=== PATIENT | male | born 1970 | race Caucasian/White ===

== ENCOUNTER 2021-01-28 23:57 | Emergency (ER) | payer MEDICAID, SELFPAY ==
[2021-01-28 23:58] VITALS: BP 145/109; PULSE 58; PULSE 66; RESP 18; RESP 24; TEMP 36.4; O2SAT 100; BMI 33.1
--- NOTE | 2021-01-29 00:13 | EDS_ITS ---
HPI History of Present Illness Chief Complaint: ETOH Intox Informant: patient Narrative Narrative: Brought in by EMS from home stating called EMS due to sudden dyspnea 1 hour prior to arrival. 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 Denies recent cough. States on the way home he got nauseated. Currently not nauseated. States due to his dyspnea called EMS. Remote tobacco quitting 3 years ago. History of anxiety on medications along with GERD. He states at age 35 was told he had a stress-induced heart attack however it was not documented. Denies chest pains. Denies fever. No other complaints. PFSH PFSH Home Medications alprazolam 0.25 mg PO BID 01/29/21 [History Last Taken Unknown] escitalopram oxalate [Lexapro] 10 mg PO DAILY 01/29/21 [History Last Taken Unknown] omeprazole 20 mg PO BID 01/29/21 [History Last Taken Unknown] Allergy/AdvReac Type Severity Reaction Status Date / Time Penicillins [PCN] Allergy Unknown Verified 07/28/15 14:05 Social History Smoking Status: Former smoker ROS ROS ED Constitutional Constitutional ED: Denies chills, fever(s) or sweats Eyes Eyes: Denies change in vision ENT ENT ED: Denies dysphagia or sore throat Cardiovascular Cardiovascular: Denies chest pain, leg edema, palpitations or racing heartbeat Respiratory/Chest Respiratory/Chest: Reports dyspnea; Denies cough or dyspnea on exertion Gastrointestinal Gastrointestinal: Denies abdominal pain, diarrhea, nausea or vomiting Genitourinary Genitourinary ED: Denies dysuria, hematuria or urinary frequency Musculoskeletal Musculoskeletal: Denies back pain, extremity pain or neck pain Integumentary Denies rash or wounds Neurologic Neurologic: Denies headache(s), paresthesias or weakness EXAM Physical Exam Const Vital Signs: 01/28/21 23:58 01/29/21 02:24 01/29/21 03:05 Temperature 97.5 F L Temperature Source Temporal Pulse Rate 58 L 61 61 Respiratory Rate 18 14 14 Blood Pressure 145/109 H 92/58 L 92/58 L Blood Pressure Mean 121 69 Pulse Ox 100 95 95 Oxygen Delivery Method Room Air Room Air Positive well nourished and well developed Constitutional Narrative: Initially somnolent from alcohol however would awaken and answer questions appropriately. When sleeping there was no distress, awakening states he felt short of breath grabbing at the left side of his chest. General Appearance ED: well developed and NAD HEENT Reports moist mucous membranes normocephalic and atraumatic Eyes PERRL, EOMs intact bilaterally and conjunctivae normal General Eye ED: Yes normal appearance of both eyes Neck no lymphadenopathy and supple General: Negative for tenderness Chest Wall Chest: Negative for tenderness Resp normal respiratory effort and normal air movement Resp Narrative: Symmetric breath sounds. Effort and Inspection: symmetric chest movement; Negative for respiratory distress Cardio regular rate, regular rhythm and no murmurs Peripheral Pulses: pulses 2+ throughout GI normal to inspection, nondistended, normoactive bowel sounds and non-tender Palpation: Negative for guarding or rebound tenderness present Back/Spine no CVA tenderness and no thoracic nor lumbar tenderness Extremity normal to inspection General Extremety ED: Negative for edema or tenderness General Extremity: Negative for edema Neuro oriented x3 and no sensory deficits noted Sensorium / Orientation: awake and alert Skin no rashes or lesions noted and no wounds MDM MDM MDM Narrative Medical decision making narrative: Patient vitals are stable, alcohol intoxication, however answering questions. Denies chest pains. Pulse ox 100% with his dyspnea complaints. EKG normal. Labs cardiac work-up negative. With exception of creatinine 1.46 with no old for comparison. Chest x-ray negative. Reevaluation at 0130: Patient's clinical symptoms improved. His spouse is present. Reports no history of CKD. He will be given a liter of fluids. With his reported stress induced heart attack at the age of 35 will obtain a delta troponin before being discharged. 0300: Delta troponin returned negative. Patient remained symptom-free. Was discharged with his spouse. Return precautions discussed. All questions were answered. Lab Data Attestation: I reviewed the patient's lab results. Labs: Laboratory Results - last 24 hr 01/29/21 01/29/21 01/29/21 00:20 00:20 02:21 WBC 5.7 RBC 4.58 L Hgb 14.4 Hct 40.6 MCV 88.6 MCH 31.4 MCHC 35.5 RDW Std Deviation 39.7 RDW Coeff of Lillie 12.3 Plt Count 153 MPV 10.7 Immature Gran % (Auto) 0.400 Neut % (Auto) 69.6 Lymph % (Auto) 22.5 [place] % (Auto) 5.3 Eos % (Auto) 1.8 Baso % (Auto) 0.4 Absolute Neuts (auto) 4.0 Absolute Lymphs (auto) 1.28 Nucleated RBC % 0 Sodium 142 Potassium 3.7 Chloride 107 Carbon Dioxide 25.0 Anion Gap 10 BUN 14 Creatinine 1.46 H Estim Creat Clear Calc 61.11 Est GFR (MDRD) Af Amer 65 Est GFR (MDRD) Non-Af 54 L BUN/Creatinine Ratio 9.6 L Glucose 115 H Calcium 9.2 Troponin I High Sens 9 8 Radiography Chest X-Ray - ED: 1 View, Read by ED Physician and Read by Radiologist Diagnostic Testing: Clinical Impression(s) from Imaging Studies Chest X-Ray 01/29/21 00:44 IMPRESSION: No acute abnormal cardiopulmonary finding. Electronically Signed: Ricardo Little MD at 1:18 EDT Tel , Service support , EKG Initial EKG: Attestation: I personally reviewed and interpreted this EKG as follows: Comments: Sinus rate of 56, no ST or T wave changes. Discharge Plan Triage Chief Complaint: ETOH Intox ED Provider: Bonifacio Pearson Dx/Rx/DC Orders Clinical Impression: Alcohol intoxication, Acute dyspnea, Acute renal insufficiency Instructions: ED Dyspnea, ED Alcohol Intoxication, ED Renal Insufficiency Prescriptions: No Action alprazolam 0.25 mg Tablet 0.25 mg PO BID RF: 0 omeprazole 20 mg Capsule,Delayed Release(Dr/Ec) 20 mg PO BID RF: 0 escitalopram oxalate [Lexapro] 10 mg Tablet 10 mg PO DAILY RF: 0 Primary Care Provider: Kalie Silva Referrals: Kalie Silva MD [Primary Care Provider] - 3-5 Days Activity Restrictions/Additional Instructions: Creatinine 1.46 today continue oral fluids. Recheck by your PCP as an outpatient. Cardiac work-up negative for your shortness of breath symptoms. Disposition Disposition: Home, Self Care Discharge Date/Time: 01/29/21 03:32
[2021-01-29 00:27] LABS: Absolute Lymphocyte Count 1.28 X10^3/uL (0.83-4.51); Basophil# 0.02 X10^3/uL; Basophil% 0.4 % (0-1); Eosinophils% 1.8 % (0-5); Hematocrit 40.6 % (40-54); Hemoglobin 14.4 g/dL (13.0-16.5); Lymphocyte # 1.28 X10^3/ul (0.83-4.51); Lymphocyte % 22.5 % (19-41); Mean Corp Hgb Conc 35.5 g/dL (32-36); Mean Corpuscular Hgb 31.4 pg (27.0-32.0); Mean Corpuscular Volume 88.6 fL (80-94); Mean Platelet Vol. 10.7 fl (6.2-12.0); Monocyte% 5.3 % (0-10); NRBC Flagged by Analyzer 0 % (0-5); Neutrophil # 3.96 X10^3/uL (2.7-7.7); Neutrophil % 69.6 % (47-70); Platelet Count 153 K/mm3 (150-450); RBC Distribution Width CV 12.3 % (11.6-14.6); RBC Distribution Width SD 39.7 fl (35.1-43.9); Red Blood Count 4.58 M/mm3 (4.6-6.2); White Blood Count 5.7 K/mm3 (4.4-11.0)
--- NOTE | 2021-01-29 00:44 | RAD_ITS ---
STUDY: X-RAY CHEST REASON FOR EXAM: Male, 50 years old. SOB TECHNIQUE: Portable, upright, AP chest radiograph COMPARISON: None. FINDINGS: The lungs are clear and expanded. There is no demonstrated pleural abnormality. Normal size heart. Normal mediastinum and dominga. Normal visualized pulmonary arteries. Normal visualized aortic arch and descending thoracic aorta. There is no demonstrated abnormality of the visualized soft tissue structures of the upper abdomen. RAD/Chest 1 View (Portable) IMPRESSION: No acute abnormal cardiopulmonary finding. Electronically Signed: Ricardo Little MD at 1:18 EDT Tel , Service support ,
[2021-01-29 00:45] LABS: Anion Gap 10 (5-15); BUN 14 mg/dL (7-18); BUN/Creat Ratio 9.6 RATIO (10-20); Calcium,Total 9.2 mg/dL (8.5-10.1); Chloride 107 mmol/L (98-107); Creatinine, Serum 1.46 mg/dL (0.70-1.30); EST Glomerular Filtration Rate 54 mL/min (>60); Est Glom Filt Rate - Afr Amer 65 mL/min (>60); Estimated Creatinine Clearance 61.11 ml/min; Glucose 115 mg/dL (74-106); Potassium 3.7 mmol/L (3.5-5.1); Sodium Level 142 mmol/L (136-145); Troponin-I HS 9 pg/mL (3.0-78.0)
[2021-01-29] MEDS: 0.9% Normal Saline 1,000 ML 999 ML IV (01:51)
[2021-01-29 02:24] VITALS: BP 92/58; PULSE 61; RESP 14; O2SAT 95
[2021-01-29 02:53] LABS: Troponin-I HS 8 pg/mL (3.0-78.0)
[2021-01-29 03:05] VITALS: BP 92/58; PULSE 61; RESP 14; O2SAT 95
== END 2021-01-29 03:32 | disposition home or self-care (01) ==
PROVIDERS: Emergency Provider Emergency Medicine; PCP Internal Medicine
DX: F10.129 Alcohol abuse with intoxication, unspecified (principal); N28.9 Disorder of kidney and ureter, unspecified; R06.02 Shortness of breath; F41.9 Anxiety disorder, unspecified; K21.9 Gastro-esophageal reflux disease without esophagitis; Z79.899 Other long term (current) drug therapy; Z87.891 Personal history of nicotine dependence
CPT/HCPCS: 36415; 71045; 80048; 84484; 85025; 93005; 96360; 99285; A4216

== ENCOUNTER → 2023-11-15 | Outpatient (CLI) | payer MEDICAID, SELFPAY ==
--- NOTE | 2023-11-15 07:01 | ECHOCS_ITS ---
Reason For Study: DYSPNEA Procedure This was a 2D Doppler, Color Flow transthoracic echocardiogram. The study was technically difficult. Contrast injection was performed. Exam performed in department. Left Ventricle Normal LV size. Moderate concentric left ventricular hypertrophy. Left ventricular systolic function is normal. The left ventricular ejection fraction is 55 %. Stage 1 diastolic dysfunction. No regional wall motion abnormalities noted. Right Ventricle Normal RV size. Normal systolic function. Mitral Valve Normal mitral valve. Tricuspid Valve Normal tricuspid valve. Aortic Valve Trisinus/trileaflet aortic valve. Pulmonic Valve The pulmonic valve is not well visualized. Great Vessels Normal aortic root. The pulmonary artery is normal size. Inferior vena cava collapse with respiration. Pericardium/Pleural No pericardial effusion. Medication Diluted definity 1ml given slow IV push to enhance endocardial definition. MMode/2D Measurements & Calculations LVIDd: 4.0 cm IVSd: 1.5 cm LVOT diam: 1.9 cm LVIDs: 3.2 cm LVPWd: 1.9 cm LVOT area: 2.7 cm2 RVDd: 2.6 cm FS: 20.0 % Ao root diam: 3.2 cm LAV(MOD-bp): 52.6 ml LVAd ap4: 29.8 cm2 LAV(MOD-bp) Indexed: 24.6 ml/m2 LVLd ap4: 7.8 cm LAV(MOD-sp2): 47.9 ml EDV(MOD-sp4): 91.0 ml LAV(MOD-sp4): 47.5 ml EDV(sp4-el): 96.0 ml LVAs ap4: 12.7 cm2 LVLs ap4: 5.7 cm ESV(MOD-sp4): 24.4 ml ESV(sp4-el): 24.2 ml EF(MOD-sp4): 73.3 % EF(sp4-el): 74.8 % SV(MOD-sp4): 66.7 ml SV(sp4-el): 71.7 ml LA A4 area: 18.8 cm2 LA dimension(2D): 3.9 cm RA A4 area: 17.1 cm2 Time Measurements MV dec time: 0.22 sec Doppler Measurements & Calculations MV E max ector: 48.4 cm/sec Lat Peak E' Ector: 7.0 cm/sec Med Peak E' Ector: 5.2 cm/sec MV A max ector: 66.1 cm/sec E/E' lat: 6.9 E/E' med: 9.3 MV E/A: 0.73 MV V2 max: 65.3 cm/sec Ao V2 max: 111.6 cm/sec MV max P.7 mmHg MV dec slope: 221.7 cm/sec2 Ao max P.0 mmHg MV V2 mean: 36.8 cm/sec Ao V2 mean: 74.7 cm/sec MV mean P.65 mmHg Ao mean P.6 mmHg MV V2 VTI: 18.5 cm Ao V2 VTI: 21.7 cm AV (velocity ratio): 1.1 MVA(VTI): 3.4 cm2 STAR(I,D): 2.9 cm2 STAR(V,D): 2.5 cm2 LV V1 max: 102.7 cm/sec SV(LVOT): 63.5 ml PA V2 max: 96.8 cm/sec LV V1 max P.2 mmHg PA V2 mean: 66.4 cm/sec LV V1 mean P.3 mmHg LV V1 mean: 70.5 cm/sec LV V1 VTI: 23.4 cm ECHO/Echo Complete W/ Contrast Interpretation Summary Normal LV size. Left ventricular systolic function is normal. The left ventricular ejection fraction is 55 %. Moderate concentric left ventricular hypertrophy. Stage 1 diastolic dysfunction. Structurally normal valves. Contrast injection was performed. Ordering Physician: Jim Cronin Referring Physician: Jim Cronin Performed By: Elvia Hoff RCS
--- NOTE | 2023-11-15 10:56 | STRESSREP ---
Stress Test Report Exercise myocardial perfusion stress test. 53-year-old male with a history of shortness of breath Stress protocol: Resting EKG demonstrates sinus rhythm with a rate of 59 bpm resting blood pressure is 118/82 mmHg. The patient exercised according to the regular Aristides protocol for a total duration of 10 minutes attaining a maximum heart rate of 151 bpm which was 91% of maximum predicted heart rate; the maximum workload was 13.4 metabolic equivalents. At rest there were no ST or T wave changes noted to suggest ischemia and at peak exercise upsloping ST changes only were noted which did not meet the criteria for ischemia. No clinical angina was noted the test was terminated due to the target heart rate being achieved/fatigue. The peak blood pressure was 164/70 mmHg. Rate-pressure product was 22,400. Myocardial perfusion protocol. 14 point mCi of technetium 99m sestamibi was injected at rest. The patient exercised according to regular Aristides protocol for total duration of 10 minutes and at peak exercise 45 mCi of technetium 99m sestamibi was injected stress images were obtained stress and rest images were reconstructed in comparing the short axis vertical long and horizontal long axis. Gated images were also obtained. Perfusion SPECT analysis: Review of the stress images demonstrate normal uptake of tracer noted in all areas of the myocardium. The resting images similarly demonstrate normal uptake of tracer noted in all areas of the myocardium. No areas of reversibility are noted to suggest ischemia no previous infarct was noted. Gated SPECT analysis: The gated ejection fraction is 73%. Conclusion: Normal exercise myocardial perfusion stress test at a high workload Preserved ejection fraction.
== END | disposition home or self-care (01) ==
LOC: CVS 07:00
PROVIDERS: PCP Internal Medicine; Referring Provider Internal Medicine Cardiovascular Disease; Visit Provider Internal Medicine Cardiovascular Disease
DX: R06.02 Shortness of breath (principal)
CPT/HCPCS: 93306; 78452; 93017; A9500; Q9957; A4216; C8929

== ENCOUNTER 2024-06-06 19:37 | Observation (INO) | payer OTHER, SELFPAY ==
[2024-06-06] VITALS (7 sets, daily range): BP systolic 154–181; BP diastolic 97–115; PULSE 67–92; RESP 16–27; TEMP 36.3–36.8; O2SAT 97–99; BMI 32.7; BMI 32.8; BMI 32.1
--- NOTE | 2024-06-06 20:09 | CT_ITS ---
PROCEDURE: BRAIN/HEAD WITHOUT CONTRAST REASON FOR EXAM: Weakness, headache TECHNIQUE: Head CT without intravenous contrast. COMPARISON: None. FINDINGS: There is no acute intracranial hemorrhage, mass effect, or evidence of large acute infarct. Brain: Normal CSF Spaces: Normal Sinuses/Mastoids: Mild ethmoid and bilateral maxillary sinus mucosal thickening. Bones: Unremarkable CT/Brain/Head without Contrast IMPRESSION: No acute intracranial abnormality identified. Mild paranasal sinus mucosal thi ckening One or more dose reduction techniques were used (e.g., Automated exposure contr ol, adjustment of the mA and/or kV according to patient size, use of iterative reconstruction technique). Reading Location: [id number]
--- NOTE | 2024-06-06 20:22 | ED.VIS.STROK ---
HPI History of Present Illness Chief Complaint: Neuro S/Sx Informant: patient and family Narrative Narrative: Patient is a 54-year-old male with history of anxiety, depression and hyperlipidemia presenting from home for intermittent episodes of right-sided arm pain as well as right hand weakness and right leg weakness. Patient states about a month ago he had an episode of not feeling well, vertigo and vomiting. He did not think too much of it but then 2 days ago when they were going to play at [facility] for his daughter that he could get out of the car. States he was not feeling good, his right arm was hurting and his right leg felt heavy. He had a coughing fit and had a hot flash. He states he eventually felt better and went to the auditorium where the plate was. Throughout the play he stated his right arm was hurting and he felt he could squeeze with his right hand. His right leg was dragging behind him. This episode lasted a few hours when he woke up the next morning it had resolved. Yesterday he notes his leg was better and as the day went on his right arm felt better. 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 Today he felt okay however this morning his arm started feel sore again. He has had many episodes of his right leg feeling weak. On his way here he had 3 episodes of vomiting. He notes he has been having headaches. States he does get some vision changes. They looked at the symptoms online were worried that there could be stroke and came in for further evaluation. Patient denies any trauma or head injury. Denies any fevers. Denies any chest pain or difficulty breathing. Is [id number]. No other complaints or concerns reported at this time. [facility] Medical History SOB (shortness of breath) Testicular hypofunction Mixed hyperlipidemia Depression Anxiety H/O esophageal reflux Nonspecific chest pain History of broken nose Home Medications ?Medication ?Instructions ?Recorded ?Last Taken ?Type escitalopram oxalate 10 mg tablet 10 mg PO DAILY 01/29/21 Unknown History (Lexapro) alprazolam 0.25 mg tablet 0.25 mg PO DAILY anxiety 10/07/23 Unknown History aspirin 81 mg tablet,delayed 81 mg PO DAILY 10/07/23 Unknown History release (Adult Low Dose Aspirin) albuterol sulfate 90 mcg/actuation 2 puff inhalation Q4H PRN 10/30/23 Unknown History aerosol inhaler shortness of breath or wheezing omeprazole 20 mg capsule,delayed 20 mg PO DAILY 10/30/23 Unknown History release Allergy/AdvReac Type Severity Reaction Status Date / Time Penicillins (PCN) Allergy Unknown Verified 06/06/24 19:37 Family History Father Myocardial infarction at 56 years old Mother Dementia Surgical History No history of previous surgery Social History household members: spouse and children number of children: 2 Smoking Status: Former smoker Smokeless tobacco user: chewing tobacco alcohol intake: current details: 2 drinks per week substance use type: does not use what type of physical activity do you participate in: walking, running and weight training do you feel safe at home: Yes ROS ROS ED Constitutional Constitutional ED: Reports sweats; Denies chills or fever(s) Eyes Eyes: Reports blurry vision ENT ENT ED: Denies rhinorrhea or sore throat Cardiovascular Cardiovascular: Denies chest pain Respiratory/Chest Respiratory/Chest: Denies cough or dyspnea Gastrointestinal Gastrointestinal: Reports nausea and vomiting; Denies abdominal pain Musculoskeletal Musculoskeletal: Reports other Details: right forearm pain ; Denies arthralgias or myalgias Integumentary Denies rash Neurologic Neurologic: Reports headache(s) and weakness; Denies paresthesias Psychiatric Psychiatric: Reports anxiety; Denies depression Hematologic/Lymphatic Hematologic/Lymphatic: Denies easy bleeding or easy bruising EXAM Physical Exam Const Vital Signs: 06/06/24 19:37 06/06/24 20:37 06/06/24 21:00 Temperature 98.2 F Temperature Source Oral Pulse Rate 92 74 74 Respiratory Rate 16 27 H 16 Blood Pressure 181/115 H 154/108 H 155/99 H Blood Pressure Mean 137 123 117 Pulse Ox 98 97 99 Oxygen Delivery Method Room Air Room Air 06/06/24 22:00 06/06/24 22:15 Temperature 98 F Temperature Source Pulse Rate 72 72 Respiratory Rate 18 18 Blood Pressure 159/101 H 159/101 H Blood Pressure Mean 120 120 Pulse Ox 97 97 Oxygen Delivery Method Room Air Positive well nourished and well developed General Appearance ED: well developed and NAD HEENT Reports TM's clear and moist mucous membranes Tympanic Membrane ED: Yes TM's clear Eyes PERRL and EOMs intact bilaterally Eyes Narrative: Very mild nystagmus bilaterally with gaze in all directions Neck supple Chest Wall inspection of chest normal and palpation of chest normal Resp normal respiratory effort and clear to auscultation bilaterally Cardio no murmurs Rate: regular rate Rhythm: regular rhythm GI normal to inspection, nondistended, normoactive bowel sounds and soft to palpation Extremity normal to inspection Extremity Narrative: 2+ radial and DP pulses present General Extremety ED: Negative for deformity, edema or tenderness General Extremity: Negative for deformity or edema Neuro oriented x3, CN's II-XII intact bilaterally and no sensory deficits noted Neuro Narrative: Normal [id number]. No truncal ataxia appreciated. Sensorium / Orientation: alert Speech: speech normal Sensory Exam: sensory level loss detected Motor Exam: Negative for general weakness Psych mental status grossly normal Skin no wounds Lesions: no lesions NIHSS NIHSS Initial: 1a Level of Consciousness: 0 1b LOC Questions (Score 2 if aphasic/stupor): 0 1c LOC Commands (Only score 1st attempt): 0 2 Best Gaze (If aphasic, use reflexive mvmts.): 0 3 Visual: 0 4 Facial Palsy: 0 5 Motor Arm Right (UN = amputation/fusion): 0 5 Motor Arm Left: 0 6 Motor Leg Right: 0 6 Motor Leg Left: 0 7 Limb ataxia (Only + if out of proportion): 0 8 Sensory (Aphasia/stupor=0 or 1, coma=2): 0 9 Best Language: 0 10 Dysarthria (mute, coma=2, intubated=UN): 0 11 Extinction and Inattention (only scored if +): 0 Total Score: 0 MDM MDM MDM Narrative Medical decision making narrative: Patient is evaluated for intermittent episodes of right-sided weakness. He is also had some associated right forearm pain as well as slight episodes of vomiting. He is right-hand dominant. In the ER he is hypertensive. Differential includes stroke, space-occupying lesion, intracranial hemorrhage, TIA, ACS, hypertensive emergency, psychosomatic disorder, [place] abnormalities, LUIS MANUEL. Workup including CBC, CMP, high sensitive troponin, urinalysis and CT of the brain as well as chest x-ray do not show any acute process. CTA is added on. Given the waxing and waning neurologic symptoms will admit patient for further TIA workup. Case discussed with hospitalist, Dr. Escobedo. Patient is agreeable with this. CTA does show some stenosis but no critical stenosis. No other acute process noted. Lab Data Attestation: I reviewed the patient's lab results. Labs: Laboratory Results - last 24 hr 06/06/24 06/06/24 19:45 21:09 WBC 5.4 RBC 4.96 Hgb 15.6 Hct 44.5 MCV 89.7 MCH 31.5 MCHC 35.1 RDW Std Deviation 41.3 RDW Coeff of Lillie 12.8 Plt Count 202 MPV 11.0 Immature Gran % (Auto) 0.200 Neut % (Auto) 51.6 Lymph % (Auto) 30.9 [place] % (Auto) 11.3 H Eos % (Auto) 5.4 H Baso % (Auto) 0.6 Absolute Neuts (auto) 2.8 Absolute Lymphs (auto) 1.66 Nucleated RBC % 0 PT 12.9 INR 1.0 APTT 25.5 Sodium 142 Potassium 4.1 Chloride Direct 105 Carbon Dioxide 22.8 Anion Gap 15 BUN 20 H Creatinine 1.42 H Estim Creat Clear Calc 70.16 Est GFR (MDRD) Non-Af 58 L BUN/Creatinine Ratio 13.9 Glucose 95 Calcium 9.6 Total Bilirubin 0.67 AST 28 ALT 36 Alkaline Phosphatase 99 Troponin T High Sens 10 Total Protein 7.5 Albumin 4.5 Globulin 3.0 Albumin/Globulin Ratio 1.5 Lipase 32 Urine Color Yellow Urine Clarity Sl. Cloudy Urine pH 6.0 Ur Specific [place] 1.020 Urine Protein 15 H Urine Glucose (UA) Normal Urine Ketones Negative Urine Occult Blood Negative Urine Nitrite Negative Urine Bilirubin Negative Urine Urobilinogen Normal Ur Leukocyte Esterase Negative Urine RBC 0 SEEN Urine WBC 0 SEEN Ur Squamous Epith Cells 0-5 SEEN Amorphous Sediment 1+ URATE Urine Bacteria 0 SEEN Urine Mucus 0 SEEN Radiography Diagnostic Testing: Clinical Impression(s) from Imaging Studies Brain CT 06/06/24 20:09 IMPRESSION: No acute intracranial abnormality identified. Mild paranasal sinus mucosal thickening One or more dose reduction techniques were used (e.g., Automated exposure control, adjustment of the mA and/or kV according to patient size, use of iterative reconstruction technique). Reading Location: [facility] Chest X-Ray 06/06/24 20:32 IMPRESSION: No focal infiltrate. Reading Location: [facility] Head/Neck CTA 06/06/24 21:11 IMPRESSION: Approximate 50% stenosis seen of the left carotid bulb. Less than 50% seen on the right. No high-grade stenosis detected. No evidence of large vessel occlusion. One or more dose reduction techniques were used (e.g., Automated exposure control, adjustment of the mA and/or kV according to patient size, use of iterative reconstruction technique). Reading Location: [facility] Management Discussion w/another healthcare provider: Hospitalist Discharge Plan Dx/Rx/DC Orders Clinical Impression: Right-sided muscle weakness, Vomiting Disposition Disposition: Acute Care [facility]
--- NOTE | 2024-06-06 20:32 | RAD_ITS ---
PROCEDURE: CHEST PA AND LATERAL REASON FOR EXAM: Vomiting TECHNIQUE: Frontal and lateral views of the chest. COMPARISON: 29 January 2021 FINDINGS: Stable examination. No evidence of infiltrate, effusion or pneumothorax. Bronchial thickening. RAD/Chest PA and Lateral IMPRESSION: No focal infiltrate. Reading Location: [id number]
[2024-06-06 20:39] LABS: Troponin T High Sensitivity 10 ng/L (<=22)
[2024-06-06 20:58] LABS: Absolute Lymphocyte Count 1.66 X10^3/uL (0.83-4.51); Absolute Neutrophil Count 2.8 X10^3/uL (2.0-7.7); Basophil# 0.03 X10^3/uL; Basophil% 0.6 % (0-1); Eosinophil# 0.29 X10^3/uL; Eosinophils% 5.4 % (0-5); Hematocrit 44.5 % (40-54); Hemoglobin 15.6 g/dL (13.0-16.5); Lymphocyte # 1.66 X10^3/ul (0.83-4.51); Lymphocyte % 30.9 % (19-41); Mean Corp Hgb Conc 35.1 g/dL (32-36); Mean Corpuscular Hgb 31.5 pg (27.0-32.0); Mean Corpuscular Volume 89.7 fL (80-94); Monocyte# 0.61 X10^3/uL; Monocyte% 11.3 % (0-10); NRBC Flagged by Analyzer 0 % (0-5); Neutrophil # 2.78 X10^3/uL (2.7-7.7); Neutrophil % 51.6 % (47-70); Platelet Count 202 K/mm3 (150-450); RBC Distribution Width CV 12.8 % (11.6-14.6); RBC Distribution Width SD 41.3 fl (35.1-43.9); Red Blood Count 4.96 M/mm3 (4.6-6.2); White Blood Count 5.4 K/mm3 (4.4-11.0)
[2024-06-06 21:03] LABS: Partial Thromboplast Time 25.5 Seconds (24.1-36.2); Prothrombin Time (Protime)PT. 12.9 SECONDS (11.7-14.9)
[2024-06-06 21:07] LABS: ALB/GLOB Ratio 1.5 RATIO (0.9-2.4); AST(SGOT) 28 U/L (<=37); Alanine Aminotransfer ALT/SGPT 36 U/L (<=46); Albumin, Serum 4.5 g/dL (3.5-5.0); Alkaline Phosphatase 99 U/L (40-129); Anion Gap 15 (5-15); BUN 20 mg/dL (4-19); BUN/Creat Ratio 13.9 RATIO (10-20); Calcium 9.6 mg/dL (7.6-11.0); Carbon Dioxide 22.8 mmol/L (22.0-29.0); Chloride 105 mmol/L (96-108); Creatinine, Serum 1.42 mg/dL (0.70-1.20); EST Glomerular Filtration Rate 58 (>60); Estimated Creatinine Clearance 70.16 ml/min (50-250); Glucose 95 mg/dL (70-99); Lipase 32 U/L (13-75); Potassium 4.1 mmol/L (3.3-5.1); Protein, Total 7.5 g/dL (5.9-8.4); Sodium Level 142 mmol/L (133-145); Total Bilirubin 0.67 mg/dL (0.00-1.30)
--- NOTE | 2024-06-06 21:11 | CT_ITS ---
PROCEDURE: CTA HEAD AND NECK W/ CONTRAST TECHNIQUE: CTA imaging of the head and neck from the aortic arch to the skull vertex with intravenous contrast. 3D reconstructions. Intravenous contrast administration using standard CT COMPARISON: None. # of known CTs in the past 12 months: 0 # of known Cardiac Nuclear Medicine Studies in the past 12 months: 0 FINDINGS: Slightly prominent hilar and mediastinal lymph nodes detected presumably reactive. Aortic Arch: Normal size and branching pattern. No significant atherosclerotic plaque. Brachiocephalic and Subclavians: Unremarkable RIGHT Carotid: Right CCA: Unremarkable. Right ICA: Unremarkable. Maximum stenosis (NASCET): <50 % Right ECA: Unremarkable. LEFT Carotid: Left CCA: Unremarkable. Left ICA: Unremarkable. Maximum stenosis (NASCET): Approximately 50% % Left ECA: Unremarkable. Vertebrals: Codominant. Arise from the subclavians. Both vertebrals form the basilar. RIGHT Vertebral: Unremarkable. LEFT Vertebral: Unremarkable. No intracranial aneurysms or large vascular malformations are identified. Anterior cerebral arteries: Unremarkable. Middle cerebral arteries: Unremarkable. Basilar artery: Unremarkable. Posterior cerebral arteries: Unremarkable. Other major branches of the posterior circulation: Unremarkable. Major venous structures: Unremarkable. There does appear tortuous vascularity suggesting systemic hypertension Heterogeneous thyroid gland. Query chronic thyroid disease. CT/CTA Head AND Neck W/ Contrast IMPRESSION: Approximate 50% stenosis seen of the left carotid bulb. Less than 50% seen on the right. No high-grade stenosis detected. No evidence of large vessel occlusion. One or more dose reduction techniques were used (e.g., Automated exposure contr ol, adjustment of the mA and/or kV according to patient size, use of iterative reconstruction technique). Reading Location: [id number]
[2024-06-06 21:15] LABS: Bacteria 0 SEEN /hpf (None Seen); Mucous, Urine 0 SEEN /hpf (<or=2+); White Blood Cells 0 SEEN /hpf (0-5)
[2024-06-06 21:25] LABS: Color, Urine Yellow (Yellow); Glucose, Dipstick Normal (Normal); Ketone-Dipstick Negative (Negative); Leukocyte Esterase-Dipstick Negative /ul (Negative); Nitrite-Dipstick Negative (Negative); Occult Blood-Urine Negative /ul (Negative); Protein-Dipstick 15 mg/dl (Negative); Urine Bilirubin Dipstick Negative (Negative); Urine Clarity Sl. Cloudy (Clear); Urine Urobilinogen Normal (Normal)
[2024-06-06 21:33] LABS: Amorphous Sediment 1+ URATE; Red Blood Cells-Urine 0 SEEN /hpf (0-5); Squamous Epithelial Cells - UA 0-5 SEEN /hpf (0-5)
--- NOTE | 2024-06-06 22:03 | PCM.HP.STD ---
[facility] - General General Date of Admission: 06/06/24 Date of Service: 06/06/24 Chief Complaint: Intermittent Right-sided Weakness. HPI Narrative SEDRICK DAUGHERTY, is a Right handed 54 M with a past medical history of hyperlipidemia; not on treatment, obesity; with BMI of 32.9 this admission, former tobacco abuse, history of testicular hypofunction, history of nonspecific chest pain; on baby aspirin daily, history of chronic vertigo; with recent escalating pattern of severity, depression with anxiety; with escitalopram and alprazolam, listed allergy to PCN (?), history of nasal fracture, GERD; on omeprazole plus multiple as needed OTC medications and OA who presents to [facility] ER complaining of intermittent Right-sided weakness. Mr. Daugherty reports his symptoms began approximately one month ago with an episode of vertigo followed by nausea and vomiting with bilious emesis. Since his symptoms resolved spontaneously he did not seek medical attention at that time. Then 2 days ago he attended a play at [facility] [employer] for his daughter when he noted that he could not get out of the car. He states he was overall not feeling well and he had an aching sensation in his Right arm and his Right leg felt heavy with a subsequent coughing fit and hot flash - but he was able to recompose himself and started to feel better and eventually went to the play. When he did finally get out of the car he noted his Right leg was dragging behind him with this weakness persisting for approximately 6 hours before spontaneously resolving when he woke up the next morning. 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 On the way to the hospital he had severe nausea with 3 episodes of bilious emesis complicated by intermittent headaches and visual changes with his family worried that he may be having a stroke. He denies recent head trauma, recent injury, alcohol abuse, illicit substance abuse, fever, chills, abdominal pain, chest pain or SOB. In the ER he was noted to have uncontrolled hypertension of 181/115 mmHg present on admission complicated by clinical evidence of TIA versus CVA; with intermittent Right-sided weakness with Vertigo causing Nausea and Vomiting with bilious emesis with CTA of the head and neck revealing ~50% stenosis seen of the left carotid bulb with less than 50% seen on the right and no high-grade stenosis detected along with no evidence of large vessel occlusion along with a CXR that revealed bronchial thickening but no evidence of acute infiltrate effusion or pneumothorax. He was then admitted to the PCU under observation status for ongoing care for a stay that is expected to be less than 2 midnights. [facility] Medical History (Updated 06/07/24 @ 01:[address] Otis Schilling DO) Chronic pain SOB (shortness of breath) Testicular hypofunction Mixed hyperlipidemia Depression Anxiety H/O esophageal reflux Nonspecific chest pain History of broken nose Home Medications ?Medication ?Instructions ?Recorded ?Last Taken ?Type escitalopram oxalate 10 mg tablet 10 mg PO DAILY 01/29/21 Unknown History (Lexapro) alprazolam 0.25 mg tablet 0.25 mg PO DAILY anxiety 10/07/23 Unknown History aspirin 81 mg tablet,delayed 81 mg PO DAILY 10/07/23 Unknown History release (Adult Low Dose Aspirin) albuterol sulfate 90 mcg/actuation 2 puff inhalation Q4H PRN 10/30/23 Unknown History aerosol inhaler shortness of breath or wheezing omeprazole 20 mg capsule,delayed 20 mg PO DAILY 10/30/23 Unknown History release Allergy/AdvReac Type Severity Reaction Status Date / Time Penicillins (PCN) Allergy Unknown Verified 06/06/24 19:37 Family History Father Myocardial infarction at 56 years old Mother Dementia Surgical History No history of previous surgery Social History household members: spouse and children number of children: 2 Smoking Status: Former smoker Smokeless tobacco user: chewing tobacco alcohol intake: current details: 2 drinks per week substance use type: does not use what type of physical activity do you participate in: walking, running and weight training do you feel safe at home: Yes ROS ROS Narrative Review of Systems: Constitutional: Patient admits to sweats and malaise but he denies fever or chills. Eyes: Patient admits to intermittent blurring of vision but he denies discharge from eyes. ENT: Patient denies runny nose, sore throat or ear pain. Resp: Patient denies shortness of breath or cough. CV: Patient denies chest pain, palpitations, heart racing or lower extremity edema. GI: Patient admits to nausea and vomiting with bilious emesis as noted in HPI. He denies abdominal pain. MSK: Patient admits to painful Right forearm but he denies arthralgias. Skin: Patient denies rash, abscess, wounds or jaundice. Psych: Patient admits to heightened anxiety but he denies SI or HI. Neuro: Patient admits to intermittent headaches with blurriness of vision and vertigo complicated by intermittent Right-sided weakness as per HPI. He denies paresthesias. Allergy: Patient denies lip swelling, tongue swelling or urticaria. Hematology: Patient denies easy bleeding or easy bruisability. Endocrinology: Patient denies polyuria, polydipsia or polyphagia. 14 point ROS was negative except for positives noted above in HPI. Vital Signs Vital Signs Vital Signs: 06/06/24 19:37 06/06/24 20:37 06/06/24 21:00 Temperature 98.2 F Temperature Source Oral Pulse Rate 92 74 74 Respiratory Rate 16 27 H 16 Blood Pressure 181/115 H 154/108 H 155/99 H Blood Pressure Mean 137 123 117 Pulse Ox 98 97 99 Oxygen Delivery Method Room Air Room Air Weight Weight: 229 lb 4.492 oz Body Mass Index (BMI) 32.8 Physical Exam Const alert, oriented x3 and no apparent distress General Appearance: cooperative HEENT normocephalic, head/scalp atraumatic, hearing grossly normal bilaterally and moist oral mucous membranes Eyes PERRL, EOMs intact bilaterally and conjunctivae normal Eyes Narrative: Patient has very mild nystagmus bilaterally with gaze in all directions. Neck no lymphadenopathy, supple and no JVD Resp normal respiratory effort, no retractions, no use of accessory muscles and clear to auscultation bilaterally Cardio regular rate and regular rhythm GI normal to inspection, nondistended, normoactive bowel sounds, soft to palpation, non-tender and non-distended Extremity normal to inspection, full ROM and no clubbing, cyanosis or edema Skin Skin Narrative: Patient has no evidence of rash, abscess, wounds or jaundice. Neuro oriented x3, CN's II-XII intact bilaterally, moves all extremities and no focal motor deficits Sensorium / Orientation: awake, alert, oriented to person, oriented to place and oriented to time Speech: speech normal Psych Mood & Affect: anxious Results Medical Records Data Attestation: I reviewed the patient's medical records Lab / Micro Data Attestation: I reviewed the patient's lab results. 06/06/24 19:45 06/06/24 19:45 Labs: Laboratory Results - last 24 hr 06/06/24 19:45: WBC 5.4, RBC 4.96, Hgb 15.6, Hct 44.5, MCV 89.7, MCH 31.5, MCHC 35.1, RDW Std Deviation 41.3, RDW Coeff of Lillie 12.8, Plt Count 202, MPV 11.0, Immature Gran % (Auto) 0.200, Neut % (Auto) 51.6, Lymph % (Auto) 30.9, Mckinley % (Auto) 11.3 H, Eos % (Auto) 5.4 H, Baso % (Auto) 0.6, Absolute Neuts (auto) 2.8, Absolute Lymphs (auto) 1.66, Nucleated RBC % 0, PT 12.9, INR 1.0, APTT 25.5, Sodium 142, Potassium 4.1, Chloride Direct 105, Carbon Dioxide 22.8, Anion Gap 15, BUN 20 H, Creatinine 1.42 H, Estim Creat Clear Calc 70.16, Est GFR (MDRD) Non-Af 58 L, BUN/Creatinine Ratio 13.9, Glucose 95, Calcium 9.6, Total Bilirubin 0.67, AST 28, ALT 36, Alkaline Phosphatase 99, Troponin T High Sens 10, Total Protein 7.5, Albumin 4.5, Globulin 3.0, Albumin/Globulin Ratio 1.5, Lipase 32 06/06/24 21:09: Urine Color Yellow, Urine Clarity Sl. Cloudy, Urine pH 6.0, Ur Specific [place] 1.020, Urine Protein 15 H, Urine Glucose (UA) Normal, Urine Ketones Negative, Urine Occult Blood Negative, Urine Nitrite Negative, Urine Bilirubin Negative, Urine Urobilinogen Normal, Ur Leukocyte Esterase Negative, Urine RBC 0 SEEN, Urine WBC 0 SEEN, Ur Squamous Epith Cells 0-5 SEEN, Amorphous Sediment 1+ URATE, Urine Bacteria 0 SEEN, Urine Mucus 0 SEEN Micro: Microbiology 06/06/24 20:14 Mucosa - Nose SARS-CoV-2, Influenza & RSV (PCR) - Final Imaging Radiology Impression Brain CT 06/06/24 20:09 IMPRESSION: No acute intracranial abnormality identified. Mild paranasal sinus mucosal thickening One or more dose reduction techniques were used (e.g., Automated exposure control, adjustment of the mA and/or kV according to patient size, use of iterative reconstruction technique). Reading Location: [id number] Chest X-Ray 06/06/24 20:32 IMPRESSION: No focal infiltrate. Reading Location: [id number] [facility] Imaging Services [address] [place] [id number] CTA Head AND Neck W/ Contrast MR#: [id number] Acct: [id number] Name: SEDRICK DAUGHERTY Rep #: [id number] : 1970 M 54 From: Biju Tapia MD PCP: Dr. Kalie Silva MD Status: [facility] Study: CTA Head AND Neck W/ Contrast Date of Exam: 06/06/24 Exam# [id number] Ordering Dr: Yokasta Marti DO PROCEDURE: CTA HEAD AND NECK W/ CONTRAST TECHNIQUE: CTA imaging of the head and neck from the aortic arch to the skull vertex with intravenous contrast. 3D reconstructions. Intravenous contrast administration using standard CT COMPARISON: None. # of known CTs in the past 12 months: 0 # of known Cardiac Nuclear Medicine Studies in the past 12 months: 0 FINDINGS: Slightly prominent hilar and mediastinal lymph nodes detected presumably reactive. Aortic Arch: Normal size and branching pattern. No significant atherosclerotic plaque. Brachiocephalic and Subclavians: Unremarkable RIGHT Carotid: Right CCA: Unremarkable. Right ICA: Unremarkable. Maximum stenosis (NASCET): <50 % Right ECA: Unremarkable. LEFT Carotid: Left CCA: Unremarkable. Left ICA: Unremarkable. Maximum stenosis (NASCET): Approximately 50% % Left ECA: Unremarkable. Vertebrals: Codominant. Arise from the subclavians. Both vertebrals form the basilar. RIGHT Vertebral: Unremarkable. LEFT Vertebral: Unremarkable. No intracranial aneurysms or large vascular malformations are identified. Anterior cerebral arteries: Unremarkable. Middle cerebral arteries: Unremarkable. Basilar artery: Unremarkable. Posterior cerebral arteries: Unremarkable. Other major branches of the posterior circulation: Unremarkable. Major venous structures: Unremarkable. There does appear tortuous vascularity suggesting systemic hypertension Heterogeneous thyroid gland. Query chronic thyroid disease. CT/CTA Head AND Neck W/ Contrast IMPRESSION: Approximate 50% stenosis seen of the left carotid bulb. Less than 50% seen on the right. No high-grade stenosis detected. No evidence of large vessel occlusion. One or more dose reduction techniques were used (e.g., Automated exposure control, adjustment of the mA and/or kV according to patient size, use of iterative reconstruction technique). Reading Location: [id number] CC: Dr. Yokasta Marti DO; Dr. 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 TIA versus CVA; with intermittent Right-sided weakness with Vertigo causing Nausea and Vomiting with bilious emesis with CTA of the head and neck revealing ~50% stenosis seen of the left carotid bulb with less than 50% seen on the right and no high-grade stenosis detected along with no evidence of large vessel occlusion along with clinical evidence of Nystagmus in both eyes with gaze in all directions - Admit to PCU under observation status. Increase aspirin to 162 mg daily plus start high-dose atorvastatin. Give meclizine as needed for vertigo for suspected underlying BPPV. Give ondansetron IV as needed for nausea and vomiting. Complete stroke workup with MRI of brain without contrast and check echocardiogram to evaluate LVEF. Check TSH, HgbA1c, UDS, TRACY and B12 level to evaluate for potentially reversible causes of confusion. Finally, we will consult [facility] tel[facility] to see this patient for further recommendations with help appreciated in advance. 2. Uncontrolled Hypertension of 181/115 mmHg present on admission complicating #1 - Allow for 'permissive hypertension' until CVA definitively ruled out on MRI. 3. Severe GERD; on omeprazole 20 mg daily with suspected silent aspiration causing worsening cough; with Post-Tussive Emesis and suspected gastritis compounding #1 & #2 - Increase PPI with Protonix 40 mg p.o. twice daily plus sucralfate 1 g p.o. AC. Patient should be considered for outpatient EGD with chronic uncontrolled GERD. 4. Depression with anxiety; with diagnoses listed from #1 - #3 causing acutely heightened anxiety - Maintain home regimen and treat as noted. Otherwise, we will continue supportive care as outlined above monitor for improvement. 5. Obesity; with BMI of 32.9 this admission adding to the burden of disease outlined from #1 - #4 - Weight loss will be recommended. This complicates his case and may hamper recovery. 6. Hyperlipidemia; not on treatment - Patient started on statin for #1 with Lipid Profile pending in AM. 7. Former tobacco abuse - Noted. 8. History of testicular hypofunction - Noted. 9. History of nonspecific chest pain; on baby aspirin daily - Maintain aspirin at 162 mg daily for #1. 10. Listed allergy to PCN (?) - We will avoid this class of agents. 11. History of nasal fracture - Noted for the sake of completeness. 12. Resume PPI. 13. OA - Give acetaminophen prn pain or fever. 14. DVT prophylaxis - Lovenox 40 mg sq daily plus SCD's. Total time: Approximately (but not less than) 70 minutes. Charges/Coding Visit Charges OBSV E&M: 03089 Observ/hosp same date L2
--- NOTE | 2024-06-06 22:09 | EKG12_ITS ---
Test Reason : NEURO Blood Pressure : */* mmHG Vent. Rate : 66 BPM Atrial Rate : 66 BPM P-R Int : 144 ms QRS Dur : 90 ms QT Int : 398 ms P-R-T Axes : 38 69 26 degrees QTcB Int : 417 ms Normal sinus rhythm Normal ECG Confirmed by Navjot Yeager ([id number]), supervising editor news reel KALPANA QUIROGA ([id number]) on 06/08/2024 6:51:55 AM Referred By: Confirmed By: Navjot Yeager
[2024-06-06 23:06] LABS: Alcohol, Blood (Medical)-Serum < 10.1 mg/dL (<=10.0); TROPONIN VARIANCE 2 HR 0; Troponin T High Sens 2 HR 10 ng/L (<=22)
[2024-06-06 23:09] LABS: Amphetamine Urine NEGATIVE (<1000 ng/mL); Barbiturate Urine NEGATIVE (< 200 ng/mL); Benzodiazepine Urine NEGATIVE (< 200 ng/mL); Buprenorphine Urine NEGATIVE (< 200 ng/mL); Cocaine Urine NEGATIVE (< 300 ng/mL); Fentanyl, Urine NEGATIVE; Methadone Urine NEGATIVE (< 300 ng/mL); Opiates Urine NEGATIVE (< 300 ng/mL); Oxycodone, Urine NEGATIVE (< 100 ng/mL); PCP Urine NEGATIVE (< 25 ng/mL); THC Urine NEGATIVE (< 50 ng/mL)
[2024-06-06] MEDS: Atorvastatin Calcium 80 MG Tablet PO (23:37)
[2024-06-06] MEDS: Aspirin E.C. 81 MG Tablet 162 MG PO (23:49)
[2024-06-07] VITALS (7 sets, daily range): BP systolic 115–166; BP diastolic 72–108; PULSE 72–93; RESP 14–20; TEMP 36.6–37.5; O2SAT 95–98; BMI 32.1
[2024-06-07 01:33] LABS: Vitamin B12 314 pg/mL (180-914)
[2024-06-07 01:53] LABS: Hemoglobin A1c 5.2 % (<=5.6)
[2024-06-07] MEDS: Acetaminophen 325 MG Tablet 650 MG PO ×2 (03:28→15:25)
[2024-06-07] MEDS: Sucralfate 1 GM Tablet PO ×4 (06:37→20:17)
[2024-06-07] MEDS: Enoxaparin 40 MG/0.4 ML Syringe SC (06:37)
[2024-06-07 07:13] LABS: Cholesterol 191 mg/dL (<=200); High Density Lipoprotein 41 mg/dL; Low Density Lipoprotein Calc. 121 mg/dL; Triglycerides 144 mg/dL; Very Low Density Lipoprotein 29 mg/dL (5-40); cholesterol:hdl ratio screen 4.62
--- NOTE | 2024-06-07 09:00 | MRI_ITS ---
EXAM: BRAIN WITHOUT CONTRAST CLINICAL HISTORY: Please evaluate for CVA COMPARISON: None. TECHNIQUE: PROCEDURE: Multiplanar sequences of the brain were obtained on a 1.5 Karolina MRI system, including T1, T2, FLAIR, DWI, and ADC. No intravenous contrast was administered. FINDINGS: MRI BRAIN: No intraparenchymal hemorrhage is evident. No focus of restricted diffusion is identified to suggest acute or early subacute ischemia. There is no extra-axial fluid collection, mass effect, or shift of midline structures. The basal cisterns are visualized. The ventricles and cortical sulci are in proportion and consistent with the patient's age. There is no signal abnormality in the brunson or white matter. The midline structures demonstrate normal contours. The craniocervical junction is unremarkable. The flow voids of the large intracranial vessels are normal. The calvarium is unremarkable. The paranasal sinuses and mastoid air cells are clear. MRI/Brain without Contrast IMPRESSION: No MR evidence of acute ischemia. Reading Location: [facility]
--- NOTE | 2024-06-07 09:27 | PCM.PN.HOSP ---
Subjective Subjective Doing well, no issues overnight. Deficits are completely resolved NIH of 0 but Objective Data Objective Data Vital Signs: Vital Signs Temp Pulse Resp BP Pulse Ox O2 Del Method 98.6 F 75 18 115/84 H 97 Room Air 06/07/24 06:55 06/07/24 06:55 06/07/24 06:55 06/07/24 06:55 06/07/24 07:28 06/07/24 08:37 Oxygen Delivery Method Room Air Weight: 223 lb 12.307 oz Body Mass Index (BMI) 32.1 Intake & Output: Intake and Output for Last 24 Hours 06/06/24 06/07/24 06/08/24 03:59 03:59 03:59 Intake Total 240 / 240 Balance 240 / 240 Lab / Micro Data 06/06/24 19:45 06/06/24 19:45 Labs: Laboratory Results - last 24 hr 06/06/24 19:45: WBC 5.4, RBC 4.96, Hgb 15.6, Hct 44.5, MCV 89.7, MCH 31.5, MCHC 35.1, RDW Std Deviation 41.3, RDW Coeff of Lillie 12.8, Plt Count 202, MPV 11.0, Immature Gran % (Auto) 0.200, Neut % (Auto) 51.6, Lymph % (Auto) 30.9, Powell % (Auto) 11.3 H, Eos % (Auto) 5.4 H, Baso % (Auto) 0.6, Absolute Neuts (auto) 2.8, Absolute Lymphs (auto) 1.66, Nucleated RBC % 0, PT 12.9, INR 1.0, APTT 25.5, Sodium 142, Potassium 4.1, Chloride Direct 105, Carbon Dioxide 22.8, Anion Gap 15, BUN 20 H, Creatinine 1.42 H, Estim Creat Clear Calc 70.16, Est GFR (MDRD) Non-Af 58 L, BUN/Creatinine Ratio 13.9, Glucose 95, Hemoglobin A1c 5.2 L, Calcium 9.6, Total Bilirubin 0.67, AST 28, ALT 36, Alkaline Phosphatase 99, Troponin T High Sens 10, Total Protein 7.5, Albumin 4.5, Globulin 3.0, Albumin/Globulin Ratio 1.5, Lipase 32 06/06/24 21:09: Urine Color Yellow, Urine Clarity Sl. Cloudy, Urine pH 6.0, Ur Specific [place] 1.020, Urine Protein 15 H, Urine Glucose (UA) Normal, Urine Ketones Negative, Urine Occult Blood Negative, Urine Nitrite Negative, Urine Bilirubin Negative, Urine Urobilinogen Normal, Ur Leukocyte Esterase Negative, Urine RBC 0 SEEN, Urine WBC 0 SEEN, Ur Squamous Epith Cells 0-5 SEEN, Amorphous Sediment 1+ URATE, Urine Bacteria 0 SEEN, Urine Mucus 0 SEEN, Urine Opiates Screen NEGATIVE, U Buprenorphine Qual NEGATIVE, Ur Oxycodone Screen NEGATIVE, Urine Methadone Screen NEGATIVE, Urine Fentanyl Screen NEGATIVE, Ur Barbiturates Screen NEGATIVE, Ur Phencyclidine Scrn NEGATIVE, Ur Amphetamines Screen NEGATIVE, U Benzodiazepines Scrn NEGATIVE, Urine Cocaine Screen NEGATIVE, U Cannabinoids Screen NEGATIVE 06/06/24 22:20: Troponin T Hi Sens 2 Hr 10, Troponin T Hi Sens 2Hr Delta 0, Vitamin B12 314, TSH 3.640, Ethyl Alcohol < 10.1 06/07/24 05:48: Triglycerides 144, Cholesterol 191, VLDL Cholesterol 29, HDL Cholesterol 41, Cholesterol/HDL Ratio 4.62 Micro: Microbiology 06/06/24 20:14 Mucosa - Nose SARS-CoV-2, Influenza & RSV (PCR) - Final Radiography Diagnostic Testing: Radiology Impression Brain CT 06/06/24 20:09 IMPRESSION: No acute intracranial abnormality identified. Mild paranasal sinus mucosal thickening One or more dose reduction techniques were used (e.g., Automated exposure control, adjustment of the mA and/or kV according to patient size, use of iterative reconstruction technique). Reading Location: [facility] Chest X-Ray 06/06/24 20:32 IMPRESSION: No focal infiltrate. Reading Location: [facility] Head/Neck CTA 06/06/24 21:11 IMPRESSION: Approximate 50% stenosis seen of the left carotid bulb. Less than 50% seen on the right. No high-grade stenosis detected. No evidence of large vessel occlusion. One or more dose reduction techniques were used (e.g., Automated exposure control, adjustment of the mA and/or kV according to patient size, use of iterative reconstruction technique). Reading Location: [facility] Physical Exam Narrative General: Alert, Oriented x3, Cooperative, No apparent distress HEENT: Atraumatic, PERRLA, EOMI, Normocephalic Oral: Moist Mucosa Neck: Supple, No JVD Lungs: Clear to auscultation, Normal air movement, No rhonchi, No wheeze, No rales Cardiovascular: Regular rate, Regular Rhythm, Normal S1, Normal S2, No murmurs Abdomen: Soft, Non Tender, Non-Distended, No Hepato-splenomegaly Extremities: No edema, Capillary Refill Less than 3 Seconds Skin: No rashes, No breakdown Musculoskeletal: No Tenderness to Palpation of Joints or Extremities Neurological: No focal neurological deficits, Motor Exam 5/5 strength throughout, Sensory exam intact to light touch and pain Psych/Mental Status: Normal Affect, Appropriate Assessment & Plan Assessment/Plan (1) TIA (transient ischemic attack): (2) Right-sided muscle weakness: PLAN: Plan 1. TIA ? MRI is pending ? CT of the head and neck is essentially unremarkable though there is a left-sided about 50% stenosis of his carotid artery, can have duplex as an outpatient if necessary ? Continue with aspirin and Lipitor ? No A-fib on the monitor ? Continue with permissive hypertension 2. GERD ? Stable ? Continue with his home medications 3. Anxiety/depression ? Stable ? Continue with his home medications DVT: Lovenox Charges/Coding Visit Charges Inpatient E&M: 56349 Subs Hosp L2
[2024-06-07] MEDS: Escitalopram Oxalate 10 MG Tablet PO (09:48)
[2024-06-07] MEDS: Pantoprazole Sodium 40 MG Tablet PO ×2 (09:48→20:17)
[2024-06-07] MEDS: Aspirin E.C. 81 MG Tablet 162 MG PO (09:49)
[2024-06-07] MEDS: ALPRAZolam 0.25 MG Tablet PO (12:00)
[2024-06-07] MEDS: Atorvastatin Calcium 80 MG Tablet PO (20:17)
[2024-06-08 05:40] VITALS: BP 136/74; PULSE 62; RESP 18; TEMP 36.5; O2SAT 98
[2024-06-08] MEDS: Enoxaparin 40 MG/0.4 ML Syringe SC (05:42)
[2024-06-08] MEDS: Sucralfate 1 GM Tablet PO ×2 (05:42→10:45)
[2024-06-08 09:51] VITALS: BP 156/100; PULSE 73; RESP 18; TEMP 36.6; O2SAT 100
[2024-06-08] MEDS: Aspirin E.C. 81 MG Tablet 162 MG PO (10:05)
[2024-06-08] MEDS: Escitalopram Oxalate 10 MG Tablet PO (10:05)
[2024-06-08] MEDS: Pantoprazole Sodium 40 MG Tablet PO (10:05)
[2024-06-08] MEDS: ALPRAZolam 0.25 MG Tablet PO (10:05)
[2024-06-08 10:20] VITALS: O2SAT 96
--- NOTE | 2024-06-08 10:29 | PCM.DC ---
Discharge Instructions Diet Discharge Diet: Low fat / Low cholesterol DC O2, CPAP, BIPAP needs Home O2 Discharge instructions: No Dressing / Incision Discharge Activity: Return to Normal Activity Dressing / Incision Call your doctor if you observe: Fever of 101 or Higher, Shortness of breath, Dizziness, Fainting spells, Swelling in the ankles, Chest pain and Increased palpitations (irregular heartbeat) Follow Up Care Test Results: Test results from this visit will be discussed in further detail at your follow-up appointment, if applicable. Discharge Plan Admission Admit Date/Time: 06/06/24 22:35 Attending Provider: Grant Botello Primary Care Provider: Kalie Silva Consulting Providers: Ace Cortes; Caroline Johnson; Angelica Weston; Peggy Terry; Haylee Chapa; Barron Raines; Venus Leon; Te Talley; Samuel Cannon; Kye Storey; Tiffany Eisenberg; Palmer Faustin; Lakesha Clancy; Henrry Bailey; Andree Weeks; Odin Dodd; Joanne Pillai; Emanuel Vincent; Katie Edmond; Ngoc Olivas; Otis Schilling Discharge Orders/Prescriptions Prescriptions: New amlodipine [Norvasc] 10 mg tablet 10 mg PO DAILY Qty: 30 0RF Continued aspirin [Adult Low Dose Aspirin] 81 mg tablet,delayed release (DR/EC) 81 mg PO DAILY albuterol sulfate 90 mcg/actuation HFA aerosol inhaler 2 puff inhalation Q4H PRN (Reason: shortness of breath or wheezing) escitalopram oxalate [Lexapro] 10 mg Tablet 10 mg PO DAILY alprazolam 0.25 mg tablet 0.25 mg PO DAILY Changed omeprazole 20 mg capsule,delayed release(DR/EC) 40 mg PO DAILY 30 Days Qty: 0 0RF Referrals / Follow Up: Kalie Silva MD [Primary Care Provider] - Within 1 Week Disposition Disposition (needs filled in before D/C Order can be placed): Home, Self Care
[2024-06-08 10:50] VITALS: BMI 32.1
[2024-06-08] MEDS: amLODIPine 10 MG Tablet PO (11:40)
--- NOTE | 2024-06-08 12:38 | CASEMGMT ---
SW did not complete a PHQ9 as per physician patient did not have a Stroke or TIA. Alvina BALTAZAR
--- NOTE | 2024-06-08 14:11 | CASEMGMT ---
Patient has order for discharge. RN CM in to discuss needs at discharge. Patient denies needs or help at discharge. Patient had no further questions or concerns.
[2024-06-08 15:34] VITALS: BP 140/91; PULSE 83; RESP 18; TEMP 36.6; O2SAT 98
--- NOTE | 2024-06-08 15:40 | PCM.DC.SUM ---
Providers Date of Admission: 06/06/24 Primary Care Physician: Dr. Kalie Silva MD Consultations 06/06/24 23:01 Consult: Tele-Neurology Routine Consulting Provider: [facility] Reason for Consult: Acute Ischemic Stroke/TIA EMERGENT Consult: No MD Notified: Yes Date Notified: 06/07/24 Time Notified: 01:45 Method of Notification: Answering Service Method of Consult:: Telemedicine Nursing Unit Staff Notify [facility] of Tele-Neurology Consult: Yes Reason For Visit: TIA VS CVA; WITH INTERMITTEN RIGHT SIDED WEAKNESS Diagnosis Discharge Diagnosis (1) TIA (transient ischemic attack): Status: Acute Code(s): G45.9 - Transient cerebral ischemic attack, unspecified (2) Right-sided muscle weakness: Status: Acute Code(s): M62.81 - Muscle weakness (generalized) Medications at Discharge Home Medications escitalopram oxalate 10 mg tablet (Lexapro) 10 mg PO DAILY mood 01/29/21 alprazolam 0.25 mg tablet 0.25 mg PO DAILY anxiety 10/07/23 aspirin 81 mg tablet,delayed release (Adult Low Dose Aspirin) 81 mg PO DAILY heart health 10/07/23 albuterol sulfate 90 mcg/actuation aerosol inhaler 2 puff inhalation Q4H PRN shortness of breath or wheezing 10/30/23 amlodipine 10 mg tablet (Norvasc) 10 mg PO DAILY #30 tabs 06/08/24 clopidogrel 75 mg tablet (Plavix) 75 mg PO DAILY #14 tabs 06/08/24 omeprazole 20 mg capsule,delayed release 40 mg (2 x 20 mg) PO DAILY 30 days #0 caps 06/08/24 Hospital Course Operations None Procedures 2-D Echocardiogram Summary of Care Provided Minutes Spent on Discharge: 36 Hospital Course: Per HPI: SEDRICK CHOUDHARY, is a Right handed 54 M with a past medical history of hyperlipidemia; not on treatment, obesity; with BMI of 32.9 this admission, former tobacco abuse, history of testicular hypofunction, history of nonspecific chest pain; on baby aspirin daily, history of chronic vertigo; with recent escalating pattern of severity, depression with anxiety; with escitalopram and alprazolam, listed allergy to PCN (?), history of nasal fracture, GERD; on omeprazole plus multiple as needed OTC medications and OA who presents to [facility] ER complaining of intermittent Right-sided weakness. Mr. Choudhary reports his symptoms began approximately one month ago with an episode of vertigo followed by nausea and vomiting with bilious emesis. Since his symptoms resolved spontaneously he did not seek medical attention at that time. Then 2 days ago he attended a play at [facility] for his daughter when he noted that he could not get out of the car. He states he was overall not feeling well and he had an aching sensation in his Right arm and his Right leg felt heavy with a subsequent coughing fit and hot flash - but he was able to recompose himself and started to feel better and eventually went to the play. When he did finally get out of the car he noted his Right leg was dragging behind him with this weakness persisting for approximately 6 hours before spontaneously resolving when he woke up the next morning. 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 On the way to the hospital he had severe nausea with 3 episodes of bilious emesis complicated by intermittent headaches and visual changes with his family worried that he may be having a stroke. He denies recent head trauma, recent injury, alcohol abuse, illicit substance abuse, fever, chills, abdominal pain, chest pain or SOB. In the ER he was noted to have uncontrolled hypertension of 181/115 mmHg present on admission complicated by clinical evidence of TIA versus CVA; with intermittent Right-sided weakness with Vertigo causing Nausea and Vomiting with bilious emesis with CTA of the head and neck revealing ~50% stenosis seen of the left carotid bulb with less than 50% seen on the right and no high-grade stenosis detected along with no evidence of large vessel occlusion along with a CXR that revealed bronchial thickening but no evidence of acute infiltrate effusion or pneumothorax. He was then admitted to the PCU under observation status for ongoing care for a stay that is expected to be less than 2 midnights. Hospital Course: 1. TIA essential HTN?54-year-old male presented to the hospital signs and symptoms consistent with TIA. He did have transient neurological symptoms are completely resolved. MRI was negative for lesion, echo is pending though he does not want to stay for the results. Neurology evaluated him and requested Plavix daily for 2 weeks with neurology follow-up as an outpatient. He also had a CT of the neck that showed a left internal carotid artery stenosis of 50% to the also request an outpatient vascular surgery evaluation. He also needs a sleep apnea evaluation and a sleep study ordered by his PCP. I do recommend he follow-up with his PCP in 3 to 5 days. I discussed with him the plan for discharge today he expressed understanding of the risks and benefits of going home and he would like to go today. Of note his blood pressures were on the high side during this admission so he was started on Norvasc 10 mg p.o. daily with first dose to be given here in the hospital. I do recommend outpatient follow-up once again for evaluation and medication adjustment. 2. GERD, anxiety, depression all chronic medical conditions which complicate his care. His home medications were continued where appropriate Physical Exam Narrative General: Alert, Oriented x3, Cooperative, No apparent distress HEENT: Atraumatic, PERRLA, EOMI, Normocephalic Oral: Moist Mucosa Neck: Supple, No JVD Lungs: Clear to auscultation, Normal air movement, No rhonchi, No wheeze, No rales Cardiovascular: Regular rate, Regular Rhythm, Normal S1, Normal S2, No murmurs Abdomen: Soft, Non Tender, Non-Distended, No Hepato-splenomegaly Extremities: No edema, Capillary Refill Less than 3 Seconds Skin: No rashes, No breakdown Musculoskeletal: No Tenderness to Palpation of Joints or Extremities Neurological: No focal neurological deficits, Motor Exam 5/5 strength throughout, Sensory exam intact to light touch and pain Psych/Mental Status: Normal Affect, Appropriate Weight / BMI Weight Weight: 223 lb 12.307 oz Body Mass Index (BMI) 32.1 ABG / Lab / Microbiology Data 06/06/24 19:45 06/06/24 19:45 Microbiology: Microbiology 06/06/24 20:14 Mucosa - Nose SARS-CoV-2, Influenza & RSV (PCR) - Final D/C Instructions Discharge Diet: Low fat / Low cholesterol Call your doctor if you observe: Fever of 101 or Higher, Shortness of breath, Dizziness, Fainting spells, Swelling in the ankles, Chest pain and Increased palpitations (irregular heartbeat) DC O2, CPAP, BIPAP Needs Home O2 Discharge instructions: No Meaningful Use Info Meaningful Use Meaningful Use Diagnoses (Choose all that apply): None applicable Ischemic Stroke Statin Dosing Therapy Reference: STATIN DOSE THERAPY REFERENCE: * Patients > 75 years receive moderate or high dose statin therapy. * Patients 75 years or YOUNGER should receive HIGH intensity statin dose unless contraindicated. You will be required to document reason for non-treatment if statin daily dose does not meet guidelines. HIGH DOSE STATIN THERAPY DAILY Atorvastatin > than or = to 40 mg Rosuvastatin > than or = to 20 mg Amlodipine + Atorvastatin > than or = to 2.5/40 mg Ezetimibe + Simvastatin 10/80 mg Simvastatin 80mg Discharge Plan Admission Admit Date/Time: 06/06/24 22:35 Attending Provider: Grant Botello Primary Care Provider: Kalie Silva Consulting Providers: Ace Cortes; Caroline Johnson; Angelica Weston; Peggy Terry; Haylee Chapa; Barron Raines; Venus Leon; Te Talley; Sedrick Cannon; Kye Storey; Tiffany Eisenberg; Palmer Faustin; Lakesha Clancy; Henrry Bailey; Andree Weeks Stewart; Odin Dodd; Joanne Pillai; Emanuel Vincent; Katie Edmond; Ngoc Olivas; Otis Schilling Discharge Orders/Prescriptions Prescriptions: New amlodipine [Norvasc] 10 mg tablet 10 mg PO DAILY Qty: 30 0RF clopidogrel [Plavix] 75 mg tablet 75 mg PO DAILY Qty: 14 0RF Continued aspirin [Adult Low Dose Aspirin] 81 mg tablet,delayed release (DR/EC) 81 mg PO DAILY albuterol sulfate 90 mcg/actuation HFA aerosol inhaler 2 puff inhalation Q4H PRN (Reason: shortness of breath or wheezing) escitalopram oxalate [Lexapro] 10 mg Tablet 10 mg PO DAILY alprazolam 0.25 mg tablet 0.25 mg PO DAILY Changed omeprazole 20 mg capsule,delayed release(DR/EC) 40 mg PO DAILY 30 Days Qty: 0 0RF Referrals / Follow Up: Jaswinder Beckett MD [Med Staff - Active Staff] - Within 1 Month (50% L ICA stenosis on CTA) [place]amp[place],Kalie D, MD [Primary Care Provider] - Within 1 Week Ihsan Addison MD [Non-Staff -Ordering Privileges] - Within 1 Month Disposition Disposition (needs filled in before D/C Order can be placed): Home, Self Care Charges/Coding Visit Charges Inpatient E&M: 48617 Disch Hosp >30min
--- NOTE | 2024-06-09 00:36 | CON.PCM.NE_ITS ---
Assessment and Plan: Stroke Assessment/Plan SEDRICK DAUGHERTY is a 54 M with a history of tobacco use, SOB, depression with anxiety who presents for evaluation of Right heaviness vertigo and weakness. Weakness is now resolved. Vertigo has been intermittent for about a month. Neurological examination shows NIH 0. Neuroimaging shows MRI with no acute infarct. Dx TIA/HTN - Anti-platelet medication: Aspirin 81 mg and Plavix 75mg for 21 days. Then ASA only after that. - Occupational/ Physical therapy consults - NPO until swallow evaluation. IVF until able to take po - DVT prophylaxis with SCDs and heparin SQ - Vascular risk factor modification. The following are the recommended guidelines: LDL Goal < 70 Smoking Cessation Diabetes Management continuous churn buttermaker blood pressure control should achieve <130/80 mmHg. BP management should aim to achieve computer terminal operator contorl in a reasonable amount of time, taking into consideration the individual patient's requirements and characteristics. Weight Management: Goal for BMI is 18.5 -24.9 kg/m2 Alcohol: No more than 2 drinks/day for men or 1 drink/day for non- women - Promote lifestyle modification: weight control, physical activity, moderation of alcohol intake, moderate sodium intake. - Follow up with vascular surgery for carotid stenosis, - Recommend sleep referral for FAREED Followup with PCP in 1-2 weeks, and in Neurology clinic in 6-12 weeks HPI Consult Data Date of Consult: 06/09/24 HPI Narrative HPI Narrative: SEDRICK DAUGHERTY, is a 54 M who presents [facility] Medical History (Updated 06/07/24 @ 01:[address] Otis Schilling, DO) Chronic pain SOB (shortness of breath) Testicular hypofunction Mixed hyperlipidemia Depression Anxiety H/O esophageal reflux Nonspecific chest pain History of broken nose Home Medications ?Medication ?Instructions ?Recorded ?Last Taken ?Type escitalopram oxalate 10 mg tablet 10 mg PO DAILY mood 01/29/21 Unknown History (Lexapro) alprazolam 0.25 mg tablet 0.25 mg PO DAILY anxiety 05/01 Unknown History aspirin 81 mg tablet,delayed 81 mg PO DAILY heart heal th 10/07/23 Unknown History release (Adult Low Dose Aspirin) albuterol sulfate 90 mcg/actuation 2 puff inhalation Q 4H PRN 10/30/23 Unknown History aerosol inhaler shortness of breath or wheez ing amlodipine 10 mg tablet (Norvasc) 10 mg PO DAILY #30 t abs 06/08/24 Unknown Rx clopidogrel 75 mg tablet (Plavix) 75 mg PO DAILY #14 t abs 06/08/24 Unknown Rx omeprazole 20 mg capsule,delayed 40 mg (2 x 20 mg) PO DAILY 30 days 06/08/24 Unknown Rx release #0 caps Allergy/AdvReac Type Severity Reaction Status Date / Time Penicillins (PCN) Allergy Unknown Verified 06/06/24 19:37 Family History Father Myocardial infarction at 56 years old Mother Dementia Surgical History No history of previous surgery Social History household members: spouse and children number of children: 2 Smoking Status: Former smoker Smokeless tobacco user: chewing tobacco alcohol intake: current details: 2 drinks per week substance use type: does not use what type of physical activity do you participate in: walking, running and weight training do you feel safe at home: Yes Vital Signs Vital Signs Vital Signs: 06/08/24 05:40 06/08/24 09:51 06/08/24 10:20 Temperature 97.7 F L 97.8 F Temperature Source Temporal Oral Pulse Rate 62 73 Respiratory Rate 18 18 Blood Pressure 136/74 H 156/100 H Blood Pressure Mean 94 118 Blood Pressure Source Monitor Monitor Blood Pressure Position Semi-Fowlers Semi-Fowlers Blood Pressure Location Left Forearm Left Arm Pulse Ox 98 100 96 Oxygen Delivery Method Room Air Room Air Room Air 06/08/24 15:34 Temperature 97.8 F Temperature Source Oral Pulse Rate 83 Respiratory Rate 18 Blood Pressure 140/91 H Blood Pressure Mean 107 Blood Pressure Source Monitor Blood Pressure Position Semi-Fowlers Blood Pressure Location Left Arm Pulse Ox 98 Oxygen Delivery Method Room Air Weight Weight: 101.5 kg Body Mass Index (BMI) 32.1 EEG Results Procedure Details EEG Procedure Details: SEDRICK DAUGHERTY is a 54 year old M with a past medical history of , who presents for evaluation of Electroencephalogram on DATE at TIME NIHSS NIHSS Nursing Documentation NIHSS Nursing Documentation: NIH Stroke Scale Start: 06/06/24 19:48 Freq: Status: Discharge Protocol: Activity Type Activity Date Activity User E-sign Co-sign Detail Recorded Client Recorded Date Recorded By Document 06/06/24 19:48 0 06/06/24 19:49 06/06/24 19:48 NIH Stroke Scale [NIHSS] A score of 0 is normal or asymptomatic . Total possible score is 42. Inpatient: RN or Physician to activate a stroke alert for onset of new stroke symptoms or with NIHSS increase >/= 3 points. Following change in neurological status, NIHSS will be performed per physician order or more frequently PRN. -1a. Level of Consciousness Alert; keenly responsive -1b. LOC Questions Answers BOTH questions correctly. -1c. LOC Commands Performs both tasks correctly . -2. Best Gaze Normal -3. Visual No visual loss -4. Facial Palsy Normal symmetrical movements -5a. Left Arm No drift; arm holds 90 (or 45 ) degrees for full 10 seconds -5b. Right Arm No drift; arm holds 90 (or 45 ) degrees for full 10 seconds -6a. Left Leg No drift; leg holds 30-degree position for full 5 seconds -6b. Right Leg No drift; leg holds 30-degree position for full 5 seconds -7. Limb Ataxia Absent -8. Sensory Normal; no sensory loss -9. Best Language No aphasia; normal -10. Dysarthria Normal -11. Extinction and Inattention No abnormality -Total 0 Query Text:A score of 0 is normal or asymptomatic. Total possible score is 42 . ED: Notify Physician for NIHSS increase by > / = 3 points. Inpatient: RN or Physician to activate a stroke alert for NIHSS increase of > / = 3 points. NIHSS: Ischemic Stroke/TIA Start: 06/06/24 23:01 Text: For PCU Patients: NIH and Neuro Check every 4 Status: Complete hours, PRN and with change in RN caregiver. Freq: [id number] Protocol: Activity Type Activity Date Activity User E-sign Co-sign Detail Recorded Client Recorded Date Recorded By Document 06/07/24 11:15 DS [id number] 06/07/24 13:15 DS 06/07/24 11:15 -1a. Level of Consciousness Alert; keenly responsive -1b. LOC Questions Answers BOTH questions correctly. -1c. LOC Commands Performs both tasks correctly . -2. Best Gaze Normal -3. Visual No visual loss -4. Facial Palsy Normal symmetrical movements -5a. Left Arm No drift; arm holds 90 (or 45 ) degrees for full 10 seconds -5b. Right Arm No drift; arm holds 90 (or 45 ) degrees for full 10 seconds -6a. Left Leg No drift; leg holds 30-degree position for full 5 seconds -6b. Right Leg No drift; leg holds 30-degree position for full 5 seconds -7. Limb Ataxia Absent -8. Sensory Normal; no sensory loss -9. Best Language No aphasia; normal -10. Dysarthria Normal -11. Extinction and Inattention No abnormality -Total 0 Query Text:A score of 0 is normal or asymptomatic. Total possible score is 42 . ED: Notify Physician for NIHSS increase by > / = 3 points. Inpatient: RN or Physician to activate a stroke alert for NIHSS increase of > / = 3 points. Coma Scale [Assess] -Eye Opening Spontaneous -Motor Obeys Commands -Verbal Oriented [Total] -Coma Scale Total 15 Lab / Micro Data 06/06/24 19:45 06/06/24 19:45 Labs: Laboratory Results - last 24 hr 06/07/24 05:48: Triglycerides 144, Cholesterol 191, LDL Cholesterol, Calc 121, VLDL Cholesterol 29, HDL Cholesterol 41, Cholesterol/HDL Ratio 4.62
== END 2024-06-08 10:35 | disposition home or self-care (01) ==
LOC: ED 22:09 → PCU 22:45
PROVIDERS: Admitting Provider Internal Medicine; Emergency Provider Emergency Medicine; PCP Internal Medicine; Visit Provider Family Medicine
DX: G45.9 Transient cerebral ischemic attack, unspecified (principal); R06.02 Shortness of breath; E66.9 Obesity, unspecified; Z79.02 Long term (current) use of antithrombotics/antiplatelets; M79.631 Pain in right forearm; K21.9 Gastro-esophageal reflux disease without esophagitis; F41.8 Other specified anxiety disorders; Z68.32 Body mass index [BMI] 32.0-32.9, adult; R42 Dizziness and giddiness; E78.5 Hyperlipidemia, unspecified; M62.81 Muscle weakness (generalized); F17.220 Nicotine dependence, chewing tobacco, uncomplicated; I10 Essential (primary) hypertension; Z79.899 Other long term (current) drug therapy; Z79.82 Long term (current) use of aspirin; Z82.49 Family history of ischemic heart disease and other diseases of the circulatory system
CPT/HCPCS: 36415; 70450; 70496; 70498; 70551; 71046; 80053; 80061; 80307; 81001; 82077; 82607; 83036; 83690; 84443; 84484; 85025; 85610; 85730; 87631; 92523; 92610; 93005; 96372; 97161; 97165; 97802; 99221; 99285; Q9957; Q9967; A4216; G0378

== ENCOUNTER → 2024-08-13 | Outpatient (CLI) | payer OTHER, SELFPAY ==
--- NOTE | 2024-08-13 08:53 | CDU_ITS ---
Reason For Study Reason For Study: Left ICA stenosis Rt. Velocities/BP Lt. Velocities/BP Prox CCA 64.5/16.3 cm/sec. Prox CCA 71.1/20.1 cm/sec. Mid CCA 74/22 cm/sec. Mid CCA 79.6/25.8 cm/sec. Dist CCA 67.4/27.7 cm/sec. Dist CCA 62.6/22 cm/sec. Prox ICA 59.8/24.8 cm/sec. Prox ICA 73/30.5 cm/sec. Mid ICA 64.5/27.7 cm/sec. Mid ICA 50.4/16.3 cm/sec. Dist ICA 63.6/25.8 cm/sec. Dist ICA 61.7/26.7 cm/sec. Rt. ICA/CCA = 0.87. Lt. ICA/CCA = 0.92. Prox ECA 91.9/15.4 cm/sec. Prox ECA 74.9/14.5 cm/sec. Rt. Vert. 41.9/12.6 cm/sec. Lt. Vert. 61.7/16.3 cm/sec. Right Extracranial There is homogeneous, smooth atherosclerotic plaque noted in the right common carotid artery. There is homogeneous, smooth atherosclerotic plaque noted in the right internal carotid artery. There is intimal thickening but no significant atherosclerotic plaque noted in the right external carotid artery. Antegrade flow is noted in the right vertebral artery. Left Extracranial There is homogeneous, smooth atherosclerotic plaque noted in the left common carotid artery. There is homogeneous, smooth atherosclerotic plaque noted in the left internal carotid artery. There is intimal thickening but no significant atherosclerotic plaque noted in the left external carotid artery. Antegrade flow is noted in the left vertebral artery. Procedure Carotid Duplex [id number]. This is a Carotid Duplex examination using B-mode, color flow and specral Doppler. Exam performed in department. VL/Carotid Duplex Ultrasound Interpretation Summary Mild (<50%) stenosis right extracranial internal carotid. Mild (<50%) stenosis left extracranial internal carotid. Patent and antegrade vertebrals bilaterally. Ordering Physician: Peggy Randall Referring Physician: Kalie Silva M.D. Performed By: Nathaly Giles RVT
--- NOTE | 2024-08-13 08:53 | RAD_ITS ---
PROCEDURE: CERV SPINE 2 OR 3 VIEWS 08/13/2024 REASON FOR EXAM: RUE PAIN, WEAKNESS;RLE WEAKNESS, CHRONIC NECK PAIN TECHNIQUE: 3 views of the cervical spine. FINDINGS: The cervical spine is visualized on the lateral view from the skull base to the top of T1. No fracture or malalignment. No prevertebral soft tissue swelling. C5-6 uncovertebral hypertrophic change and anterior corner osteophyte formation without disc space narrowing C6-7 moderate disc space narrowing with uncovertebral hypertrophic change C7-T1 severe disc space narrowing and degenerative endplate changes with uncovertebral hypertrophic change Small visualized apices appear clear. RAD/Cerv Spine 2 or 3 Views IMPRESSION: Multilevel spondylosis/discogenic change as above. Reading Location: [id number]
== END | disposition home or self-care (01) ==
PROVIDERS: PCP Internal Medicine; Referring Provider Physician Assistant; Visit Provider Physician Assistant
DX: M62.81 Muscle weakness (generalized) (principal); M54.2 Cervicalgia; M79.601 Pain in right arm; R29.898 Other symptoms and signs involving the musculoskeletal system; I65.22 Occlusion and stenosis of left carotid artery
CPT/HCPCS: 72040; 93880

== ENCOUNTER → 2024-10-27 | Outpatient (CLI) | payer OTHER, SELFPAY ==
[2024-10-27 10:17] LABS: Hematocrit 40.6 % (40-54); Hemoglobin 14.4 g/dL (13.0-16.5); Immature Granulocytes Count 0.010 X10^3/uL (0.0-0.0); Mean Corp Hgb Conc 35.5 g/dL (32-36); Mean Corpuscular Volume 90.6 fL (80-94); Mean Platelet Vol. 10.5 fl (6.2-12.0); NRBC Flagged by Analyzer 0.5 % (0-5); Platelet Count 150 K/mm3 (150-450); RBC Distribution Width CV 12.8 % (11.6-14.6); RBC Distribution Width SD 41.8 fl (35.1-43.9); Red Blood Count 4.48 M/mm3 (4.6-6.2); White Blood Count 4.1 K/mm3 (4.4-11.0)
[2024-10-27 11:23] LABS: Anion Gap 11 (5-15); BUN 19 mg/dL (4-19); BUN/Creat Ratio 15.9 RATIO (10-20); Calcium,Total 9.2 mg/dL (7.6-11.0); Carbon Dioxide 24.7 mmol/L (21.0-32.0); Chloride 105 mmol/L (98-108); Glucose 111 mg/dL (70-99); Potassium 4.4 mmol/L (3.3-5.1); Pro- Brain NATRIURETIC PEPTIDE 92 pg/mL (<=900)
== END | disposition home or self-care (01) ==
PROVIDERS: PCP Internal Medicine; Referring Provider Nurse Practitioner Gerontology; Visit Provider Nurse Practitioner Gerontology
DX: R06.02 Shortness of breath (principal); R53.83 Other fatigue
CPT/HCPCS: 36415; 80048; 83880; 84443; 85025

== ENCOUNTER → 2024-12-22 | Outpatient (CLI) | payer OTHER, SELFPAY ==
--- NOTE | 2024-12-22 13:29 | CT_ITS ---
PROCEDURE: LIMITED CHEST CT CARDIAC ONLY 12/22/2024 REASON FOR EXAM: SHORTNESS OF BREATH TECHNIQUE: Procedure Code: [id number] Modality: CT Procedure: LIMITED CHEST CT CARDIAC ONLY CONTRAST: None One or more dose reduction techniques were used (e.g., Automated exposure control, adjustment of the mA and/or kV according to patient size, use of iterative reconstruction technique). RADIATION DOSE SUMMARY: CTDlvol: 12.19 mGy DLP: 219.42 mGycm COMPARISON: None FINDINGS: Coronary artery calcification. Minimal anterior pericardial thickening. The heart is nonenlarged. Calcified right hilar lymph nodes. Scattered calcified granulomas. CT/Limited Chest CT Cardiac Only IMPRESSION: Coronary artery calcification. Reading Location: [place] [id number]
--- NOTE | 2024-12-23 18:26 | CA.SCORE ---
Calcium Scoring Date of Study:: 12/22/24 Indications Indications: Family history Coronary Calcium Scoring: High-resolution Computed Tomographic imaging of the chest was performed on [12/22/2024], with particular attention paid to the coronary arteries. Images from the examination were analyzed for the presence and extent of coronary artery calcification , using coronary calcium quantification software. The patient tolerated the procedure well and there were no complications. The results of the coronary calcification analysis are provided below. Findings Coronary Artery Left Main (LM): 0 Left Anterior Descending (LAD): 119 Left Circumflex (LCX): 0 Right Coronary Artery (RCA): 0 Total Agatston Score: 119 Percentile Rankin-75 percentile Calcium Scoring Interpretation: Different methods to categorize the overall amount of coronary plaque. Overall amount CAC SIS Visual of coronary plaque P1 Mild -100 <2 1-2 vessels with mild amount of plaque P2 Moderate 101-300 3-4 1-2 vessels with moderate amount, 3 vessels with mild amount of plaque P3 Severe 301-999 5-7 3 vessels with moderate amount, 1 vessel with severe amount of plaque P4 Extensive >1000 >8 2-3 vessels with severe amount of plaque Conclusion: Mild single-vessel plaque disease present.
== END | disposition home or self-care (01) ==
LOC: CT 13:10
PROVIDERS: PCP Internal Medicine; Referring Provider Nurse Practitioner Gerontology; Visit Provider Nurse Practitioner Gerontology
DX: R06.09 Other forms of dyspnea (principal); R53.83 Other fatigue
CPT/HCPCS: 75571; 76380

== ENCOUNTER → 2025-03-02 | Outpatient (CLI) | payer OTHER, SELFPAY ==
--- OUTSIDE RECORDS SUMMARY | 2025-03-02 07:10 | XMS RPT_ITS | CCD ---
Author Organization [facility] CliniSy[facility]v Care Team Providers Care Medical Claims Manager Name Role Phone Sheila Mobley MD Primary Care Provider Sheila Mobley MD Primary Care Provider [place] MICRO PHOTOGRAPHER.EGG BUYER, Poppy Unavailable Edson MICRO PHOTOGRAPHER.FRAME STRIPPER, Alice Unavailable Edson MICRO PHOTOGRAPHER.FRAME STRIPPER, Alice Unavailable Dr. Sheila Mobley MD Primary Care Provider Dr. Yokasta Marti DO Emergency Provider Schilling DO, Dr. Berg Admit Provider Unavail able Dr. Otis Schilling DO Other Provider Unavail able Ace Cortes MD Other Provider Unavailable Dr. Caroline Johnson MD Other Provider Angelica Weston MD Other Provider Unavailable Dr. Peggy Terry DO Other Provider [phone] Dr. Haylee Chapa MD Other Provider Dr. Barron Raines MD Other Provider Dr. Venus Leon MD Other Provider Dr. Te Talley MD Other Provider Dr. Sedrick Cannon MD Other Provider Raleigh FRANCO, Dr. Fishman Other Provider Tiffany Eisenberg MD Other Provider Roxie FRANCO, Dr. Chakraborty Other Provider Aston FRANCO, Dr. Crowder Other Provider Lynn FRANCO, Dr. Sales Other Provider Dr. Andree Weeks MD Other Provider Yousif FRANCO, Dr. Newby Other Provider Rosas FRANCO, Dr. Rubio Other Provider Carlton FRANCO, Dr. Castellanos Other Provider Mayito FRANCO, Dr. Wilson Other Provider Unavailable Brendon FRANCO, Ngoc Other Provider Unavailable Rosmery FRANCO, Dr. Grant Christianson Attending Provider Rosmery FRANCO, Dr. Grant Christianson Other Provider Ricardo FRANCO, Dr. Sheila Vasquez Referring Provider Peggy Elizabeth Attending Provider Prakash VIDAL, Peggy Referring Provider Sujit FRANCO, Dr. San Attending Provider Jose SERRANO-Sweta Bledsoe Attending Provider Dr. Jim Cronin MD Attending Provider Edson MICRO PHOTOGRAPHER.FRAME STRIPPER, Alice Unavailable Felix MICRO PHOTOGRAPHER.EGG BUYER, Poppy Unavailable Dr. Sheila Mobley MD Primary Care Provider Zachery SERRANO-Isatu Bledsoe Attending Provider Zachery SERRANO-Isatu Bledsoe Referring Provider Dr. Sheila Mobley MD Primary Care Physician Dr. Sheila Mobley MD Referring Provider Zachery DOCK HAND-Isatu Bledsoe Attending Physician Isatu Gauthier Nurse Practitioner Mehrdad FRANCO, Dr. Fernandez Attending Physician Sheila Mobley Primary Care Unavailable Isatu Bingham Attending Unavailable Isatu Bingham Referring Unavailable Isatu Bingham Referring Unavailable Sheila Mobley Primary Care Unavailable Isatu Bingham Attending Unavailable Otis Schilling Admitting Unavailable Grant Botello Attending Unavailable Talampas, Sheila D Primary Care Unavailable Ace Cortes Consulting Unavailable Adeli, Amir Consulting Unavailable Hinduja, Angelica Consulting Unavailable Harrison, Peggy Consulting Unavailable Zha, Haylee Consulting Unavailable Yanna, Barron Consulting Unavailable Carolyn, Venus Consulting Unavailable Bittar, Te Consulting Unavailable Davis, Sedrick Consulting Unavailable Raleigh, Kye Consulting Unavailable BeTiffany gonzalez Consulting Unavailable Scott Faustin Consulting Unavailable Aston, Lakesha Consulting Unavailable Ridha, Mohamed Consulting Unavailable Andree Weeks Consulting UnavailOdin Gusman Consulting Unavailable Joanne Pillai Consulting Unavailable Emanuel Vincent Consulting Unavailable Katie Edmond Consulting Unavailable Ngoc Olivas Consulting Unavailable Otis Schilling Consulting Unavailable Jim Cronin Attending Unavailable Talampas, Sheila D Primary Care Unavailable Talampas, Sheila D Referring Unavailable Talampas, Sheila D Primary Care Unavailable Isatu Bingham Attending Unavailable Talampas, Sheila D Referring Unavailable Talampas, Sheila D Primary Care Unavailable Isatu Bingham Attending Unavailable Peggy Randall Attending Unavailable Talampas, Sheila D Primary Care Unavailable Talampas, Sheila D Referring Unavailable Sweta Garcia Attending Unavailable Talampas, Sheila D Referring Unavailable Talampas, Sheila D Primary Care Unavailable Talampas, Sheila D Primary Care Unavailable Isatu Bingham Attending Unavailable Peggy Randall Referring Unavailable Talampas, Sheila D Primary Care Unavailable Jaswinder Beckett Attending Unavailable Talampas, Sheila D Primary Care Unavailable Isatu Bingham Consulting Unavailable Isatu Bingham Referring Unavailable Jim Cronin Attending Unavailable Ace Cortes Consulting Unavailable Otis Schilling Admitting Unavailable Otis Schilling Attending Unavailable Talampas, Sheila D Primary Care Unavailable Adeli, Amir Consulting Unavailable Hinduja, Angelica Consulting Unavailable Harrison, Peggy Consulting Unavailable Zha, Haylee Consulting Unavailable Yanna, Barron Consulting Unavailable Carolyn, Venus Consulting Unavailable Bittar, Te Consulting Unavailable Davis, Sedrick Consulting Unavailable Raleigh, Kye Consulting Unavailable Andra Eisenbergt Consulting Unavailable Roxie, Scott Consulting Unavailable Aston, Lakesha Consulting Unavailable Ridha, Mohamed Consulting Unavailable Andree Weeks Consulting UnavailOdin Gusman Consulting Unavailable Joanne Pillai Consulting Unavailable Emanuel Vincent Consulting Unavailable Katie Edmond Consulting Unavailable Ngoc Olivas Consulting Unavailable Otis Schilling Consulting Unavailable Grant Botello Consulting Unavailable Grant Botello Attending Unavailable Talampas, Sheila D Primary Care Unavailable Isatu Bingham Referring Unavailable Isatu Bingham Attending Unavailable Peggy Randall Referring Unavailable Talampas, Sheila D Primary Care Unavailable RandallPeggy berrios Attending Unavailable TALAMPAS, SHEILA Primary Care Unavailable TALAMPAS, SHEILA Referring Unavailable TALAMPAS, SHEILA Primary Care Unavailable TALAMPAS, SHEILA Attending Unavailable TALAMPAS, SHEILA Primary Care Unavailable KARISSA JIANG Attending Unavailable TALAMPAS, SHEILA Referring Unavailable TALAMPAS, SHEILA Attending Unavailable TALAMPAS, SHEILA Primary Care Unavailable Allergies Allergy Classification Reported Allergen(s) Allergy Type Date of Onset Reaction(s) Facility Penicillins (antibiotic) (1 source) Penicillins Drug Allergy 4 Unknown [facility] Work Phone: (13 sources) penecillin [Other] Propensity to adverse reactions 5 [facility] Work Phone: (6 sources) Penicillins; Translations: [PENICILLINS] Propensity to adverse reactions to drug 4 Unknown [facility] (10 sources) Penicillins Propensity to adverse reactions to drug 4 Unknown [facility] Work Phone: (6 sources) Penicillins Allergy to substance 5 Unknown [facility] (1 source) Penicillins Drug allergy (disorder) 5 [facility] Repository Medications Current Medications Medication Drug Class(es) Dates Sig (Normalized) Sig (Original) [id number] 200 actuat albuterol 0.09 mg/actuat metered dose inhaler (20 sources) beta2-Adrenergic Agonist Start: 10-30-2023 Start: 10-07-2023 End: 10-30-2023 Albuterol Sulfate 90 mcg/act uation HFA aerosol inhaler Discontinued INHALATION October 07, 2023 12:00am October 30, 2023 10:27am Start: 07-15-2020 End: 02-20-2022 take 2 puff(s) by inhalation every four hours as needed for wheezing albuterol HFA (VENTOLIN HFA) 90 mcg/actuation inhaler Indications: Mild intermittent asthma without complication (HCC) Inhale 2 Puffs as instructed every 4 hours as needed for wheezing/shortness of breath. 18 g 1 02/20/2022 Active Comment on above: Inhale 2 Puffs as in structed every 4 hours as needed for Wheezing/Shortness of Breath. ALPRAZolam 0.25 mg oral tablet (20 sources) Benzodiazepine Start: 11-17-19 End: 01-16-20 take 1 tablet by mouth twice daily as needed for anxiety ALPRAZolam (XANAX) 0.25 mg tablet Indications: Anxiety and depression Take 1 tablet by mouth two times a day as needed for anxiety for up to 60 days. 60 tablet 1 11/16/2024 01/15/2025 Active Start: 03-11-2024 End: 11-13-2024 take 1 tablet by mouth twice daily as needed for anxiety ALPRAZolam (XANAX) 0.25 mg tablet Indications: Anxiety and depression Take 1 tablet by mouth two times a day as needed for anxiety for up to 60 days. 60 tablet 1 09/14/2024 11/13/2024 Discontinued Start: 10-07-2023 take 1 tablet by adrian th once daily Start: 01-29-2021 End: 01-23-2024 take 1 tablet by mouth twice daily Alprazolam 0.25 mg Tablet Discontinued 0.25 mg PO TWICE A DAY January 29, 2021 12:00am October 07, 2023 1:28pm Start: 10-11-2020 End: 12-09-2020 take 1 tablet by mouth twice daily as needed ALPRAZolam (XANAX) 0.25 mg tablet Indications: Anxiety and depression , Anxiety state Take 1 tablet by mouth twice daily as needed for up to 30 days. 60 tablet 10/11/2020 12/09/2020 Discontinued Start: 12-09-2019 End: 02-09-2020 take 1 tablet by mouth twice daily as needed ALPRAZolam (XANAX) 0.25 mg tablet Indications: Anxiety and depression Take 1 tablet by mouth twice daily as needed for up to 30 days. 60 tablet 12/09/2019 02/09/2020 Discontinued Comment on above: Take 1 tablet by adrian twice daily as needed for up to 60 days. Take 1 tablet by adrian th twice daily as needed for up to 30 days. Take 1 tablet by adrian th twice daily as needed for up to 60 days. Do not start before May 14, 2022. Take 1 tablet by adrian twice daily as needed for up to 60 days. Do not start before March 15, 2022. Take 1 tablet by adrian th twice daily as needed for anxiety for up to 60 days. Take 1 tablet by adrian th two times a day as needed for anxiety for up to 60 days. amLODIPine 10 mg oral tablet (20 sources) Dihydropyridine Calcium Channel Samreen Start: 06-08-2024 take 1 tablet by mouth once daily Start: 08-16-2023 End: 12-24-2023 take 1 tablet by mouth once daily Amlodipine 2.5 mg tablet Discontinued 2.5 mg PO DAILY October 07, 2023 12:00am October 30, 2023 10:26am aspirin 81 mg delayed release oral tablet (20 sources) Platelet Aggregation Inhibitor, Nonsteroidal Anti-inflammatory Drug Start: 10-07-2023 Start: 06-28-2010 take 1 tablet by adrian once daily Aspirin 81 mg ORAL Tab Take 1 tablet by mouth once daily. 30 tablet 11 06/28/2010 Active Comment on above: Take 1 tablet by adrian once daily. clopidogrel 75 mg oral tablet (20 sources) P2Y12 Platelet Inhibitor Start: 06-08-2024 End: 10-06-2024 take 1 tablet by mouth once daily diclofenac sodium 0.01 mg/mg topical gel (20 sources) Nonsteroidal Anti-inflammatory Drug Start: 09-01-2024 Start: 01-23-2021 apply 4 g topically four times daily diclofenac (VOLTAREN ARTHRITIS PAIN) 1 % topical gel Apply 4 g to affected area four times daily. 50 g 2 01/23/2021 Active Start: 06-01-2020 End: 01-23-2021 take 1 tablet by mouth twice daily for pain diclofenac, EC, (VOLTAREN) 75 mg EC tablet Take 1 tablet by mouth twice daily. For pain/inflammation. Take with food. 30 tablet 06/01/2020 01/23/2021 Discontinued Comment on above: Apply 4 g to affecte d area four times daily. escitalopram 20 mg oral tablet (20 sources) Serotonin Reuptake Inhibitor Start: 06-24-2024 take 1 tablet by mouth once daily Start: 01-08-2020 End: 08-06-2024 take 1 tablet by mouth once daily Escitalopram Oxalate (Lexapro) 10 mg Tablet Discontinued 10 mg PO DAILY January 29, 2021 12:00am August 06, 2024 7:28am mood Comment on above: Take 1 tablet by adrian th once daily. iv contrast (will be provided with radiology test) (6 sources) Start: 5 End: inject 1 dose intravenously once iv contrast (will be provided with radiology test) MRI Brain Inject, intravenously, once for 1 dose.No IV access, insert saline lock prior to beginning of sedation, infusion, injection of imaging exam.Discontinue saline lock post exam. If Pt. has a central line or IVAD, may access for administration according to line specific nursing protocol.Once exam is complete flush line and de-access according to line specific nursing protocol in the MR contrast administration guidelines link 1 each 10/12/2024 10/13/2024 Active Start: 10-12-2024 End: 10-13-2024 iv contrast (will be provide d with radiology test) MRI CSP Inject, intravenously, once for 1 dose. No IV access, insert saline lock prior to the beginning of sedation, infusion, injection of imaging exam. Discontinue saline lock post exam. If Pt. has a central line or IVAD, may access for administration according to line specific nursing protocol. Once exam is complete flush line and de-access according to line specific nursing protocol in the MR contrast administration guidelines link. 1 each 10/12/2024 10/13/2024 Active Start: 10-12-2024 End: 10-13-2024 inject 1 dose intravenously once iv contrast (will be provided with radiology test) MRI TSP Inject, intravenously, once for 1 dose. No IV access, insert saline lock prior to the beginning of sedation, infusion, injection of imaging exam. Discontinue saline lock post exam. If Pt. has a central line or IVAD, may access for administration according to line specific nursing protocol. Once exam is complete flush line and de-access according to line specific nursing protocol in the MR contrast administration guidelines link. 1 each 10/12/2024 10/13/2024 Active metoprolol tartrate 25 mg oral tablet (3 sources) beta-Adrenergic Samreen Start: 10-27-2024 take 1 tablet by mouth every hour omeprazole 20 mg delayed release oral capsule (20 sources) Proton Pump Inhibitor Start: 06-08-2024 take 2 capsules by mouth once daily Start: 10-30-2023 End: 06-08-2024 take 1 capsule by mouth once daily Omeprazole 20 mg capsule,delayed release(DR/EC) Discontinued 20 mg PO DAILY October 30, 2023 10:27am June 08, 2024 11:32am Start: 01-08-2020 End: 12-24-2023 take 1 capsule by mouth twice daily Omeprazole 20 mg Capsule,Delayed Release(Dr/Ec) Discontinued 20 mg PO TWICE A DAY January 29, 2021 12:00am October 30, 2023 10:27am Comment on above: Take 1 capsule by mo [facility] twice daily. rosuvastatin calcium 5 mg oral tablet (20 sources) HMG-CoA Reductase Inhibitor Start: take 1 tablet by mouth once daily at bedtime rosuvastatin (CRESTOR) 5 mg tablet Take 1 tablet by mouth daily at bedtime. 90 tablet 1 11/16/2024 Active Start: 08-07-2024 [facility] Start: 06-24-2024 End: 11-13-2024 take 1 tablet by mouth once daily at bedtime rosuvastatin (CRESTOR) 5 mg tablet Take 1 tablet by mouth daily at bedtime. 90 tablet 1 06/24/2024 11/13/2024 Discontinued Completed/Discontinued Medications Medication Drug Class(es) Dates Sig (Normalized) Sig (Original) cyclobenzaprine hydrochloride 10 mg oral tablet (1 source) Muscle Relaxant Start: 06-01-2020 End: 01-23-2021 take 1 tablet by mouth every eight hours as needed cyclobenzaprine (FLEXERIL) 10 mg tablet Take 1 tablet by mouth three times daily as needed for Muscle Spasm. 15 tablet 06/01/2020 01/23/2021 Discontinued perflutren lipid microspheres 1.3 mL in NaCl (PF) 0.9% 10 mL injection (DEFINITY) (3 sources) Start: 07-22-2020 End: 10-21-2021 perflutren lipid microspheres 1.3 mL in NaCl (PF) 0.9% 10 mL injection (DEFINITY) 72 hr scopolamine 0.0139 mg/hr transdermal system (1 source) Anticholinergic Start: 10-01-2022 End: 10-19-2022 scopolamine (TRANSDERM-SCOP) patch 1.5 mg/72 hr (delivers 1 mg over 3 days) Apply 1 Patch as directed every 72 hours. Apply patch to skin behind ear 4hrs prior to travel. 4 Patch 0 10/01/2022 10/19/2022 Discontinued Comment on above: Apply 1 Patch as dir ected every 72 hours. Apply patch to skin behind ear 4hrs prior to travel. 125 ml sodium chloride 9 mg/ml prefilled syringe (3 sources) Start: 07-22-2020 End: 10-21-2021 sodium chloride 0.9 % (flush) 10 mL (BD POSIFLUSH) Problems Active Problems Problem Classification Problem Date Documented Da te Episodic/Chronic Acute cerebrovascular disease (3 sources) Cerebral infarction; Translations: [Cerebral infarction, unspecified] Onset: 5 10-13-2024 Chronic Alcohol-related disorders (6 sources) Alcohol intoxication; Translations: [Alcohol use, unspecified with intoxication, unspecified] 02-06-2021 Episodic Anxiety disorders (20 sources) Mixed anxiety and depressive disorder; Translations: [Anxiety disorder, unspecified] Onset: 6 Chronic Blindness and vision defects (1 source) Visual disturbance; Translations: [Unspecified visual disturbance] 07-10-2024 Episodic Coma; stupor; and brain damage (1 source) Daytime somnolence; Translations: [Somnolence] 06-24-2024 Episodic Deficiency and other anemia (1 source) Anemia, unspecified; Translations: [Anemia, unspecified type] Onset: 5 Episodic Disorders of lipid metabolism (20 sources) Raised low density lipoprotein cholesterol; Translations: [Pure hypercholesterolemia, unspecified] Onset: 7 Resolved: 7 Chronic Esophageal disorders (20 sources) Gastroesophageal reflux disease without esophagitis; Translations: [Gastro-esophageal reflux disease without esophagitis] Onset: 6 Chronic Essential hypertension (16 sources) Essential hypertension; Translations: [Essential (primary) hypertension] Onset: 5 07-10-2024 Chronic Headache; including migraine (11 sources) Headache; Translations: [Headache] 08-04-2024 Episodic Mood disorders (6 sources) Depressive disorder; Translations: [Depression] 10-07-2023 Chronic Mood disorders (1 source) Mood disorders; Translations: [Anxiety and depression] Onset: Nonspecific chest pain (11 sources) Chest pain; Translations: [Chest pain, unspecified] Onset: 5 08-16-2023 Episodic Occlusion or stenosis of precerebral arteries (11 sources) Carotid artery stenosis; Translations: [Occlusion and stenosis of unspecified carotid artery] 08-04-2024 Chronic Other aftercare (4 sources) Patient encounter status; Translations: [Other termite technician (current) drug therapy] Episodic Other aftercare (1 source) Long-term current use of drug therapy; Translations: [Other jail (current) drug therapy] 12-24-2023 Episodic Other aftercare (1 source) Other termite technician (current) drug therapy; Translations: [Encounter for long-term current use of medication] Onset: Episodic Other connective tissue disease (1 source) Pain in left foot; Translations: [Pain in left foot] 12-24-2023 Episodic Other connective tissue disease (1 source) Pain in finger of right hand; Translations: [Pain in right finger(s)] 11-07-2020 Episodic Other connective tissue disease (10 sources) Muscle weakness; Translations: [Muscle weakness (generalized)] 07-10-2024 Episodic Other connective tissue disease (11 sources) Pain in right arm; Translations: [Pain in right arm] 08-04-2024 Episodic Other connective tissue disease (18 sources) Muscle weakness of upper limb; Translations: [Other symptoms and signs involving the musculoskeletal system] 08-14-2024 Episodic Other connective tissue disease (5 sources) Bicipital tendinitis, right shoulder; Translations: [Biceps tendinitis of right upper extremity] 09-01-2024 Episodic Other connective tissue disease (1 source) Other symptoms and signs involving the musculoskeletal system; Translations: [Weakness of right upper extremity] 08-04-2024 Episodic Other diseases of kidney and ureters (6 sources) Acute renal insufficiency; Translations: [Disorder of kidney and ureter, unspecified] 02-06-2021 Episodic Other endocrine disorders (20 sources) Testicular hypofunction; Translations: [Testicular hypofunction] Onset: 7 Resolved: 2 06-20-2015 Chronic Other eye disorders (9 sources) Nystagmus present; Translations: [Unspecified nystagmus] 06-06-2024 Chronic Other eye disorders (1 source) Unspecified nystagmus; Translations: [Unspecified nystagmus] Onset: 5 Chronic Other gastrointestinal disorders (6 sources) History of gastroesophageal reflux disease; Translations: [Personal history of other diseases of the digestive system] 10-07-2023 Episodic Other lower respiratory disease (1 source) Dyspnea on exertion; Translations: [Shortness of breath] 01-09-2020 Episodic Other lower respiratory disease (1 source) Apnea; Translations: [Apnea, not elsewhere classified] 06-24-2024 Episodic Other lower respiratory disease (1 source) Snoring; Translations: [Snoring] 06-24-2024 Episodic Other lower respiratory disease (15 sources) Dyspnea; Translations: [Shortness of breath] 10-30-2023 Episodic Other lower respiratory disease (2 sources) Shortness of breath; Translations: [Shortness of breath] Onset: 5 Episodic Other lower respiratory disease (1 source) Other forms of dyspnea; Translations: [Other forms of dyspnea] Onset: 5 Episodic Other male genital disorders (20 sources) Secondary erectile dysfunction; Translations: [Male erectile dysfunction, unspecified] Onset: 1 07-06-2010 Chronic Other non-traumatic joint disorders (5 sources) Disorder of shoulder; Translations: [Other specified joint disorders, right shoulder] 09-01-2024 Episodic Other nutritional; endocrine; and metabolic disorders (20 sources) Obese class I; Translations: [Obesity, unspecified] Onset: 3 10-19-2022 Chronic Other screening for suspected conditions (not mental disorders or infectious disease) (1 source) Other specified abnormal findings of blood chemistry; Translations: [Elevated TSH] Onset: 5 Episodic Paralysis (2 sources) Right hemiparesis 10-13-2024 Chronic Spondylosis; intervertebral disc disorders; other back problems (8 sources) Degeneration of cervical intervertebral disc; Translations: [Other cervical disc degeneration, unspecified cervical region] 08-14-2024 Chronic Substance-related disorders (10 sources) Tobacco dependence in remission; Translations: [Nicotine dependence, unspecified, in remission] Onset: 5 06-06-2024 Chronic Transient cerebral ischemia (14 sources) Transient cerebral ischemia; Translations: [Transient cerebral ischemic attack, unspecified] Onset: 5 07-10-2024 Chronic Unclassified (3 sources) 50% L ICA stenosis on CTA Unclassified (1 source) Obesity, class 1; Translations: [Obesity, class 1] Onset: Past or Other Problems Problem Classification Problem Date Documented Da te Episodic/Chronic Aortic; peripheral; and visceral artery aneurysms (20 sources) Ruptured abdominal aortic aneurysm; Translations: [Abdominal aneurysm, ruptured] Onset: 08-29-2009 Resolved: 01-15-2016 01-15-2016 Chronic Conditions associated with dizziness or vertigo (17 sources) Benign paroxysmal positional vertigo; Translations: [Benign paroxysmal vertigo, unspecified ear] Onset: 06-08-2024 Episodic Malaise and fatigue (12 sources) Fatigue; Translations: [Other fatigue] Onset: 06-19-2024 12-24-2023 Episodic Nausea and vomiting (20 sources) Nausea and vomiting; Translations: [Nausea with vomiting, unspecified] Onset: 06-08-2024 06-06-2024 Episodic Other connective tissue disease (2 sources) Muscle weakness (generalized); Translations: [Muscle weakness (generalized)] Onset: 06-08-2024 Episodic Other fractures (20 sources) Closed fracture of cervical spine; Translations: [Fracture of neck, unspecified, initial encounter] Onset: 12-26-2005 Resolved: 08-10-2017 08-10-2017 Episodic Screening and history of mental health and substance abuse codes (20 sources) Ex-smoker; Translations: [Personal history of nicotine dependence] Onset: 06-20-2015 04-03-2018 Episodic Spondylosis; intervertebral disc disorders; other back problems (18 sources) Nerve root disorder; Translations: [Radiculopathy, site unspecified] Onset: 09-01-2024 08-14-2024 Episodic Results Test Name Value Interpretation Reference Range Facility CBC panel Auto (Bld)on 01-28 Erythrocyte distribution width (RBC) [Ratio] 12.5 % Normal 11.5-15.0 [facility] Comment on above: Order Comment: Speci men Type: BLOOD SPECIMEN Ordering Facility: [facility] Address: [address] [place] [address] Performed By: #### [id number] 8410-2 #### [facility] CLIA [id number] [address] [place] [address] [place] Hematocrit (Bld) [Volume fraction] 44.3 % Normal 39.0-51.0 [facility] Comment on above: Order Comment: Speci men Type: BLOOD SPECIMEN Ordering Facility: [facility] Address: [address] [place] [address] Performed By: #### 5 [id number] #### [facility] CLIA [id number] [address] [place] [address] [place] Hemoglobin (Bld) [Mass/Vol] 15.1 g/dL Normal 13.0-17.0 [facility] Comment on above: Order Comment: Speci men Type: BLOOD SPECIMEN Ordering Facility: [facility] Address: [address] [place] [address] Performed By: #### 5 8410-2 #### [facility] CLIA [id number] [address] [place] [address] [place] MCH (RBC) [Entitic mass] 31.4 pg Normal 26.0-34.0 [facility] Comment on above: Order Comment: Speci men Type: BLOOD SPECIMEN Ordering Facility: [facility] Address: [address] [place] [address] Performed By: #### 5 8410-2 #### [facility] CLIA [id number] [address] [place] [address] [place] MCHC (RBC) [Mass/Vol] 34.1 g/dL Normal 30.5-36.0 [facility] Comment on above: Order Comment: Speci men Type: BLOOD SPECIMEN Ordering Facility: [facility] Address: [address] [place] [address] Performed By: #### 5 8410-2 #### [facility] CLIA [id number] [address] [place] [address] [place] MCV (RBC) [Entitic vol] 92.1 fL Normal 80.0-100.0 [facility] Comment on above: Order Comment: Speci men Type: BLOOD SPECIMEN Ordering Facility: [facility] Address: [address] [place] [address] Performed By: #### 5 8410-2 #### [facility] CLIA [id number] [address] [place] [address] [place] Nucleated RBC (Bld) [#/Vol] 10*3/uL Normal <0.01 [facility] Comment on above: Order Comment: Speci men Type: BLOOD SPECIMEN Ordering Facility: [facility] Address: [address] [place] [address] Performed By: #### 5 8410-2 #### [facility] CLIA [id number] [address] [place] [address] [place] Platelet mean volume (Bld) [Entitic vol] 11.1 fL Normal 9.0-12.7 [facility] Comment on above: Order Comment: Speci men Type: BLOOD SPECIMEN Ordering Facility: [facility] Address: [address] [place] [address] Performed By: #### 5 8410-2 #### [facility] CLIA [id number] [address] [place] [address] [place] Platelets (Bld) [#/Vol] 175 10*3/uL Normal 150-400 [facility] Comment on above: Order Comment: Speci men Type: BLOOD SPECIMEN Ordering Facility: [facility] Address: [address] [place] [address] Performed By: #### 5 8410-2 #### [facility] CLIA [id number] [address] [place] [address] [place] RBC (Bld) [#/Vol] 4.81 10*6/uL Normal 4.20-6.00 [facility] Comment on above: Order Comment: Speci men Type: BLOOD SPECIMEN Ordering Facility: [facility] Address: [address] [place] [address] Performed By: #### 5 8410-2 #### [facility] CLIA [id number] [address] [place] [address] [place] WBC (Bld) [#/Vol] 4.85 10*3/uL Normal 3.70-11.00 [facility] Comment on above: Order Comment: Speci men Type: BLOOD SPECIMEN Ordering Facility: [facility] Address: [address] [place] [address] Performed By: #### 5 8410-2 #### [facility] CLIA [id number] [address] [place] [address] [place] CK SerPl-cCncon 01-28-2025 CK [Catalytic activity/Vol] 163 U/L Normal 51-298 [facility] Comment on above: Order Comment: Speci men Type: BLOOD SPECIMEN Ordering Facility: [facility] Address: [address] [place] [address] Performed By: #### 5 8410-2 #### [facility] CLIA [id number] [address] [place] [address] [place] Cardiology Visit Reporton Cardiology Visit Report [facility] [address] [place], [place] [address] OFFICE VISIT Date of Service: 01/28/25 MR#: [id number] Acct: [id number] Name: SEDRICK CHOUDHARY Rep #: [id number] : 1970 Provider: JASPAL gant Age/Sex: 54/M Location: [facility] [place], [place] Status: Signed HPI HPI History of Present Illness Details: This is a 54-year-old man who presents to the office today for a cardiovascular follow-up visit. He has no previous cardiac history but mild hyperlipidemia who has been complaining of shortness of breath with exercise as well as some chest discomfort with exercise. He describes this as a heaviness across his chest. He denies any dizziness or diaphoresis no near syncope or syncope. He has been on very little medications but has been fairly compliant with his health issues. His most recent lipid profile had demonstrated total cholesterol of 217 HDL of 38 LDL 139 and triglycerides of 202. He had previously been scheduled for stress echo but it does not appear that he underwent this test. His physical exam is unremarkable his electrocardiogram demonstrates sinus rhythm with a rate of 64 bpm. I have seen his blood pressures at home and they have been in the normotensive range. He states he had a TIA 8 months ago. He states that he has had follow-ups with [facility] neurology. From a cardiac standpoint, the patient is doing well. He does acknowledge occasional chest pain-left chest. He describes this as a stabbing pain at rest. He denies any palpitations, pressure or heaviness. He does acknowledge SOB recently with shoveling a hole in the ground, and climbing stairs, lifting a tire to put on a truck. He states this is all newer for him. He denies Orthopnea, and PND. He does not have bleeding issues; no blood in urine, stool, or nosebleeds. He does acknowledge fatigue. He denies any myalgias, or claudication. He does not have edema, or sudden weight gain. He does acknowledge occasional lightheadedness. He denies dizziness, syncopal or near syncopal episodes, and headaches. He states he just had lab work done prior to his office visit today for his PCP at [facility]. 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 Is patient in pain?: No Allergies Penicillins (PCN) Allergy (Verified 01/28/25 11:18) Unknown Medications ???Medication ???Instructions ???Recorded ???Confirmed ???Type alprazolam 0.25 mg tablet 0.25 mg PO DAILY anxiety 10/07/23 01/28/25 History aspirin 81 mg tablet,delayed 81 mg PO DAILY heart health 01/28/25 History release (Adult Low Dose Aspirin) albuterol sulfate 90 mcg/actuation 2 puff inhalation Q4H PRN 01/28/25 History aerosol inhaler shortness of breath or wheezing amlodipine 10 mg tablet (Norvasc) 10 mg PO DAILY #30 tabs 06/08/24 01/28/25 Rx omeprazole 20 mg capsule,delayed 40 mg (2 x 20 mg) PO DAILY 30 days 06/08/24 01/28/25 Rx release #0 caps escitalopram oxalate 20 mg tablet 20 mg PO QDAY 08/06/24 01/28/25 H istory rosuvastatin 20 mg tablet 20 mg PO QDAY #30 tabs 08/07/24 Rx clopidogrel 75 mg tablet 75 mg PO QDAY 09/01/24 01/28/25 Hi story diclofenac sodium 1 % topical gel 2 g topical ONCE 09/01/24 5 History (Arthritis Pain (diclofenac)) metoprolol tartrate 25 mg tablet 25 mg PO QDAY #1 TAB 10/27/2401/07 Rx Ejection fraction %: 55 Have you fallen in the past year?: Yes PFSH Medical History History of transient ischemic attack (TIA) Chronic pain SOB (shortness of breath) Testicular hypofunction Mixed hyperlipidemia Depression Anxiety H/O esophageal reflux Nonspecific chest pain History of broken nose Surgical History No history of previous surgery Family History Father Myocardial infarction at 56 years old Mother Dementia Social History household members: spouse and children number of children: 2 Smoking Status: Former smoker Smokeless tobacco user: chewing tobacco alcohol intake: current details: 2 drinks per week substance use type: does not use what type of physical activity do you participate in: walking, running and weight training do you feel safe at home: Yes ROS Const Const: Positive for fatigue; Negative for weakness, headache(s) or frequent falls Eyes Eyes: Negative for blurry vision ENT ENT (more content not included)... Normal [facility] Comprehensive metabolic 2000 panelon 01-28-2025 Albumin [Mass/Vol] 4.6 g/dL Normal 3.9-4.9 [facility] Comment on above: Order Comment: Speci men Type: BLOOD SPECIMEN Ordering Facility: [facility] Address: [address] [place] [address] Performed By: #### 2 4323-8, 3051-0, 26688-6, 39582-1 #### [facility] CLIA [id number] [address] [place] [address] [place] ALP [Catalytic activity/Vol] 74 U/L Normal 38-113 [facility] Comment on above: Order Comment: Speci men Type: BLOOD SPECIMEN Ordering Facility: [facility] Address: [address] [place] [address] Performed By: #### 2 4323-8, 3051-0, 37390-7, 34451-0 #### [facility] CLIA [id number] [address] [place] [address] [place] ALT [Catalytic activity/Vol] 44 U/L Normal 10-54 [facility] Comment on above: Order Comment: Speci men Type: BLOOD SPECIMEN Ordering Facility: [facility] Address: [address] [place] [address] Performed By: #### 2 4323-8, 3051-0, 07393-8, 00955-8 #### [facility] CLIA [id number] [address] [place] [address] [place] Anion gap [Moles/Vol] 13 mmol/L Normal 8-15 [facility] Comment on above: Order Comment: Speci men Type: BLOOD SPECIMEN Ordering Facility: [facility] Address: [address] [place] [address] Performed By: #### 2 4323-8, 3051-0, 85499-7, 63968-2 #### [facility] CLIA [id number] [address] [place] [address] [place] AST [Catalytic activity/Vol] 30 U/L Normal 14-40 [facility] Comment on above: Order Comment: Speci men Type: BLOOD SPECIMEN Ordering Facility: [facility] Address: [address] [place] [address] Performed By: #### 2 4323-8, 3051-0, 88700-8, 83592-4 #### [facility] CLIA [id number] [address] [place] [address] [place] Bilirubin [Mass/Vol] 1.1 mg/dL Normal 0.2-1.3 [facility] Comment on above: Order Comment: Speci men Type: BLOOD SPECIMEN Ordering Facility: [facility] Address: [address] [place] [address] Performed By: #### 2 4323-8, 3051-0, 90743-9, 98599-2 #### [facility] CLIA [id number] [address] [place] [address] [place] Calcium [Mass/Vol] 9.6 mg/dL Normal 8.5-10.2 [facility] Comment on above: Order Comment: Speci men Type: BLOOD SPECIMEN Ordering Facility: [facility] Address: [address] [place] [address] Performed By: #### 2 4323-8, 3051-0, 56503-9, 04561-9 #### [facility] CLIA [id number] [address] [place] [address] [place] Chloride [Moles/Vol] 104 mmol/L Normal 98-107 [facility] Comment on above: Order Comment: Speci men Type: BLOOD SPECIMEN Ordering Facility: [facility] Address: [address] [place] [address] Performed By: #### 2 4323-8, 3051-0, 91847-1, 59425-7 #### [facility] CLIA [id number] [address] [place] [address] [place] CO2 [Moles/Vol] 24 mmol/L Normal 22-30 [facility] Comment on above: Order Comment: Marely haney Type: BLOOD SPECIMEN Ordering Facility: [facility] Address: [address] [place] [address] Performed By: #### 2 4323-8, 3051-0, 29308-5, 03542-3 #### [facility] CLIA [id number] [address] [place] [address] [place] Creatinine [Mass/Vol] 1.14 mg/dL Normal 0.73-1.22 [facility] Comment on above: Order Comment: Marely haney Type: BLOOD SPECIMEN Ordering Facility: [facility] Address: [address] [place] [address] Performed By: #### 2 4323-8, 3051-0, 16379-4, 08043-6 #### [facility] CLIA [id number] [address] [place] [address] [place] eGFRcr SerPlBld CKD-EPI 2020 75 mL/min/1.73m??? Normal >=60 [facility] Comment on above: Order Comment: Marely haney Type: BLOOD SPECIMEN Ordering Facility: [facility] Address: [address] [place] [address] Result Comment: Geraldine mated Glomerular Filtration Rate (eGFR) is calculated using the 2020 CKD-EPI creatinine equation. This equation utilizes serum creatinine, sex, and age as parameters. The creatinine assay has traceable calibration to isotope dilution-mass spectrometry. Refer to KDIGO guidelines for clinical interpretation. In patients with unstable renal function, e.g. those with acute kidney injury, the eGFR may not accurately reflect actual GFR. Performed By: #### 2 4323-8, 3051-0, 29868-1, 31120-4 #### [facility] CLIA [id number] [address] [place] [address] [place] Glucose [Mass/Vol] 104 mg/dL High 74-99 [facility] Comment on above: Order Comment: Marely haney Type: BLOOD SPECIMEN Ordering Facility: [facility] Address: [address] [place] [address] Result Comment: The [place] Diabetes Association (ADA) provides guidance for cutoff values for fasting glucose and random glucose. The ADA defines fasting as no caloric intake for at least 8 hours. Fasting plasma glucose results between 100 to 125 mg/dL indicate increased risk for diabetes (prediabetes). Fasting plasma glucose results greater than or equal to 126 mg/dL meet the criteria for diagnosis of diabetes. In the absence of unequivocal hyperglycemia, results should be confirmed by repeat testing. In a patient with classic symptoms of hyperglycemia or hyperglycemic crisis, random plasma glucose results greater than or equal to 200 mg/dL meet the criteria for diagnosis of diabetes. Reference: Standards of Medical Care in Diabetes 2016, [place] Diabetes Association. Diabetes Care. 2016.39(Suppl 1). Performed By: #### 2 4323-8, 3051-0, 52138-8, 84039-5 #### [facility] CLIA [id number] [address] [place] [address] [place] Potassium [Moles/Vol] 4.8 mmol/L Normal 3.7-5.1 [facility] Comment on above: Order Comment: Speci men Type: BLOOD SPECIMEN Ordering Facility: [facility] Address: [address] [place] [address] Performed By: #### 2 4323-8, 3051-0, 68410-7, 53036-2 #### [facility] CLIA [id number] [address] [place] [address] [place] Protein [Mass/Vol] 7.3 g/dL Normal 6.3-8.0 [facility] Comment on above: Order Comment: Speci men Type: BLOOD SPECIMEN Ordering Facility: [facility] Address: [address] [place] [address] Performed By: #### 2 4323-8, 3051-0, 59977-5, 07653-5 #### [facility] CLIA [id number] [address] [place] [address] [place] Sodium [Moles/Vol] 141 mmol/L Normal 136-144 [facility] Comment on above: Order Comment: Speci men Type: BLOOD SPECIMEN Ordering Facility: [facility] Address: [address] [place] [address] Performed By: #### 2 4323-8, 3051-0, 23882-5, 37271-1 #### [facility] CLIA [id number] [address] [place] [address] [place] Urea nitrogen [Mass/Vol] 23 mg/dL Normal 9-24 [facility] Comment on above: Order Comment: Speci men Type: BLOOD SPECIMEN Ordering Facility: [facility] Address: [address] [place] [address] Performed By: #### 2 4323-8, 3051-0, 92598-6, 93771-4 #### [facility] CLIA [id number] [address] [place] [address] [place] Ferritin SerPl-mCncon 2024 Ferritin [Mass/Vol] 291.0 ng/mL Normal 30.3-565.7 [facility] Comment on above: Order Comment: Speci men Type: BLOOD SPECIMEN Ordering Facility: [facility] Address: [address] [place] [address] Performed By: #### 5 8410-2 #### [facility] CLIA [id number] [address] [place] [address] [place] Folate SerPl-mCncon 01-29-20 25 Folate [Mass/Vol] 7.4 ng/mL Normal >4.7 [facility] Comment on above: Order Comment: Speci men Type: BLOOD SPECIMEN Ordering Facility: [facility] Address: [address] [place] [address] Performed By: #### 2 4323-8, 3051-0, 54029-1, 99706-6 #### [facility] CLIA [id number] [address] [place] [address] [place] Iron and Iron binding capaci ty panelon 01-28-2025 Iron [Mass/Vol] 108 ug/dL Normal 41-186 [facility] Comment on above: Order Comment: Speci men Type: BLOOD SPECIMEN Ordering Facility: [facility] Address: [address] [place] [address] Performed By: #### 2 4323-8, 3051-0, 02230-3, 37980-0 #### [facility] CLIA [id number] [address] [place] [address] [place] Iron binding capacity [Mass/Vol] 328 ug/dL Normal 232-386 [facility] Comment on above: Order Comment: Speci men Type: BLOOD SPECIMEN Ordering Facility: [facility] Address: [address] [place] [address] Performed By: #### 2 4323-8, 305-0, 21338-7, 62063-0 #### [facility] CLIA [id number] [address] [place] [address] [place] Iron/TIBC [Molar ratio] 32.9 % Normal 15.0-57.0 [facility] Comment on above: Order Comment: Speci men Type: BLOOD SPECIMEN Ordering Facility: [facility] Address: [address] [place] [address] Performed By: #### 2 4323-8, 305-0, 63718-6, 95750-8 #### [facility] CLIA [id number] [address] [place] [address] [place] Lipid 1996 panelon 01-28-202 5 Cholesterol [Mass/Vol] 134 mg/dL Normal <200 [facility] Comment on above: Order Comment: Speci men Type: BLOOD SPECIMEN Ordering Facility: [facility] Address: [address] [place] [address] Result Comment: <200 mg/dL, Desirable 200-239 mg/dL, Borderline high >239 mg/dL, High Performed By: #### 2 4323-8, 3051-0, 40722-3, 68571-7 #### [facility] CLIA [id number] [address] [place] [address] [place] Cholesterol in HDL [Mass/Vol] 37 mg/dL Low >39 [facility] Comment on above: Order Comment: Marely medina Type: BLOOD SPECIMEN Ordering Facility: [facility] Address: [address] [place] [address] Result Comment: 40-5 9 mg/dL, Acceptable >59 mg/dL, High: Negative risk factor for coronary heart disease <40 mg/dL, Low: Positive risk factor for coronary heart disease Performed By: #### 2 4323-8, 3051-0, 29341-9, 20466-6 #### [facility] CLIA [id number] [address] [place] [address] Cholesterol in LDL [Mass/Vol] 78 mg/dL Normal <100 [facility] Comment on above: Order Comment: Marely haney Type: BLOOD SPECIMEN Ordering Facility: [facility] Address: [address] [place] [address] Result Comment: <100 mg/dL, Optimal 100-129 mg/dL, Near optimal/above optimal 130-159 mg/dL, Borderline high 160-189 mg/dL, High >189 mg/dL, Very high Secondary prevention optimal LDL Cholesterol levels are recommended to be <70 mg/dL LDL cholesterol is calculated using the Nuñez-NIH equation. Performed By: #### 2 4323-8, 305-0, 19688-8, 05892-0 #### [facility] CLIA [id number] [address] [place] [address] [place] Cholesterol in LDL/Cholesterol in HDL [Mass ratio] 2.11 {ratio} Normal <2.54 [facility] Comment on above: Order Comment: Velasquezjohn haney Type: BLOOD SPECIMEN Ordering Facility: [facility] Address: [address] [place] [address] Result Comment: Refaryan woodsonce: 1. National Cholesterol Education Program ATP III Guideline At-A-Glance Quick Desk Reference: National Heart, Lung, and Blood Chalmers. National Institutes of Health. 2001: NIH Publication No. 01-3305. 2. An International Atherosclerosis Society position paper: global recommendations for the management of dyslipidemia: executive summary, Atherosclerosis. 2014: 232(2):410-413. Performed By: #### 2 4323-8, 3051-0, 28322-0, 75947-1 #### [facility] CLIA [id number] [address] [place] [address] [place] Cholesterol in VLDL [Mass/Vol] 15 mg/dL Normal <30 [facility] Comment on above: Order Comment: Speci men Type: BLOOD SPECIMEN Ordering Facility: [facility] Address: [address] [place] [address] Performed By: #### 2 4323-8, 3051-0, 83659-6, 12346-0 #### [facility] CLIA [id number] [address] [place] [address] [place] Cholesterol non HDL [Mass/Vol] 97 mg/dL Normal <130 [facility] Comment on above: Order Comment: Speci men Type: BLOOD SPECIMEN Ordering Facility: [facility] Address: [address] [place] [address] Result Comment: <130 mg/dL, Optimal 130-159 mg/dL, Near optimal/above optimal 160-189 mg/dL, Borderline high 190-219 mg/dL, High >219 mg/dL, Very high Secondary prevention optimal non HDL Cholesterol levels are recommended to be <100 mg/dL Performed By: #### 2 4323-8, 305-0, 51606-2, 67044-2 #### [facility] CLIA [id number] [address] [place] [address] [place] Cholesterol.total/Choles terol in HDL [Mass ratio] 3.62 {ratio} Normal <5.10 [facility] Comment on above: Order Comment: Speci men Type: BLOOD SPECIMEN Ordering Facility: [facility] Address: [address] [place] [address] Performed By: #### 2 4323-8, 305-0, 89608-0, 05605-7 #### [facility] CLIA [id number] [address] [place] [address] [place] FASTING TIME 12 hrs Normal [facility] Comment on above: Order Comment: Speci men Type: BLOOD SPECIMEN Ordering Facility: [facility] Address: [address] [place] [address] Performed By: #### 2 4323-8, 3051-0, 93913-5, 54954-2 #### [facility] CLIA [id number] [address] [place] [address] [place] Triglyceride [Mass/Vol] 101 mg/dL Normal <150 [facility] Comment on above: Order Comment: Speci men Type: BLOOD SPECIMEN Ordering Facility: [facility] Address: [address] [place] [address] Result Comment: <150 mg/dL, Normal 150-199 mg/dL, Borderline high 200-499 mg/dL, High >499 mg/dL, Very high Performed By: #### 2 4323-8, 3051-0, 93146-2, 01477-2 #### [facility] CLIA [id number] [address] [place] [address] [place] T3Free SerPl-mCncon 01-29-20 25 Free T3 [Mass/Vol] 3.2 pg/mL Normal 2.3-4.1 [facility] Comment on above: Order Comment: Speci men Type: BLOOD SPECIMEN Ordering Facility: [facility] Address: [address] [place] [address] Performed By: #### 2 4323-8, 305-0, 39215-2, 08431-3 #### [facility] CLIA [id number] [address] [place] [address] [place] T4 Free SerPl-mCncon 025 Free T4 [Mass/Vol] 1.0 ng/dL Normal 0.9-1.7 [facility] Comment on above: Order Comment: Speci men Type: BLOOD SPECIMEN Ordering Facility: [facility] Address: [address] [place] [address] Performed By: #### 5 8410-2 #### [facility] CLIA [id number] [address] [place] [address] [place] THYROID PEROXIDASE ANTIBODYo n 01-28-2025 TPO Ab Qn [IU]/mL Normal <5.6 [facility] Comment on above: Order Comment: Marely haney Type: BLOOD SPECIMEN Ordering Facility: [facility] Address: [address] [place] [address] Result Comment: Thyr oid Peroxidase Antibody test is used as an aid in diagnosis of autoimmune thyroid disease. Clinical correlation is required. Performed By: #### M ICRO #### [facility] CLIA [id number] [address] [place] [address] [place] TSH SerPl-aCncon 01-28-2025 TSH Qn 4.100 m[IU]/L Normal 0.270-4.200 [facility] Comment on above: Order Comment: Marely haney Type: BLOOD SPECIMEN Ordering Facility: [facility] Address: [address] [place] [address] Performed By: #### 5 8410-2 #### [facility] CLIA [id number] [address] [place] [address] [place] Vit B12 SerPl-mCncon 025 Cobalamin (Vitamin B12) [Mass/Vol] 380 pg/mL Normal 232-1245 [facility] Comment on above: Order Comment: Marely haney Type: BLOOD SPECIMEN Ordering Facility: [facility] Address: [address] [place] [address] Performed By: #### 5 8410-2 #### [facility] CLIA [id number] [address] [place] [address] [place] CNOVon 01-07-2025 CNOV Office Visit (INTMWS ) SEDRICK CHOUDHARY ([id number]) 1970 M Date Time Provider Department 01/07/25 11:40 AM SHEILA MOBLEY INTMWS During your visit today, we recorded the following information about you: Pulse Respiration Blood pressure Weight 80/minute 16/minute 120/78 103.7 kg Sheila Mobley MD 02/12/2025 1:12 AM Signed Subjective Sedrick Choudhary is a 54 year old male. HPI Sedrick Choudhary is a 54-year-old male with a history of TIA and hypercholesterolemia, presenting for a 6-month checkup. Sedrick reports persistent fatigue, dyspnea, and right-sided weakness since experiencing a TIA. He notes a significant decrease in his physical capabilities, stating he can no longer lift heavy objects or perform tasks at work as he used to. He also reports pain radiating from his right arm to his shoulder, which he describes as feeling like a muscle tear. This pain has limited his ability to use his right arm effectively, particularly when using tools at work. He also experiences intermittent numbness and tingling in his arms and hands, which he attributes to his sleeping position. Sedrick is currently taking rosuvastatin for hypercholesterolemia, but reports confusion about the dosage. 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 Due to a prescription error, he has been taking 10 mg daily by splitting the 5 mg tablets. He denies any muscle aches related to the medication. Recent lab results from October show a TSH level of 4.910, with normal kidney function and electrolytes. Cholesterol levels from June include an LDL of 121 mg/dL, HDL of 41 mg/dL, and total cholesterol of 191 mg/dL. Sedrick also mentions a recent CT calcium score test, with plans for a repeat test and potential heart catheterization if the score does not improve. Family history is significant for dementia in his mother, who is currently in a long-term. He also has a history of a brother who at 19 years old due to anemia. 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 escitalopram oxalate (LEXAPRO) 20 mg tablet Take 1 tablet by mouth once daily. amLODIPine (NORVASC) 10 mg tablet Take 1 tablet by mouth once daily. omeprazole (PRILOSEC) 20 mg capsule Take 1 capsule by mouth two times a day. As directed albuterol HFA (VENTOLIN HFA) 90 mcg/actuation inhaler Inhale 2 Puffs as instructed every 4 hours as needed for wheezing/shortness of breath. diclofenac (VOLTAREN ARTHRITIS PAIN) 1 % topical gel Apply 4 g to affected area four times daily. Aspirin 81 mg ORAL Tab Take 1 tablet by mouth once daily. ALPRAZolam (XANAX) 0.25 mg tablet Take 1 tablet by mouth two times a day as needed for anxiety for up to 60 days. rosuvastatin (CRESTOR) 20 mg tablet Take 1 tablet by mouth daily at bedtime. No current facility-administered medications for this visit. ALLERGIES Allergen Reactions Penicillins Unknown FAMILY HISTORY Problem Relation Age of Onset Dementia Mother Heart Father of m.i No Known Problems Sister No Known Problems Sister other (anemia [Other]) Brother SOCIAL HISTORY[1] Review of Systems Objective BP 120/78 Pulse 80 Resp 16 Wt 103.7 kg (228 lb 9.9 oz) SpO2 97% BMI 34.49 kg/m? Last 5 Encounter Wt Readings: Date: Wt: 01/07/2025 103.7 kg (228 lb 9.9 oz) 10/12/2024 104.3 kg (230 lb) 06/24/2024 100.6 kg (221 lb 11.1 oz) 12/24/2023 98.8 kg (217 lb 13 oz) 08/16/2023 100.7 kg (222 lb) No waist measurement recorded Estimated body mass index is 34.49 kg/m? as calculated from the following: Height as of 10/12/24: 173.4 cm (5' 8.27"). Weight as of this encounter: 103.7 kg (228 lb 9.9 oz). Last 5 Encounter BP Readings: Date: BP: 01/07/2025 146/88 10/12/2024 125/71 06/24/2024 123/76 12/24/2023 112/82 08/16/2023 115/75 Physical Exam Vitals reviewed. Constitutional: Appearance: Normal appearance. He is obese. HENT: Head: Normocephalic. Right Ear: Tympanic membrane, ear canal and external ear normal. Left Ear: Tympanic membrane, ear canal and external ear normal. Mouth/Throat: Mouth: Mucous membranes are moist. Pharynx: Oropharynx is clear. Eyes: Extraocular Movements: Extraocular movements intact. Conjunctiva/sclera: Conjunctivae normal. Pupils: Pupils are equal, round, and reactive to light. Neck: Vascular: No carotid bruit. Cardiovascular: (more content not included)... Normal [facility] Coronary Angiography CTon Coronary Angiography CT [facility] Imaging Services [address] [place] [address] 12/23/24 1826 MR#: [id number] Acct: [id number] Name: SEDRICK CHOUDHARY Rep #: [id number] : 1970 54 From: Jim Cronin MD PCP: Dr. Sheila Mobley MD Status:REG CLI Y Location: CT Calcium Scoring Date of Study:: 12/22/24 Indications Indications: Family history Coronary Calcium Scoring: High-resolution Computed Tomographic imaging of the chest was performed on [12/22/2024], with particular attention paid to the coronary arteries. Images from the examination were analyzed for the presence and extent of coronary artery calcification , using coronary calcium quantification software. The patient tolerated the procedure well and there were no complications. The results of the coronary calcification analysis are provided below. Findings Coronary Artery Left Main (LM): 0 Left Anterior Descending (LAD): 119 Left Circumflex (LCX): 0 Right Coronary Artery (RCA): 0 Total Agatston Score: 119 Percentile Rankin-75 percentile Calcium Scoring Interpretation: Different methods to categorize the overall amount of coronary plaque. Overall amount CAC SIS Visual of coronary plaque P1 Mild -100 <2 1-2 vessels with mild amount of plaque P2 Moderate 101-300 3-4 1-2 vessels with moderate amount, 3 vessels with mild amount of plaque P3 Severe 301-999 5-7 3 vessels with moderate amount, 1 vessel with severe amount of plaque P4 Extensive >1000 >8 2-3 vessels with severe amount of plaque Conclusion: Mild single-vessel plaque disease present. 12/23/24 1827 Date Jim Cronin MD Cosigner Signature (if applicable): Date CC: JASPAL Bingham; Dr. Jim Cronin MD; Dr. Sheila Mobley MD Signed Normal [facility] Limited Chest CT Cardiac Onl yon 12-22-[address] Cardiac Only [facility] Imaging Services [address] [place] [address] Cardiac Only MR#: [id number] Acct: [id number] Name: SEDRICK CHOUDHARY Rep #: [id number] : 1970 M 54 From: Adama lcakey MD PCP: Dr. Sheila Mobley MD Status: REG CL Study: Limited Chest CT Cardiac Only Date of Exam: Exam# [id number] Ordering Dr: Isatu Bingham NP, NP- Rakan PROCEDURE: LIMITED CHEST CT CARDIAC ONLY 12/22/2024 REASON FOR EXAM: SHORTNESS OF BREATH TECHNIQUE: Procedure Code: CTCCTACHLIM Modality: CT Procedure: LIMITED CHEST CT CARDIAC ONLY CONTRAST: None One or more dose reduction techniques were used (e.g., Automated exposure control, adjustment of the mA and/or kV according to patient size, use of iterative reconstruction technique). RADIATION DOSE SUMMARY: CTDlvol: 12.19 mGy DLP: 219.42 mGycm COMPARISON: None FINDINGS: Coronary artery calcification. Minimal anterior pericardial thickening. The heart is nonenlarged. Calcified right hilar lymph nodes. Scattered calcified granulomas. CT/Limited Chest CT Cardiac Only IMPRESSION: Coronary artery calcification. Reading Location: [facility] CC: JASPAL Bingham; Dr. Sheila Mobley MD Autocad Draftsman: Signed Normal [facility] Absolute lymphocyte countOrd ered By: Isatu Bingham on 10-27-2024 Lymphocytes Auto (Unsp spec) [#/Vol] 0.77 10*3/uL Low 0.83-4.51 [facility] Absolute neutrophil countOrd ered By: Isatu Bingham on 10-27-2024 Neutrophils (Bld) [#/Vol] 2.6 10*3/uL 2.0-7.7 [facility] Anion gap in Serum or Plasma Ordered By: Isatu Bingham on 10-27-2024 Anion gap [Moles/Vol] 11 mmol/L 5-15 [facility] Automated lymphocyte count a s percentage of total leukocytesOrdered By: Isatu Bingham on 10-27-2024 Lymphocytes/100 WBC Auto (Unsp spec) 18.6 % Low 19-41 [facility] BUN/creatinine ratioOrdered By: Isatu Bingham on 10-27-2024 Urea nitrogen/Creatinine [Mass ratio] 15.9 mg/mg - [facility] Basic Metabolic Profile (BMP )on 10-27-2024 BUN/CRE 15.9 RATIO Normal - [facility] Comment on above: Performed By: #### L 500.2500, L100.0100, L503.7505, L501.9520 #### [facility] [address] [place], [address] Calcium [Mass/Vol] 9.2 mg/dL Normal 7.6-11.0 [facility] Comment on above: Performed By: #### L 500.2500, L100.0100, L503.7505, L501.9520 #### [facility] [address] [place], [address] Chloride [Moles/Vol] 105 mmol/L Normal 98-108 [place] Comment on above: Performed By: #### L 500.2500, L100.0100, L503.7505, L501.9520 #### [facility] [address] [place], [address] CO2 [Moles/Vol] 24.7 mmol/L Normal 21.0-32.0 [facility] Comment on above: Performed By: #### L 500.2500, L100.0100, L503.7505, L501.9520 #### [facility] [address] [place], [address] Creatinine [Mass/Vol] 1.19 mg/dL Normal 0.70-1.20 [facility] Comment on above: Performed By: #### L 500.2500, L100.0100, L503.7505, L501.9520 #### [facility] [address] [place], [address] GAP 11 Normal 5-15 [facility] Comment on above: Performed By: #### L 500.2500, L100.0100, L503.7505, L501.9520 #### [facility] [address] [place], [address] GFR/1.73 sq M.predicted among non-blacks MDRD (S/P/Bld) [Vol rate/Area] 72 mL/min/{1.73_m2} Normal >60 [facility] Comment on above: Result Comment: mL/m in/1.73m2 CKD-EPI Creatinine Equation (2020) Performed By: #### L 500.2500, L100.0100, L503.7505, L501.9520 #### [facility] [address] [place], [address] Glucose [Mass/Vol] 111 mg/dL High 70-99 [facility] Comment on above: Performed By: #### L 500.2500, L100.0100, L503.7505, L501.9520 #### [facility] [address] [place], [address] Potassium [Moles/Vol] 4.4 mmol/L Normal 3.3-5.1 [facility] Comment on above: Performed By: #### L 500.2500, L100.0100, L503.7505, L501.9520 #### [facility] [address] [place], [address] Sodium [Moles/Vol] 141 mmol/L Normal 133-145 [facility] Comment on above: Performed By: #### L 500.2500, L100.0100, L503.7505, L501.9520 #### [facility] [address] [place], [address] Urea nitrogen [Mass/Vol] 19 mg/dL Normal 4-19 [facility] Comment on above: Performed By: #### L 500.2500, L100.0100, L503.7505, L501.9520 #### [facility] [address] [place], [address] Basophil percentageOrdered B y: Isatu Bnigham on 10-27-2024 Basophils/100 WBC (Bld) 0.5 % 0-1 [facility] CBC W/Diff, Automatedon 10-07 Absolute Lymph 0.77 X10 3/uL Low 0.83-4.51 [facility] Comment on above: Performed By: #### L 500.2500, L100.0100, L503.7505, L501.9520 #### [facility] [address] [place], [address] Absolute Neut 2.6 X10 3/uL Normal 2.0-7.7 [facility] Comment on above: Performed By: #### L 500.2500, L100.0100, L503.7505, L501.9520 #### [facility] [address] [place], [address] Basophils/100 WBC (Bld) 0.5 % Normal 0-1 [facility] Comment on above: Performed By: #### L 500.2500, L100.0100, L503.7505, L501.9520 #### [facility] [address] [place], [address] Eosinophils/100 WBC (Bld) 7.5 % High 0-5 [facility] Comment on above: Performed By: #### L 500.2500, L100.0100, L503.7505, L501.9520 #### [facility] [address] [place], [address] Erythrocyte distribution width (RBC) [Ratio] 12.8 % Normal 11.6-14.6 [facility] Comment on above: Performed By: #### L 500.2500, L100.0100, L503.7505, L501.9520 #### [facility] [address] [place], [address] Hematocrit (Bld) [Volume fraction] 40.6 % Normal 40-54 [facility] Comment on above: Performed By: #### L 500.2500, L100.0100, L503.7505, L501.9520 #### [facility] [address] [place], [address] Hemoglobin (Bld) [Mass/Vol] 14.4 g/dL Normal 13.0-16.5 [facility] Comment on above: Performed By: #### L 500.2500, L100.0100, L503.7505, L501.9520 #### [facility] [address] [place], [address] IG% 0.200 Normal 0.0-0.9 [facility] Comment on above: Result Comment: IG% - Immature Granulocytes (promyelocytes, myelocytes and metamyelocytes) > 1% indicates that a LEFT SHIFT is Present. Performed By: #### L 500.2500, L100.0100, L503.7505, L501.9520 #### [facility] [address] [place], [address] Lymphocytes/100 WBC (Bld) 18.6 % Low 19-41 [facility] Comment on above: Performed By: #### L 500.2500, L100.0100, L503.7505, L501.9520 #### [facility] [address] [place], [address] MCH (RBC) [Entitic mass] 32.1 pg High 27.0-32.0 [facility] Comment on above: Performed By: #### L 500.2500, L100.0100, L503.7505, L501.9520 #### [facility] [address] [place], [address] MCHC (RBC) [Mass/Vol] 35.5 g/dL Normal 32-36 [facility] Comment on above: Performed By: #### L 500.2500, L100.0100, L503.7505, L501.9520 #### [facility] [address] [place], [address] MCV (RBC) [Entitic vol] 90.6 fL Normal 80-94 [facility] Comment on above: Performed By: #### L 500.2500, L100.0100, L503.7505, L501.9520 #### [facility] [address] [place], [address] Monocytes/100 WBC (Bld) 10.9 % High 0-10 [facility] Comment on above: Performed By: #### L 500.2500, L100.0100, L503.7505, L501.9520 #### [facility] [address] [place], [address] Neutrophils/100 WBC (Bld) 62.3 % Normal 47-70 [facility] Comment on above: Performed By: #### L 500.2500, L100.0100, L503.7505, L501.9520 #### [facility] [address] [place], [address] Nucleated RBC (Bld) [#/Vol] 0.5 10*3/uL Normal 0-5 [facility] Comment on above: Performed By: #### L 500.2500, L100.0100, L503.7505, L501.9520 #### [facility] [address] [place], [address] Platelet mean volume (Bld) [Entitic vol] 10.5 fL Normal 6.2-12.0 [facility] Comment on above: Performed By: #### L 500.2500, L100.0100, L503.7505, L501.9520 #### [facility] [address] [place], [address] Platelets (Bld) [#/Vol] 150 10*3/uL Normal 150-450 [facility] Comment on above: Performed By: #### L 500.2500, L100.0100, L503.7505, L501.9520 #### [facility] [address] [place], [address] RBC (Bld) [#/Vol] 4.48 10*6/uL Low 4.6-6.2 [facility] Comment on above: Performed By: #### L 500.2500, L100.0100, L503.7505, L501.9520 #### [facility] [address] [place], [address] RDW SD 41.8 fl Normal 35.1-43.9 [facility] Comment on above: Performed By: #### L 500.2500, L100.0100, L503.7505, L501.9520 #### [facility] [address] [place], [address] WBC (Bld) [#/Vol] 4.1 10*3/uL Low 4.4-11.0 [facility] Comment on above: Performed By: #### L 500.2500, L100.0100, L503.7505, L501.9520 #### [facility] [address] [place], [address] Carbon dioxide, total [Moles /volume] in Central venous bloodOrdered By: Isatu Bingham on 10-27-2024 CO2 [Moles/Vol] 24.7 mmol/L 21.0-32.0 [facility] Cardiology Visit Reporton Cardiology Visit Report [facility] [address] [place] [address] OFFICE VISIT Date of Service: 10/27/24 MR#: [id number] Acct: [id number] Name: SEDRICK CHOUDHARY Rep #: [id number] : 1970 Provider: JASPAL gant Age/Sex: 54/M Location: [facility] [place] Status: Signed HPI HPI History of Present Illness Details: This is a 54-year-old man who presents to the office today for a cardiovascular follow-up visit. He has no previous cardiac history but mild hyperlipidemia who has been complaining of shortness of breath with exercise as well as some chest discomfort with exercise. He describes this as a heaviness across his chest. He denies any dizziness or diaphoresis no near syncope or syncope. He has been on very little medications but has been fairly compliant with his health issues. His most recent lipid profile had demonstrated total cholesterol of 217 HDL of 38 LDL 139 and triglycerides of 202. He had previously been scheduled for stress echo but it does not appear that he underwent this test. His physical exam is unremarkable his electrocardiogram demonstrates sinus rhythm with a rate of 64 bpm. I have seen his blood pressures at home and they have been in the normotensive range. He states he had a TIA 5 months ago. He states that he has had follow-ups with [facility] neurology. He is currently wearing an event monitor. He is scheduled for an MRA. From a cardiac standpoint, the patient is doing well. He denies any palpitations, chest pain, pressure or heaviness. He does acknowledge SOB with exertion. He states that he was playing volleyball for about 30 minutes and had to stop due to feeling winded, and nausea. He denies Orthopnea, and PND. He does not have bleeding issues; no blood in urine, stool, or nosebleeds. He does acknowledge fatigue. He denies myalgias, or claudication. He does not have edema, or sudden weight gain. He does acknowledge lightheadedness since his TIA. He states this has improved slightly. He denies dizziness, syncopal or near syncopal episodes, and headaches. 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 Is patient in pain?: No Allergies Penicillins (PCN) Allergy (Verified 10/27/24 09:15) Unknown Medications ???Medication ???Instructions ???Recorded ???Confirmed ???Type alprazolam 0.25 mg tablet 0.25 mg PO DAILY anxiety 10/07/23 10/27/24 History aspirin 81 mg tablet,delayed 81 mg PO DAILY heart health 10/27/24 History release (Adult Low Dose Aspirin) albuterol sulfate 90 mcg/actuation 2 puff inhalation Q4H PRN 10/27/24 History aerosol inhaler shortness of breath or wheezing amlodipine 10 mg tablet (Norvasc) 10 mg PO DAILY #30 tabs 06/08/24 10/27/24 Rx omeprazole 20 mg capsule,delayed 40 mg (2 x 20 mg) PO DAILY 30 days 06/08/24 10/27/24 Rx release #0 caps escitalopram oxalate 20 mg tablet 20 mg PO QDAY 08/06/24 10/27/24 H istory rosuvastatin 20 mg tablet 20 mg PO QDAY #30 tabs 08/07/24 Rx clopidogrel 75 mg tablet 75 mg PO QDAY 09/01/24 10/27/24 Hi story diclofenac sodium 1 % topical gel 2 g topical ONCE 09/01/24 5 History (Arthritis Pain (diclofenac)) metoprolol tartrate 25 mg tablet 25 mg PO QDAY #1 TAB 10/27/2410/07 Rx Ejection fraction %: 55 Have you fallen in the past year?: No PFSH Medical History History of transient ischemic attack (TIA) Chronic pain SOB (shortness of breath) Testicular hypofunction Mixed hyperlipidemia Depression Anxiety H/O esophageal reflux Nonspecific chest pain History of broken nose Surgical History No history of previous surgery Family History Father Myocardial infarction at 56 years old Mother Dementia Social History household members: spouse and children number of children: 2 Smoking Status: Former smoker Smokeless tobacco user: chewing tobacco alcohol intake: current details: 2 drinks per week substance use type: does not use what type of physical activity do you participate in: walking, running and weight training do you feel safe at home: Yes ROS Const Const: Positive for fatigue and headache(s); Negative for weakness or frequent falls Eyes Eyes: Negative for blurry vision ENT ENT: Positive for headache(s) and dizziness (tia 2024); Negative for Nosebleed/epi (more content not included)... Normal [facility] Chloride assayOrdered By: Dk Bingham on 10-27-2024 Chloride [Moles/Vol] 105 mmol/L 98-108 [place] Eosinophil percentageOrdered By: Isatu Bingham on 10-27-2024 Eosinophils/100 WBC (Bld) 7.5 % High 0-5 [facility] Erythrocyte distribution wid th ratioOrdered By: Isatu Bingham on 10-27-2024 Erythrocyte distribution width (RBC) [Ratio] 12.8 % 11.6-14.6 [facility] Erythrocyte distribution wid th standard deviationOrdered By: Isatu Bingham on 10-27-2024 Erythrocyte distribution width (RBC) [Ratio] 41.8 fl 35.1-43.9 [facility] Glomerular filtration rate ( GFR) estimation/1.73 sq m using serum, plasma, or whole bOrdered By: Isatu Bingham on 10-27-2024 GFR/1.73 sq M.predicted among non-blacks MDRD (S/P/Bld) [Vol rate/Area] 72 mL/min/{1.73_m2} >60 [facility] Comment on above: mL/min/1.73m2 CKD-EP I Creatinine Equation (2020) Hematocrit Auto (Bld) [Volum e fraction]Ordered By: Isatu Bingham on 10-27-2024 Hematocrit (Bld) [Volume fraction] 40.6 % 40-54 [facility] Hemoglobin measurementOrdere d By: Isatu Bingham on 10-27-2024 Hemoglobin (Bld) [Mass/Vol] 14.4 g/dL 13.0-16.5 [facility] Immature granulocytes/100 WB C Auto (Bld)Ordered By: Isatu Bingham on 10-27-2024 Immature granulocytes/100 WBC (Bld) 0.200 % 0.0-0.9 [facility] Comment on above: IG% - Immature Granu locytes (promyelocytes, myelocytes and metamyelocytes) > 1% indicates that a LEFT SHIFT is Present. L503.7505on 10-27-2024 Natriuretic peptide B (Bld) [Mass/Vol] 92 pg/mL Normal <=900 [facility] Comment on above: Result Comment: Hear t Failure Unlikely: < 300 pg/mL Heart Failure Likely < 50 Years: > 450 pg/mL 50-75 Years: > 900 pg/mL >75 Years: > 1800 pg/mL Performed By: #### L 501.2450, L100.0100, L300.4310, L500.4050, L300.3900 #### [facility] [address] [place], [place] [address], [place], [address] MCV (mean corpuscular volume ) determinationOrdered By: Isatu Bingham on 10-27-2024 MCV (RBC) [Entitic vol] 90.6 fL 80-94 [facility] Mean corpuscular hemoglobin (MCH) determinationOrdered By: Isatu Bingham on 10-27-2024 MCH (RBC) [Entitic mass] 32.1 pg High 27.0-32.0 [facility] Mean corpuscular hemoglobin concentration (MCHC) determinationOrdered By: Isatu Bingham on 10-27-2024 MCHC (RBC) [Mass/Vol] 35.5 g/dL 32-36 [facility] Mean platelet volume determi nationOrdered By: Isatu Bingham on 10-27-2024 Platelet mean volume (Bld) [Entitic vol] 10.5 fL 6.2-12.0 [facility] Monocyte percentageOrdered B y: Isatu Bingham on 10-27-2024 Monocytes/100 WBC (Bld) 10.9 % High 0-10 [facility] Natriuretic peptide.B prohor rm N-Terminal [Mass/volume] in Serum or PlasmaOrdered By: Isatu Bingham on 10-27-2024 Natriuretic peptide.B prohormone N-Terminal [Mass/Vol] 92 pg/mL <900 [facility] Comment on above: Heart Failure Unlike ly: < 300 pg/mLHeart Failure Likely< 50 Years: > 450 pg/mL50-75 Years: > 900 pg/mL>75 Years: > 1800 pg/mL Neutrophil percentageOrdered By: Isatu Bingham on 10-27-2024 Neutrophils/100 WBC (Bld) 62.3 % 47-70 [facility] Nucleated red blood cell per centageOrdered By: Isatu Bingham on 10-27-2024 Nucleated RBC/100 WBC (Bld) [Ratio] 0.5 % 0-5 [facility] Platelet countOrdered By: Dk Bingham on 10-27-2024 Platelets (Bld) [#/Vol] 150 10*3/uL 150-450 [facility] Potassium measurement (mass/ volume)Ordered By: Isatu Bingham on 10-27-2024 Potassium (Unsp spec) [Mass/Vol] 4.4 mmol/L 3.3-5.1 [facility] RBC Auto (Bld) [#/Vol]Ordere d By: Isatu Bingham on 10-27-2024 RBC (Bld) [#/Vol] 4.48 10*6/uL Low 4.6-6.2 [facility] Serum creatinine measurement (mass/volume)Ordered By: Isatu Bingham on 10-27-2024 Creatinine [Mass/Vol] 1.19 mg/dL 0.70-1.20 [facility] Serum glucose measurement (m ass/volume)Ordered By: Isatu Bingham on 10-27-2024 Glucose [Mass/Vol] 111 mg/dL High 70-99 [facility] Serum or plasma calcium man urement (mass/volume)Ordered By: Isatu Bingham on 10-27-2024 Calcium [Mass/Vol] 9.2 mg/dL 7.6-11.0 [facility] Serum or plasma urea nitroge n measurement (mass/volume)Ordered By: Isatu Bingham on 10-27-2024 Urea nitrogen [Mass/Vol] 19 mg/dL 4-19 [facility] Sodium levelOrdered By: Sandy Bingham on 10-27-2024 Sodium [Moles/Vol] 141 mmol/L 133-145 [facility] TSH DL <= 0.005 mIU/L QnOrde red By: Isatu Bingham on 10-27-2024 TSH Qn 4.910 uIU/mL High 0.300-4.200 [facility] Thyroid Stim Hormone (TSH)on 10-27-2024 TSH 4.910 uIU/mL High 0.300-4.200 [facility] Comment on above: Performed By: #### L 500.2500, L100.0100, L503.7505, L501.9520 #### [facility] [address] [place], [address] White blood cell (WBC) count Ordered By: Isatu Bingham on 10-27-2024 WBC (Bld) [#/Vol] 4.1 10*3/uL Low 4.4-11.0 [facility] CNPNon [facility]20[facility] SEDRICK CHOUDHARY ([id number]) 1970 M Date Time Provider Department 10/13/24 KARISSA JIANG NECVS8 During your visit today, we recorded the following information about you: Franco Pickering, RN 10/13/2024 1:[address] Jiang: For this patient, can I ask you to call [facility] and see if he's gotten any MRI spine, bloodwork of HbA1C, and if he's gotten an echocardiogram inpatient or outpatient? Our records are limited and the patient doesn't recall. Faxed request for above records to [facility]. ABBI Smyth Kedasia 10/14/2024 1:17 PM Signed Received records from [facility], scanned into patient's chart. Allergies As of Date: 10/13/2024 Noted Allergy Reaction PENICILLINS 08/16/2023 16 - Unknown Date Reviewed: 10/12/2024 Reviewed by: Mae Almonte MA - Fully Assessed Prescriptions as of 10/14/2024 - clopidogrel (PLAVIX) 75 mg tablet Take 1 tablet by mouth once daily. - ALPRAZolam (XANAX) 0.25 mg tablet Take 1 tablet by mouth two times a day as needed for anxiety for up to 60 days. - escitalopram oxalate (LEXAPRO) 20 mg tablet Take 1 tablet by mouth once daily. - rosuvastatin (CRESTOR) 5 mg tablet Take 1 tablet by mouth daily at bedtime. - amLODIPine (NORVASC) 10 mg tablet Take 1 tablet by mouth once daily. - omeprazole (PRILOSEC) 20 mg capsule Take 1 capsule by mouth two times a day. As directed - albuterol HFA (VENTOLIN HFA) 90 mcg/actuation inhaler Inhale 2 Puffs as instructed every 4 hours as needed for wheezing/shortness of breath. - diclofenac (VOLTAREN ARTHRITIS PAIN) 1 % topical gel Apply 4 g to affected area four times daily. - Aspirin 81 mg ORAL Tab Take 1 tablet by mouth once daily. Problem List As Of Date 10/13/2024 Noted Resolved ESOPHAGEAL REFLUX [K21.9] 08/03/2005 Anxiety state [F41.1] 08/03/2005 Closed fracture of cervical vertebra (HCC) [S12*12/26/2005 08/10/2017 Mixed hyperlipidemia [E78.2] 05/03/2006 06/08/2016 Testicular hypofunction [E29.1] 12/18/2006 02/20/2022 Abdominal aneurysm, ruptured (HCC) [I71.30] 08/29/2009 01/15/2016 Impotence of organic origin [N52.9] 07/06/2010 Anxiety and depression [F41.9, F32.A] 08/14/2010 Former smoker [Z87.891] 06/20/2015 Obesity, Class I, BMI 30-34.9 [E66.811] 10/19/2022 Encounter Status:Closed by FRANCO PICKERING on 10/13/24 Normal [facility] CNOVon 10-12-2024 CNOV Office Visit (NECVS8 ) SEDRICK CHOUDHARY ([id number]) 1970 M Date Time Provider Department 10/12/24 3:00 PM KARISSA JIANG NECVS8 During your visit today, we recorded the following information about you: Pulse Blood pressure Weight Height 74/minute 125/71 104.3 kg 1.734 m Karissa Jiang MD 10/13/2024 11:38 AM Signed [facility] Initial Visit Consultation is requested by: Sheila Mobley [address] [place] [id number] PCP: [facility] Mob[facility] [place] [phone] Consultation requested by Dr. Mobley for an opinion regarding right sided weakness. My final recommendations will be communicated back to the requesting physician by way of shared Medical record or letter to requesting physician via US mail. [facility] Reason for Visit: spells of neurologic dysfunction Date of Last Event: 06/06/2024 History of Event: 06/06 pt went to ED with right sided weakness, couldn't walk on right leg, states he was dragging it. Pt's right arm felt like he "tore every muscle in it" at the time. Right before, pt had an episode of hot flash and nausea. CT negative stroke. Was told he had a TIA. Pt states he's gaining strength back on the right side, still unable to lift as heavy as he did. has had headache, dizziness and nausea about 3-4 days a week. History taken by Franco Pickering RN Antiplatelets/Anticoa gulants: Aspirin Statins: Rosuvastatin Residual Deficits: - See above Current PT/OT/ST: None Current Living Situation: Home with spouse Current use of a mobility aid for walking/getting around: None Clinical history below gathered from patient and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 at home. He has a history of anxiety and depression and is currently taking Lexapro and Xanax. 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 His notes that he has become more irritable and "mad all the time," and she is concerned that his current medication regimen may not be adequately managing his symptoms. He uses exercise as a stress relief but has been unable to work out due to his arm pain. He denies any changes in libido. He reports symptoms of sleep apnea, including snoring, daytime sleepiness, and observed apneas. He has a disrupted sleep schedule due to his work and caring for his dog, and he reports feeling tired during the day. aryan Maya has not undergone a sleep study. He has a history of hypercholesterolemia, with a previous LDL of 139 and HDL of 38. He was started on a statin during his hospitalization but was not given a prescription upon discharge. He expresses concern about potential side effects of statins, particularly muscle weakness, and is hesitant to start the medication. He denies any current chest pain or dyspnea but reports occasional shortness of breath with exertion. He has not been monitoring his blood pressure at home. 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 omeprazole (PRILOSEC) 20 mg capsule Take 1 capsule by mouth two times a day. As directed escitalopram oxalate (LEXAPRO) 10 mg tablet Take 1 tablet by mouth once daily. albuterol HFA (VENTOLIN HFA) 90 mcg/actuation inhaler Inhale 2 (more content not included)... Normal [facility] MR/CON.PCM.NEon 06-09-2024 MR/CON.PCM.NE [facility] Medical Records Department [address] [place] [address] Consultation - Neurology 06/09/2435 MR#: [id number] Acct: [id number] Name: SEDRICK CHOUDHARY Rep #: [id number] : 1970 54 From: Emanuel Vincent MD PCP: Dr. Sheila Mobley MD Status:DIS SHWETA Location: [place] [id number] Assessment and Plan: Stroke Assessment/Plan SEDRICK CHOUDHARY is a 54 M with a history of tobacco use, SOB, depression with anxiety who presents for evaluation of Right heaviness vertigo and weakness. Weakness is now resolved. Vertigo has been intermittent for about a month. Neurological examination shows NIH 0. Neuroimaging shows MRI with no acute infarct. Dx TIA/HTN - Anti-platelet medication: Aspirin 81 mg and Plavix 75mg for 21 days. Then ASA only after that. - Occupational/ Physical therapy consults - NPO until swallow evaluation. IVF until able to take po - DVT prophylaxis with SCDs and heparin SQ - Vascular risk factor modification. The following are the recommended guidelines: LDL Goal < 70 Smoking Cessation Diabetes Management FCI blood pressure control should achieve <130/80 mmHg. 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 Weight Management: Goal for BMI is 18.5 -24.9 kg/m2 Alcohol: No more than 2 drinks/day for men or 1 drink/day for non- women - Promote lifestyle modification: weight control, physical activity, moderation of alcohol intake, moderate sodium intake. - Follow up with vascular surgery for carotid stenosis, - Recommend sleep referral for FAREED Followup with PCP in 1-2 weeks, and in Neurology clinic in 6-12 weeks HPI Consult Data Date of Consult: 06/09/24 HPI Narrative HPI Narrative: SEDRICK CHOUDHARY, is a 54 M who presents [facility] Medical History (Updated 06/07/24 @ 01:[address] Otis Schilling, DO) Chronic pain SOB (shortness of breath) Testicular hypofunction Mixed hyperlipidemia Depression Anxiety H/O esophageal reflux Nonspecific chest pain History of broken nose Home Medications ???Medication ???Instructions ???Recorded ???Last Taken ???Type escitalopram oxalate 10 mg tablet 10 mg PO DAILY mood 01/29/21 Unkn own History (Lexapro) alprazolam 0.25 mg tablet 0.25 mg PO DAILY anxiety 10/07/23 Unknown History aspirin 81 mg tablet,delayed 81 mg PO DAILY heart health Unknown History release (Adult Low Dose Aspirin) albuterol sulfate 90 mcg/actuation 2 puff inhalation Q4H PRN Unknown History aerosol inhaler shortness of breath or wheezing amlodipine 10 mg tablet (Norvasc) 10 mg PO DAILY #30 tabs 06/08/24 Unknown Rx clopidogrel 75 mg tablet (Plavix) 75 mg PO DAILY #14 tabs 06/08/24 Unknown Rx omeprazole 20 mg capsule,delayed 40 mg (2 x 20 mg) PO DAILY 30 days 06/08/24 Unknown Rx release #0 caps Allergy/AdvReac Type Severity Reaction Status Date / Time Penicillins (PCN) Allergy Unknown Verified 06/06/24 19:37 Family History Father Myocardial infarction at 56 years old Mother Dementia Surgical History No history of previous surgery Social History household members: spouse and children number of children: 2 Smoking Status: Former smoker Smokeless tobacco user: chewing tobacco alcohol intake: current details: 2 drinks per week substance use type: does not use what type of physical activity do you participate in: walking, running and weight training do you feel safe at home: Yes Vital Signs Vital Signs Vital Signs: 06/08/24 05:40 06/08/24 09:51 06/08/24 10:20 Temperature 97.7 F L 97.8 F Temperature Source Temporal Oral Pulse Rate 62 73 Respiratory Rate 18 18 Blood Pressure 136/74 H 156/100 H Blood Pressure Mean 94 118 Blood Pressure Source Monitor Monitor Blood Pressure Position Semi-Fowlers Semi-Fowlers Blood Pressure Location Left Forearm Left Arm Pulse Ox 98 100 96 Oxygen Delivery Method Room Air Room Air Room Air 06/08/24 15:34 Temperature 97.8 F Temperature Source Oral Pulse Rate 83 Respiratory Rate 18 Blood Pressure 140/91 H Blood Pressure Mean 107 Blood Pressure Source Monitor Blood Pressure Position Semi-Fowlers Blood Pressure Location Left Arm Pulse Ox 98 Oxygen Delivery Method Room Air Weight Weight: 101.5 kg Body Mass Index (BMI) 32.1 EEG Results Procedure Details EEG Procedure Details: SEDRICK CHOUDHARY is a 54 year old M with a past medical history of , who presents for evaluation of Electroencephalog (more content not included)... Normal [facility] Discharge Instructionon Discharge Instruction [facility] Medical Records Department [address] [place] [address] Instructions for Home/Discharge Instructions 06/08/24 1029 MR#: [id number] Acct: [id number] Name: SEDRICK CHOUDHARY Rep #: [id number] : 1970 54 From: Grant Botello MD PCP: Dr. Sheila Mobley MD Status:ADM SHWETA Discharge Instructions Diet Discharge Diet: Low fat / Low cholesterol DC O2, CPAP, BIPAP needs Home O2 Discharge instructions: No Dressing / Incision Discharge Activity: Return to Normal Activity Dressing / Incision Call your doctor if you observe: Fever of 101 or Higher, Shortness of breath, Dizziness, Fainting spells, Swelling in the ankles, Chest pain and Increased palpitations (irregular heartbeat) Follow Up Care Test Results: Test results from this visit will be discussed in further detail at your follow-up appointment, if applicable. Discharge Plan Admission Admit Date/Time: 06/06/24 22:35 Attending Provider: Grant Botello Primary Care Provider: Sheila Mobley Consulting Providers: Ace Cortes; Caroline Johnson; Angelica Weston; Peggy Terry; Haylee Chapa; Barron Raines; Venus Leon; Te Talley; Sedrick Cannon; Kye Storey; Tiffany Eisenberg; Scott Faustin; Lakesha Clancy; Henrry Bailey; Andree Weeks; Odin Dodd; Joanne Pillai; Emanuel Vincent; Katie Edmond; Ngoc Olivas; Otis Schilling Discharge Orders/Prescriptions Prescriptions: New amlodipine [Norvasc] 10 mg tablet 10 mg PO DAILY Qty: 30 0RF Continued aspirin [Adult Low Dose Aspirin] 81 mg tablet,delayed release (DR/EC) 81 mg PO DAILY albuterol sulfate 90 mcg/actuation HFA aerosol inhaler 2 puff inhalation Q4H PRN (Reason: shortness of breath or wheezing) escitalopram oxalate [Lexapro] 10 mg Tablet 10 mg PO DAILY alprazolam 0.25 mg tablet 0.25 mg PO DAILY Changed omeprazole 20 mg capsule,delayed release(DR/EC) 40 mg PO DAILY 30 Days Qty: 0 0RF Referrals / Follow Up: Sheila Mobley MD [Primary Care Provider] - Within 1 Week Disposition Disposition (needs filled in before D/C Order can be placed): Home, Self Care 06/08/24 1033 Grant Botello MD CC: Peggy Terry; Lakesha Clancy; Odin Dodd; Haylee Chapa MD; Angelica Weston MD; Ace Cortes MD; Dr. Caroline Johnson MD; Dr. Otis Schilling DO; Dr. Barron Raines MD; Dr. Venus Leon MD; Dr. Sedrick Cannon MD; Dr. Te Talley MD; Dr. Kye Storey MD; Dr. Sheila Mobley MD; Dr. Scott Faustin DO; Dr. Andree Weeks MD; Dr. Henrry Bailey MD; Dr. Joanne Pillai MD; Dr. Emanuel Vincent MD; Dr. Katie Edmond MD; Tiffany Eisenberg DO; Ngoc Olivas MD Signed Normal [facility] Brain without Contraston Brain without Contrast [facility] [address] [place] [id number] Brain without Contrast MR#: [id number] Acct: [id number] Name: SEDRICK CHOUDHARY Rep #: [id number] : 1970 M 54 From: Ricardo Jaramillo MD PCP: Dr. Sheila Mobley MD Status: ADM SHWETA Study: Brain without Contrast Date of Exam: 06/07/24 Exam# [id number] Ordering Dr: Otis Schilling DO EXAM: BRAIN WITHOUT CONTRAST CLINICAL HISTORY: Please evaluate for CVA COMPARISON: None. TECHNIQUE: PROCEDURE: Multiplanar sequences of the brain were obtained on a 1.5 Karolina MRI system, including T1, T2, FLAIR, DWI, and ADC. No intravenous contrast was administered. FINDINGS: MRI BRAIN: No intraparenchymal hemorrhage is evident. No focus of restricted diffusion is identified to suggest acute or early subacute ischemia. There is no extra-axial fluid collection, mass effect, or shift of midline structures. The basal cisterns are visualized. The ventricles and cortical sulci are in proportion and consistent with the patient's age. There is no signal abnormality in the brunson or white matter. The midline structures demonstrate normal contours. The craniocervical junction is unremarkable. The flow voids of the large intracranial vessels are normal. The calvarium is unremarkable. The paranasal sinuses and mastoid air cells are clear. MRI/Brain without Contrast IMPRESSION: No MR evidence of acute ischemia. Reading Location: [facility] CC: Dr. Otis Schilling DO; Dr. Sheila Mobley MD Autocad Draftsman: Signed Normal [facility] Calculated very low density lipoprotein (VLDL) cholesterol measurementOrdered By: Otis Wong on 06-07-2024 Calculated very low density lipoprotein (VLDL) cholesterol measurement 29 mg/dL 5-40 [facility] Hemoglobin A1con 06-07-2024 HbA1c (Bld) [Mass fraction] 5.2 % Low <=5.6 [facility] Comment on above: Performed By: #### L 501.2450, L100.0100, L300.4310, L500.4050, L300.3900 #### [facility] Laboratory [address] [place], [address] L503.0106on 06-07-2024 Cobalamin (Vitamin B12) [Mass/Vol] 314 pg/mL Normal 180-914 [facility] Comment on above: Performed By: #### L 501.2450, L100.0100, L300.4310, L500.4050, L300.3900 #### [facility] [address] [place], [address] LDL calc ser/plasOrdered By: Otis Wong on 06-07-2024 Cholesterol in LDL [Mass/Vol] 121 mg/dL [facility] Comment on above: Fbkiezooug=363-152 m g/dL & Higher Oldz=773 mg/dL or greater Lipid Profileon 06-07-2024 CHOL:HDL 4.62 Normal [facility] Comment on above: Order Comment: Comme nts: NPO at [place] prior to lipid panel Performed By: #### L 501.2450, L100.0100, L300.4310, L500.4050, L300.3900 #### [facility] [address] [place], [address] Cholesterol [Mass/Vol] 191 mg/dL Normal <=200 [facility] Comment on above: Order Comment: Comme nts: NPO at [place] prior to lipid panel Result Comment: Chol esterol level, Desirable <200 mg/dL Borderline high cholesterol 200-239 mg/dL High cholesterol >=240 mg/dL Recommendations of the NCEP Adult Treatment Panel for the following risk-cutoff thresholds for the [place] population. Performed By: #### L 501.2450, L100.0100, L300.4310, L500.4050, L300.3900 #### [facility] [address] [place], [address] Cholesterol in HDL [Mass/Vol] 41 mg/dL Normal [facility] Comment on above: Order Comment: Comme nts: NPO at [place] prior to lipid panel Result Comment: Atiya onal Cholesterol Education Program (NCEP) guidelines: <40 mg/dL: Low HDL-cholesterol (major risk factor for CHD) >= 60 mg/dL: High HDL-cholesterol (negative risk factor for CHD) HDL-cholesterol is affected by a number of factors, e.g. smoking, exercise, hormones, sex and age. Performed By: #### L 501.2450, L100.0100, L300.4310, L500.4050, L300.3900 #### [facility] [address] [place], [address] Cholesterol in LDL [Mass/Vol] 121 mg/dL Normal [facility] Comment on above: Order Comment: Comme nts: NPO at [place] prior to lipid panel Result Comment: Bord wpwvmw=767-227 mg/dL Higher Wunp=928 mg/dL or greater Performed By: #### L 501.2450, L100.0100, L300.4310, L500.4050, L300.3900 #### [facility] [address] [place], [address] Cholesterol in VLDL [Mass/Vol] 29 mg/dL Normal 5-40 [facility] Comment on above: Order Comment: Comme nts: NPO at [place] prior to lipid panel Performed By: #### L 501.2450, L100.0100, L300.4310, L500.4050, L300.3900 #### [facility] [address] [place], [address] Triglyceride [Mass/Vol] 144 mg/dL Normal [facility] Comment on above: Order Comment: Comme nts: NPO at [place] prior to lipid panel Result Comment: The drugs N-Acetylcysteine and Metamizole may falsely depress this assay. Normal range: <150 mg/dL Borderline High: 150-199 mg/dL High: 200-499 mg/dL Very High: >500 mg/dL Performed By: #### L 501.2450, L100.0100, L300.4310, L500.4050, L300.3900 #### [facility] [address] [place], [place], [id number] Screening total cholesterol/ high density lipoprotein (HDL) cholesterol ratioOrdered By: Otis Wong on 06-07-2024 Cholesterol.total/Choles terol in HDL [Mass ratio] 4.62 {ratio} [facility] Serum or plasma cholesterol in HDL measurement (mass/volume)Ordered By: Otis Wong on 06-07-2024 Cholesterol in HDL [Mass/Vol] 41 mg/dL >40 [facility] Comment on above: National Cholesterol Education Program (NCEP) guidelines:<40 mg/dL: Low HDL-cholesterol (major risk factor for CHD)>= 60 mg/dL: High HDL-cholesterol (negative risk factor for CHD)HDL-cholesterol is affected by a number of factors, e.g. smoking, exercise, hormones, sex and age. Serum or plasma cholesterol measurement (mass/volume)Ordered By: Otis Wong on 06-07-2024 Cholesterol [Mass/Vol] 191 mg/dL <201 [facility] Comment on above: Cholesterol level, D esirable <200 mg/dLBorderline high cholesterol 200-239 mg/dLHigh cholesterol >=240 mg/dLRecommendations of the NCEP Adult Treatment Panel for the following risk-cutoff thresholds for the [place] population. Thyroid Stim Hormone (TSH)on 06-07-2024 TSH 3.640 uIU/mL Normal 0.300-4.200 [facility] Comment on above: Performed By: #### L 501.2450, L100.0100, L300.4310, L500.4050, L300.3900 #### [facility] [address] [facility] [place], [address] Triglycerides measurementOrd ered By: Otis Wong on 06-07-2024 Triglyceride [Mass/Vol] 144 mg/dL <199 [facility] Comment on above: The drugs N-Acetylcy steine and Metamizole may falsely depress this assay. Normal range: <150 mg/dLBorderline High: 150-199 mg/dLHigh: 200-499 mg/dLVery High: >500 mg/dL 12 Lead EKGon 06-06-2024 12 Lead EKG [facility] [address] [place] [address] 12 Lead EKG 06/06/24 2230 MR#: [id number] Acct: [id number] Name: SEDRICK CHOUDHARY Rep #: [id number] : 1970 54 From: Navjot Yeager MD Attending Dr: Dr. Grant Botello MD Status : ADM SHWETA Ordering Dr: Yokasta Marti DO Date: 06/06/24 Location: [facility] Sex: M C Admitted: 06/06/24 Test Reason : NEURO Blood Pressure : */* mmHG Vent. Rate : 66 BPM Atrial Rate : 66 BPM P-R Int : 144 ms QRS Dur : 90 ms QT Int : 398 ms P-R-T Axes : 38 69 26 degrees QTcB Int : 417 ms Normal sinus rhythm Normal ECG Confirmed by Navjot Yeager ([id number]), editor & co founder KALPANA QUIROGA ([id number]) on 06/08/2024 6:51:55 AM Referred By: Confirmed By: Navjot Yeager 06/08/24 0652 Date Navjot Yeager MD CC: Dr. Yokasta Marti DO; Dr. Sheila Mobley MD; Dr. Grant Botello MD Signed Normal [facility] Absolute lymphocyte countOrd ered By: Yokasta Marti on 06-06-2024 Lymphocytes Auto (Unsp spec) [#/Vol] 1.66 10*3/uL 0.83-4.51 [facility] Absolute neutrophil countOrd ered By: Yokasta Marti on 06-06-2024 Neutrophils (Bld) [#/Vol] 2.8 10*3/uL 2.0-7.7 [facility] Activated partial thrombopla stin time (aPTT) in platelet poor plasma by coagulation aOrdered By: Yokasta Marti on 06-06-2024 aPTT Coag (PPP) [Time] 25.5 s 24.1-36.2 [facility] Alcohol, Blood (Medical)-Ser umon 06-06-2024 SERUM ETOH < 10.1 Normal <=10.0 [facility] Comment on above: Result Comment: This test is for medical purposes only. The legal definition of intoxication varies according to local law. Performed By: #### L 501.2450, L100.0100, L300.4310, L500.4050, L300.3900 #### [facility] [place], [address] Amorphous sediment detection in urine sediment by light microscopyOrdered By: Yokasta Marti on 06-06-2024 Amorphous sediment LM Ql (Urine sed) 1+ URATE [facility] Amphetamine detection with 1 000 ng/mL as cutoffOrdered By: Yokasta Marti on 06-06-2024 Amphetamines Screen method >1000 ng/mL Ql (U) Negative < 200 ng/mL [facility] Automated lymphocyte count a s percentage of total leukocytesOrdered By: Yokasta Marti on 06-06-2024 Lymphocytes/100 WBC Auto (Unsp spec) 30.9 % 19-41 [facility] BUN/creatinine ratioOrdered By: Yokasta Marti on 06-06-2024 Urea nitrogen/Creatinine [Mass ratio] 13.9 mg/mg 10-20 [facility] Basophil percentageOrdered B y: Yokasta Marti on 06-06-2024 Basophils/100 WBC (Bld) 0.6 % 0-1 [facility] Bilirubin Test strip Ql (U)O rdered By: Yokasta Marti on 06-06-2024 Bilirubin Ql (U) Negative Negative [facility] Bilirubin, totalOrdered By: Yokasta Marti on 06-06-2024 Bilirubin [Mass/Vol] 0.67 mg/dL 0.00-1.30 [place] Brain/Head without Contrasto n 06-06-2024 Brain/Head without Contrast [facility] [address] [place] [address] Brain/Head without Contrast MR#: [id number] Acct: [id number] Name: SEDRICK CHOUDHARY Rep #: [id number] : 1970 M 54 From: Biju Vasquez PCP: Dr. Sheila Mobley MD Status: REG ER Study: Brain/Head without Contrast Date of Exam: 05/02 Exam# [id number] Ordering Dr: Yokasta Marti DO PROCEDURE: BRAIN/HEAD WITHOUT CONTRAST REASON FOR EXAM: Weakness, headache TECHNIQUE: Head CT without intravenous contrast. COMPARISON: None. FINDINGS: There is no acute intracranial hemorrhage, mass effect, or evidence of large acute infarct. Brain: Normal CSF Spaces: Normal Sinuses/Mastoids: Mild ethmoid and bilateral maxillary sinus mucosal thickening. Bones: Unremarkable CT/Brain/Head without Contrast IMPRESSION: No acute intracranial abnormality identified. Mild paranasal sinus mucosal thickening One or more dose reduction techniques were used (e.g., Automated exposure control, adjustment of the mA and/or kV according to patient size, use of iterative reconstruction technique). Reading Location: [facility] CC: Dr. Yokasta Marti DO; Dr. Sheila Mobley MD [employer] Draftsman: Signed Normal [facility] CBC W/Diff, Automatedon 03-0 Absolute Lymph 1.66 X10 3/uL Normal 0.83-4.51 [facility] Comment on above: Performed By: #### L 501.2450, L100.0100, L300.4310, L500.4050, L300.3900 #### [facility] [address] [place], [address] Absolute Neut 2.8 X10 3/uL Normal 2.0-7.7 [facility] Comment on above: Performed By: #### L 501.2450, L100.0100, L300.4310, L500.4050, L300.3900 #### [facility] [address] [place], [address] Basophils/100 WBC (Bld) 0.6 % Normal 0-1 [facility] Comment on above: Performed By: #### L 501.2450, L100.0100, L300.4310, L500.4050, L300.3900 #### [facility] [address] [place], [address] Eosinophils/100 WBC (Bld) 5.4 % High 0-5 [facility] Comment on above: Performed By: #### L 501.2450, L100.0100, L300.4310, L500.4050, L300.3900 #### [facility] [address] [place], [address] Erythrocyte distribution width (RBC) [Ratio] 12.8 % Normal 11.6-14.6 [facility] Comment on above: Performed By: #### L 501.2450, L100.0100, L300.4310, L500.4050, L300.3900 #### [facility] [address] [place], [address] Hematocrit (Bld) [Volume fraction] 44.5 % Normal 40-54 [facility] Comment on above: Performed By: #### L 501.2450, L100.0100, L300.4310, L500.4050, L300.3900 #### [facility] [address] [place], [address] Hemoglobin (Bld) [Mass/Vol] 15.6 g/dL Normal 13.0-16.5 [facility] Comment on above: Performed By: #### L 501.2450, L100.0100, L300.4310, L500.4050, L300.3900 #### [facility] [address] [place], [address] IG% 0.200 Normal 0.0-0.9 [facility] Comment on above: Result Comment: IG% - Immature Granulocytes (promyelocytes, myelocytes and metamyelocytes) > 1% indicates that a LEFT SHIFT is Present. Performed By: #### L 501.2450, L100.0100, L300.4310, L500.4050, L300.3900 #### [facility] [address] [place], [address] Lymphocytes/100 WBC (Bld) 30.9 % Normal 19-41 [facility] Comment on above: Performed By: #### L 501.2450, L100.0100, L300.4310, L500.4050, L300.3900 #### [facility] [address] [place], [address] MCH (RBC) [Entitic mass] 31.5 pg Normal 27.0-32.0 [facility] Comment on above: Performed By: #### L 501.2450, L100.0100, L300.4310, L500.4050, L300.3900 #### [facility] [address] [place], [address] MCHC (RBC) [Mass/Vol] 35.1 g/dL Normal 32-36 [facility] Comment on above: Performed By: #### L 501.2450, L100.0100, L300.4310, L500.4050, L300.3900 #### [facility] [address] [place], [address] MCV (RBC) [Entitic vol] 89.7 fL Normal 80-94 [facility] Comment on above: Performed By: #### L 501.2450, L100.0100, L300.4310, L500.4050, L300.3900 #### [facility] [address] [place], [address] Monocytes/100 WBC (Bld) 11.3 % High 0-10 [facility] Comment on above: Performed By: #### L 501.2450, L100.0100, L300.4310, L500.4050, L300.3900 #### [facility] [address] [place], [address] Neutrophils/100 WBC (Bld) 51.6 % Normal 47-70 [facility] Comment on above: Performed By: #### L 501.2450, L100.0100, L300.4310, L500.4050, L300.3900 #### [facility] [address] [place], [address] Nucleated RBC (Bld) [#/Vol] 0 10*3/uL Normal 0-5 [facility] Comment on above: Performed By: #### L 501.2450, L100.0100, L300.4310, L500.4050, L300.3900 #### [facility] [address] [place], [address] Platelet mean volume (Bld) [Entitic vol] 11.0 fL Normal 6.2-12.0 [facility] Comment on above: Performed By: #### L 501.2450, L100.0100, L300.4310, L500.4050, L300.3900 #### [facility] [address] [place], [address] Platelets (Bld) [#/Vol] 202 10*3/uL Normal 150-450 [facility] Comment on above: Performed By: #### L 501.2450, L100.0100, L300.4310, L500.4050, L300.3900 #### [facility] [address] [place], [address] RBC (Bld) [#/Vol] 4.96 10*6/uL Normal 4.6-6.2 [facility] Comment on above: Performed By: #### L 501.2450, L100.0100, L300.4310, L500.4050, L300.3900 #### [facility] [address] [place], [address] RDW SD 41.3 fl Normal 35.1-43.9 [facility] Comment on above: Performed By: #### L 501.2450, L100.0100, L300.4310, L500.4050, L300.3900 #### [facility] [address] [place], [address] WBC (Bld) [#/Vol] 5.4 10*3/uL Normal 4.4-11.0 [facility] Comment on above: Performed By: #### L 501.2450, L100.0100, L300.4310, L500.4050, L300.3900 #### [facility] [address] [place], [address] CTA Head AND Neck W/ Contras ton 06-06-2024 CTA Head AND Neck W/ Contrast [facility] [address] [place], [place] [address] CTA Head AND Neck W/ Contrast MR#: [id number] Acct: [id number] Name: SEDRICK CHOUDHARY Rep #: [id number] : 1970 M 54 From: Biju Vasquez PCP: Dr. Sheila Mobley MD Status: REG ER Study: CTA Head AND Neck W/ Contrast Date of Exam: Exam# [id number] Ordering Dr: Yokasta Marti DO PROCEDURE: CTA HEAD AND NECK W/ CONTRAST TECHNIQUE: CTA imaging of the head and neck from the aortic arch to the skull vertex with intravenous contrast. 3D reconstructions. Intravenous contrast administration using standard CT COMPARISON: None. # of known CTs in the past 12 months: 0 # of known Cardiac Nuclear Medicine Studies in the past 12 months: 0 FINDINGS: Slightly prominent hilar and mediastinal lymph nodes detected presumably reactive. Aortic Arch: Normal size and branching pattern. No significant atherosclerotic plaque. Brachiocephalic and Subclavians: Unremarkable RIGHT Carotid: Right CCA: Unremarkable. Right ICA: Unremarkable. Maximum stenosis (NASCET): <50 % Right ECA: Unremarkable. LEFT Carotid: Left CCA: Unremarkable. Left ICA: Unremarkable. Maximum stenosis (NASCET): Approximately 50% % Left ECA: Unremarkable. Vertebrals: Codominant. Arise from the subclavians. Both vertebrals form the basilar. RIGHT Vertebral: Unremarkable. LEFT Vertebral: Unremarkable. No intracranial aneurysms or large vascular malformations are identified. Anterior cerebral arteries: Unremarkable. Middle cerebral arteries: Unremarkable. Basilar artery: Unremarkable. Posterior cerebral arteries: Unremarkable. Other major branches of the posterior circulation: Unremarkable. Major venous structures: Unremarkable. There does appear tortuous vascularity suggesting systemic hypertension Heterogeneous thyroid gland. Query chronic thyroid disease. CT/CTA Head AND Neck W/ Contrast IMPRESSION: Approximate 50% stenosis seen of the left carotid bulb. Less than 50% seen on the right. No high- grade stenosis detected. No evidence of large vessel occlusion. One or more dose reduction techniques were used (e.g., Automated exposure control, adjustment of the mA and/or kV according to patient size, use of iterative reconstruction technique). Reading Location: [id number] CC: Dr. Yokasta Marti DO; Dr. Sheila Mobley MD [employer] Draftsman: Signed Normal [facility] Carbon dioxide measurementOr dered By: Yokasta Marti on 06-06-2024 CO2 [Moles/Vol] 22.8 mmol/L 22.0-29.0 [facility] Chest PA and Lateralon 06-06 Chest PA and Lateral [facility] [address] [place], [place] [id number] Chest PA and Lateral MR#: [id number] Acct: [id number] Name: SEDRICK CHOUDHARY Rep #: [id number] : 1970 M 54 From: Biju Vasquez PCP: Dr. Sheila Mobley MD Status: REG ER Study: Chest PA and Lateral Date of Exam: 06/06/24 Exam# [id number] Ordering Dr: Yokasta Marti DO PROCEDURE: CHEST PA AND LATERAL REASON FOR EXAM: Vomiting TECHNIQUE: Frontal and lateral views of the chest. COMPARISON: 29 January 2021 FINDINGS: Stable examination. No evidence of infiltrate, effusion or pneumothorax. Bronchial thickening. RAD/Chest PA and Lateral IMPRESSION: No focal infiltrate. Reading Location: [id number] CC: Dr. Yokasta Marti DO; Dr. Sheila Mobley MD [employer] Draftsman: Signed Normal [facility] Chloride measurementOrdered By: Yokasta Marti on 06-06-2024 Chloride [Moles/Vol] 105 mmol/L 96-108 [place] Comprehensive Metabolic Prof ilon 06-06-2024 Albumin [Mass/Vol] 4.5 g/dL Normal 3.5-5.0 [facility] Comment on above: Performed By: #### L 501.2450, L100.0100, L300.4310, L500.4050, L300.3900 #### [facility] [address] [place], [address] Albumin/Globulin [Mass ratio] 1.5 {ratio} Normal 0.9-2.4 [facility] Comment on above: Performed By: #### L 501.2450, L100.0100, L300.4310, L500.4050, L300.3900 #### [facility] [address] [place], [address] ALK PHOS 99 U/L Normal 40-129 [facility] Comment on above: Performed By: #### L 501.2450, L100.0100, L300.4310, L500.4050, L300.3900 #### [facility] [address] [place], [address] ALT [Catalytic activity/Vol] 36 U/L Normal <=46 [facility] Comment on above: Performed By: #### L 501.2450, L100.0100, L300.4310, L500.4050, L300.3900 #### [facility] [address] [place], [address] Anion gap [Moles/Vol] 15 mmol/L Normal 5-15 [facility] Comment on above: Performed By: #### L 501.2450, L100.0100, L300.4310, L500.4050, L300.3900 #### [facility] [address] [place], [address] AST [Catalytic activity/Vol] 28 U/L Normal <=37 [facility] Comment on above: Performed By: #### L 501.2450, L100.0100, L300.4310, L500.4050, L300.3900 #### [facility] [address] [place], [address] Bilirubin [Mass/Vol] 0.67 mg/dL Normal 0.00-1.30 [place] Comment on above: Performed By: #### L 501.2450, L100.0100, L300.4310, L500.4050, L300.3900 #### [facility] [address], [address] BUN/CRE 13.9 RATIO Normal 10-20 [facility] Comment on above: Performed By: #### L 501.2450, L100.0100, L300.4310, L500.4050, L300.3900 #### [facility] [address] [place], [address] Calcium [Mass/Vol] 9.6 mg/dL Normal 7.6-11.0 [facility] Comment on above: Performed By: #### L 501.2450, L100.0100, L300.4310, L500.4050, L300.3900 #### [facility] [address] [place], [address] Chloride [Moles/Vol] 105 mmol/L Normal 96-108 [place] Comment on above: Performed By: #### L 501.2450, L100.0100, L300.4310, L500.4050, L300.3900 #### [facility] [address] [place], [address] CO2 [Moles/Vol] 22.8 mmol/L Normal 22.0-29.0 [facility] Comment on above: Performed By: #### L 501.2450, L100.0100, L300.4310, L500.4050, L300.3900 #### [facility] [address] [place], [address] Creatinine [Mass/Vol] 1.42 mg/dL High 0.70-1.20 [facility] Comment on above: Performed By: #### L 501.2450, L100.0100, L300.4310, L500.4050, L300.3900 #### [facility] [address] [place], [address] ECRCL 70.16 ml/min Normal 50-250 [facility] Comment on above: Performed By: #### L 501.2450, L100.0100, L300.4310, L500.4050, L300.3900 #### [facility] [address] [place], [address] GFR/1.73 sq M.predicted among non-blacks MDRD (S/P/Bld) [Vol rate/Area] 58 mL/min/{1.73_m2} Low >60 [facility] Comment on above: Result Comment: mL/m in/1.73m2 CKD-EPI Creatinine Equation (2020) Performed By: #### L 501.2450, L100.0100, L300.4310, L500.4050, L300.3900 #### [facility] [address] [place], [address] Globulin (S) [Mass/Vol] 3.0 g/dL Normal 2.2-4.2 [facility] Comment on above: Performed By: #### L 501.2450, L100.0100, L300.4310, L500.4050, L300.3900 #### [facility] [address] [place], [address] Glucose [Mass/Vol] 95 mg/dL Normal 70-99 [facility] Comment on above: Performed By: #### L 501.2450, L100.0100, L300.4310, L500.4050, L300.3900 #### [facility] [address] [place], [address] Potassium [Moles/Vol] 4.1 mmol/L Normal 3.3-5.1 [facility] Comment on above: Performed By: #### L 501.2450, L100.0100, L300.4310, L500.4050, L300.3900 #### [facility] [address] [place], [address] Sodium [Moles/Vol] 142 mmol/L Normal 133-145 [facility] Comment on above: Performed By: #### L 501.2450, L100.0100, L300.4310, L500.4050, L300.3900 #### [facility] [address] [place], [address] T PROT 7.5 g/dL Normal 5.9-8.4 [facility] Comment on above: Performed By: #### L 501.2450, L100.0100, L300.4310, L500.4050, L300.3900 #### [facility] [address] [place], [address] Urea nitrogen [Mass/Vol] 20 mg/dL High 4-19 [facility] Comment on above: Performed By: #### L 501.2450, L100.0100, L300.4310, L500.4050, L300.3900 #### [facility] [address] [place], [address] Emergency Department Summary on 06-06-2024 Emergency Department Summary [facility] Medical Records Department [address] [place] [address] Emergency Department Summary 06/06/24 MR#: [id number] Acct: [id number] Name: SEDRICK CHOUDHARY Rep #: [id number] : 1970 54 From: Yokasta Marti DO PCP: Dr. Sheila Mobley MD Status:REG ER Location: ED HPI History of Present Illness Chief Complaint: Neuro S/Sx Informant: patient and family Narrative Narrative: Patient is a 54-year-old male with history of anxiety, depression and hyperlipidemia presenting from home for intermittent episodes of right-sided arm pain as well as right hand weakness and right leg weakness. Patient states about a month ago he had an episode of not feeling well, vertigo and vomiting. He did not think too much of it but then 2 days ago when they were going to play at [facility] for his daughter that he could get out of the car. States he was not feeling good, his right arm was hurting and his right leg felt heavy. He had a coughing fit and had a hot flash. He states he eventually felt better and went to the auditorium where the plate was. Throughout the play he stated his right arm was hurting and he felt he could squeeze with his right hand. His right leg was dragging behind him. This episode lasted a few hours when he woke up the next morning it had resolved. Yesterday he notes his leg was better and as the day went on his right arm felt better. 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 Today he felt okay however this morning his arm started feel sore again. He has had many episodes of his right leg feeling weak. On his way here he had 3 episodes of vomiting. He notes he has been having headaches. States he does get some vision changes. They looked at the symptoms online were worried that there could be stroke and came in for further evaluation. Patient denies any trauma or head injury. Denies any fevers. Denies any chest pain or difficulty breathing. Is [id number]. No other complaints or concerns reported at this time. [facility] Medical History SOB (shortness of breath) Testicular hypofunction Mixed hyperlipidemia Depression Anxiety H/O esophageal reflux Nonspecific chest pain History of broken nose Home Medications ???Medication ???Instructions ???Recorded ???Last Taken ???Type escitalopram oxalate 10 mg tablet 10 mg PO DAILY 01/29/21 Unknown H istory (Lexapro) alprazolam 0.25 mg tablet 0.25 mg PO DAILY anxiety 10/07/23 Unknown History aspirin 81 mg tablet,delayed 81 mg PO DAILY 10/07/23 Unknown Hi story release (Adult Low Dose Aspirin) albuterol sulfate 90 mcg/actuation 2 puff inhalation Q4H PRN Unknown History aerosol inhaler shortness of breath or wheezing omeprazole 20 mg capsule,delayed 20 mg PO DAILY 10/30/23 Unknown Hi story release Allergy/AdvReac Type Severity Reaction Status Date / Time Penicillins (PCN) Allergy Unknown Verified 06/06/24 19:37 Family History Father Myocardial infarction at 56 years old Mother Dementia Surgical History No history of previous surgery Social History household members: spouse and children number of children: 2 Smoking Status: Former smoker Smokeless tobacco user: chewing tobacco alcohol intake: current details: 2 drinks per week substance use type: does not use what type of physical activity do you participate in: walking, running and weight training do you feel safe at home: Yes ROS ROS ED Constitutional Constitutional ED: Reports sweats; Denies chills or fever(s) Eyes Eyes: Reports blurry vision ENT ENT ED: Denies rhinorrhea or sore throat Cardiovascular Cardiovascular: Denies chest pain Respiratory/Chest Respiratory/Chest: Denies cough or dyspnea Gastrointestinal Gastrointestinal: Reports nausea and vomiting; Denies abdominal pain Musculoskeletal Musculoskeletal: Reports other Details: right forearm pain ; Denies arthralgias or myalgias Integumentary Denies rash Neurologic Neurologic: Reports headache(s) and weakness; Denies paresthesias Psychiatric Psychiatric: Reports anxiety; Denies depression Hematologic/Lymphatic Hematologic/Lymphatic : Denies easy bleeding or easy bruising EXAM Physical Exam Const Vital Signs: 06/06/24 19:37 06/06/24 20:37 06/06/24 21:00 Temperature 98.2 F Temperature Source Oral Pulse Rate 92 74 74 Respiratory Rate 16 27 H 16 Blood Pressure 181/115 H 154/108 H 155/99 H Blood Pressure Mean 137 123 117 Pulse Ox 98 97 99 Oxygen Delivery Method Room Air Room Air (more content not included)... Normal [facility] Eosinophil percentageOrdered By: Yokasta Marti on 06-06-2024 Eosinophils/100 WBC (Bld) 5.4 % High 0-5 [facility] Erythrocyte distribution wid th ratioOrdered By: Yokasta Marti on 06-06-2024 Erythrocyte distribution width (RBC) [Ratio] 12.8 % 11.6-14.6 [facility] Erythrocyte distribution wid th standard deviationOrdered By: Yokasta Marti on 06-06-2024 Erythrocyte distribution width (RBC) [Ratio] 41.3 fl 35.1-43.9 [facility] Glomerular filtration rate ( GFR) estimation/1.73 sq m using serum, plasma, or whole bOrdered By: Yokasta Marti on 06-06-2024 GFR/1.73 sq M.predicted among non-blacks MDRD (S/P/Bld) [Vol rate/Area] 58 mL/min/{1.73_m2} Low >60 [facility] Comment on above: mL/min/1.73m2 CKD-EP I Creatinine Equation (2020) H AND P Exam - [place] 06-06-2024 H&P Exam - Hospitalist [facility] Medical Records Department [address] [place] [address] H P Exam - Hospitalist 06/06/243 MR#: [id number] Acct: [id number] Name: SEDRICK CHOUDHARY Rep #: [id number] : 1970 54 From: Otis Schilling DO PCP: Dr. Sheila Mobley MD Status:ADM SHWETA Location: [place] [address] HPI - General General Date of Admission: 06/06/24 Date of Service: 06/06/24 Chief Complaint: Intermittent Right-sided Weakness. HPI Narrative SEDRICK CHOUDHARY, is a Right handed 54 M with a past medical history of hyperlipidemia; not on treatment, obesity; with BMI of 32.9 this admission, former tobacco abuse, history of testicular hypofunction, history of nonspecific chest pain; on baby aspirin daily, history of chronic vertigo; with recent escalating pattern of severity, depression with anxiety; with escitalopram and alprazolam, listed allergy to PCN (?), history of nasal fracture, GERD; on omeprazole plus multiple as needed OTC medications and OA who presents to [facility] ER complaining of intermittent Right-sided weakness. Mr. Choudhary reports his symptoms began approximately one month ago with an episode of vertigo followed by nausea and vomiting with bilious emesis. Since his symptoms resolved spontaneously he did not seek medical attention at that time. Then 2 days ago he attended a play at [facility] for his daughter when he noted that he could not get out of the car. He states he was overall not feeling well and he had an aching sensation in his Right arm and his Right leg felt heavy with a subsequent coughing fit and hot flash - but he was able to recompose himself and started to feel better and eventually went to the play. When he did finally get out of the car he noted his Right leg was dragging behind him with this weakness persisting for approximately 6 hours before spontaneously resolving when he woke up the next morning. 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 On the way to the hospital he had severe nausea with 3 episodes of bilious emesis complicated by intermittent headaches and visual changes with his family worried that he may be having a stroke. He denies recent head trauma, recent injury, alcohol abuse, illicit substance abuse, fever, chills, abdominal pain, chest pain or SOB. In the ER he was noted to have uncontrolled hypertension of 181/115 mmHg present on admission complicated by clinical evidence of TIA versus CVA; with intermittent Right-sided weakness with Vertigo causing Nausea and Vomiting with bilious emesis with CTA of the head and neck revealing 50% stenosis seen of the left carotid bulb with less than 50% seen on the right and no high-grade stenosis detected along with no evidence of large vessel occlusion along with a CXR that revealed bronchial thickening but no evidence of acute infiltrate effusion or pneumothorax. He was then admitted to the PCU under observation status for ongoing care for a stay that is expected to be less than 2 midnights. [facility] Medical History (Updated 06/07/24 @ 01:[address] Otis Schilling, DO) Chronic pain SOB (shortness of breath) Testicular hypofunction Mixed hyperlipidemia Depression Anxiety H/O esophageal reflux Nonspecific chest pain History of broken nose Home Medications ???Medication ???Instructions ???Recorded ???Last Taken ???Type escitalopram oxalate 10 mg tablet 10 mg PO DAILY 01/29/21 Unknown H istory (Lexapro) alprazolam 0.25 mg tablet 0.25 mg PO DAILY anxiety 07/01/24 Unknown History aspirin 81 mg tablet,delayed 81 mg PO DAILY 10/07/23 Unknown Hi story release (Adult Low Dose Aspirin) albuterol sulfate 90 mcg/actuation 2 puff inhalation Q4H PRN Unknown History aerosol inhaler shortness of breath or wheezing omeprazole 20 mg capsule,delayed 20 mg PO DAILY 10/30/23 Unknown Hi story release Allergy/AdvReac Type Severity Reaction Status Date / Time Penicillins (PCN) Allergy Unknown Verified 06/06/24 19:37 Family History Father Myocardial infarction at 56 years old Mother Dementia Surgical History No history of previous surgery Social History household members: spouse and children number of children: 2 Smoking Status: Former smoker Smokeless tobacco user: chewing tobacco alcohol intake: current details: 2 drinks per week substance use type: does not use what type of physical activity do you participate in: walking, running (more content not included)... Normal [facility] Hematocrit Auto (Bld) [Volum e fraction]Ordered By: Yokasta Marti on 06-06-2024 Hematocrit (Bld) [Volume fraction] 44.5 % 40-54 [facility] Hemoglobin A1c percentageOrd ered By: Otis Wong on 06-06-2024 HbA1c (Bld) [Mass fraction] 5.2 % Low >5.7 [facility] Hemoglobin measurementOrdere d By: Yokasta Marti on 06-06-2024 Hemoglobin (Bld) [Mass/Vol] 15.6 g/dL 13.0-16.5 [facility] Immature granulocytes/100 WB C Auto (Bld)Ordered By: Yokasta Marti on 06-06-2024 Immature granulocytes/100 WBC (Bld) 0.200 % 0.0-0.9 [facility] Comment on above: IG% - Immature Granu locytes (promyelocytes, myelocytes and metamyelocytes) > 1% indicates that a LEFT SHIFT is Present. Influenza virus A and B and SARS-CoV-2 (COVID-19) and Respiratory syncytial virus RNAOrdered By: Yokasta Marti on 06-06-2024 SARS-CoV-2 (COVID-19) RNA PERLITA+probe Ql (Unsp spec) [facility] International normalized rat io (INR) calculationOrdered By: Yokasta Marti on 06-06-2024 INR Coag (Bld) [Relative time] 1.0 {INR} [facility] Ketones Test strip Ql (U)Ord ered By: Yokasta Marti on 06-06-2024 Ketones Ql (U) Negative Negative [facility] L499.0042on 06-06-2024 Trop T Delta 0 Normal [facility] Comment on above: Result Comment: If c linical suspicion for ACS is high, suggest getting a third troponin. Otherwise, stress test or CTCA. Performed By: #### L 501.2450, L100.0100, L300.4310, L500.4050, L300.3900 #### [facility] [address] [place], [address] Trop T High Sen 10 ng/L Normal <=22 [facility] Comment on above: Performed By: #### L 501.2450, L100.0100, L300.4310, L500.4050, L300.3900 #### [facility] [address] [place], [address] L501.4021on 06-06-2024 Trop T High Sen 10 ng/L Normal <=22 [facility] Comment on above: Performed By: #### L 501.4021 #### [facility] [address] [place], [address] Laboratory - Chemistry and C hemistry - challengeOrdered By: Yokasta Marti on 06-06-2024 AST [Catalytic activity/Vol] 28 U/L <38 [facility] Lipaseon 06-06-2024 Lipase [Catalytic activity/Vol] 32 U/L Normal 13-75 [facility] Comment on above: Result Comment: Plepham hayes note: LIPASE revised reference range effective 22. New Lipase methodology. Expected to produce lower values than the previous assay method. NEW Reference Range: 13 - 75 U/L Performed By: #### L 501.2450, L100.0100, L300.4310, L500.4050, L300.3900 #### [facility] [address] [place], [address] Lipase measurementOrdered By : Yokasta Marti on 06-06-2024 Lipase [Catalytic activity/Vol] 32 U/L 13-75 [facility] Comment on above: Please note:LIPASE r evised reference range effective 22. New Lipase methodology. Expected to produce lower values than the previous assay method. NEW Reference Range: 13 - 75 U/L M100.678on 06-06-2024 M100.678 SARS-CoV-2 (COVID 19 ) Negative INFLUENZA A Negative INFLUENZA B Negative RSV PCR Negative Normal [facility] Comment on above: Performed By: #### L 501.2450, L100.0100, L300.4310, L500.4050, L300.3900 #### [facility] [address] [place], [address] MCV (mean corpuscular volume ) determinationOrdered By: Yokasta Marti on 06-06-2024 MCV (RBC) [Entitic vol] 89.7 fL 80-94 [facility] Mean corpuscular hemoglobin (MCH) determinationOrdered By: Yokasta Marti on 06-06-2024 MCH (RBC) [Entitic mass] 31.5 pg 27.0-32.0 [facility] Mean corpuscular hemoglobin concentration (MCHC) determinationOrdered By: Yokasta Marti on 06-06-2024 MCHC (RBC) [Mass/Vol] 35.1 g/dL 32-36 [facility] Mean platelet volume determi nationOrdered By: Yokasta Marti on 06-06-2024 Platelet mean volume (Bld) [Entitic vol] 11.0 fL 6.2-12.0 [facility] Microscopic analysis of urin e for red blood cells (RBC)Ordered By: Yokasta Marti on 06-06-2024 Microscopic analysis of urine for red blood cells (RBC) 0 SEEN /hpf 0-5 [facility] Monocyte percentageOrdered B y: Yokasta Marti on 06-06-2024 Monocytes/100 WBC (Bld) 11.3 % High 0-10 [facility] Mucus LM Ql (Urine sed)Order ed By: Yokasta Marti on 06-06-2024 Mucus Ql (Urine sed) 0 SEEN /hpf [facility] Neutrophil percentageOrdered By: Yokasta Marti on 06-06-2024 Neutrophils/100 WBC (Bld) 51.6 % 47-70 [facility] Nitrite Test strip Ql (U)Ord ered By: Yokasta Marti on 06-06-2024 Nitrite Ql (U) Negative Negative [facility] No Panel InformationOrdered By: Yokasta Marti on 06-06-2024 Troponin T Hi Sensitivity 2Hr Delta 0 [facility] Comment on above: If clinical suspicio n for ACS is high, suggest getting a third troponin. Otherwise, stress test or CTCA. Urine Buprenorphine Qualitative Negative < 200 ng/mL [facility] Urine Oxycodone Screen Negative < 100 ng/mL [facility] Troponin T High Sensitivity 10 ng/L <22 [facility] Nucleated red blood cell per centageOrdered By: Yokasta Marti on 06-06-2024 Nucleated RBC/100 WBC (Bld) [Ratio] 0 % 0-5 [facility] Partial Thromboplast Timeon 06-06-2024 aPTT Coag (Bld) [Time] 25.5 s Normal 24.1-36.2 [facility] Comment on above: Performed By: #### L 501.2450, L100.0100, L300.4310, L500.4050, L300.3900 #### [facility] [address] [place], [address] Platelet countOrdered By: Jabier Marti on 06-06-2024 Platelets (Bld) [#/Vol] 202 10*3/uL 150-450 [facility] Protein Test strip Ql (U)Ord ered By: Yokasta Marti on 06-06-2024 Protein Ql (U) 15 mg/dl High Negative [facility] Prothrombin Time w/INRon INR Coag (PPP) [Relative time] 1.0 {INR} Normal [facility] Comment on above: Performed By: #### L 501.2450, L100.0100, L300.4310, L500.4050, L300.3900 #### [facility] [address] [place], [place], [id number] PT Coag (PPP) [Time] 12.9 s Normal 11.7-14.9 [place] Comment on above: Performed By: #### L 501.2450, L100.0100, L300.4310, L500.4050, L300.3900 #### [facility] [address] [place], [place], [id number] Prothrombin timeOrdered By: Yokasta Marti on 06-06-2024 PT Coag (PPP) [Time] 12.9 s 11.7-14.9 [place] Quantitative urine opiates m easurementOrdered By: Yokasta Marti on 06-06-2024 Opiates Ql (U) Negative < 300 ng/mL [facility] RBC Auto (Bld) [#/Vol]Ordere d By: Yokasta Marti on 06-06-2024 RBC (Bld) [#/Vol] 4.96 10*6/uL 4.6-6.2 [facility] Screening urine fentanyl betito surementOrdered By: Yokasta Marti on 06-06-2024 fentaNYL Screen Ql (U) Negative [facility] Serum creatinine measurement (mass/volume)Ordered By: Yokasta Marti on 06-06-2024 Creatinine [Mass/Vol] 1.42 mg/dL High 0.70-1.20 [facility] Serum globulin measurementOr dered By: Yokasta Marti on 06-06-2024 Globulin (S) [Mass/Vol] 3.0 g/dL 2.2-4.2 [facility] Serum glucose measurement (m ass/volume)Ordered By: Yokasta Marti on 06-06-2024 Glucose [Mass/Vol] 95 mg/dL 70-99 [facility] Serum or plasma alanine alvarado otransferase (ALT) measurementOrdered By: Yokasta Marti on 06-06-2024 ALT [Catalytic activity/Vol] 36 U/L <47 [facility] Serum or plasma albumin man urement (mass/volume)Ordered By: Yokasta Marti on 06-06-2024 Albumin [Mass/Vol] 4.5 g/dL 3.5-5.0 [facility] Serum or plasma albumin/glob ulin mass ratioOrdered By: Yokasta Marti on 06-06-2024 Albumin/Globulin [Mass ratio] 1.5 {ratio} 0.9-2.4 [facility] Serum or plasma alkaline jewel sphatase measurementOrdered By: Yokasta Marti on 06-06-2024 ALP [Catalytic activity/Vol] 99 U/L 40-129 [facility] Serum or plasma anion gap de termination (moles/volume)Ordered By: Yokasta Marti on 06-06-2024 Anion gap [Moles/Vol] 15 mmol/L 5-15 [facility] Serum or plasma calcium man urement (mass/volume)Ordered By: Yokasta Marti on 06-06-2024 Calcium [Mass/Vol] 9.6 mg/dL 7.6-11.0 [facility] Serum or plasma ethanol man urement (mass/volume)Ordered By: Yokasta Marti on 06-06-2024 Ethanol [Mass/Vol] mg/dL <10.1 [facility] Comment on above: This test is for med ical purposes only. The legal definition of intoxication varies according to local law. Serum or plasma potassium me asurementOrdered By: Yokasta Marti on 06-06-2024 Potassium [Moles/Vol] 4.1 mmol/L 3.3-5.1 [facility] Serum or plasma sodium measu rement (moles/volume)Ordered By: Yokasta Marti on 06-06-2024 Sodium [Moles/Vol] 142 mmol/L 133-145 [facility] Serum or plasma urea nitroge n measurement (mass/volume)Ordered By: Yokasta Marti on 06-06-2024 Urea nitrogen [Mass/Vol] 20 mg/dL High 4-19 [facility] Squamous epithelial cells de tection in urine sediment by light microscopyOrdered By: Yokasta Marti on 06-06-2024 Epithelial cells.squamous LM Ql (Urine sed) 0-5 SEEN /hpf 0-5 [facility] TSH DL <= 0.005 mIU/L QnOrde red By: Otis Wong on 06-06-2024 TSH Qn 3.640 uIU/mL 0.300-4.200 [facility] Total proteinOrdered By: Elena Marti on 06-06-2024 Protein [Mass/Vol] 7.5 g/dL 5.9-8.4 [facility] Troponin T.cardiac [Mass/vol ume] in Serum or Plasma by High sensitivity methodOrdered By: Yokasta Marti on 06-06-2024 Troponin T.cardiac High sensitivity method [Mass/Vol] 10 ng/L <22 [facility] Urinalysis, Completeon 06-06 AMORPHOUS 1+ URATE Normal [facility] Comment on above: Order Comment: CLEAN CATCH Performed By: #### L 501.2450, L100.0100, L300.4310, L500.4050, L300.3900 #### [facility] [address] [place], [place], [id number] EPI,SQUAMOUS 0-5 SEEN Normal 0-5 [facility] Comment on above: Order Comment: CLEAN CATCH Performed By: #### L 501.2450, L100.0100, L300.4310, L500.4050, L300.3900 #### [facility] [address] [place], [address] RBC 0 SEEN Normal 0-5 [facility] Comment on above: Order Comment: CLEAN CATCH Performed By: #### L 501.2450, L100.0100, L300.4310, L500.4050, L300.3900 #### [facility] [address] [place], [address] BACTERIA 0 SEEN Normal None Seen [facility] Comment on above: Order Comment: CLEAN CATCH Performed By: #### L 501.2450, L100.0100, L300.4310, L500.4050, L300.3900 #### [facility] [address] [place], [address] Mucus Ql (Urine sed) 0 SEEN Normal [place] Comment on above: Order Comment: CLEAN CATCH Performed By: #### L 501.2450, L100.0100, L300.4310, L500.4050, L300.3900 #### [facility] [address] [place], [address] WBC 0 SEEN Normal 0-5 [facility] Comment on above: Order Comment: CLEAN CATCH Performed By: #### L 501.2450, L100.0100, L300.4310, L500.4050, L300.3900 #### [facility] [address] [place], [address] Urine Drug Screen (VISTA)on 06-06-2024 AMPHETAMINES Negative Normal <1000 ng/mL [facility] Comment on above: Performed By: #### L 501.2450, L100.0100, L300.4310, L500.4050, L300.3900 #### [facility] [address] [place], [address] BARBITIURATES Negative Normal < 200 ng/mL [facility] Comment on above: Performed By: #### L 501.2450, L100.0100, L300.4310, L500.4050, L300.3900 #### [facility] [address] [place], [address] BENZODIAZIPINE Negative Normal < 200 ng/mL [facility] Comment on above: Performed By: #### L 501.2450, L100.0100, L300.4310, L500.4050, L300.3900 #### [facility] [address] [place], [address] BUP Ur Drug Scr Negative Normal < 200 ng/mL [facility] Comment on above: Performed By: #### L 501.2450, L100.0100, L300.4310, L500.4050, L300.3900 #### [facility] [address] [place], [place], [facility] COCAINE Negative Normal < 300 ng/mL [facility] Comment on above: Performed By: #### L 501.2450, L100.0100, L300.4310, L500.4050, L300.3900 #### [facility] [address] [place], [place], [facility] Fentanyl Negative Normal [facility] Comment on above: Performed By: #### L 501.2450, L100.0100, L300.4310, L500.4050, L300.3900 #### [facility] [address] [place], [place], [facility] METHADONE Negative Normal < 300 ng/mL [facility] Comment on above: Performed By: #### L 501.2450, L100.0100, L300.4310, L500.4050, L300.3900 #### [facility] [address] [place], [place], [facility] OPIATES Negative Normal < 300 ng/mL [facility] Comment on above: Performed By: #### L 501.2450, L100.0100, L300.4310, L500.4050, L300.3900 #### [facility] [address] [place], [address] OXYCODONE Negative Normal < 100 ng/mL [facility] Comment on above: Performed By: #### L 501.2450, L100.0100, L300.4310, L500.4050, L300.3900 #### [facility] [address] [place], [address] PCP Negative Normal < 25 ng/mL [facility] Comment on above: Performed By: #### L 501.2450, L100.0100, L300.4310, L500.4050, L300.3900 #### [facility] [address] [place], [address] THC Negative Normal < 50 ng/mL [facility] Comment on above: Performed By: #### L 501.2450, L100.0100, L300.4310, L500.4050, L300.3900 #### [facility] [address] [place], [address] AMPHETAMINES Normal <1000 ng/mL [facility] Comment on above: Result Comment: DUPL ICATE Performed By: #### L 501.2450, L100.0100, L300.4310, L500.4050, L300.3900 #### [facility] [address] [place], [address] BARBITIURATES Normal < 200 ng/mL [facility] Comment on above: Result Comment: DUPL ICATE Performed By: #### L 501.2450, L100.0100, L300.4310, L500.4050, L300.3900 #### [facility] [address] [place], [address] BENZODIAZIPINE Normal < 200 ng/mL [facility] Comment on above: Result Comment: DUPL ICATE Performed By: #### L 501.2450, L100.0100, L300.4310, L500.4050, L300.3900 #### [facility] [address] [place], [address] BUP Ur Drug Scr Normal < 200 ng/mL [facility] Comment on above: Result Comment: DUPL ICATE Performed By: #### L 501.2450, L100.0100, L300.4310, L500.4050, L300.3900 #### [facility] [address] [place], [address] COCAINE Normal < 300 ng/mL [facility] Comment on above: Result Comment: DUPL ICATE Performed By: #### L 501.2450, L100.0100, L300.4310, L500.4050, L300.3900 #### [facility] [address] [place], [address] Fentanyl Normal [facility] Comment on above: Result Comment: DUPL ICATE Performed By: #### L 501.2450, L100.0100, L300.4310, L500.4050, L300.3900 #### [facility] [address] [place], [address] METHADONE Normal < 300 ng/mL [facility] Comment on above: Result Comment: DUPL ICATE Performed By: #### L 501.2450, L100.0100, L300.4310, L500.4050, L300.3900 #### [facility] [address] [place], [address] OPIATES Normal < 300 ng/mL [facility] Comment on above: Result Comment: DUPL ICATE Performed By: #### L 501.2450, L100.0100, L300.4310, L500.4050, L300.3900 #### [facility] [address] [place], [address] OXYCODONE Normal < 100 ng/mL [facility] Comment on above: Result Comment: DUPL ICATE Performed By: #### L 501.2450, L100.0100, L300.4310, L500.4050, L300.3900 #### [facility] [address] [place], [address] PCP Normal < 25 ng/mL [facility] Comment on above: Result Comment: DUPL ICATE Performed By: #### L 501.2450, L100.0100, L300.4310, L500.4050, L300.3900 #### [facility] [address] [place], [place], [id number] THC Normal < 50 ng/mL [facility] Comment on above: Result Comment: DUPL ICATE Performed By: #### L 501.2450, L100.0100, L300.4310, L500.4050, L300.3900 #### [facility] [address] [place], [address] Urine benzodiazepine levelOr dered By: Yokasta Marti on 06-06-2024 Benzodiazepines Ql (U) Negative < 200 ng/mL [facility] Urine clarityOrdered By: Elena Marti on 06-06-2024 Clarity (U) Sl. Cloudy Clear [facility] Urine cocaine levelOrdered B y: Yokasta Marti on 06-06-2024 Cocaine Ql (U) Negative < 300 ng/mL [facility] Urine color determinationOrd ered By: Yokasta Marti on 06-06-2024 Color (U) Yellow Yellow [facility] Urine laxfd-4-mcspxwijahymaj abinol (THC) measurementOrdered By: Yokasta Marti on 06-06-2024 Cannabinoids Screen Ql (U) Negative < 50 ng/mL [facility] Urine glucose detectionOrder ed By: Yokasta Marti on 06-06-2024 Glucose Ql (U) Normal mg/dl Normal [facility] Urine leukocyte esterase det ection by dipstickOrdered By: Yokasta Marti on 06-06-2024 Leukocyte esterase Test strip Ql (U) Negative Negative [facility] Urine pHOrdered By: Yokasta keller on 06-06-2024 pH (U) 6.0 [pH] 5.0 - 8.0 [facility] Urine phencyclidine (PCP) de tectionOrdered By: Yokasta Marti on 06-06-2024 Phencyclidine Ql (U) Negative < 25 ng/mL [place] Urine sediment bacteria coun t by microscopy (number/high power field)Ordered By: Yokasta Marti on 06-06-2024 Bacteria LM.HPF (Urine sed) [#/Area] 0 /[HPF] None Seen [facility] Urine specific gravity measu rementOrdered By: Yokasta Marti on 06-06-2024 Specific gravity (U) [Rel density] 1.020 1.002-1.030 [facility] Urine urobilinogen measureme ntOrdered By: Yokasta Marti on 06-06-2024 Urobilinogen Ql (U) Normal mg/dl Normal [facility] Vitamin B12 ser/plasOrdered By: Otis Wong on 06-06-2024 Cobalamin (Vitamin B12) [Mass/Vol] 314 pg/mL 180-914 [facility] White blood cell (WBC) count Ordered By: Yokasta Marti on 06-06-2024 WBC (Bld) [#/Vol] 5.4 10*3/uL 4.4-11.0 [facility] White blood cell countOrdere d By: Yokasta Marti on 06-06-2024 White blood cell count 0 SEEN /hpf 0-5 [facility] CBC W Auto Differential pane l (Bld)on 08-16-2023 Basophils (Bld) [#/Vol] [facility] Basophils/100 WBC (Bld) 0.4 % [facility] Differential cell count method Nom (Bld) Auto [facility] Eosinophils (Bld) [#/Vol] 0.18 10*3/uL [facility] Eosinophils/100 WBC (Bld) 3.9 % [facility] Erythrocyte distribution width (RBC) [Ratio] 13.2 % 11.5 - 15.0 % [facility] Hematocrit (Bld) [Volume fraction] 45.7 % 39.0 - 51.0 % [facility] Hemoglobin (Bld) [Mass/Vol] 15.3 g/dL 13.0 - 17.0 g/dL [facility] Immature granulocytes (Bld) [#/Vol] NINF [facility] Immature granulocytes/100 WBC (Bld) 0.2 % [facility] Lymphocytes (Bld) [#/Vol] 1.38 10*3/uL [facility] Lymphocytes/100 WBC (Bld) 29.9 % [facility] MCH (RBC) [Entitic mass] 31.1 pg 26. 0 - 34.0 pg [facility] MCHC (RBC) [Mass/Vol] 33.5 g/dL 30.5 - 36.0 g/dL [facility] MCV (RBC) [Entitic vol] 92.9 fL 80.0 - 100.0 fL [facility] Monocytes (Bld) [#/Vol] 0.50 10*3/uL [facility] Monocytes/100 WBC (Bld) 10.8 % [facility] Neutrophils (Bld) [#/Vol] 2.52 10*3/uL [facility] Neutrophils/100 WBC (Bld) 54.8 % [facility] Nucleated RBC (Bld) [#/Vol] [facility] Nucleated RBC/100 WBC (Bld) [Ratio] 0.0 % /100 WBC [facility] Platelet mean volume (Bld) [Entitic vol] 11.1 fL 9.0 - 12.7 fL [facility] Platelets (Bld) [#/Vol] 175 10*3/uL [facility] RBC (Bld) [#/Vol] 4.92 10*6/uL 4.20 - 6.0 0 m/uL [facility] WBC (Bld) [#/Vol] 4.61 10*3/uL [facility] metabolic 2000 panelon 08-16-2023 Albumin [Mass/Vol] 4.7 g/dL 3.9 - 4.9 g/dL [facility] ALP [Catalytic activity/Vol] 88 U/L 38 - 113 U/L [facility] ALT [Catalytic activity/Vol] 35 U/L 10 - 54 U/L [facility] Anion gap [Moles/Vol] 11 mmol/L 9 - 18 mmol/L [facility] AST [Catalytic activity/Vol] 33 U/L 14 - 40 U/L [facility] Bilirubin [Mass/Vol] 1.4 mg/dL High 0.2 - 1 .3 mg/dL [facility] Calcium [Mass/Vol] 9.5 mg/dL 8.5 - 10. 2 mg/dL [facility] Chloride [Moles/Vol] 103 mmol/L 97 - 10 5 mmol/L [facility] CO2 [Moles/Vol] 26 mmol/L 22 - 30 mmol/L [facility] Creatinine [Mass/Vol] 1.21 mg/dL 0.73 - 1.22 mg/dL [facility] GFR/1.73 sq M.predicted among non-blacks MDRD (S/P/Bld) [Vol rate/Area] 71 mL/min/{1.73_m2} - PINF [facility] Comment on above: Estimated Glomerular Filtration Rate (eGFR) is calculated using the 2020 CKD-EPI creatinine equation. This equation utilizes serum creatinine, sex, and age as parameters. The creatinine assay has traceable calibration to isotope dilution-mass spectrometry. Refer to KDIGO guidelines for clinical interpretation. In patients with unstable renal function, e.g. those with acute kidney injury, the eGFR may not accurately reflect actual GFR. Glucose [Mass/Vol] 91 mg/dL 74 - 99 mg/dL [facility] Comment on above: The [place] Diab[employer] s Association (ADA) provides guidance for cutoff values for fasting glucose and random glucose. The ADA defines fasting as no caloric intake for at least 8 hours. Fasting plasma glucose results between 100 to 125 mg/dL indicate increased risk for diabetes (prediabetes). Fasting plasma glucose results greater than or equal to 126 mg/dL meet the criteria for diagnosis of diabetes. In the absence of unequivocal hyperglycemia, results should be confirmed by repeat testing. In a patient with classic symptoms of hyperglycemia or hyperglycemic crisis, random plasma glucose results greater than or equal to 200 mg/dL meet the criteria for diagnosis of diabetes. Reference: Standards of Medical Care in Diabetes 2016, [place] Diabetes Association. Diabetes Care. 2016.39(Suppl 1). Potassium [Moles/Vol] 4.7 mmol/L 3.7 - 5.1 mmol/L [facility] Protein [Mass/Vol] 7.2 g/dL 6.3 - 8.0 g/dL [facility] Sodium [Moles/Vol] 140 mmol/L 136 - 144 mmol/L [facility] Urea nitrogen [Mass/Vol] 22 mg/dL 9 - 24 mg/d L [facility] Lipid 1996 panelon 4 Cholesterol [Mass/Vol] 217 mg/dL High NINF - 200 mg/dL [facility] Comment on above: <200 mg/dL, Desirabl e 200-239 mg/dL, Borderline high >239 mg/dL, High Cholesterol in HDL [Mass/Vol] 38 mg/dL Low 39 - PINF mg/dL [facility] Comment on above: 40-59 mg/dL, Accepta ble >59 mg/dL, High: Negative risk factor for coronary heart disease <40 mg/dL, Low: Positive risk factor for coronary heart disease Cholesterol in LDL [Mass/Vol] 139 mg/dL High NINF - 100 mg/dL [facility] Comment on above: <100 mg/dL, Optimal 100-129 mg/dL, Near optimal/above optimal 130-159 mg/dL, Borderline high 160-189 mg/dL, High >189 mg/dL, Very high Secondary prevention optimal LDL Cholesterol levels are recommended to be < 70 mg/dL Cholesterol in LDL/Cholesterol in HDL [Mass ratio] 3.66 {ratio} High BANNERF - 2.54 [facility] Comment on above: Reference: 1. National Cholesterol Education Program ATP III Guideline At-A-Glance Quick Desk Reference: National Heart, Lung, and Blood [place]. National Institutes of Health. 2001: NIH Publication No. 01-3305. 2. An International Atherosclerosis Society position paper: global recommendations for the management of dyslipidemia: executive summary, Atherosclerosis. 2014: 232(2):410-413. Cholesterol in VLDL [Mass/Vol] 40 mg/dL High NINF - 30 mg/dL [facility] Cholesterol non HDL [Mass/Vol] 179 mg/dL High NINF - 130 mg/dL [facility] Comment on above: <130 mg/dL, Optimal 130-159 mg/dL, Near optimal/above optimal 160-189 mg/dL, Borderline high 190-219 mg/dL, High >219 mg/dL, Very high Secondary prevention optimal non HDL Cholesterol levels are recommended to be <100 mg/dL Cholesterol.total/Choles terol in HDL [Mass ratio] 5.71 {ratio} High NINF - 5.10 [facility] Fasting Time 12 hrs [facility] Triglyceride [Mass/Vol] 202 mg/dL High NINF - 150 mg/dL [facility] Comment on above: <150 mg/dL, Normal 150-199 mg/dL, Borderline high 200-499 mg/dL, High >499 mg/dL, Very high No Panel Informationon 08-15 Interpretation and review of laboratory results Abnormal [facility] XR Hand - right PA and Later al and Obliqueon 11-07-2020 IMPRESSION: Soft tissue swelling surrounding the fourth proximal interphalangeal joint with no radiographic evidence of acute osseous injury. [employer]ocad Draftsman[facility] Transcribe Date/Time: Nov 07 2020 5:42P Dictated by : CARLA BUNN MD This examination was interpreted and the report reviewed and electronically signed by: CARLA BUNN MD on Nov 07 2020 5:43PM EST DIVISION OF RADIOLOGY * * *Final Report* * * DATE OF EXAM: Nov 07 2020 5:41PM WOX [id number] - XR HAND 3V PA/LAT/OBL RT / PROCEDURE REASON: Finger pain, right * * * * Physician Interpretation * * * * CLINICAL INDICATION: Finger injury TECHNIQUE: 3 view radiographic study of the right hand COMPARISON: None FINDINGS: Soft tissue swelling surrounding the fourth proximal interphalangeal joints. No acute fracture or dislocation identified. DIVISION OF RADIOLOGY [facility] * * *Final Report* * * DATE OF EXAM: Nov 07 2020 5:41PM WOX [id number] - XR HAND 3V PA/LAT/OBL RT / PROCEDURE REASON: Finger pain, right * * * * Physician Interpretation * * * * CLINICAL INDICATION: Finger injury TECHNIQUE: 3 view radiographic study of the right hand COMPARISON: None FINDINGS: Soft tissue swelling surrounding the fourth proximal interphalangeal joints. No acute fracture or dislocation identified. IMPRESSION IMPRESSION: Soft tissue swelling surrounding the fourth proximal interphalangeal joint with no radiographic evidence of acute osseous injury. Autocad Draftsman: [facility] Transcribe Date/Time: Nov 07 2020 5:42P Dictated by : CARLA BUNN MD This examination was interpreted and the report reviewed and electronically signed by: CARLA BUNN MD on Nov 07 2020 5:43PM EST [facility] Radiology Study observation (narrative) [facility] XR Hand - right PA and Later al and ObliqueOrdered By: Ccf Provider on 11-07-2020 [facility] XR Chest PA and Lateralon IMPRESSION: No acute radiographic abnormality. [employer] Draftsman: [facility] Transcribe Date/Time: Jan 09 2020 3:51P Dictated by : GEM WELLER MD This examination was interpreted and the report reviewed and electronically signed by: GEM WELLER MD on Jan 09 2020 3:53PM [facility] DIVISION OF RADIOLOGY * * *Final Report* * * DATE OF EXAM: Jan 09 2020 10:30AM WOX [id number] - XR CHEST 2V FRONTAL/LAT / PROCEDURE REASON: multiple diagnoses * * * * Physician Interpretation * * * * EXAMINATION: CHEST RADIOGRAPH (2 VIEW FRONTAL & LATERAL) CLINICAL HISTORY: SOB (shortness of breath) on exertion. Intermittent chest pain MQ: XC2_6 EXAM DATE/TIME: 01/09/2020 10:30 AM COMPARISON: There are no prior chest radiographs for comparison. RESULT: Lines, tubes, and devices: None. Lungs and pleura: Mild chronic interstitial lung changes present with calcified residual of prior granulomatous infection. No consolidation. No lung mass. No pleural effusion. No pneumothorax. Cardiomediastinal silhouette: Normal cardiomediastinal silhouette. Bones and soft tissues: Unremarkable. DIVISION OF RADIOLOGY Provider, [facility] - 01/09/2020 * * *Final Report* * * DATE OF EXAM: Jan 09 2020 10:30AM WOX [id number] - XR CHEST 2V FRONTAL/LAT / PROCEDURE REASON: multiple diagnoses * * * * Physician Interpretation * * * * EXAMINATION: CHEST RADIOGRAPH (2 VIEW FRONTAL & LATERAL) CLINICAL HISTORY: SOB (shortness of breath) on exertion. Intermittent chest pain MQ: XC2_6 EXAM DATE/TIME: 01/09/2020 10:30 AM COMPARISON: There are no prior chest radiographs for comparison. RESULT: Lines, tubes, and devices: None. Lungs and pleura: Mild chronic interstitial lung changes present with calcified residual of prior granulomatous infection. No consolidation. No lung mass. No pleural effusion. No pneumothorax. Cardiomediastinal silhouette: Normal cardiomediastinal silhouette. Bones and soft tissues: Unremarkable. IMPRESSION IMPRESSION: No acute radiographic abnormality. [employer] Draftsman: [facility] Transcribe Date/Time: Jan 09 2020 3:51P Dictated by : GEM WELLER MD This examination was interpreted and the report reviewed and electronically signed by: GEM WELLER MD on Jan 09 2020 3:53PM [facility] Radiology Study observation (narrative) Gordy vasquez [facility] XR Chest PA and LateralOrder ed By: Ccf Provider on 01-09-2020 [facility] Vital Signs Date Time Vital Sign Value Performing Clinician Facility 10-27-2024 07:33-0400 Body mass index (BMI) [Ratio] 31.8 kg/m2 Dr. Sheila Mobley MD Work Phone: 6(724)630-685985 [place] [address] 10-27-2024 07:33-0400 Body weight 100.[address] Sheila Mobley MD Work Phone: 6(292)[phone] [place] [address] 10-27-2024 07:33-0400 Diastolic blood pressure 94 mm[Hg] Dr. Sheila Mobley MD Work Phone: 8(982)020-655123 [place] [address] 10-27-2024 07:33-0400 Heart rate 74 /min Dr. Sheila Mobley MD Work Phone: [facility] 10-27-2024 07:33-0400 Respiratory rate 18 /min Dr. Sheila Mobley MD Work Phone: 6(228)865-356723 [place] [address] 10-27-2024 07:33-0400 SaO2% (BldA) [Mass fraction] 95 % Dr. Sheila Mobley MD Work Phone: 7(899)103-894285 [place] [address] 10-27-2024 07:33-0400 Systolic blood pressure 124 mm[Hg] Dr. Sheila Mobley MD Work Phone: [facility] 10-12-2024 15:06-0400 Body height 173.4 cm Karissa Jiang MD Work Phone: [facility] 10-12-2024 15:06-0400 Body mass index (BMI) [Ratio] 34.7 kg/m2 Karissa Jiang MD Work Phone: [facility] 10-12-2024 15:06-0400 Body weight 104.33 kg Karissa Jiang MD Work Phone: [facility] 10-12-2024 15:06-0400 Diastolic blood pressure 71 mm[Hg] Karissa Jiang MD Work Phone: [facility] 10-12-2024 15:06-0400 Heart rate 74 /min Karissa Jiang MD Work Phone: [facility] 10-12-2024 15:06-0400 SaO2% (BldA) [Mass fraction] 98 % Karissa Jiang MD Work Phone: [facility] 10-12-2024 15:06-0400 Systolic blood pressure 125 mm[Hg] Karissa Jiang MD Work Phone: [facility] 09-01-2024 10:10-0400 Body height 177.[address] Sheila Mobley MD Work Phone: [facility] 09-01-2024 10:10-0400 Body mass index (BMI) [Ratio] 32 kg/m2 Dr. Sheila Mobley MD Work Phone: 7(272)008-870885 [place] [address] 09-01-2024 10:10-0400 Body weight 101.[address] Sheila Mobley MD Work Phone: 4(170)[phone] [place] [address] 08-04-2024 13:13-0400 Body temperature 98.2 [degF] Dr. Sheila Mobley MD Work Phone: 4(112)[phone] [place] [address] 08-04-2024 13:13-0400 Body weight 101.[address] Sheila Mobley MD Work Phone: [facility] 08-04-2024 13:13-0400 Diastolic blood pressure 80 mm[Hg] Dr. Sheila Mobley MD Work Phone: [facility] 08-04-2024 13:13-0400 Heart rate 75 /min Dr. Sheila Mobley MD Work Phone: [facility] 08-04-2024 13:13-0400 Respiratory rate 17 /min Dr. Sheila Mobley MD Work Phone: [facility] 08-04-2024 13:13-0400 SaO2% (BldA) [Mass fraction] 97 % Dr. Sheila Mobley MD Work Phone: [facility] 08-04-2024 13:13-0400 Systolic blood pressure 137 mm[Hg] Dr. Sheila Mobley MD Work Phone: [facility] 06-24-2024 12:54-0400 Body height 173.4 cm Sheila Mobley MD Work Phone: [facility] 06-24-2024 12:54-0400 Body mass index (BMI) [Ratio] 33.46 kg/m2 Sheila Mobley MD Work Phone: [facility] 06-24-2024 12:54-0400 Body weight 100.56 kg Sheila Mobley MD Work Phone: [facility] 06-24-2024 12:54-0400 Diastolic blood pressure 76 mm[Hg] Sheila Mobley MD Work Phone: [facility] 06-24-2024 12:54-0400 Heart rate 78 /min Sheila Mobley MD Work Phone: [facility] 06-24-2024 12:54-0400 Respiratory rate 16 /min Sheila Mobley MD Work Phone: [facility] 06-24-2024 12:54-0400 Systolic blood pressure 123 mm[Hg] Sheila Mobley MD Work Phone: [facility] 06-08-2024 15:34-0500 Body temperature 97.8 [degF] Dr. Sheila Mobley MD Work Phone: [facility] 06-08-2024 15:34-0500 Diastolic blood pressure 91 mm[Hg] Dr. Sheila Mobley MD Work Phone: [facility] 06-08-2024 15:34-0500 Heart rate 83 /min Dr. Sheila Mobley MD Work Phone: [facility] 06-08-2024 15:34-0500 Respiratory rate 18 /min Dr. Sheila Mobley MD Work Phone: [facility] 06-08-2024 15:34-0500 SaO2% (BldA) [Mass fraction] 98 % Dr. Sheila Mobley MD Work Phone: [facility] 06-08-2024 15:34-0500 Systolic blood pressure 140 mm[Hg] Dr. Sheila Mobley MD Work Phone: [facility] 06-08-2024 10:50-0500 Body mass index (BMI) [Ratio] 32.1 kg/m2 Dr. Sheila Mobley MD Work Phone: [facility] 06-07-2024 10:56-0500 Body height 177.[address] Sheila Mobley MD Work Phone: [facility] 06-07-2024 10:56-0500 Body weight 101.[address] Sheila Mobley MD Work Phone: [facility] 12-24-2023 16:31-0400 Body mass index (BMI) [Ratio] 31.25 kg/m2 Sheila Mobley MD Work Phone: [facility] 12-24-2023 16:31-0400 Body temperature 97.39 [degF] Sheila Mobley MD Work Phone: [facility] 12-24-2023 16:31-0400 Body weight 98.8 kg Sheila Mobley MD Work Phone: [facility] 12-24-2023 16:31-0400 Diastolic blood pressure 82 mm[Hg] Sheila Mobley MD Work Phone: [facility] 12-24-2023 16:31-0400 Heart rate 83 /min Sheila Mobley MD Work Phone: [facility] 12-24-2023 16:31-0400 Respiratory rate 16 /min Sheila Mobley MD Work Phone: [facility] 12-24-2023 16:31-0400 SaO2% (BldA) [Mass fraction] 97 % Sheila Mobley MD Work Phone: [facility] 12-24-2023 16:31-0400 Systolic blood pressure 112 mm[Hg] Sheila Mobley MD Work Phone: [facility] 08-16-2023 10:53-0400 Diastolic blood pressure 75 mm[Hg] Poppy Washington MICRO PHOTOGRAPHER.EGG BUYER Work Phone: [facility] 08-16-2023 10:53-0400 Heart rate 57 /min Poppy Washington MICRO PHOTOGRAPHER.EGG BUYER Work Phone: [facility] 08-16-2023 10:53-0400 SaO2% (BldA) [Mass fraction] 100 % Poppy Washington MICRO PHOTOGRAPHER.EGG BUYER Work Phone: [facility] 08-16-2023 10:53-0400 Systolic blood pressure 115 mm[Hg] Poppy Washington MICRO PHOTOGRAPHER.EGG BUYER Work Phone: [facility] 08-16-2023 10:52-0400 Body mass index (BMI) [Ratio] 31.85 kg/m2 Poppy Washington MICRO PHOTOGRAPHER.EGG BUYER Work Phone: [facility] 08-16-2023 10:52-0400 Body weight 100.7 kg Poppy Washington MICRO PHOTOGRAPHER.EGG BUYER Work Phone: [facility] 08-16-2023 10:52-0400 Respiratory rate 16 /min Poppy Washington MICRO PHOTOGRAPHER.EGG BUYER Work Phone: [facility] 10-19-2022 09:38-0400 Body weight 99.79 kg Alice Edson MICRO PHOTOGRAPHER.FRAME STRIPPER Work Phone: [facility] 10-19-2022 09:38-0400 Diastolic blood pressure 80 mm[Hg] Alice Edson MICRO PHOTOGRAPHER.FRAME STRIPPER Work Phone: [facility] 10-19-2022 09:38-0400 Heart rate 73 /min Alice Edson MICRO PHOTOGRAPHER.FRAME STRIPPER Work Phone: [facility] 07-14-2023 09:38-0400 SaO2% (BldA) [Mass fraction] 98 % Alice Sandhu MICRO PHOTOGRAPHER.FRAME STRIPPER Work Phone: [facility] 10-19-2022 09:38-0400 Systolic blood pressure 118 mm[Hg] Alice Sandhu MICRO PHOTOGRAPHER.FRAME STRIPPER Work Phone: [facility] 08-07-2021 16:32-0400 Body weight 98.43 kg Sheila Mobley MD Work Phone: [facility] 08-07-2021 16:32-0400 Diastolic blood pressure 80 mm[Hg] Sheila Mobley MD Work Phone: [facility] 08-07-2021 16:32-0400 Heart rate 76 /min Sheila Mobley MD Work Phone: [facility] 08-07-2021 16:32-0400 Respiratory rate 16 /min Sheila Mobley MD Work Phone: [facility] 08-07-2021 16:32-0400 Systolic blood pressure 128 mm[Hg] Sheila Mobley MD Work Phone: [facility] Encounters Encounter Date Encounter Type Care Provider Facility Start: 03-02-2025 ambulatory Sheila Pedro Saldanaampas Facilit y:[facility] Start: 01-28-2025 End: 01-28-2025 ambulatory Sheila D Talampas Facility:[facility] Start: 01-28-2025 End: 01-28-2025 ambulatory SHEILA AMYAS Facility:[facility] Start: 01-07-2025 End: 01-07-2025 ambulatory SHEILA TALAMPAS Facility:[facility] Start: 01-07-2025 Encounter for genera l adult medical examination without abnormal findings SHEILA MOBLEY [facility] Start: 12-24-2024 Non-patient / Non-visit Isatu SHAY -[facility] Work Phone: Start: 12-24-2024 ambulatory Sheila D Talampas Facilit y:[facility] Start: 12-23-2024 ambulatory Sheila D Talampas Facilit y:[facility] Start: 12-23-2024 Non-patient / Non-visit Dr. Citlali FRANCO -[facility] Start: 12-22-2024 End: 12-22-[address] Sheila Mobley MD Work Phone: -[facility] Start: 12-22-2024 End: 12-22-2024 Patient encounter procedure Isatu Zachery DOCK HAND-C -[facility] Work Phone: Start: 12-22-2024 End: 12-22-2024 ambulatory Isatu Bingham Facility:[facility] Start: 11-13-2024 End: 11-17-2024 Refill Sheila Mobley MD Work Phone: Internal Medicine [place] Comment on above: Refill Request Start: 10-27-2024 End: 10-27-2024 Patient encounter procedure Isatu Bingham DOCK HAND-C -[facility] Work Phone: Start: 10-27-2024 End: 10-27-[address] Sheila Mobley MD Work Phone: [facility] Start: 10-27-2024 End: 10-27-2024 ambulatory Sheila Mobley Facility:[facility] Start: 10-22-2024 End: 11-06-2024 E-mail encounter from caregiver Karissa Jiang MD Work Phone: [facility] Start: 10-22-2024 End: 11-06-2024 Follow-up encounter Karissa Jiang MD Work Phone: [facility] [place] Comment on above: Follow Up Start: 10-13-2024 End: 10-13-2024 Telephone encounter Karissa Jiang MD Work Phone: [facility] Start: 10-12-2024 End: 10-12-2024 Patient encounter procedure Karissa Jiang MD Work Phone: [facility] Comment on above: Cerebral infarction, unspecified mechanism (HCC) (Primary Dx); TIA (transient ischemic attack); Primary hypertension; Right sided weakness Start: 10-12-2024 End: 10-12-2024 ambulatory SHEILA MOBLEY Facility:[facility] Start: 10-06-2024 End: 10-06-2024 Refill Sheila Mobley MD Work Phone: [facility] [place] Comment on above: Refill Request Start: 09-30-2024 End: 10-20-2024 Telephone encounter Karissa Jiang MD Work Phone: Neurology Comment on above: Imaging/Records Start: 09-14-2024 End: 09-15-2024 Refill Sheila Mobley MD Work Phone: [facility] [place] Comment on above: Refill Request Start: 09-01-2024 End: 09-01-[address] Jim Cronin MD -[facility] Start: 09-01-2024 End: 09-01-[address] Sheila Mobley MD Work Phone: [facility] Work Phone: Comment on above: Refill Request Start: 08-13-2024 Non-patient / Non-visit Dr. Jaswinder wolf MD -[facility] Start: 08-13-2024 End: 08-13-[address] Sheila Mobley MD Work Phone: [facility] Work Phone: Start: 08-13-2024 End: 08-13-2024 Patient encounter procedure Peggy VIDAL -[facility] Work Phone: Start: 08-13-2024 End: 08-13-2024 ambulatory Peggy Randall Facility:[facility] Start: 08-04-2024 End: 08-04-2024 Patient encounter procedure Peggy VIDAL -[facility] Work Phone: Start: 08-04-2024 End: 08-04-2024 ambulatory Peggy Randall Facility:[facility] Start: 06-24-2024 End: 06-24-2024 ambulatory SHEILA MOBLEY Facility:[facility] Start: 06-24-2024 End: 06-24-2024 Office outpatient visit 40 minutes Sheila Mobley MD Work Phone: [facility] [place] Comment on above: Anxiety and depressi on (Primary Dx); TIA (transient ischemic attack); Witnessed episode of apnea; Primary hypertension; Daytime sleepiness; Snoring; Vertigo; Visual disturbances; Muscle weakness Start: 06-08-2024 Non-patient / Non-visit Dr. Elizabeth Botello MD -[facility] Work Phone: Start: 06-07-2024 Non-patient / Non-visit Dr. Elizabeth Botello MD -[facility] Work Phone: Start: 06-06-2024 End: 06-08-2024 ambulatory [facility] Facility:[facility] Start: 06-06-2024 End: 06-08-2024 Evaluation and management of inpatient Dr. Grant Botello MD -[facility] Work Phone: Start: 05-11-2024 End: 05-12-2024 Refill Sheila Mobley MD Work Phone: [facility] [place] Comment on above: Refill Request Start: 12-24-2023 End: 12-24-2023 Office outpatient visit 25 minutes Sheila Mobley MD Work Phone: [facility] [place] Comment on above: Left foot pain (Prim angel Dx); Other fatigue; Anxiety and depression; Chest pain, unspecified type; Gastroesophageal reflux disease without esophagitis; Encounter for long-term current use of medication Start: 11-11-2023 Refill Poppy Washington APRN.EGG BUYER Work Phone: [facility] [place] Comment on above: Refill Request Start: 10-01-2023 ambulatory Nurse Card Adm in [facility] Work Phone: Cardiology Comment on above: Stress Test Instruct ions for 10/07/23 Start: 10-01-2023 E-mail encounter fro m caregiver Nurse Card Admin [facility] Work Phone: Cardiology Start: 09-13-2023 Refill Poppy Washington MICRO PHOTOGRAPHER.EGG BUYER Work Phone: [facility] [place] Comment on above: Refill Request Start: 08-16-2023 End: 08-16-2023 Office outpatient visit 25 minutes Poppy Washington MICRO PHOTOGRAPHER.EGG BUYER Work Phone: [facility] [place] Comment on above: Chest pain, unspecif ied type (Primary Dx); Anxiety and depression Start: 08-15-2023 Telephone encounter Sheila minor MD Work Phone: [facility] [place] Comment on above: Future Appointment Start: 08-13-2023 Refill Sheila henson MD Work Phone: [facility] [place] Comment on above: Refill Request Start: 02-13-2023 Refill Alice Edson MICRO PHOTOGRAPHER.FRAME STRIPPER Work Phone: [facility] [place] Comment on above: Refill Request Start: 02-04-2023 Refill Poppy Washington MICRO PHOTOGRAPHER.EGG BUYER Work Phone: [facility] [place] Comment on above: Refill Request Start: 12-12-2022 ambulatory Alice Edson MICRO PHOTOGRAPHER.FRAME STRIPPER Work Phone: [facility] [place] Comment on above: Labs and rx Start: 10-19-2022 End: 10-19-2022 Patient encounter procedure Alice Edson MICRO PHOTOGRAPHER.FRAME STRIPPER Work Phone: [facility] [place] Comment on above: Gastroesophageal ref lux disease without esophagitis (Primary Dx); Anxiety and depression; Obesity, Class I, BMI 30-34.9; Elevated LDL cholesterol level; Impotence of organic origin; Encounter for therapeutic drug monitoring; Colon cancer screening Start: 08-20-2022 Refill Alice Edson MICRO PHOTOGRAPHER.FRAME STRIPPER Work Phone: [facility] [place] Comment on above: Refill Request Start: 07-06-2022 Refill Poppy Washington MICRO PHOTOGRAPHER.EGG BUYER Work Phone: [facility] [place] Comment on above: Refill Request Start: 06-19-2022 Refill Alice Edson MICRO PHOTOGRAPHER.FRAME STRIPPER Work Phone: [facility] [place] Comment on above: Refill Request Start: 04-21-2022 Refill Poppy Washington MICRO PHOTOGRAPHER.EGG BUYER Work Phone: [facility] [place] Comment on above: Refill Request Start: 01-30-2022 Refill Poppy Washington APRN.CNS Work Phone: [facility] [place] Comment on above: Refill Request Start: 09-05-2021 Telephone encounter Sheila minor MD Work Phone: [facility] [place] Comment on above: Patient Question Start: 08-07-2021 End: 08-07-2021 Office outpatient visit 25 minutes Sheila Mobley MD Work Phone: [facility] [place] Comment on above: Anxiety and depressi on (Primary Dx); Benign paroxysmal positional vertigo, unspecified laterality; Elevated LDL cholesterol level; Gastroesophageal reflux disease without esophagitis; Colon cancer screening; Encounter for long-term current use of medication Start: 11-07-2020 End: 11-07-2020 Subsequent hospital visit by physician Xr [facility] [place] Work Phone: Radiology Comment on above: Finger pain, right [ M79.644] Start: 01-09-2020 End: 01-09-2020 Subsequent hospital visit by physician Xr [facility] Work Phone: Radiology Comment on above: SOB (shortness of br eath) on exertion [R06.02] Procedures Date Procedure Procedure Detail Performing Clinician Start: 12-22-2024 CT angiography of co ronary arteries Dr. Sheila Mobley MD Work Phone: Start: 09-01-2024 X-ray of cervical spine Dr. Sheila Mobley MD Work Phone: Start: 08-13-2024 X-ray of cervical spine Dr. Sheila Mobley MD Work Phone: Start: 06-07-2024 MRI of brain without contrast Dr. Sheila Mobley MD Work Phone: Start: 06-06-2024 CT angiography of he ad and neck Dr. Sheila Mobley MD Work Phone: Start: 06-06-2024 Methadone measuremen t, urine Dr. Sheila Mobley MD Work Phone: Start: 06-06-2024 Urnls dip stick/tabl et reagent auto microscopy Dr. Sheila Mobley MD Work Phone: Start: 06-06-2024 X-ray of chest, PA a nd lateral views Dr. Sheila Mobley MD Work Phone: Start: 06-06-2024 CT of head without contrast Dr. Sheila Mobley MD Work Phone: Start: 06-06-[address] Sheila Mobley MD Work Phone: Start: 06-06-2024 SARS-CoV-2, Influenz a & RSV (PCR) Dr. Sheila Mobley MD Work Phone: Start: 08-16-2023 Ecg routine ecg w/le ast 12 lds i&r only [facility] Provider Start: 08-16-2023 Lipid 1996 panel - S addie or Plasma Poppy Felix MICRO PHOTOGRAPHER.EGG BUYER Work Phone: Start: 11-07-2020 Radex hand minimum 3 views Jaswinder Medrano MICRO PHOTOGRAPHER.FRAME STRIPPER Work Phone: Start: 07-15-2020 Lipid 1996 panel - S addie or Plasma Poppy Washington MICRO PHOTOGRAPHER.EGG BUYER Work Phone: Start: 01-09-2020 Radiologic exam ches t 2 views Joshua Baxter MICRO PHOTOGRAPHER.FRAME STRIPPER Work Phone: Plan of Treatment Date Care Activity Detail Author Start: 12-23-2028 Prostate specific antigen measurement Prostate Cancer Screening Discussion [facility] Start: 08-15-2028 Lipid panel Lipid Screening [facility] Start: 08-15-2026 Diabetes Screening Diabetes Screening [facility] Start: 12-13-2025 Cologuard (FIT-DNA) Cologuard (FIT-DNA) [facility] Start: 12-13-2025 Colorectal Cancer Screening Colorectal Cancer Screening [facility] Start: 12-13-2025 Screening for malignant neoplasm of colon [facility] Start: 07-15-2025 Lipid 1996 panel - Serum or Plasma Lipid Screening [facility] Start: 07-15-2025 Lipid panel Lipid Screening [facility] Start: 07-15-2025 LIPID SCREEN LIPID SCREEN [facility] Start: 06-24-2025 Annual PCP Team Chronic Disease Visit Annual PCP Team Chronic Disease Visit [facility] Start: 12-30-2024 End: 12-30-2024 Patient encounter procedure 12/30/2024 9:20 AM EDT Office Visit [facility] [place] [address] [place] [address] Sheila Mobley MD [address] [place], [place] [id number] 6 month follow up [facility] [place] Comment on above: 6 month follow up Start: 12-23-2024 Covid-19 Vaccine ( season) Covid-19 Vaccine ( season) [facility] Comment on above: Postponed from 12/08/2023 (Declined at t his time) Start: 12-23-2024 Covid-19 Vaccine ( season) Covid-19 Vaccine () [facility] Comment on above: Postponed from 12/08/2023 (Declined at t his time) Start: 12-23-2024 Hepatitis B Vaccine (1 of 3 - 19+ 3-dose series) Hepatitis B Vaccine (1 of 3 - 19+ 3-dose series) [facility] Comment on above: Postponed from 1987 (Declined at t his time) Start: 12-23-2024 Shingrix Vaccine (1 of 2) Shingrix Vaccine (1 of 2) [facility] Comment on above: Postponed from 2018 (Declined at t his time) Start: 12-23-2024 Urine microalbumin profile DTaP,Tdap,Td Vaccine (2 - Td or Tdap) [facility] Comment on above: Postponed from 05/28/2021 (Declined at t his time) Start: 12-07-2024 Influenza vaccination [facility] Start: 10-12-2024 End: 10-12-2024 Patient encounter procedure 10/12/2024 3:00 PM EDT Office Visit [facility] [address] [id number] Karissa Jiang MD [address] [place] [address] New Patient Eval [facility] Comment on above: New Patient Eval Start: 10-05-2024 Influenza vaccination Influenza Vaccine (#1) [facility] Comment on above: Postponed from 12/08/2023 (Declined at t his time) Start: 09-01-2024 X-ray of cervical spine Cerv Spine 2 or 3 Views [facility] Start: 09-01-2024 XR Cervical spine 2 or 3 Views [facility] Start: 06-08-2024 Patient discharge [facility] Start: 06-06-2024 Following clinical pathway protocol [facility] Start: 06-06-2024 Cardiac monitoring [facility] Start: 06-06-2024 Catheterization of vein [facility] Start: 06-06-2024 Consultation [facility] Start: 06-06-2024 Elevation of head of bed [facility] Start: 06-06-2024 Exercises [facility] Start: 06-06-2024 Notification of physician [facility] Start: 06-06-2024 Patient referral to dietitian [facility] Start: 06-06-2024 Referral to occupational therapist [facility] Start: 06-06-2024 Referral to service [facility] Start: 06-06-2024 Speech therapy assessment [facility] Start: 06-06-2024 Telemedicine consultation with patient [facility] Start: 06-06-2024 Tobacco use cessation education [facility] Start: 06-06-2024 [facility] Start: 06-06-2024 Vital signs measurements [facility] Start: 06-06-2024 Admission procedure [facility] Start: 06-06-2024 End: 06-06-2024 [facility] Start: 05-26-2024 End: 05-26-2024 Patient encounter procedure 05/26/2024 8:40 AM EST Office Visit [facility] [address] [place] [address] Sheila Mobley MD [address] [place] [address] physical [facility] [place] Comment on above: physical Start: 12-24-2023 End: 12-24-2023 Patient encounter procedure 12/24/2023 3:40 PM EDT Office Visit [facility] [address] [place] [address] Sheila Mobley MD [address] [place] [address] 6 month follow up [facility] Comment on above: 6 month follow up Start: 12-24-2023 End: 03-24-2024 Magnesium [Mass/volume] in Serum or Plasma MAGNESIUM Lab Routine Encounter for long-term current use of medication Expected: 12/24/2023, Expires: 03/24/2024 [facility] Comment on above: Expected: 12/24/2023, Expires: Start: 12-24-2023 End: 03-24-2024 Testosterone [Mass/volume] in Serum or Plasma TESTOSTERONE, TOTAL Lab Routine Other fatigue Expected: 12/24/2023, Expires: 03/24/2024 [facility] Comment on above: Expected: 12/24/2023, Expires: Start: 12-24-2023 End: 03-24-2024 Thyrotropin [Units/volume] in Serum or Plasma THYROID STIMULATING HORMONE Lab Routine Other fatigue Expected: 12/24/2023, Expires: 03/24/2024 [facility] Work Phone: Comment on above: Expected: 12/24/2023, Expires: Start: 12-24-2023 End: 03-24-2024 Thyroxine (T4) free [Mass/volume] in Serum or Plasma T4 FREE/FREE THYROXINE Lab Routine Other fatigue Expected: 12/24/2023, Expires: 03/24/2024 [facility] Comment on above: Expected: 12/24/2023, Expires: Start: 12-08-2023 Influenza vaccination [facility] Start: 11-16-2023 End: 02-15-2024 Thyrotropin [Units/volume] in Serum or Plasma THYROID STIMULATING HORMONE Lab Routine Chest pain, unspecified type Expected: 11/16/2023 (Approximate), Expires: 02/15/2024 [facility] Comment on above: Expected: 11/16/2023 (Approximate), Expi res: 02/15/2024 Start: 10-14-2023 End: 10-14-2023 Patient encounter procedure 10/14/2023 3:00 PM EDT Office Visit [facility] [address] [place] [address] Poppy Washington APRN.EGG BUYER [address] [place] [address] follow up after stress test [facility] Comment on above: follow up after stress test Start: 10-07-2023 End: 10-07-2023 Patient encounter procedure 10/07/2023 11:20 AM EDT Office Visit Cardiology [address] [place] [address] Wstr, Nurse Card Admin [facility] [address] [place] [address] Chest pain, unspecified type [R07.9] Cardiology Comment on above: Chest pain, unspecified type [R07.9] Start: 09-30-2023 End: 09-30-2023 Patient encounter procedure 09/30/2023 1:00 PM EDT Office Visit [facility] [address] [place] [address] Poppy Washington APRN.EGG BUYER [address] [place] [address] follow up after stress test [facility] Comment on above: follow up after stress test Start: 09-23-2023 End: 09-23-2023 Patient encounter procedure 09/23/2023 1:50 PM EDT Office Visit Cardiology [address] [place] [address] Chest pain, unspecified type [R07.9] Cardiology Comment on above: Chest pain, unspecified type [R07.9] Start: 08-16-2023 End: 08-16-2023 Patient encounter procedure 08/16/2023 10:40 AM EDT Office Visit [facility] [address] [facility] [place] [address] Poppy Washington APRN.EGG BUYER [address] [place] [address] 6 month follow up/possible heart issues/tired, chest pain, sweating. X 1 week ago the symptoms resolved. [facility] [place] Comment on above: 6 month follow up/possible heart issues/ tired, chest pain, sweating. X 1 week ago the symptoms resolved. Start: 07-16-2023 DIABETES SCREEN DIABETES SCREEN [facility] Start: 07-16-2023 Diabetes Screening Diabetes Screening [facility] Start: 2023 Prostate specific antigen measurement Prostate Cancer Screening Discussion [facility] Start: 02-20-2023 COVID-19 VACCINE (#1) COVID-19 VACCINE (#1) [facility] Comment on above: Postponed from 1968 (Declined at t his time) Start: 12-07-2022 Covid-19 Vaccine ( season) Covid-19 Vaccine () [facility] Start: 12-07-2022 Influenza vaccination [facility] Start: 10-19-2022 End: 12-19-2022 CBC W Auto Differential panel - Blood CBC + DIFF Lab Routine Encounter for therapeutic drug monitoring Expected: 10/19/2022, Expires: 12/19/2022 [facility] Work Phone: Comment on above: Expected: 10/19/2022, Expires: 3 Start: 10-19-2022 End: 12-19-2022 Comprehensive metabolic 2000 panel - Serum or Plasma COMP METABOLIC PANEL Lab Routine Encounter for therapeutic drug monitoring Expected: 10/19/2022, Expires: 12/19/2022 [facility] Work Phone: Comment on above: Expected: 10/19/2022, Expires: 3 Start: 10-19-2022 End: 12-19-2022 Lipid 1996 panel - Serum or Plasma LIPID PANEL BASIC Lab Routine Elevated LDL cholesterol level Expected: 10/19/2022, Expires: 12/19/2022 [facility] Work Phone: Comment on above: Expected: 10/19/2022, Expires: Start: 10-19-2022 End: 12-19-2022 Magnesium [Mass/volume] in Serum or Plasma MAGNESIUM BLD Lab Routine Encounter for therapeutic drug monitoring Expected: 10/19/2022, Expires: 12/19/2022 [facility] Work Phone: Comment on above: Expected: 10/19/2022, Expires: Start: 10-19-2022 End: 12-19-2022 TESTOSTERONE, FREE AND TOTAL TESTOSTERONE, FREE AND TOTAL Lab Routine Encounter for therapeutic drug monitoring Impotence of organic origin Expected: 10/19/2022, Expires: 12/19/2022 [facility] Work Phone: Comment on above: Expected: 10/19/2022, Expires: Start: 10-05-2022 Influenza vaccination INFLUENZA (#1) [facility] Comment on above: Postponed from 12/07/2021 (Declined at t his time) Start: 08-07-2022 ANNUAL PCP TEAM CHRONIC DISEASE VISIT ANNUAL PCP TEAM CHRONIC DISEASE VISIT [facility] Start: 08-07-2022 SHINGRIX VACCINE (1 of 2) SHINGRIX VACCINE (1 of 2) [facility] Comment on above: Postponed from 2018 (Declined at t his time) Start: 08-07-2022 Urine microalbumin profile DTAP,TDAP,TD (2 - Td or Tdap) [facility] Comment on above: Postponed from 05/28/2021 (Declined at t his time) Start: 01-23-2022 COVID-19 VACCINE (#1) COVID-19 VACCINE (#1) [facility] Comment on above: Postponed from 1973 (Declined at t his time) Postponed from 10/07 (Declined at this time) Start: 12-07-2021 Influenza vaccination [facility] Start: 08-07-2021 End: 10-07-2021 CBC panel - Blood by Automated count CBC Lab Routine Encounter for long-term current use of medication Expected: 08/07/2021, Expires: 10/07/2021 [facility] Work Phone: Comment on above: Expected: 08/07/2021, Expires: 2 Start: 08-07-2021 End: 10-07-2021 Comprehensive metabolic 2000 panel - Serum or Plasma COMP METABOLIC PANEL Lab Routine Encounter for long-term current use of medication Expected: 08/07/2021, Expires: 10/07/2021 [facility] Work Phone: Comment on above: Expected: 08/07/2021, Expires: 2 Start: 08-07-2021 End: 10-07-2021 LIPID PANEL BASIC LIPID PANEL BASIC Lab Routine Elevated LDL cholesterol level Expected: 08/07/2021, Expires: 10/07/2021 [facility] Work Phone: Comment on above: Expected: 08/07/2021, Expires: 2 Start: 08-07-2021 End: 10-07-2021 Magnesium [Mass/volume] in Serum or Plasma MAGNESIUM BLD Lab Routine Encounter for long-term current use of medication Expected: 08/07/2021, Expires: 10/07/2021 [facility] Work Phone: Comment on above: Expected: 08/07/2021, Expires: 2 Start: 05-28-2021 Urine microalbumin profile [facility] Start: 01-05-2021 COLORECTAL CANCER SCREENING COLORECTAL CANCER SCREENING [facility] Start: 01-05-2021 FECAL OCCULT BLOOD FECAL OCCULT BLOOD [facility] Start: 01-05-2021 Screening for malignant neoplasm of colon Fecal Occult Blood [facility] Start: 2018 Pneumococcal Vaccine: 50+ (1 of 1 - PCV) Pneumococcal Vaccine: 50+ (1 of 1 - PCV) [facility] Start: 2018 SHINGRIX VACCINE (1 of 2) SHINGRIX VACCINE (1 of 2) [facility] Start: 2013 COLOGUARD (FIT-DNA) COLOGUARD (FIT-DNA) [facility] Start: 2013 Colonoscopy COLONOSCOPY [facility] Start: [address] COLONOGRAPHY [facility] Start: 2013 Screening for malignant neoplasm of colon [facility] Start: 2013 SIGMOIDOSCOPY SIGMOIDOSCOPY [facility] Start: 1987 Hepatitis B Vaccine (1 of 3 - 19+ 3-dose series) Hepatitis B Vaccine (1 of 3 - 19+ 3-dose series) [facility] Start: 1986 SPIROMETRY SPIROMETRY [facility] Start: 1974 PNEUMOCOCCAL (1 - PCV) PNEUMOCOCCAL (1 - PCV) [facility] Start: 1968 COVID-19 VACCINE (#1) COVID-19 VACCINE (#1) [facility] Start: 1968 HEPATITIS B (1 of 3 - 3-dose series) HEPATITIS B (1 of 3 - 3-dose series) [facility] Start: 1968 Hepatitis B Vaccine (1 of 3 - 3-dose series) Hepatitis B Vaccine (1 of 3 - 3-dose series) [facility] Basic metabolic 2008 panel with ionized calcium - Serum or Plasma [facility] CBC W Auto Different ial panel - Blood [facility] Ordered: 10/19/2022 [facility] Work Phone: Comment on above: Ordered: 10/19/2022 CT angiography of coronary arteries [facility] ECG COMPLETE [facility] Work Phone: Comment on above: Ordered: 08/16/2023 Hemoglobin.gastroint est inal.lower [Presence] in Stool by Immunoassay FECAL OCCULT BLOOD TEST Lab Routine Colon cancer screening Ordered: 08/07/2021 [facility] Work Phone: Comment on above: Ordered: 08/07/2021 End: 11-11-2025 MR Brain WO and W contrast IV MRI BRAIN WO/W IVCON Radiology STAT Cerebral infarction, unspecified mechanism (HCC) 1 Occurrences starting 10/12/2024 until 11/11/2025 [facility] Work Phone: Comment on above: 1 Occurrences starting 10/12/2024 until 11/11/2025 End: 11-11-2025 MR Cervical spine WO and W contrast IV MRI CERVICAL SPINE WO/W IVCON Radiology STAT Right sided weakness 1 Occurrences starting 10/12/2024 until 11/11/2025 [facility] Comment on above: 1 Occurrences starting 10/12/2024 until 11/11/2025 End: 11-11-2025 MR Thoracic spine WO and W contrast IV MRI THORACIC SPINE WO/W IVCON Radiology STAT Right sided weakness 1 Occurrences starting 10/12/2024 until 11/11/2025 [facility] Comment on above: 1 Occurrences starting 10/12/2024 until 11/11/2025 Natriuretic peptide. B prohormone N-Terminal [Mass/volume] in Serum or Plasma [facility] OUTSIDE VENDOR CARDI AC OUTPATIENT EXTENDED RHYTHM RECORDING (WITHOUT TELEMETRY) OUTSIDE VENDOR CARDIAC OUTPATIENT EXTENDED RHYTHM RECORDING (WITHOUT TELEMETRY) Holter Routine Right sided weakness Ordered: 10/12/2024 [facility] Comment on above: Ordered: 10/12/2024 Patient referral [facility] Work Phone: End: 06-24-2025 Polysomnogram POLYSOMNOGRAM (PSG) Procedures Routine Anxiety and depression Witnessed episode of apnea Daytime sleepiness Snoring 1 Occurrences starting 06/24/2024 until 06/24/2025 [facility] Work Phone: Comment on above: 1 Occurrences starting 06/24/2024 until 06/24/2025 End: 08-15-2024 STRESS ECHO TREADMILL STRESS ECHO TREADMILL Cardiology Routine Chest pain, unspecified type 1 Occurrences starting 08/16/2023 until 08/15/2024 [facility] Comment on above: 1 Occurrences starting 08/16/2023 until 08/15/2024 Thyroid stimulating hormone measurement [facility] Immunizations Immunization Date Immunization Notes Care Provider Fa gayatri 05-28-2011 tetanus toxoid, redu sergey diphtheria toxoid, and acellular pertussis vaccine, adsorbed Sheila Mobley MD Work Phone: [facility] Payers Date Payer Category Payer Unknown [id number] [id number] Self-pay 2024 Private Health Insurance DANIEL cadena [id number] 2023 Private Health Insurance [id number] 2022 Medicaid [id number] 2017 Medicaid [employer] [id number] 2017-Present [phone] [address] [place] [address] Medicaid [id number] 2017 Medicaid [id number] Unknown [id number] Unknown [id number] Unknown [id number]. 462 Unknown [id number] [id number]. 462 Unknown [id number] [id number]. 462 Unknown [id number] 2.16840.1.371184.3.579.2. 462 Unknown [id number] 2.16840.1.252509.3.579.2. 462 Unknown [id number] 2.16840.1.566426.3.579.2. 462 Unknown [id number] 2.16840.1.447723.3.579.2. 462 Unknown [id number] 2.16.840.1.347974.3.579.2. 462 Unknown [id number] 2.16.840.1.552404.3.579.2. 462 Unknown [id number] 2.16.840.1.894337.3.579.2. 462 Unknown [id number] 2.16.840.1.920987.3.579.2. 462 Unknown [id number] 2.16.840.1.569763.3.579.2. 462 Unknown [id number] 2.16.840.1.757031.3.579.2. 462 Unknown [id number] 2.16.840.1.162849.3.579.2. 462 Unknown [id number] [id number]. 462 Unknown [id number]. 462 Social History Date Type Detail Facility Start: 03-14-2018 End: 08-20-2024 Tobacco smoking status NHIS Ex-smoker [facility] Work Phone: Start: 09-20-2002 End: 09-20-2017 History of tobacco use Current smoker [facility] Work Phone: Start: 09-20-2002 End: 09-20-2017 History of tobacco use Cigarette Smoker [facility] Work Phone: Start: 03-14-2018 End: 08-16-2023 Tobacco use and exposure User of smokeless tobacco [facility] Work Phone: End: 06-07-2023 History of tobacco use Snuff User [facility] Work Phone: Start: 01-23-2021 End: 10-12-2024 Alcohol intake Current drinker of alcohol (finding) [facility] Start: 11-14-2020 History SDOH Alcohol Comment 2 beers per months [facility] Start: 03-14-2018 End: 02-20-2022 Tobacco Comment 2 to 3 cigarettes daily; Quit smoking in September [facility] Start: 1970 Sex Assigned At Male [facility] Start: 08-22-2022 End: 10-19-2022 History of Social function [facility] Start: 08-22-2022 End: 10-19-2022 Tobacco use panel [facility] Start: 03-09-2012 Adult Depression Screening Assessment 0 [facility] Start: 01-08-2020 Gender identity Identifies as male gender (finding) [facility] Start: 01-08-2020 Sexual orientation Heterosexual (fin ding) [facility] Start: 12-24-2023 Tobacco use and exposure Former smokeless tobacco user [facility] Start: 12-10-2019 End: 11-07-2020 Exposure to SARS-CoV-2 (event) Not sure [facility] Goals Date Patient Goal Desired Activity /State Functional Status Date Assessment Result Facility 06-08-2024 Functional status Up ad zhanna [facility] Work Phone: 06-07-2024 Functional status Tolerates Activity Well [facility] Work Phone: 06-01-2014 Are you deaf, or do you have serious difficulty hearing No 06/01/2014 11:38 AM Sue Patel Cma [facility] 06-01-2014 Are you blind, or do you have serious difficulty seeing, even when wearing glasses No 06/01/2014 11:38 AM Sue Patel Cma [facility] 06-01-2014 Do you have serious difficulty walking or climbing stairs No 06/01/2014 11:38 AM Sue Patel Cma [facility] 06-01-2014 Do you have difficul ty dressing or bathing No 06/01/2014 11:38 AM Sue Patel Cma [facility] 06-01-2014 Because of a physica l, mental, or emotional condition, do you have difficulty doing errands alone such as visiting a physician's office or shopping No 06/01/2014 11:38 AM Sue Patel Cma [facility] Mental Status Date Assessment Result Facility 06-08-2024 Cognitive function Level Of Cons ciousness Awake;Alert;Appropriate;Fol lows Commands [facility] Work Phone: 06-07-2024 Cognitive function Voice/Name Jamarcus Bledsoe [facility] Work Phone: 06-01-2014 Because of a physica l, mental, or emotional condition, do you have serious difficulty concentrating, remembering, or making decisions No 06/01/2014 11:38 AM MOISES Stanton Sue Guo [facility] Clinical Notes 08-29-2009 to 01-07-2025 Telephone Encounter - Sheila Mobley MD - 11/16/2024 12:48 PM EDTTelephone Encounter - Sheila Mobley MD - 11/16/2024 12:48 PM EDT Note Date & Type Note Facility 01-07-2025 Note HNO ID: [id number] Author: SHEILA MOBLEY MD Service: ? Author Type: Physician Type: Progress Notes Filed: 02/12/2025 01:12 Note Text: Subjective Sedrick Choudhary is a 54 year old male. HPI Sedrick Choudhary is a 54-year-old male with a history of TIA and hypercholesterolemia, presenting for a 6-month checkup. Sedrick reports persistent fatigue, dyspnea, and right-sided weakness since experiencing a TIA. He notes a significant decrease in his physical capabilities, stating he can no longer lift heavy objects or perform tasks at work as he used to. He also reports pain radiating from his right arm to his shoulder, which he describes as feeling like a muscle tear. This pain has limited his ability to use his right arm effectively, particularly when using tools at work. He also experiences intermittent numbness and tingling in his arms and hands, which he attributes to his sleeping position. Sedrick is currently taking rosuvastatin for hypercholesterolemia, but reports confusion about the dosage. 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 Due to a prescription error, he has been taking 10 mg daily by splitting the 5 mg tablets. He denies any muscle aches related to the medication. Recent lab results from October show a TSH level of 4.910, with normal kidney function and electrolytes. Cholesterol levels from June include an LDL of 121 mg/dL, HDL of 41 mg/dL, and total cholesterol of 191 mg/dL. Sedrick also mentions a recent CT calcium score test, with plans for a repeat test and potential heart catheterization if the score does not improve. Family history is significant for dementia in his mother, who is currently in a long-term. He also has a history of a brother who at 19 years old due to anemia. 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 escitalopram oxalate (LEXAPRO) 20 mg tablet Take 1 tablet by mouth once daily. amLODIPine (NORVASC) 10 mg tablet Take 1 tablet by mouth once daily. omeprazole (PRILOSEC) 20 mg capsule Take 1 capsule by mouth two times a day. As directed albuterol HFA (VENTOLIN HFA) 90 mcg/actuation inhaler Inhale 2 Puffs as instructed every 4 hours as needed for wheezing/shortness of breath. diclofenac (VOLTAREN ARTHRITIS PAIN) 1 % topical gel Apply 4 g to affected area four times daily. Aspirin 81 mg ORAL Tab Take 1 tablet by mouth once daily. ALPRAZolam (XANAX) 0.25 mg tablet Take 1 tablet by mouth two times a day as needed for anxiety for up to 60 days. rosuvastatin (CRESTOR) 20 mg tablet Take 1 tablet by mouth daily at bedtime. No current facility-administered medications for this visit. ALLERGIES Allergen Reactions Penicillins Unknown FAMILY HISTORY Problem Relation Age of Onset Dementia Mother Heart Father of m.i No Known Problems Sister No Known Problems Sister other (anemia [Other]) Brother SOCIAL HISTORY[1] Review of Systems Objective BP 120/78 Pulse 80 Resp 16 Wt 103.7 kg (228 lb 9.9 oz) SpO2 97% BMI 34.49 kg/m? Last 5 Encounter Wt Readings: Date: Wt: 01/07/2025 103.7 kg (228 lb 9.9 oz) 10/12/2024 104.3 kg (230 lb) 06/24/2024 100.6 kg (221 lb 11.1 oz) 12/24/2023 98.8 kg (217 lb 13 oz) 08/16/2023 100.7 kg (222 lb) No waist measurement recorded Estimated body mass index is 34.49 kg/m? as calculated from the following: Height as of 10/12/24: 173.4 cm (5' 8.27"). Weight as of this encounter: 103.7 kg (228 lb 9.9 oz). Last 5 Encounter BP Readings: Date: BP: 01/07/2025 146/88 10/12/2024 125/71 06/24/2024 123/76 12/24/2023 112/82 08/16/2023 115/75 Physical Exam Vitals reviewed. Constitutional: Appearance: Normal appearance. He is obese. HENT: Head: Normocephalic. Right Ear: Tympanic membrane, ear canal and external ear normal. Left Ear: Tympanic membrane, ear canal and external ear normal. Mouth/Throat: Mouth: Mucous membranes are moist. Pharynx: Oropharynx is clear. Eyes: Extraocular Movements: Extraocular movements intact. Conjunctiva/sclera: Conjunctivae normal. Pupils: Pupils are equal, round, and reactive to light. Neck: Vascular: No carotid bruit. Cardiovascular: Rate and Rhythm: Normal rate and regular rhythm. Pulses: Normal pulses. Heart sounds: Normal heart sounds. Pulmonary: Effort: Pulmonary effort is normal. Breath sounds: Normal breath sounds. Abdominal: General: Abdomen is flat. There is no distension. Palpati (more content not included)... [facility] 12-24-2024 Radiology Diagnostic study note [facility] [address] [place] [id number] Cardiac Only MR#: [id number] Acct: [id number] Name: SEDRICK CHOUDHARY Rep #: [id number] : 1970 M 54 From: [address] MD PCP: Dr. Sheila Mobley MD Status: RE G CLI Study:Limited Chest CT Cardiac Only Date of E xam: 12/22/24 Exam# [id number] Ordering Dr: Isatu Bingham DOCK HAND DOCK HAND-C PROCEDURE: LIMITED CHEST CT CARDIAC ONLY 12/22/2024 REASON FOR EXAM: SHORTNESS OF BREATH TECHNIQUE: Procedure Code: [id number] Modality: CT Procedure: LIMITED CHEST CT CARDIAC ONLY CONTRAST: None One or more dose reduction techniques were used (e.g., Automated exposure control, adjustment of the mA and/or kV according to patient size, use of iterative reconstruction technique). RADIATION DOSE SUMMARY: CTDlvol: 12.19 mGy DLP: 219.42 mGycm COMPARISON: None FINDINGS: Coronary artery calcification. Minimal anterior pericardial thickening. The heart is nonenlarged. Calcified right hilar lymph nodes. Scattered calcified granulomas. CT/Limited Chest CT Cardiac Only IMPRESSION: Coronary artery calcification. Reading Location: [place] [address] CC: JASPAL Bingham; Dr. Sheila Mobley MD ~ Autocad Draftsman: Signed [facility] 12-23-2024 Radiology Diagnostic study note [facility] [address] [place] [address] 12/23/24 1826 MR#: [id number] Acct: [id number] Name: SEDRICK CHOUDHARY Rep #:[id number] : 1970 54 From: Jim Cronin MD PCP: Dr. Sheila Mobley MD Status:RE G CLI Y Location: CT Calcium Scoring Date of Study:: 12/22/24 Indications Indications: Family history Coronary Calcium Scoring: High-resolution Computed Tomographic imaging of the chest was performed on [12/22/2024], with particular attention paid to the coronary arteries. Images from the examination were analyzed for the presence and extent of coronary artery calcification , using coronary calcium quantification software. The patient tolerated the procedure well and there were no complications. The results of the coronary calcification analysis are provided below. Findings Coronary Artery Left Main (LM): 0 Left Anterior Descending (LAD): 119 Left Circumflex (LCX): 0 Right Coronary Artery (RCA): 0 Total Agatston Score: 119 Percentile Rankin-75 percentile Calcium Scoring Interpretation: Different methods to categorize the overall amount of coronary plaque. Overall amount CAC SIS Visual of coronary plaque P1 Mild -100 <2 1-2 vessels with mild amount of plaque P2 Moderate 101-300 3-4 1-2 vessels with moderate amount, 3 vessels with mild amount of plaque P3 Severe 301-999 5-7 3 vessels with moderate amount, 1 vessel with severe amount of plaque P4 Extensive >1000 >8 2-3 vessels with severe amount of plaque Conclusion: Mild single-vessel plaque disease present. 12/23/241826 Date ____ _ Jim Cronin MD Cosigner Signature (if applicable): Date CC: JASPAL Bingham; Dr. Jim Cronin MD; Dr. Sheila Mobley MD ~ Signed [facility] Work Phone: 11-16-2024 Telephone encount er Note The following approved medication requests have been transmitted electronically. Requested Prescriptions Signed Prescriptions Disp Refills rosuvastatin (CRESTOR) 5 mg tablet 90 tablet 1 Sig: Take 1 tablet by mouth daily at bedtime. Authorizing Provider: SHEILA MOBLEY ALPRAZolam (XANAX) 0.25 mg tablet 60 tablet 1 Sig: Take 1 tablet by mouth two times a day as needed for anxiety for up to 60 days. Authorizing Provider: SHEILA MOBLEY MD [facility] 11-16-2024 Miscellaneous Notes Formattin g of this note is different from the original. The following approved medication requests have been transmitted electronically. Requested Prescriptions Signed Prescriptions Disp Refills rosuvastatin (CRESTOR) 5 mg tablet 90 tablet 1 Sig: Take 1 tablet by mouth daily at bedtime. Authorizing Provider: SHEILA MOBLEY ALPRAZolam (XANAX) 0.25 mg tablet 60 tablet 1 Sig: Take 1 tablet by mouth two times a day as needed for anxiety for up to 60 days. Authorizing Provider: SHEILA MOBLEY MD Spouse calls to check on status of below. Patient is completely out of alprazolam. Asking for prescription to be sent today. Janelle Reyes RN Prescription Refill Information The patient has been identified by name and date of : Yes Caregiver verified no other encounters exist for this prescription request: Yes Caregiver confirmed with patient/requestor that no other refills are due, in the near future, with this provider at this time: Yes The last office visit in the department: 06/24/2024 Does the patient have a future office visit with this provider/department: Yes Requested Prescriptions Pending Prescriptions Disp Refills rosuvastatin (CRESTOR) 5 mg tablet 90 tablet 1 Sig: Take 1 tablet by mouth daily at bedtime. ALPRAZolam (XANAX) 0.25 mg tablet 60 tablet 1 Sig: Take 1 tablet by mouth two times a day as needed for anxiety for up to 60 days. Maritza Langley MA November 13, 2024 10:29 AM documented in this encounter [facility] 11-16-2024 Telephone encount er Note Spouse calls to check on status of below. Patient is completely out of alprazolam. Asking for prescription to be sent today. Janelle Reyes RN [facility] 11-13-2024 Telephone encount er Note Prescription Refill Information The patient has been identified by name and date of : Yes Caregiver verified no other encounters exist for this prescription request: Yes Caregiver confirmed with patient/requestor that no other refills are due, in the near future, with this provider at this time: Yes The last office visit in the department: 06/24/2024 Does the patient have a future office visit with this provider/department: Yes Requested Prescriptions Pending Prescriptions Disp Refills rosuvastatin (CRESTOR) 5 mg tablet 90 tablet 1 Sig: Take 1 tablet by mouth daily at bedtime. ALPRAZolam (XANAX) 0.25 mg tablet 60 tablet 1 Sig: Take 1 tablet by mouth two times a day as needed for anxiety for up to 60 days. Maritza Langley MA November 13, 2024 10:29 AM [facility] 11-06-2024 Telephone encount er Note Called and s/w pt re: unread MyChart message. Reminded him to schedule for MRI and Follow up with Dr. Jiang. Says he will call [facility] in [place] to schedule MRI and provided him the number to schedule a f/u appt. 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 Verbalized appreciation for call. Franco Pickering RN [facility] 11-06-2024 Miscellaneous Notes Formattin g of this note might be different from the original. Called and s/w pt re: unread MyChart message. Reminded him to schedule for MRI and Follow up with Dr. Jiang. Says he will call [facility] in [place] to schedule MRI and provided him the number to schedule a f/u appt. 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 Verbalized appreciation for call. Franco Pickering RN documented in this encounter [facility] 10-27-2024 Evaluation note Diagnosis Onset Date Resolution Fatigue acute October 27 8:53am Hyperlipidemia acute October 27, 2024 8:53am SOB (shortness of breath) acute October 27, 2024 8:53am Uncontrolled hypertension acute October 27, 2024 8:53am [facility] Work Phone: [phone]) 609-304507-08-2025 Telephone encounter Note* Telephone Encounter - Franco Pickering RN - 10/13/2024 1:10 PM EDT Images from the original note were not included. Per Dr. Jiang: For this patient, can I ask you to call [facility] and see if he's gotten any MRI spine, bloodwork of HbA1C, and if he's gotten an echocardiogram inpatient or outpatient? Our records are limited and the patient doesn't recall. Faxed request for above records to [facility]. Franco Pickering RN [facility]07-08-2025 Miscellaneous Notes* Telephone Encounter - Franco Pickering RN - 10/13/2024 1:10 PM EDT Images from the original note were not included. Per Dr. Jiang: For this patient, can I ask you to call [facility] and see if he's gotten any MRI spine, bloodwork of HbA1C, and if he's gotten an echocardiogram inpatient or outpatient? Our records are limited and the patient doesn't recall. Faxed request for above records to [facility]. Franco Pickering RN [facility] Instructions* Patient Instructions* Karissa Jiang MD - 10/12/2024 4:13 PM EDT We discussed your recent symptoms and medical history: - You experienced two episodes of concerning symptoms, including dizziness, vertigo, severe headaches, nausea, weakness in your arm and leg, and difficulty speaking. These episodes occurred in April and May, with the second episode being more severe. - You continue to experience daily headaches, fatigue, and occasional weakness in your arm and leg,which are affecting your ability to work and exercise. Bright lights and loud environments worsen your headaches. - Your MRI from [facility] did not show evidence of a recent stroke, but we discussed the possibility of an MRI-negative stroke or other causes for your symptoms, such as narrowing of neck or back spinal cord. We discussed your current medications: - Continue taking aspirin and Plavix as prescribed for now. These medications may help reduce your risk of stroke while we investigate further. - You are also taking alprazolam, escitalopram, and Crestor. No changes were made to these medications today. We discussed the next steps in your care: - I will order additional imaging, including: - A repeat MRI of your brain with contrast to check for any subtle changes or signs of a stroke. - An MRI of your neck and thoracic spine to evaluate for any nerve compression or other abnormalities that could explain your symptoms. - I will arrange for a heart monitor to be mailed to you. Please wear it for 14 days, following theincluded instructions. If you experience any symptoms like hot flashes, dizziness, or weakness, press the button on the monitor to arabella the event. - I will work with my team to obtain your records from [facility], including any blood work, imaging, or heart studies that were performed during your hospitalization. - I recommend monitoring your blood pressure at home regularly. Use the blood pressure cuff your recently purchased and record your readings. We discussed follow-up: - I would like to see you back in 3-4 weeks to review the results of your imaging and heart monitoring, as well as any additional records we obtain. Please schedule this follow-up appointment before you leave today. - If your symptoms worsen, such as increased weakness, slurred speech, facial drooping, or severe headaches, please go to the emergency room immediately. We discussed additional considerations: - You mentioned shortness of breath during exercise. This is a change from your baseline and may warrant further evaluation. We will address this after completing the current workup. - You were advised to consider a sleep study, as you were noted to have episodes of not breathing during sleep while in the hospital. This may be contributing to your fatigue and headaches. Thank you for coming in today. We will continue working to determine the cause of your symptoms anddevelop a plan to prevent further issues. [facility] History of Present illness Narrative* Karissa Jiang MD - 10/12/2024 3:00 PM EDT Images from the original note were not included. [facility] Initial Visit Consultation is requested by: Sheila Mobley [address] [facility] [address] PCP: Sheila Mobley [address] [place] [address] Mobley for an opinion regarding right sided weakness. My final recommendations will be communicated back to the requesting physician by way of shared Medical record orletter to requesting physician via US mail. CEREBROVASCULAR HISTORY Reason for Visit: spells of neurologic dysfunction Date of Last Event: 06/06/2024 History of Event: 06/06 pt went to ED with right sided weakness, couldn't walk on right leg, states he was dragging it.Pt's right arm felt like he "tore every muscle in it" at the time. Right before, pt had an episode of hot flash and nausea. CT negative stroke. Was told he had a TIA. Pt states he's gaining strength back on the right side, still unable to lift as heavy as he did. has had headache, dizziness and nausea about 3-4 days a week. History taken by Franco Pickering RN Antiplatelets/Anticoagulants: Aspirin Statins: Rosuvastatin Residual Deficits: - See above Current PT/OT/ST: None Current Living Situation: Home with spouse Current use of a mobility aid for walking/getting around: None Clinical history below gathered from patient and daughter in person and supplemented with chart review. All information has been reviewed and updated today (10/13/2024): Sedrick Choudhary is a 54 year old man with HTN, HLD, former smoker, history of C7 fracture from trauma, who [facility] follow up for TIA- like episode of vertigo, RUE pain/weakness, RLE weakness, and change in speech in 06/2024. The patient presented to the [facility] ED on 06/06/24. Per ED provider report, and edits by me with brackets: Patient is a 54-year-old male with history of anxiety, depression and hyperlipidemia presenting from home for intermittent episodes of right-sided armpain as well as right hand weakness and right leg weakness. [April 13], during job interview, he had an episode of not feeling well [with sudden hot flash and migraine headache], vertigo and [vomitted 30 minute later]. [Reports no weakness during Apr 13 episode.] [On Jun 04, symptoms came on the same way but worse], they were going to play at [facility] for his daughter that he could [not] get out of the car. States he was not feeling good, his right arm was hurting and his right leg felt heavy. He had a coughing fit and had a hot flash. He states he eventually felt better and went to the auditorium where the plate was. Throughout theplay he stated his right arm was hurting and he felt he could squeeze with his right hand. His right leg was dragging behind him. [1.5 hrs, during intermission, did not get up, at the end of play, had to hold onto chairs, dragging right leg, right face felt numb]. [Family looked up stroke symptoms,he had trouble repeating a sentence, speaking very slowly, and was slurring his speech]. [He got home and slept at 1:30am] This episode lasted a few hours when he wokeup the next morning it had resolved [but felt exhausted and nauseous, was not able to work, right arm and leg strength improving]. [S till lingering the following day, resulting in ED evaluation]...Today he felt okay however this morning his arm started feel sore again. He has had many episodes of his right leg feeling weak. On hisway here he had 3 episodes of vomiting. He notes he has been having headaches. States he does get some vision changes. They looked at the symptoms online were worried that there could be stroke and came in for further evaluation. Patient denies any trauma or head injury. Denies any fevers. Denies any chest pain or difficulty breathing. Is [id number]. No other complaints or concerns reported at this time. " Records are limited from [facility]. S/s were lingering when he got MRI brain, MRI brain was negative foracute ischemic stroke. CTA H/N reported 50% stenosis in L carotid bulb and <50% in R ICA, carotidultrasound showed both were <50% and homogenous. He was consulted by neurology, he was recommended for DAPT for 21 days, started on crestor 5mg. He does not recall if he got an TTE or not at the hospital, may have gotten it as an OP. Cervical X-ray was stable, showed no narrowing on flexion and extension. There was moderate disc space narrowing on C6-7 and severe disc space narrowing C7-T1. Hewas followed up by orthopedics as OP and obtained cortisol injections for R shoulder inpingement and R biceps tendonitis. [facility] 10/12/2024 Since these events, he has bitemporal/frontal headache daily, with light and sound sensitivity. Triggers including strobe-lights from plays. Worsens as the day goes on. Chronic fatigue, going straight to bed after work around 3pm. He also notes new dyspnea during his weightlifting work out, which is new for him. He has been on Aspirin 81mg for 19 years since "stress-induced heart attack". 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 No MS, RA, lupus. Social History Tobacco Use Smoking status: Former Current packs/day: 0.00 Average packs/day: 0.5 packs/day for 15.0 years (7.5 ttl pk-yrs) Types: Cigarettes Start date: 09/20/2002 Quit date: 09/20/2017 Years since quittin.0 Smokeless tobacco: Former Types: Snuff Quit date: 06/07/2023 Tobacco comments: 2 to 3 cigarettes daily; Quit smoking in September Vaping Use Vaping status: Never Used Substance Use Topics Alcohol use: Yes Comment: 2 beers per months Drug use: Never MEDICATIONS Current Outpatient Medications Medication Sig clopidogrel (PLAVIX) 75 mg tablet Take 1 tablet by mouth once daily. ALPRAZolam (XANAX) 0.25 mg tablet Take 1 tablet by mouth two times a day as needed for anxiety for up to 60 days. escitalopram oxalate (LEXAPRO) 20 mg tablet Take 1 tablet by mouth once daily. rosuvastatin (CRESTOR) 5 mg tablet Take 1 tablet by mouth daily at bedtime. amLODIPine (NORVASC) 10 mg tablet Take 1 tablet by mouth once daily. omeprazole (PRILOSEC) 20 mg capsule Take 1 capsule by mouth two times a day. As directed albuterol HFA (VENTOLIN HFA) 90 mcg/actuation inhaler Inhale 2 Puffs as instructed every 4 hours asneeded for wheezing/shortness of breath. diclofenac (VOLTAREN ARTHRITIS PAIN) 1 % topical gel Apply 4 g to affected area four times daily. Aspirin 81 mg ORAL Tab Take 1 tablet by mouth once daily. iv contrast (will be provided with radiology test) MRI Brain Inject, intravenously, once for 1 dose.No IV access, insert saline lock prior to beginning of sedation, infusion, injection of imaging exam.Discontinue saline lock post exam. If Pt. has a central line or IVAD, may access for administration according to line specific nursing protocol.Once exam is complete flush line and de-access according to line specific nursing protocol in the MR contrast administration guidelines link iv contrast (will be provided with radiology test) MRI CSP Inject, intravenously, once for 1 dose. No IV access, insert saline lock prior to the beginning of sedation, infusion, injection of imaging exam. Discontinue saline lock post exam. If Pt. has a central line or IVAD, may access for administration according to line specific nursing protocol. Once exam is complete flush line and de-access according to line specific nursing protocol in the MR contrast administration guidelines link. iv contrast (will be provided with radiology test) MRI TSP Inject, intravenously, once for 1 dose. No IV access, insert saline lock prior to the beginning of sedation, infusion, injection of imaging exam. Discontinue saline lock post exam. If Pt. has a central line or IVAD, may access for administration according to line specific nursing protocol. Once exam is complete flush line and de-access according to line specific nursing protocol in the MR contrast administration guidelines link. No current facility-administered medications for this visit. ALLERGIES ALLERGIES Allergen Reactions Penicillins Unknown PHYSICAL EXAMINATION BP 125/71 (BP Site: Right Arm, BP Position: Sitting, BP Cuff Size: Regular Adult) Pulse 74 Ht 173.4 cm (5' 8.27") Wt 104.3 kg (230 lb) SpO2 98% BMI 34.70 kg/m Mental Status: Awake, alert, visually attentive. Oriented to person, place, situation, and time. Good insight, judgment. Slightly tangential thoughts and pressured speech. Language: Speech and language were clear without dysarthria or aphasia. Good fluency, comprehension, and repetition. Cranial Nerves: Pupils round, fairly equal in size with normal reactivity to light. Extraocular movements are intact and normal. Facial movements are symmetric. Tongue is midline, and the uvula risessymmetrically. Motor: Strength was 5/5 in all 4 limbs proximally and distally. Good muscle bulk and tone were noted. No atrophy or fasciculations of muscles were appreciated. However, patient reports pain in the right arm with certain movements, particularly bicep curls. Hawkin test + R>L. Deep Tendon Reflexes: Grade 3+ in bilateral biceps, brachioradialis, triceps, and patellar reflexesin a symmetric fashion. Incomplete sena's reflex noted bilaterally. Sensory: Sensory exam was grossly intact to light touch in all limbs. Cerebellar: No tremor was noted. FTN intact. Heel valadez intact Gait: Gait was Normal. BACK: - Range of motion is intact. - There is no paravertebral muscle spasm. Cervical Spine - Range of motion is intact - Spurling's Test: Negative, but after ~1 minutes, patient noted right arm pain returning. - L'hermitte's test: Negative LABS Cholesterol: Cholesterol, Total (mg/dL) Date Value 08/16/2023 217 07/15/2020 202 LDL Cholesterol, Calculated (mg/dL) Date Value 08/16/2023 139 07/15/2020 145 HDL Cholesterol (mg/dL) Date Value 08/16/2023 38 07/15/2020 32 Triglyceride (mg/dL) Date Value 08/16/2023 202 07/15/2020 123 Diabetes: Hemoglobin A1C (%) Date Value 07/15/2020 5.1 DIAGNOSTICS I personally reviewed the following CT and MRI imaging. Radiology reports are as follows with any additional personal impressions and/or discussion with Neuroradiology in italics. OSH CT HEAD W/O CONTRAST 06/06/24: IMPRESSION: No acute intracranial abnormality identified. Mild paranasal sinus mucosal thickening OSH CTA H/N 06/06/24: IMPRESSION: Approximate 50% stenosis seen of the left carotid bulb. Less than 50% seen on the right. No high-grade stenosis detected. No evidence of large vessel occlusion. Patient Entered Questionnaires PROMIS/NeuroQoL Score Percentiles Percentiles provide an indication of how a patient's score ranks in relation to the [place] general population. > 31st percentile is within normal limits or better * < 31st percentile is at least SD worse than population, which may be clinically relevant < 16th percentile is at least 1 SD worse than population and warrants attention Depression Screenin12/21/2016 12/23/2015 PHQ-9 Score 0 13 Self-Harm Response Not at all Not at all PHQ-9 Scores: PHQ-9 Self-Harm (Item 9) Response: 0 - 9 No to Mild depression 0 - Not at all 10 - 14 Moderate depression 1 - Several Days > 15 Severe depression 2 - More than half the days 3 - Nearly every day Stroke Mechanism and Scales Ischemic or TIA: Transient Ischemic Attack TIA Level of Certainty: Possible Modified [place] Score: Score: 1 NIH Stroke Scale: LOC: 0 LOC Questions: 0 LOC Commands: 0 LOC Normal Gaze: 0 Visual Murillo: 0 Facial Palsy: 0 Motor Left Arm: 0 Motor Right Arm: 0 Motor Left Le Motor Right Le Limb Ataxia: 0 Sensory: 0 Language: 0 Dysarthria: 0 Extinction/Neglect: 0 Total Daily NIHSS: 0 IMPRESSION Sedrick Choudhary is a 54 year old man with HTN, HLD, former smoker, history of C7 fracture from trauma, who [facility] follow up for TIA- like episode of vertigo, RUE pain/weakness, RLE weakness, and change in speech in 06/2024. # TIA (transient ischemic attack) (G45.9) # Cerebral infarction, unspecified mechanism (HCC) (I63.9) Patient experienced two episodes of sudden onset hot flashes, vertigo, severe headaches, and nausea, with the second episode accompanied by right-sided weakness and speech difficulties. Initial MRI did not show any acute infarcts, but symptoms are concerning for possible TIA or MRI-negative stroke,particularly in the posterior circulation. However, significant R arm pain atypical for stroke. He has had prior neck injuries before, and so it would be paramount to investigate his spine, make sure there is no spinal stenosis or nerve impingement. Differential includes severe complex migraine or even FND, but will rule out pathological etiologies first. - Repeat MRI of the brain with contrast - MRI of the cervical spine and thorax - Will coordinate with [facility] to obtain previous imaging studies (if any cervical MR's), A1c, or OP TTE. - 14 day heart monitor - Continue current medications: Aspirin, Plavix, Crestor, Alprazolam, and Escitalopram. - Scheduled follow-up appointment in 3-4 weeks to review test results and assess symptom progression. # Primary hypertension (I10) Blood pressure management is crucial to prevent further cerebrovascular events. - Advised patient to monitor blood pressure at home regularly. - Continue current antihypertensive regimen. Medical Decision Making: Medical Decision Making Level: 1 - N/A I spent a total of 75 minutes on the date of service which included preparing to see the patient, [id number] patient care, completing clinical documentation, obtaining and/or reviewing separately obtained history, performing a medically appropriate examination, counseling and educating the patient/family/caregiver, ordering medications, tests, or procedures, communicating with other HCPs (not separately reported), independently interpreting results (not separately reported), communicating results to the patient/family/caregiver, and care coordination (not separately reported) Clinical history, physical exam, and assessment/plan written with aid of [employer] reviewed and edited to be accurate. The patient and family gave verbal agreement to using [employer] during the office or virtual visit. Per [facility] s Notice of Privacy Practices, the patient consented to the use of ambient AI software for draft documentation of the visit. SIGNATURE Karissa Jiang MD [facility] Neurology Staff [address] [place] [address] / [place] [phone] 10/13/2024 11:35 AM CC Sheila Mobley [address] [place], [place] [id number] Sheila Mobley [address] [place] [id number] documented in this encounterPremier Health [facility]07-07-2025 NoteHNO ID: [id number] Author: KARISSA JIANG MD Service: ? Author Type: Physician Type: Progress Notes Filed: 10/13/2024 11:38 Note Text: [facility] Initial Visit Consultation is requested by: Sheila Mobley [address] [facility] [id number] PCP: Sheila Mobley [address] [place] [address] Mobley for an opinion regarding right sided weakness. My final recommendations will be communicated back to the requesting physician by way of shared Medical record or letter to requesting physician via US mail. CEREBROVASCULAR HISTORY Reason for Visit: spells of neurologic dysfunction Date of Last Event: 06/06/2024 History of Event: 06/06 pt went to ED with right sided weakness, couldn't walk on right leg, states he was dragging it. Pt's right arm felt like he "tore every muscle in it" at the time. Right before, pt had an episode of hot flash and nausea. CT negative stroke. Was told he had a TIA. Pt states he's gaining strength back on the right side, still unable to lift as heavy as he did. has had headache, dizziness and nausea about 3-4 days a week. History taken by Franco Pickering RN Antiplatelets/Anticoagulants: Aspirin Statins: Rosuvastatin Residual Deficits: - See above Current PT/OT/ST: None Current Living Situation: Home with spouse Current use of a mobility aid for walking/getting around: None Clinical history below gathered from patient and daughter in person and supplemented with chart review. All information has been reviewed and updated today (10/13/2024): Sedrick Choudhary is a 54 year old man with HTN, HLD, former smoker, history of C7 fracture from trauma, who [facility] follow up for TIA- like episode of vertigo, RUE pain/weakness, RLE weakness, and change in speech in 06/2024. The patient presented to the [facility] ED on 06/06/24. Per ED provider report, and edits by me with brackets: Patient is a 54-year-old male with history of anxiety, depression and hyperlipidemia presenting from home for intermittent episodes of right-sided armpain as well as right hand weakness and right leg weakness. [April 13], during job interview, he had an episode of not feeling well [with sudden hot flash and migraine headache], vertigo and [vomitted 30 minute later]. [Reports no weakness during Apr 13 episode.] [On Jun 04, symptoms came on the same way but worse], they were going to play at [facility] for his daughter that he could [not] get out of the car. States he was not feeling good, his right arm was hurting and his right leg felt heavy. He had a coughing fit and had a hot flash. He states he eventually felt better and went to the auditorium where the plate was. Throughout the play he stated his right arm was hurting and he felt he could squeeze with his right hand. His right leg was dragging behind him. [1.5 hrs, during intermission, did not get up, at the end of play, had to hold onto chairs, dragging right leg, right face felt numb]. [Family looked up stroke symptoms, he had trouble repeating a sentence, speaking very slowly, and was slurring his speech]. [He got home and slept at 1:30am] This episode lasted a few hours when he wokeup the next morning it had resolved [but felt exhausted and nauseous, was not able to work, right arm and leg strength improving]. [Still lingering the following day, resulting in ED evaluation]...Today he felt okay however this morning his arm started feel sore again. He has had many episodes of his right leg feeling weak. On his way here he had 3 episodes of vomiting. He notes he has been having headaches. States he does get some vision changes. They looked at the symptoms online were worried that there could be stroke and came in for further evaluation. Patient denies any trauma or head injury. Denies any fevers. Denies any chest pain or difficulty breathing. Is [id number]. No other complaints or concerns reported at this time. " Records are limited from [facility]. S/s were lingering when he got MRI brain, MRI brain was negative fora cute ischemic stroke. CTA H/N reported 50% stenosis in L carotid bulb and <50% in R ICA, carotid ultrasound showed both were <50% and homogenous. He was consulted by neurology, he was recommended for DAPT for 21 days, started on crestor 5mg. He does not recall if he got an TTE or not at the hospital, may have gotten it as an OP. Cervical X-ray was stable, showed no narrowing on flexion and extension. There was moderate disc space narrowing on C6-7 and severe disc space narrowing C7-T1. He was followed up by orthopedics as OP and obtained cortisol injections for R shoulder inpingement and R biceps tendonitis. Center 10/12/2024 Since these events, he has bitemporal/frontal headache daily, with light and sound sensitivity. Triggers including strobe-lights from plays. Worsens as the (more content not included)...[facility]07-07-2025 NoteHNO ID: [id number] Author: BRENDON GARCIA MD Service: ? Author Type: Physician Type: Procedures Filed: 11/18/2024 11:27 Note Text: Patient Name: Sedrick Choudhary : 1970 Ordering Provider: KARISSA JIANG Indication: R53.1 Weakness Type of Monitor: Extended Monitoring-Zio Patch Enrollment Dates: 10/21/2024-11/02/2024 IRHYTHM FINDINGS: Patient had a min HR of 48 bpm, max HR of 170 bpm, and avg HR of 72 bpm. Predominant underlying rhythm was Sinus Rhythm. 6 Supraventricular Tachycardia runs occurred, the run with the fastest interval lasting 4 beats with a max rate of 162 bpm, the longest lasting 25.8 secs with an avg rate of 117 bpm. Isolated SVEs were rare (<1.0%), SVE Couplets were rare (<1.0%), and SVE Triplets were rare (<1.0%). Isolated VEs were rare (<1.0%, 398), VE Couplets were rare (<1.0%, 4), and VE Triplets were rare (<1.0%, 1). Ventricular Bigeminy was present. Impression No sustained arrhythmias. Brendon Garcia, [facility]07-01-2025 Telephone encounter Note* Telephone Encounter - Jenni Brooks LPN - 10/06/2024 12:52 PM EDT Prescription Refill Information The patient has been identified by name and date of : Yes Caregiver verified no other encounters exist for this prescription request: Yes Caregiver confirmed with patient/requestor that no other refills are due, in the near future, with this provider at this time: Yes The last office visit in the department: 06/24/24 Does the patient have a future office visit with this provider/department: Yes 12/30/24 Requested Prescriptions Pending Prescriptions Disp Refills clopidogrel (PLAVIX) 75 mg tablet 30 tablet 1 Sig: Take 1 tablet by mouth once daily. Jenni Brooks LPN October 06, 2024 12:53 PM [facility]07-01-2025 Miscellaneous Notes* Telephone Encounter - Jenni Brooks LPN - 10/06/2024 12:52 PM EDT Prescription Refill Information The patient has been identified by name and date of : Yes Caregiver verified no other encounters exist for this prescription request: Yes Caregiver confirmed with patient/requestor that no other refills are due, in the near future, with this provider at this time: Yes The last office visit in the department: 06/24/24 Does the patient have a future office visit with this provider/department: Yes 12/30/24 Requested Prescriptions Pending Prescriptions Disp Refills clopidogrel (PLAVIX) 75 mg tablet 30 tablet 1 Sig: Take 1 tablet by mouth once daily. Jenni Brooks LPN October 06, 2024 12:53 PM documented in this encounterPrem[facility]06-25-2025 Telephone encounter Note * Telephone Encounter - Scott Kent - 09/30/2024 12:28 PM EDT Images from the original note were not included. OSH imaging/records received from [facility] [place]: September 30, 2024 -2024 Records available in Care Everywhere -2024 Images [facility]06-25-2025 Miscellaneous Notes* Telephone Encounter - Scott Kent - 09/30/2024 12:28 PM EDT Images from the original note were not included. OSH imaging/records received from [facility]: September 30, 2024 -2024 Records available in Care Everywhere -2024 Images documented in this encounterPrem[facility]06-09-2025 Telephone encounter Note * Telephone Encounter - Sheila Mobley MD - 09/14/2024 4:47 PM EDT The following approved medication requests have been transmitted electronically. Requested Prescriptions Signed Prescriptions Disp Refills ALPRAZolam (XANAX) 0.25 mg tablet 60 tablet 1 Sig: Take 1 tablet by mouth two times a day as needed for anxiety for up to 60 days. Authorizing Provider: SHEILA MOBLEY MD [facility]06-09-2025 Miscellaneous Notes* Telephone Encounter - Sheila Mobley MD - 09/14/2024 4:47 PM EDT The following approved medication requests have been transmitted electronically. Requested Prescriptions Signed Prescriptions Disp Refills ALPRAZolam (XANAX) 0.25 mg tablet 60 tablet 1 Sig: Take 1 tablet by mouth two times a day as needed for anxiety for up to 60 days. Authorizing Provider: SHEILA MOBLEY MD * Telephone Encounter - Gem Coffman LPN - 09/14/2024 4:02 PM EDT The patient has been identified by name and date of : Yes Caregiver verified no other encounters exist for this prescription request: Yes Caregiver confirmed with patient/requestor that no other refills are due, in the near future, with this provider at this time: Yes The last office visit in the department: 06/24/2024 Does the patient have a future office visit with this provider/department: Yes 12/30/2024 Requested Prescriptions Pending Prescriptions Disp Refills ALPRAZolam (XANAX) 0.25 mg tablet 60 tablet 1 Sig: Take 1 tablet by mouth two times a day as needed for anxiety for up to 60 days. Patient is out of medication per his Gem Coffman LPN September 14, 2024 4:03 PM [facility] Telephone encounter Note * Telephone Encounter - Gem Coffman LPN - 09/14/2024 4:02 PM EDT The patient has been identified by name and date of : Yes Caregiver verified no other encounters exist for this prescription request: Yes Caregiver confirmed with patient/requestor that no other refills are due, in the near future, with this provider at this time: Yes The last office visit in the department: 06/24/2024 Does the patient have a future office visit with this provider/department: Yes 12/30/2024 Requested Prescriptions Pending Prescriptions Disp Refills ALPRAZolam (XANAX) 0.25 mg tablet 60 tablet 1 Sig: Take 1 tablet by mouth two times a day as needed for anxiety for up to 60 days. Patient is out of medication per his Gem Coffman LPN September 14, 2024 4:03 PM [facility]05-27-2025 Telephone encounter Note* Telephone Encounter - Adelaida Morin LPN - 09/01/2024 1:19 PM EDT Patient has been identified by name and date of : Yes Patient phones for refill(s): Requested Prescriptions Pending Prescriptions Disp Refills clopidogrel (PLAVIX) 75 mg tablet 30 tablet 1 Sig: Take 1 tablet by mouth once daily. Date of last office visit in primary care: 06/24/2024 Date of next office visit in primary care: 12/30/2024 Please advise. Thank you. Adelaida Morin LPN.' [facility]05-27-2025 Miscellaneous Notes* Telephone Encounter - Adelaida Morin LPN - 09/01/2024 1:19 PM EDT Patient has been identified by name and date of : Yes Patient phones for refill(s): Requested Prescriptions Pending Prescriptions Disp Refills clopidogrel (PLAVIX) 75 mg tablet 30 tablet 1 Sig: Take 1 tablet by mouth once daily. Date of last office visit in primary care: 06/24/2024 Date of next office visit in primary care: 12/30/2024 Please advise. Thank you. Adelaida Morin LPN.' documented in this encounterPrem[facility] Radiology Diagnostic study note [facility] [address] [place] [address] Cerv Spine 2 or 3 Views MR#: [id number] Acct: [id number] Name: SEDRICK CHOUDHARY Rep #: [id number] : 1970 M 54 From: Gilles Ignacio MD PCP: Dr. Sheila Mobley MD Status: RE G CLI Study:Cerv Spine 2 or 3 Views Date of Exam: 08/13/24 Exam# [id number] Ordering Dr: Andrew Randall PROCEDURE: CERV SPINE 2 OR 3 VIEWS 08/13/2024 REASON FOR EXAM: RUE PAIN, WEAKNESS;RLE WEAKNESS, CHRONIC NECK PAIN TECHNIQUE: 3 views of the cervical spine. FINDINGS: The cervical spine is visualized on the lateral view from the skull base to the top of T1. No fracture or malalignment. No prevertebral soft tissue swelling. C5-6 uncovertebral hypertrophic change and anterior corner osteophyte formation without disc space narrowing C6-7 moderate disc space narrowing with uncovertebral hypertrophic change C7-T1 severe disc space narrowing and degenerative endplate changes with uncovertebral hypertrophicchange Small visualized apices appear clear. RAD/Cerv Spine 2 or 3 Views IMPRESSION: Multilevel spondylosis/discogenic change as above. Reading Location: [id number] CC: MARCY Mujica; Dr. Sheila Mobley MD ~ [employer]: Signed [facility]04-29-2025 Evaluation note* Diagnosis Onset Date Resolution Status Admit Date Carotid stenosis acute August 042024 12:47pm Headache acute August 04 12:47pm Neck pain acute August 04 12:47pm Right arm pain acute July 12:47pm Right arm weakness acute August 04, 2024 12:47pm Vertigo acute August 04 12:47pm Biceps tendonitis on right acute September 01, 2024 9:55am Degenerative disc disease, cervical acute September 01, 2024 9 :55am Impingement of right shoulder acute September 01, 2024 9:55am Right arm weakness acute September 012024 9:55am Fatigue acute October 27 8:53am SOB (shortness of breath) acute October 27, 2024 8:53am [facility] Work Phone: 1(208) 865-470304-29-2025 Evaluation note* Diagnosis Onset Date Resolution Status Admit Date Carotid stenosis acute August 042024 12:47pm Headache acute August 04 12:47pm Neck pain acute August 04 12:47pm Right arm pain acute July 12:47pm Right arm weakness acute August 04, 2024 12:47pm Vertigo acute August 04 12:47pm Biceps tendonitis on right acute September 01, 2024 9:55am Degenerative disc disease, cervical acute September 01, 2024 9 :55am Impingement of right shoulder acute September 01, 2024 9:55am Right arm weakness acute September 012024 9:55am Fatigue acute October 27 8:53am Hyperlipidemia acute October 27, 2024 8:53am SOB (shortness of breath) acute October 27, 2024 8:53am Uncontrolled hypertension acute October 27, 2024 8:53am [facility] Work Phone: 1(903) 317-541603-19-2025 Instructions* Patient Instructions* Sheila Mobley MD - 06/24/2024 2:07 PM EDT - Take Plavix (clopidogrel) as prescribed for one month; prescription sent to pharmacy. - Start taking rosuvastatin as prescribed to manage cholesterol levels; prescription sent to pharmacy. - Increase Lexapro dosage as discussed; you can start with one and a half tablets per day. If you experience any side effects, you can cut the tablets in half. - Continue taking Xanax as needed, up to twice a day. Prescription adjusted to a 60-day supply. - Schedule a sleep study at [facility] to evaluate for sleep apnea. - Monitor your blood pressure regularly. If you cannot find your home monitor, consider purchasing a new one. - Follow up with a neurologist for ongoing symptoms, including vertigo, vision issues, and right-sided weakness. A referral has been made to a neurologist within the [facility]. - Schedule an appointment with an eye doctor to evaluate vision changes. - Resume gym activities cautiously, focusing on aerobic exercises and monitoring blood pressure. Ensure adequate nutrition before workouts. - Consider using a piece of tape on one lens of your glasses to help with double vision and queasiness. - Follow up with Dr. Morales for a psychological evaluation and potential medication adjustments foranxiety and depression. documented in this encounterPrem[facility]03-19-2025 NoteHNO ID: [id number] Author: SHEILA MOBLEY MD Service: ? Author Type: Physician Type: Progress Notes Filed: 07/10/2024 00:28 Note Text: This note was created using Stitcher. Subjective Sedrick Choudhary is a 54 year old male. HISTORY Sedrick Choudhary is a 54 year old gentleman here for follow up appointment. Sedrick is a 54-year-old male with a history of HTN, anxiety, and depression, presenting for follow-up after a recent hospitalization for suspected TIA. Sedrick was recently hospitalized for suspected TIA, during which he experienced vertigo, emesis, and right-sided weakness. A virtual neurology consult was conducted, and imaging did not reveal any acute findings. He was discharged with instructions to take Plavix for one month, followed by aspirin. Since the episode, he reports persistent visual disturbances, including strabismus and intermittent diplopia, which have made him uncomfortable driving. He also experiences frequent nausea and has vomited five times in the past week, attributing these symptoms to his visual disturbances. He reports a significant decrease in appetite and has been unable to keep food down. He also reports persistent right-sided pain, particularly in the arm, which he describes as severe and limiting his ability to lift weights or perform tasks requiring arm strength. This pain began around the time of the TIA and has not improved. He denies any numbness or paresthesia in the right arm. Approximately 5-6 weeks prior to the TIA, he experienced a similar episode of right-sided weakness and pain, along with vertigo and emesis, during a job interview. He describes a "hot flash" sensation, followed by nausea, cephalalgia, and "brain fog," which impaired his ability to communicate. These symptoms resolved after a few days, and he initially attributed them to a viral illness, as his daughter was also ill at the time. He reports that the symptoms during the TIA were more severe than this previous episode. He has a history of vertigo, which he describes as feeling "lightheaded and dizzy all the time." He also reports difficulty reading, with intermittent episodes of blurry vision. He denies any previous episodes of vertigo or visual disturbances prior to the TIA. He has a history of HTN and is currently taking amlodipine. He also takes omeprazole and has been on a daily baby aspirin for 10 years. He was prescribed Plavix for one month after the TIA but only received a two-week supply. He denies any chest pain or dyspnea but reports occasional shortness of breath with exertion. He has not been monitoring his blood pressure at home. He has a history of anxiety and depression and is currently taking Lexapro and Xanax. 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 His notes that he has become more irritable and "mad all the time," and she is concerned that his current medication regimen may not be adequately managing his symptoms. He uses exercise as a stress relief but has been unable to work out due to his arm pain. He denies any changes in libido. He reports symptoms of sleep apnea, including snoring, daytime sleepiness, and observed apneas. He has a disrupted sleep schedule due to his work and caring for his dog, and he reports feeling tired during the day. aryan Maya has not undergone a sleep study. He has a history of hypercholesterolemia, with a previous LDL of 139 and HDL of 38. He was started on a statin during his hospitalization but was not given a prescription upon discharge. He expresses concern about potential side effects of statins, particularly muscle weakness, and is hesitant to start the medication. He denies any current chest pain or dyspnea but reports occasional shortness of breath with exertion. He has not been monitoring his blood pressure at home. 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 omeprazole (PRILOSEC) 20 mg capsule Take 1 capsule by mouth two times a day. As directed escitalopram oxalate (LEXAPRO) 10 mg tablet Take 1 tablet by mouth once daily. albuterol HFA (VENTOLIN HFA) 90 mcg/actuation inhaler Inhale 2 Puffs as instructed every 4 hours as needed for wheezing/shortness of breath. diclofenac (VOLTAREN ARTHRITIS PAIN) 1 % topical gel Apply 4 g to affected area four times daily. Aspirin 81 mg ORAL Tab Take 1 tablet by mouth once daily. ALPRAZolam (XANAX) 0.25 mg tablet Take 1 tablet (more content not included)... [facility]03-19-2025 History of Present illness Narrative* Sheila Mobley MD - 06/24/2024 1:09 PM EDT This note was created using Anadysriter. Subjective Sedrick Choudhary is a 54 year old male. HISTORY Sedrick Choudhary is a 54 year old gentleman here for follow up appointment. Sedrick is a 54-year-old male with a history of HTN, anxiety, and depression, presenting for follow-up after a recent hospitalization for suspected TIA. Sedrick was recently hospitalized for suspected TIA, during which he experienced vertigo, emesis, andright-sided weakness. A virtual neurology consult was conducted, and imaging did not reveal any acute findings. He was discharged with instructions to take Plavix for one month, followed by aspirin. Since the episode, he reports persistent visual disturbances, including strabismus and intermittent diplopia, which have made him uncomfortable driving. He also experiences frequent nausea and has vomited five times in the past week, attributing these symptoms to his visual disturbances. He reports a significant decrease in appetite and has been unable to keep food down. He also reports persistentright-sided pain, particularly in the arm, which he describes as severe and limiting his ability tolift weights or perform tasks requiring arm strength. This pain began around the time of the TIA and has not improved. He denies any numbness or paresthesia in the right arm. Approximately 5-6 weeks prior to the TIA, he experienced a similar episode of right-sided weakness and pain, along with vertigo and emesis, during a job interview. He describes a "hot flash" sensation, followed by nausea, cephalalgia, and "brain fog," which impaired his ability to communicate. These symptoms resolved after a few days, and he initially attributed them to a viral illness, as his daughter was also ill at the time. He reports that the symptoms during the TIA were more severe than this previous episode. He has a history of vertigo, which he describes as feeling "lightheaded and dizzy all the time." Shay reports difficulty reading, with intermittent episodes of blurry vision. He denies any previous episodes of vertigo or visual disturbances prior to the TIA. He has a history of HTN and is currently taking amlodipine. He also takes omeprazole and has been on a daily baby aspirin for 10 years. He was prescribed Plavix for one month after the TIA but only received a two-week supply. He denies any chest pain or dyspnea but reports occasional shortness of breath with exertion. He has not been monitoring his blood pressure at home. He has a history of anxiety and depression and is currently taking Lexapro and Xanax. 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 His notes that he has become more irritable and "mad all the time," and she is concerned that his current medication regimen may not be adequately managing his symptoms. He uses exercise as a stress relief but has been unable to work out due to his arm pain. He denies any changes in libido. He reports symptoms of sleep apnea, including snoring, daytime sleepiness, and observed apneas. He has a disrupted sleep schedule due to his work and caring for his dog, and he reports feeling tired during the day. aryan Maya has not undergone a sleep study. He has a history of hypercholesterolemia, with a previous LDL of 139 and HDL of 38. He was started on a statin during his hospitalization but was not given a prescription upon discharge. He expressesconcern about potential side effects of statins, particularly muscle weakness, and is hesitant to start the medication. He denies any current chest pain or dyspnea but reports occasional shortness of breath with exertion. He has not been monitoring his blood pressure at home. 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 omeprazole (PRILOSEC) 20 mg capsule Take 1 capsule by mouth two times a day. As directed escitalopram oxalate (LEXAPRO) 10 mg tablet Take 1 tablet by mouth once daily. albuterol HFA (VENTOLIN HFA) 90 mcg/actuation inhaler Inhale 2 Puffs as instructed every 4 hours asneeded for wheezing/shortness of breath. diclofenac (VOLTAREN ARTHRITIS PAIN) 1 % topical gel Apply 4 g to affected area four times daily. Aspirin 81 mg ORAL Tab Take 1 tablet by mouth once daily. ALPRAZolam (XANAX) 0.25 mg tablet Take 1 tablet by mouth two times a day as needed for anxiety for up to 30 days. No current facility-administered medications for this visit. ALLERGIES Allergen Reactions Penicillins Unknown FAMILY HISTORY Problem Relation Age of Onset Dementia Mother Heart Father of m.i other (anemia [Other]) Brother Social History Tobacco Use Smoking status: Former Current packs/day: 0.00 Average packs/day: 0.5 packs/day for 15.0 years (7.5 ttl pk-yrs) Types: Cigarettes Start date: 09/20/2002 Quit date: 09/20/2017 Years since quittin.7 Smokeless tobacco: Former Types: Snuff Quit date: 06/07/2023 Tobacco comments: 2 to 3 cigarettes daily; Quit smoking in September Vaping Use Vaping status: Never Used Substance Use Topics Alcohol use: Yes Comment: 2 beers per months Drug use: Never Review of Systems Objective BP 123/76 Pulse 78 Resp 16 Ht 173.4 cm (5' 8.25") Wt 100.6 kg (221 lb 11.1 oz) BMI 33.46 kg/m Physical Exam Vitals reviewed. Constitutional: Appearance: Normal appearance. HENT: Head: Normocephalic. Eyes: Extraocular Movements: Extraocular movements intact. Conjunctiva/sclera: Conjunctivae normal. Pupils: Pupils are equal, round, and reactive to light. Cardiovascular: Rate and Rhythm: Normal rate and regular rhythm. Heart sounds: Normal heart sounds. Pulmonary: Effort: Pulmonary effort is normal. Breath sounds: Normal breath sounds. Skin: General: Skin is warm and dry. Neurological: General: No focal deficit present. Mental Status: He is alert and oriented to person, place, and time. Cranial Nerves: No cranial nerve deficit, dysarthria or facial asymmetry. Motor: Weakness (Right side not as strong as left side in upper extremitie) present. Gait: Gait is intact. Psychiatric: Attention and Perception: Attention and perception normal. Mood and Affect: Affect normal. Mood is anxious. Speech: Speech normal. Behavior: Behavior normal. Thought Content: Thought content normal. Cognition and Memory: Cognition normal. Judgment: Judgment normal. Latest Ref Rng 08/16/2023 WBC 3.70 - 11.00 k/uL 4.61 RBC 4.20 - 6.00 m/uL 4.92 Hemoglobin 13.0 - 17.0 g/dL 15.3 Hematocrit 39.0 - 51.0 % 45.7 MCV 80.0 - 100.0 fL 92.9 MCH 26.0 - 34.0 pg 31.1 MCHC 30.5 - 36.0 g/dL 33.5 RDW-CV 11.5 - 15.0 % 13.2 Platelet Count 150 - 400 k/uL 175 MPV 9.0 - 12.7 fL 11.1 Neut% % 54.8 Abs Neut (ANC) 1.45 - 7.50 k/uL 2.52 Lymph% % 29.9 Abs Lymph 1.00 - 4.00 k/uL 1.38 [place]% % 10.8 Abs [place] <0.87 k/uL 0.50 Eosin% % 3.9 Abs Eosin <0.46 k/uL 0.18 Baso% % 0.4 Abs Baso <0.11 k/uL <0.03 Immature Gran % % 0.2 IMMATURE GRANS (ABS) <0.10 k/uL <0.03 NRBC /100 WBC 0.0 Absolute nRBC <0.01 k/uL <0.01 DTYPE Auto Protein, Total 6.3 - 8.0 g/dL 7.2 Albumin 3.9 - 4.9 g/dL 4.7 Calcium 8.5 - 10.2 mg/dL 9.5 Bilirubin, Total 0.2 - 1.3 mg/dL 1.4 (H) Alkaline Phosphatase 38 - 113 U/L 88 AST 14 - 40 U/L 33 ALT 10 - 54 U/L 35 Glucose 74 - 99 mg/dL 91 BUN 9 - 24 mg/dL 22 Creatinine 0.73 - 1.22 mg/dL 1.21 Sodium 136 - 144 mmol/L 140 Potassium 3.7 - 5.1 mmol/L 4.7 Chloride 97 - 105 mmol/L 103 CO2 22 - 30 mmol/L 26 Anion Gap 9 - 18 mmol/L 11 eGFR >=60 mL/min/1.73m 71 Cholesterol, Total <200 mg/dL 217 (H) Triglyceride <150 mg/dL 202 (H) HDL Cholesterol >39 mg/dL 38 (L) Non HDL Cholesterol <130 mg/dL 179 (H) Fasting Time hrs 12 VLDL Cholesterol <30 mg/dL 40 (H) TC:HDL Ratio <5.10 5.71 (H) LDL Cholesterol <100 mg/dL 139 (H) LDL:HDL Ratio <2.54 3.66 (H) Legend: (H) High (L) Low The 10-year ASCVD risk score (Brenda TRIPATHI, et al., 2019) is: 7.9% Values used to calculate the score: Age: 54 years Sex: Male Is Non- : No Diabetic: No Tobacco smoker: No Systolic Blood Pressure: 123 mmHg Is BP treated: No HDL Cholesterol: 38 mg/dL Total Cholesterol: 217 mg/dL Assessment and Plan # Anxiety and depression (F41.9) - Current medications include Lexapro and Xanax. - Increased Lexapro dosage; instructed patient to start with one and a half tablets daily. - Discussed potential referral to Dr. Morales for further evaluation and management. - Refilled Xanax prescription, written for 60-day supply to ensure availability. # TIA (transient ischemic attack) (G45.9) - Recent hospitalization with symptoms of right-sided weakness, vertigo, and vomiting. - Neurology consult at [facility]; no acute findings on CT scan. - Persistent symptoms suggest possible small stroke rather than TIA. - Referred to [facility]ist within the [facility] for further evaluation and management. - Prescribed Plavix for one month, then transition to aspirin. - Initiated rosuvastatin to lower LDL and stabilize arterial plaque. # Witnessed episode of apnea (R06.81) # Daytime sleepiness (R40.0) # Snoring (R06.83) - Observed apnea episodes during hospitalization. - Referred for formal sleep study at [facility]. # Primary hypertension (I10) - Blood pressure well-controlled on amlodipine 10 mg daily. - Prescribed 90-day supply with 3 refills. - Advised patient to monitor blood pressure at home. # Vertigo (R42) # Visual disturbances (H53.9) - Persistent vertigo and visual disturbances since TIA episode. - Referred to neurologist for further evaluation. - Advised patient to use a piece of tape over one lens of glasses to reduce visual strain and queasiness. # Muscle weakness (M62.81) - Right-sided weakness persisting since TIA episode. - Referred to neurologist for further evaluation. - Advised patient to avoid strenuous activities and monitor blood pressure during exercise. I spent a total of 57 minutes on the date of the service which included [id number] patient care, completing clinical documentation, obtaining and/or reviewing separately obtained history, performing a medically appropriate examination, counseling and educating the patient/family/caregiver, ordering medications, tests, or procedures, independently interpreting results (not separately reported), and communicating results to the patient/family/caregiver. Sheila Mobley MD documented in this encounterPrem[facility]03-[facility]-2025 [facility] Medical Records Department [address] [place] [address] Discharge Summary 06/08/24 1540 MR#: [id number] Acct: [id number] Name: SEDRICK CHOUDHARY Rep #: [id number] : 1970 54 From: Grant Botello MD PCP: Dr. hSeila Mobley MD Status:ADM SHWETA Location: [place] [address] Providers Date of Admission: 06/06/24 Primary Care Physician: Dr. Sheila Mobley MD Consultations 06/06/24 23:01 Consult: Tele-Neurology Routine Consulting Provider: [facility] Reason for Consult: Acute Ischemic Stroke/TIA EMERGENT Consult: No MD Notified: Yes Date Notified: 06/07/24 Time Notified: 01:45 Method of Notification: Answering Service Method of Consult:: Telemedicine Nursing Unit Staff Notify [facility] of Tele-Neurology Consult: Yes Reason For Visit: TIA VS CVA; WITH INTERMITTEN RIGHT SIDED WEAKNESS Diagnosis Discharge Diagnosis (1) TIA (transient ischemic attack): Status: Acute Code(s): G45.9 - Transient cerebral ischemic attack, unspecified (2) Right-sided muscle weakness: Status: Acute Code(s): M62.81 - Muscle weakness (generalized) Medications at Discharge Home Medications escitalopram oxalate 10 mg tablet (Lexapro) 10 mg PO DAILY mood 01/29/21 alprazolam 0.25 mg tablet 0.25 mg PO DAILY anxiety 10/07/23 aspirin 81 mg tablet,delayed release (Adult Low Dose Aspirin) 81 mg PO DAILY heart health 10/07/23 albuterol sulfate 90 mcg/actuation aerosol inhaler 2 puff inhalation Q4H PRN shortness of breath or wheezing 10/30/23 amlodipine 10 mg tablet (Norvasc) 10 mg PO DAILY #30 tabs 06/08/24 clopidogrel 75 mg tablet (Plavix) 75 mg PO DAILY #14 tabs 06/08/24 omeprazole 20 mg capsule,delayed release 40 mg (2 x 20 mg) PO DAILY 30 days #0 caps 06/08/24 Hospital Course Operations None Procedures 2-D Echocardiogram Summary of Care Provided Minutes Spent on Discharge: 36 Hospital Course: Per HPI: SEDRICK CHOUDHARY, is a Right handed 54 M with a past medical history of hyperlipidemia; not on treatment, obesity; with BMI of 32.9 this admission, former tobacco abuse, history of testicular hypofunction, history of nonspecific chest pain; on baby aspirin daily, history of chronic vertigo; with recent escalating pattern of severity, depression with anxiety; with escitalopram and alprazolam, listed allergy to PCN (?), history of nasal fracture, GERD; on omeprazole plus multiple as needed OTC medications and OA who presents to [facility] ER complaining of intermittent Right-sided weakness. Mr. Choudhary reports his symptoms began approximately one month ago with an episode of vertigo followed by nausea and vomiting with bilious emesis. Since his symptoms resolved spontaneously he did not seek medical attention at that time. Then 2 days ago he attended a play at [facility] for his daughter when he noted that he could not get out of the car. He states he was overall not feeling well and he had an aching sensation in his Right arm and his Right leg felt heavy with a subsequent coughing fit and hot flash - but he was able to recompose himself and started to feel better and eventually went to the play. When he did finally get out of the car he noted his Right leg was dragging behind him with this weakness persisting for approximately 6 hours before spontaneously resolving when he woke up the next morning. 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 On the way to the hospital he had severe nausea with 3 episodes of bilious emesis complicated by intermittent headaches and visual changes with his family worried that he may be having a stroke. He denies recent head trauma, recent injury, alcohol abuse, illicit substance abuse, fever, chills, abdominal pain, chest pain or SOB. In the ER he was noted to have uncontrolled hypertension of 181/115 mmHg present on admission complicated by clinical evidence of TIA versus CVA; with intermittent Right-sided weakness with Vertigo causing Nausea and Vomiting with bilious emesis with CTA of the head and neck revealing 50% stenosis seen of the left carotid bulb with less than 50% seen on the right and no high-grade stenosis detected along with no evidence of large vessel occlusion along with a CXR that revealed bronchial thickening but no evidence of acute infiltrate effusion or pneumothorax. He was then admitted to the PCU under observation status for ongoing care for a stay that is expected to be less than 2 midnights. Hospital Course: 1. TIA essential HTN???54-year-old male presented to the hospital signs and symptoms consistent with TIA. He did have transient neurological symptoms are completely (more content not included)...[facility]03-02-2025 Evaluation note* Diagnosis Onset Date Resolution Status Admit Date Depression with anxiety acute M 2024 10:35pm Hyperlipidemia acute June 06, 2024 10:35pm Nausea & vomiting acute June 062024 10:35pm Nystagmus acute June 06 10:35pm Obesity (BMI 30.0-34.9) acute M 2024 10:35pm Post-tussive emesis acute June 06, 2024 10:35pm Right-sided muscle weakness acute June 06, 2024 10:35pm Tobacco abuse, in remission acute June 06, 2024 10:35pm Uncontrolled hypertension acute June 06, 2024 10:35pm Vertigo acute June 06 10:35pm Vomiting acute June 06 10:35pm TIA (transient ischemic attack) reso lved June 06, 2024 10:35pm Carotid stenosis acute August 042024 12:47pm Headache acute August 04 12:47pm Neck pain acute August 04 12:47pm Right arm pain acute July 12:47pm Right arm weakness acute August 04, 2024 12:47pm Vertigo acute August 04 12:47pm [facility] Work Phone: 1(367) 876-996402-04-2025 Telephone encounter Note* Telephone Encounter - Sheila Mobley MD - 05/12/2024 2:18 AM EST The following approved medication requests have been transmitted electronically. Requested Prescriptions Signed Prescriptions Disp Refills ALPRAZolam (XANAX) 0.25 mg tablet 60 tablet 0 Sig: Take 1 tablet by mouth two times a day as needed for anxiety for up to 30 days. Authorizing Provider: SHEILA MOBLEY MD [facility]02-04-2025 Miscellaneous Notes* Telephone Encounter - Sheila Mobley MD - 05/12/2024 2:18 AM EST The following approved medication requests have been transmitted electronically. Requested Prescriptions Signed Prescriptions Disp Refills ALPRAZolam (XANAX) 0.25 mg tablet 60 tablet 0 Sig: Take 1 tablet by mouth two times a day as needed for anxiety for up to 30 days. Authorizing Provider: SHEILA MOBLEY MD * Telephone Encounter - Jenni Brooks LPN - 05/11/2024 1:24 PM EST Prescription Refill Information The patient has been identified by name and date of : Yes Caregiver verified no other encounters exist for this prescription request: Yes Caregiver confirmed with patient/requestor that no other refills are due, in the near future, with this provider at this time: Yes The last office visit in the department: 12/24/23 Does the patient have a future office visit with this provider/department: Yes 05/26/24 Requested Prescriptions Pending Prescriptions Disp Refills ALPRAZolam (XANAX) 0.25 mg tablet 60 tablet 0 Sig: Take 1 tablet by mouth two times a day as needed for anxiety for up to 30 days. Jenni Brooks LPN May 11, 2024 1:24 PM documented in this encounterPrem[facility] Telephone encounter Note * Telephone Encounter - Jenni Brooks LPN - 05/11/2024 1:24 PM EST Prescription Refill Information The patient has been identified by name and date of : Yes Caregiver verified no other encounters exist for this prescription request: Yes Caregiver confirmed with patient/requestor that no other refills are due, in the near future, with this provider at this time: Yes The last office visit in the department: 12/24/23 Does the patient have a future office visit with this provider/department: Yes 05/26/24 Requested Prescriptions Pending Prescriptions Disp Refills ALPRAZolam (XANAX) 0.25 mg tablet 60 tablet 0 Sig: Take 1 tablet by mouth two times a day as needed for anxiety for up to 30 days. Jenni Brooks LPN May 11, 2024 1:24 PM [facility]09-17-2024 Instructions* Patient Instructions* Sheila Mobley MD - 12/24/2023 5:06 PM EDT -Wear supportive shoes with good arch support to help with foot pain. Consider using arch support socks or wrapping your feet with an lara bandage for additional support. - Monitor your foot pain and see if it improves with better footwear. If the pain persists or worsens, we may consider getting an x-ray to further investigate. - Continue with foot and ankle stretching exercises, such as writing cursive with your toes and calf raises, to help alleviate foot pain. - Discontinue amlodipine, as your blood pressure is currently stable. - Refills for alprazolam and omeprazole have been sent to your pharmacy. - Refill for Lexapro will be sent to your pharmacy when due. - Complete lab work at your convenience within the next three months. This will include checking your magnesium level, TSH, and testosterone level. These labs are not fasting. - Consider getting a tetanus shot, especially given your work environment. documented in this encounterPrem[facility] History of Present illness Narrative* Sheila Mobley MD - 12/24/2023 4:43 PM EDT This note was created using Stitcher. Subjective Sedrick Choudhary is a 53 year old male. Patient presents with: F/U 6 months SUBJECTIVE: Sedrick Choudhary is a 53 year old year old gentleman here today for 6 month follow up appointment for review of medical conditions. The patient is a 53-year-old male with a history of HTN, GERD, and anxiety, presenting for evaluation of left foot pain and fatigue. The patient reports left foot pain that has been present for approximately 3 months, with significant worsening over the past month. The pain is localized to the lateral aspect of the foot and the fifth metatarsophalangeal (MTP) joint, describing the pain as severe at times, making ambulation difficult. The pain is exacerbated by standing on his toes and wearing certain footwear, including "Hey Dudes" shoes and slippers, which he notes lack adequate arch support. He has recently switched to new work boots with insoles and reports some improvement in symptoms over the past 1.5-2 weeks. He also mentions lacing the boots tightly to provide additional support, which has been beneficial. He denies pain in the right foot. The patient also reports chronic fatigue, low energy levels, and unexplained weight gain despite regular exercise at the gym 3-4 days per week. He notes a decrease in his ability to lift weights, with a reduction from 70-80 lb dumbbells per arm to 50 lb. He attributes some of his fatigue to disrupted sleep patterns due to his 's variable second-shift work schedule, which often results in him waking at [id number] and then rising for the day at 0600. He estimates he is getting less than 7 hours of sleep per night. He is currently taking omeprazole, sometimes twice daily, and Lexapro. He has discontinued amlodipine since August, noting that his blood pressure has been stable. He also takes alprazolam as needed, with his last prescription filled in August. He denies any family history of prostate cancer and declinesPSA testing. He also declines tetanus and COVID-19 vaccinations at this time. 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 omeprazole (PRILOSEC) 20 mg capsule Take 1 capsule by mouth two times a day. escitalopram oxalate (LEXAPRO) 10 mg tablet Take 1 tablet by mouth once daily. albuterol HFA (VENTOLIN HFA) 90 mcg/actuation inhaler Inhale 2 Puffs as instructed every 4 hours asneeded for wheezing/shortness of breath. diclofenac (VOLTAREN ARTHRITIS PAIN) 1 % topical gel Apply 4 g to affected area four times daily. Aspirin 81 mg ORAL Tab Take 1 tablet by mouth once daily. amLODIPine (NORVASC) 2.5 mg tablet Take 1 tablet by mouth once daily. ALPRAZolam (XANAX) 0.25 mg tablet Take 1 tablet by mouth two times a day as needed for anxiety for up to 15 days. No current facility-administered medications for this visit. Review of Systems Objective BP 112/82 Pulse 83 Temp 36.3 C (97.4 F) Resp 16 Wt 98.8 kg (217 lb 13 oz) SpO2 97% BMI 31.25 kg/m Physical Exam Vitals reviewed. Constitutional: Appearance: Normal appearance. Eyes: Conjunctiva/sclera: Conjunctivae normal. Cardiovascular: Rate and Rhythm: Normal rate and regular rhythm. Heart sounds: Normal heart sounds. Pulmonary: Effort: Pulmonary effort is normal. Breath sounds: Normal breath sounds. Musculoskeletal: Comments: Left pinky toe MTP joint tender but not swollen Skin: General: Skin is warm and dry. Neurological: General: No focal deficit present. Mental Status: He is alert and oriented to person, place, and time. Psychiatric: Mood and Affect: Mood normal. Behavior: Behavior normal. Thought Content: Thought content normal. Judgment: Judgment normal. Latest Ref Rng 07/15/2020 08/16/2023 WBC 3.70 - 11.00 k/uL 4.61 RBC 4.20 - 6.00 m/uL 4.92 Hemoglobin 13.0 - 17.0 g/dL 15.3 Hematocrit 39.0 - 51.0 % 45.7 MCV 80.0 - 100.0 fL 92.9 MCH 26.0 - 34.0 pg 31.1 MCHC 30.5 - 36.0 g/dL 33.5 RDW-CV 11.5 - 15.0 % 13.2 Platelet Count 150 - 400 k/uL 175 MPV 9.0 - 12.7 fL 11.1 Neut% % 54.8 Abs Neut (ANC) 1.45 - 7.50 k/uL 2.52 Lymph% % 29.9 Abs Lymph 1.00 - 4.00 k/uL 1.38 [place]% % 10.8 Abs [place] <0.87 k/uL 0.50 Eosin% % 3.9 Abs Eosin <0.46 k/uL 0.18 Baso% % 0.4 Abs Baso <0.11 k/uL <0.03 Immature Gran % % 0.2 IMMATURE GRANS (ABS) <0.10 k/uL <0.03 NRBC /100 WBC 0.0 Absolute nRBC <0.01 k/uL <0.01 DTYPE Auto Protein, Total 6.3 - 8.0 g/dL 7.2 Albumin 3.9 - 4.9 g/dL 4.7 Calcium 8.5 - 10.2 mg/dL 9.5 Bilirubin, Total 0.2 - 1.3 mg/dL 1.4 (H) Alkaline Phosphatase 38 - 113 U/L 88 AST 14 - 40 U/L 33 ALT 10 - 54 U/L 35 Glucose 74 - 99 mg/dL 91 BUN 9 - 24 mg/dL 22 Creatinine 0.73 - 1.22 mg/dL 1.21 Sodium 136 - 144 mmol/L 140 Potassium 3.7 - 5.1 mmol/L 4.7 Chloride 97 - 105 mmol/L 103 CO2 22 - 30 mmol/L 26 Anion Gap 9 - 18 mmol/L 11 eGFR >=60 mL/min/1.73m 71 Cholesterol, Total <200 mg/dL 202 (H) 217 (H) Triglyceride <150 mg/dL 123 202 (H) HDL Cholesterol >39 mg/dL 32 (L) 38 (L) LDL Cholesterol <100 mg/dL 145 (H) 139 (H) Non HDL Cholesterol <130 mg/dL 170 (H) 179 (H) Fasting Time hrs 14 12 VLDL Cholesterol <30 mg/dL 25 40 (H) TC:HDL Ratio <5.10 6.31 (H) 5.71 (H) LDL:HDL Ratio <2.54 4.53 (H) 3.66 (H) Hemoglobin A1C 4.3 - 5.6 % 5.1 Estimated Average Glucose mg/dL 100 Magnesium 1.7 - 2.3 mg/dL 2.2 TSH 0.270 - 4.200 uU/mL 2.210 Legend: (H) High (L) Low The 10-year ASCVD risk score (Brenda TRIPATHI, et al., 2019) is: 6.2% Values used to calculate the score: Age: 53 years Sex: Male Is Non- : No Diabetic: No Tobacco smoker: No Systolic Blood Pressure: 112 mmHg Is BP treated: No HDL Cholesterol: 38 mg/dL Total Cholesterol: 217 mg/dL Assessment and Plan # Left foot pain (M79.672) - Pain localized to the lateral aspect of the left foot, particularly at the fifth metatarsophalangeal (MTP) joint; tenderness noted on palpation and with toe movement. - Symptoms have been present for approximately three months, with significant pain in the last month; recent improvement noted with new work boots and insoles. - Differential diagnosis includes joint strain or stress fracture. - Recommended continued use of supportive footwear with adequate arch support. - Advised use of arch support socks and consideration of wrapping the foot with an LARA bandage for additional support. - Discussed potential need for X-ray if symptoms do not continue to improve. # Other fatigue (R53.83) - Chronic fatigue reported, possibly related to disrupted sleep patterns due to 's work schedule. - Discussed potential contribution of low testosterone levels; last checked in 2015. - Ordered testosterone level, TSH, and magnesium level to evaluate underlying causes. - Advised patient on the importance of adequate sleep and discussed potential lifestyle modifications to improve sleep quality. # Encounter for long-term current use of medication (Z79.899) # Anxiety and depression (F41.9) - Refilled alprazolam prescription, sent to [facility] in [place]. - Refilled Lexapro prescription, ensuring sufficient supply until next appointment. # Chest pain, unspecified type (R07.9) - Recent stress test showed a 73% ejection fraction with exercise at a high workload; no abnormalities detected. - Discussed results indicating good cardiac function. # Gastroesophageal reflux disease without esophagitis (K21.9) - Continues to manage with omeprazole, sometimes taking two doses per day. - Refilled omeprazole prescription with instructions to fill when due to ensure continuous supply. Sheila Mobley MD documented in this encounterPrem[facility] Telephone encounter Note * Telephone Encounter - Jenni Brooks LPN - 11/11/2023 11:25 AM EDT Prescription Refill Information The patient has been identified by name and date of : Yes Caregiver verified no other encounters exist for this prescription request: Yes Caregiver confirmed with patient/requestor that no other refills are due, in the near future, with this provider at this time: Yes The last office visit in the department: 08/16/23 Does the patient have a future office visit with this provider/department: Yes 12/24/23 Requested Prescriptions Pending Prescriptions Disp Refills ALPRAZolam (XANAX) 0.25 mg tablet 60 tablet 0 Sig: Take 1 tablet by mouth two times a day as needed for anxiety for up to 30 days. Jenni Brooks LPN November 11, 2023 11:26 AM [facility]08-05-2024 Miscellaneous Notes* Telephone Encounter - Jenni Brooks LPN - 11/11/2023 11:25 AM EDT Prescription Refill Information The patient has been identified by name and date of : Yes Caregiver verified no other encounters exist for this prescription request: Yes Caregiver confirmed with patient/requestor that no other refills are due, in the near future, with this provider at this time: Yes The last office visit in the department: 08/16/23 Does the patient have a future office visit with this provider/department: Yes 12/24/23 Requested Prescriptions Pending Prescriptions Disp Refills ALPRAZolam (XANAX) 0.25 mg tablet 60 tablet 0 Sig: Take 1 tablet by mouth two times a day as needed for anxiety for up to 30 days. Jenni Brooks LPN November 11, 2023 11:26 AM documented in this encounterPremier Health [facility]05-10-[facility] History of Present illness Narrative* Poppy Washington APRN.EGG BUYER - 08/16/2023 10:40 AM EDT SUBJECTIVE: Hepatitis B Vaccine(1 of 3 - 19+ 3-dose series) Never done Shingrix Vaccine(1 of 2) Never done DTaP,Tdap,Td Vaccine(2 - Td or Tdap) due on 05/28/2021 Covid-19 Vaccine(2022- season) Never done Prostate Cancer Screening Discussion Never done Diabetes Screening due on 07/16/2023 HPI Sedrick Choudhary is a 53 year old male. Presents for routine follow up visit. PMH significant for ACTIVE PROBLEM LIST Esophageal Reflux Anxiety State Impotence of Organic Origin Anxiety and Depression Former Smoker Obesity, Class I, Bmi 30-34.9 Patient today for a follow-up visit regarding chest pain that occurred 1 week ago. Notes one day of decreased energy, unwell. Unable exercise This was July. Notes the next morning that he had chest pain described as someone standing on his chest for about 12 hours. Notes that he did not have palpitations, did have shortness of breath. Presyncopal but no syncope. Dipahoretic. Noted headache as well. Noted lying down seemed to help. Notes symptoms were worse with exertion such as taking stairs, he has returned to work for at least part of the day on Saturday. Did not seek care when this occurred. Prior occurrence: reports prior occurrence of "stress induced heart attack" age 35, seen at [facility]. Reports stress test completed at that time. States no LHC completed. Subsequently states maybe was notan [place]. 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 GERD symptoms: no current Not smoking, quit 3 years ago. 7.5 pack years No drug use. Obesity BMI 31.85 Father age 57 years with [place]. Last 14 Encounter BP Readings: Date: BP: 10/19/2022 118/80 02/20/2022 132/84 08/07/2021 128/80 01/23/2021 130/82 11/07/2020 112/68 07/15/2020 122/76 06/12/2019 114/86 10/07/2018 128/80 10/06/2018 132/80 09/19/2018 118/84 03/14/2018 120/72 08/10/2017 124/88 07/12/2017 122/86 12/21/2016 110/80 His most recent lipid panels are: Cholesterol, Total (mg/dL) Date Value 07/15/2020 202 06/12/2019 175 HDL Cholesterol (mg/dL) Date Value 07/15/2020 32 06/12/2019 40 LDL Cholesterol (mg/dL) Date Value 07/15/2020 145 06/12/2019 109 Triglyceride (mg/dL) Date Value 07/15/2020 123 06/12/2019 132 Patient's last HgA1C was Hemoglobin A1C (%) Date Value 07/15/2020 5.1 ) Without current complaints re: GERD. Review of Systems Constitutional: Positive for diaphoresis and fatigue. Respiratory: Positive for shortness of breath. Cardiovascular: Positive for chest pain. Gastrointestinal: Negative. Psychiatric/Behavioral: The patient is nervous/anxious. Objective BP 115/75 Pulse (!) 57 Resp 16 Wt 100.7 kg (222 lb) SpO2 100% BMI 31.85 kg/m Physical Exam Vitals and nursing note reviewed. Constitutional: Appearance: Normal appearance. HENT: Head: Normocephalic and atraumatic. Eyes: Conjunctiva/sclera: Conjunctivae normal. Neck: Thyroid: No thyromegaly. Vascular: Normal carotid pulses. No JVD. Cardiovascular: Rate and Rhythm: Normal rate and regular rhythm. Pulses: Carotid pulses are 2+ on the right side and 2+ on the left side. Radial pulses are 2+ on the right side and 2+ on the left side. Heart sounds: Normal heart sounds. Pulmonary: Effort: Pulmonary effort is normal. Breath sounds: Normal breath sounds. Abdominal: General: Bowel sounds are normal. Palpations: Abdomen is soft. Skin: General: Skin is warm and dry. Neurological: General: No focal deficit present. Mental Status: He is alert and oriented to person, place, and time. ALLERGIES Allergen Reactions Penicillins Unknown Medications ALPRAZolam (XANAX) 0.25 mg tablet Take 1 tablet by mouth two times a day as needed for anxiety for up to 15 days. omeprazole (PRILOSEC) 20 mg capsule Take 1 capsule by mouth two times a day. escitalopram oxalate (LEXAPRO) 10 mg tablet Take 1 tablet by mouth once daily. albuterol HFA (VENTOLIN HFA) 90 mcg/actuation inhaler Inhale 2 Puffs as instructed every 4 hours asneeded for wheezing/shortness of breath. diclofenac (VOLTAREN ARTHRITIS PAIN) 1 % topical gel Apply 4 g to affected area four times daily. Aspirin 81 mg ORAL Tab Take 1 tablet by mouth once daily. 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 Social History Tobacco Use Smoking status: Former Packs/day: 0.50 Years: 15.00 Additional pack years: 0.00 Total pack years: 7.50 Types: Cigarettes Quit date: 09/20/2017 Years since quittin.9 Smokeless tobacco: Current Types: Snuff Tobacco comments: 2 to 3 cigarettes daily; Quit smoking in September Vaping Use Vaping Use: Never used Substance Use Topics Alcohol use: Yes Comment: 2 beers per months Drug use: Never Latest Ref [facility] 07/15/2020 Protein, Total 6.3 - 8.0 g/dL 7.5 Albumin 3.9 - 4.9 g/dL 4.7 Calcium 8.5 - 10.2 mg/dL 9.7 Bilirubin, Total 0.2 - 1.3 mg/dL 1.1 Alkaline Phosphatase 38 - 113 U/L 85 AST 14 - 40 U/L 29 Glucose 74 - 99 mg/dL 95 BUN 9 - 24 mg/dL 24 Creatinine 0.73 - 1.22 mg/dL 1.15 Sodium 136 - 144 mmol/L 139 Potassium 3.7 - 5.1 mmol/L 4.9 Chloride 97 - 105 mmol/L 105 CO2 22 - 30 mmol/L 24 Anion Gap 9 - 18 mmol/L 10 ALT 10 - 54 U/L 38 eGFR- >60 eGFR-All Other Races . >60 Cholesterol, Total <200 mg/dL 202 (H) Triglyceride <150 mg/dL 123 HDL Cholesterol >39 mg/dL 32 (L) LDL Cholesterol <100 mg/dL 145 (H) Non HDL Cholesterol <130 mg/dL 170 (H) Fasting Time hrs 14 VLDL Cholesterol <30 mg/dL 25 TC:HDL Ratio <5.10 6.31 (H) LDL:HDL Ratio <2.54 4.53 (H) Hemoglobin A1C 4.3 - 5.6 % 5.1 Estimated Average Glucose mg/dL 100 CK 51 - 298 U/L 216 Troponin T 0.000 - 0.029 ng/mL <0.010 Magnesium 1.7 - 2.3 mg/dL 2.2 TSH 0.270 - 4.200 uU/mL 2.210 ASSESSMENT/PLAN: 1. Chest pain, unspecified type - ICD9: 786.50, ICD10: R07.9 (primary diagnosis) Chest pain of uncertain cause, does have risk factors for CAD obesity, former smoker, premature heart disease for his father's finding of [place] at age 55. - Lab evaluation CMP, CBC, TSH, and Lipid panel - Stress testing- see orders - Referral to Cardiology - ECG COMPLETE -completed in office today showed sinus bradycardia without ischemic changes or ectopy - STRESS ECHO TREADMILL - PERFLUTREN LIPID MICROSPHERES 1.1 MG/ML INJECTION IN NS 10 ML - SODIUM CHLORIDE 0.9 % (FLUSH) INJECTION SYRINGE - COMPREHENSIVE METABOLIC PANEL - COMPLETE BLOOD COUNT AND DIFFERENTIAL - THYROID STIMULATING HORMONE - CONSULT TO CARDIOLOGY - LIPID PANEL BASIC - AMLODIPINE 2.5 MG TABLET - if cardiac cause may help with chest pain. Continue with ASA 81 mg 2. Anxiety and depression - ICD9: 300.00, 311, ICD10: F41.9, F32.A - ALPRAZOLAM 0.25 MG TABLET Labs today, 1 mo follow up Poppy Washington APRN.CNS 6 mo follow up Sheila Mobley MD. Poppy Washington APRN.CNS Medical Decision Making: Problems: Moderate: New problem with uncertain prognosis Data: Unique test(s) ordered: 3+ Risk: Moderate: Drug management Medical Decision Making Level: 4 - Moderate documented in this encounterPrem[facility] Telephone encounter Note * Telephone Encounter - Anaya Brooke LPN - 08/15/2023 2:33 PM EDT Spoke with patient and endorse going to ER with an chest pain or concerning symptoms before tomorrows appointment [facility]05-09-2024 Miscellaneous Notes* Telephone Encounter - Anaya Brooke LPN - 08/15/2023 2:33 PM EDT Spoke with patient and endorse going to ER with an chest pain or concerning symptoms before tomorrows appointment * Telephone Encounter - Poppy Washington APRN.CNS - 08/15/2023 12:50 PM EDT Note below. Endorse ER for any concerning symptoms such as chest pain. Note not currently having this. * Telephone Encounter - Callie Young LPN - 08/15/2023 9:12 AM EDT Spoke with pt and he reports 1 week ago had an episode of chest pain, sweating, vomiting, Pain shoot up thru his back, SOB, headache, dizzy. Symptoms resolved after 2 to 4 hours. Very tired, Headache lasted all day. No symptoms now. Pt exercises 3 to 4 times a week, he goes to a gym. Does not do a lot of cardio. When exercising can get SOB. Goes at a slower pace . At age 35 he was told he may of had a stress induced heart attack but he did not go to the hospital and was told later by a doctor .this information. Apt has been booked for tomorrow 08-16-23. (40 minute) I had called pt originally to get his 6 monthFU rescheduled and was given the above information from pt. Pt has been advised if symptoms return to call the squad. Callie Young LPN documented in this encounterPrem[facility] Telephone encounter Note * Telephone Encounter - Poppy Washington APRN.EGG BUYER - 08/15/2023 12:50 PM EDT Note below. Endorse ER for any concerning symptoms such as chest pain. Note not currently having this. [facility]05-09-[facility]24 Telephone encounter Note* Telephone Encounter - Callie Young LPN - 08/15/2023 9:22 AM EDT Spoke with pt and information listed below given. Pt verbalizes understanding. Apt booked for tomorrow. Callie Young LPN [facility]05-09-2024 Miscellaneous Notes* Telephone Encounter - Callie Young LPN - 08/15/2023 9:22 AM EDT Spoke with pt and information listed below given. Pt verbalizes understanding. Apt booked for tomorrow. Callie Young LPN * Telephone Encounter - Sheila Mobley MD - 08/13/2023 5:03 PM EDT Patient past due for follow up--missed or canceled 6 month follow ups. Needs seen every 6 months toget refills. Noted he asked for appointment but had one added for May next year but did not get one for now. Help set up for follow up in next months. Keep December and May appointments as scheduled. 60 lasted since June so given 30 for now since past due for follow up. The following approved medication requests have been transmitted electronically. Requested Prescriptions Signed Prescriptions Disp Refills ALPRAZolam (XANAX) 0.25 mg tablet 30 tablet 0 Sig: Take 1 tablet by mouth two times a day as needed for anxiety for up to 15 days. Authorizing Provider: SHEILA MOBLEY MD * Telephone Encounter - Sydnee Feng MA - 08/13/2023 1:38 PM EDT Patient has been identified by name and date of : Yes Patient phones for refill(s): Requested Prescriptions Pending Prescriptions Disp Refills ALPRAZolam (XANAX) 0.25 mg tablet 60 tablet 0 Sig: Take 1 tablet by mouth two times a day as needed for anxiety for up to 30 days. Date of last office visit in primary care: 10/19/2022 Date of next office visit in primary care: 12/24/2023 Please advise. Thank you. Sydnee Feng MA. documented in this encounterPrem[facility]05-09-2024 Telephone encounter Note * Telephone Encounter - Callie Young LPN - 08/15/2023 9:12 AM EDT Spoke with pt and he reports 1 week ago had an episode of chest pain, sweating, vomiting, Pain shoot up thru his back, SOB, headache, dizzy. Symptoms resolved after 2 to 4 hours. Very tired, Headache lasted all day. No symptoms now. Pt exercises 3 to 4 times a week, he goes to a gym. Does not do a lot of cardio. When exercising can get SOB. Goes at a slower pace . At age 35 he was told he may of had a stress induced heart attack but he did not go to the hospital and was told later by a doctor .this information. Apt has been booked for tomorrow 08-16-23. (40 minute) I had called pt originally to get his 6 monthFU rescheduled and was given the above information from pt. Pt has been advised if symptoms return to call the squad. Callie Young LPN [facility]05-07[facility] Telephone encounter Note* Telephone Encounter - Sheila Mobley MD - 08/13/2023 5:03 PM EDT Patient past due for follow up--missed or canceled 6 month follow ups. Needs seen every 6 months toget refills. Noted he asked for appointment but had one added for May next year but did not get one for now. Help set up for follow up in next months. Keep December and May appointments as scheduled. 60 lasted since June so given 30 for now since past due for follow up. The following approved medication requests have been transmitted electronically. Requested Prescriptions Signed Prescriptions Disp Refills ALPRAZolam (XANAX) 0.25 mg tablet 30 tablet 0 Sig: Take 1 tablet by mouth two times a day as needed for anxiety for up to 15 days. Authorizing Provider: SHEILA MOBLEY MD [facility]05-07-2024 Telephone encounter Note* Telephone Encounter - Sydnee Feng MA - 08/13/2023 1:38 PM EDT Patient has been identified by name and date of : Yes Patient phones for refill(s): Requested Prescriptions Pending Prescriptions Disp Refills ALPRAZolam (XANAX) 0.25 mg tablet 60 tablet 0 Sig: Take 1 tablet by mouth two times a day as needed for anxiety for up to 30 days. Date of last office visit in primary care: 10/19/2022 Date of next office visit in primary care: 12/24/2023 Please advise. Thank you. Sydnee Feng MA. [facility]11-09-2023 Miscellaneous Notes* Telephone Encounter - Callie Young LPN - 02/14/2023 8:41 AM EST Spoke with pt and information listed below given. Pt verbalizes understanding. Apt booked. Callie Young LPN * Telephone Encounter - Sheila Mobley MD - 02/13/2023 7:57 PM EST Saw Alice Faby Needs 6 month follow ups scheduled. The following approved medication requests have been transmitted electronically. Requested Prescriptions Signed Prescriptions Disp Refills ALPRAZolam (XANAX) 0.25 mg tablet 60 tablet 1 Sig: Take 1 tablet by mouth two times a day as needed for anxiety for up to 60 days. Authorizing Provider: SHEILA MOBLEY MD * Telephone Encounter - Birgit Matthew LPN - 02/13/2023 11:23 AM EST Pt is out of med now. * Telephone Encounter - Adelaida Morin LPN - 02/13/2023 8:51 AM EST Patient has been identified by name and date of : Yes Patient phones for refill(s): Requested Prescriptions Pending Prescriptions Disp Refills ALPRAZolam (XANAX) 0.25 mg tablet 60 tablet 1 Sig: Take 1 tablet by mouth two times a day as needed for anxiety for up to 60 days. Date of last office visit in primary care: 10/19/2022 Date of next office visit in primary care: Visit date not found Last 2 Encounter Wt Readings: Date: Wt: 10/19/2022 99.8 kg (220 lb) 02/20/2022 98.4 kg (217 lb) Previous labs/tests for medication: Not applicable Please advise. Thank you. Adelaida Morin LPN. documented in this encounterPrem[facility]10-30-2023 Miscellaneous Notes* Telephone Encounter - Myrna Hull OCCA - 02/04/2023 3:22 PM EDT Patient has been identified by name and date of : Yes Patient phones for refill(s): Requested Prescriptions Pending Prescriptions Disp Refills escitalopram oxalate (LEXAPRO) 10 mg tablet 90 tablet 3 Sig: Take 1 tablet by mouth once daily. Date of last office visit in primary care: 10/19/2022 Date of next office visit in primary care: Visit date not found Last 2 Encounter Wt Readings: Date: Wt: 10/19/2022 99.8 kg (220 lb) 02/20/2022 98.4 kg (217 lb) Please advise. Thank you. ALVINA Barajas. documented in this encounterPrem[facility]07-14-2023 History of Present illness Narrative* Alice Sandhu APRN.FRAME STRIPPER - 10/19/2022 9:47 AM EDT SUBJECTIVE Sedrick Choudhary is a 52 year old male here today for a check up on his medical problems. Chief Complaint Patient presents with: F/U 6 months HPI Sedrick Choudhary is a 52 year old male established patient of Sheila Mobley MD who presents today for a 6 month follow up. Last seen in office 02/20/2022 with TAHIR Jeffers. Discussed GERD, asthma, anxiety and depression, elevated LDL. Last labs done 07/2020. Just got home from a cruise. Overall feeling pretty good since last visit. Some stress but manageable. Has albuterol PRN, has not needed it much, some issues with allergies right now. GERD controlled. Mood stable. Taking Lexapro and Xanax daily. Feeling things are manageable. Has not been watching diet, gained weight with recent cruise. Wondering about labs and if testosterone levels are low. His medications were reviewed today and his list is now up to date. Medications Current Outpatient Medications Medication Sig ALPRAZolam (XANAX) 0.25 mg tablet Take 1 tablet by mouth twice daily as needed for anxiety for up to 60 days. omeprazole (PRILOSEC) 20 mg capsule Take 1 capsule by mouth twice daily. albuterol HFA (VENTOLIN HFA) 90 mcg/actuation inhaler Inhale 2 Puffs as instructed every 4 hours asneeded for wheezing/shortness of breath. escitalopram oxalate (LEXAPRO) 10 mg tablet Take 1 tablet by mouth once daily. diclofenac (VOLTAREN ARTHRITIS PAIN) 1 % topical gel Apply 4 g to affected area four times daily. Aspirin 81 mg ORAL Tab Take 1 tablet by mouth once daily. No current facility-administered medications for this visit. 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 Cardiovascular: Negative. OBJECTIVE BP 118/80 Pulse 73 Wt 220 lb (99.8kg) SpO2 98% Physical Exam Vitals and nursing note reviewed. Constitutional: General: He is awake. He is not in acute distress. Appearance: Normal appearance. He is well-developed and well-groomed. He is not ill-appearing, toxic-appearing or diaphoretic. HENT: Head: Normocephalic. Right Ear: External ear normal. Left Ear: External ear normal. Nose: Nose normal. Eyes: General: Vision grossly intact. Conjunctiva/sclera: Conjunctivae normal. Pupils: Pupils are equal, round, and reactive to light. Neck: Vascular: No JVD. Trachea: Trachea normal. Cardiovascular: Rate and Rhythm: Normal rate and regular rhythm. Pulses: Normal pulses. Heart sounds: Normal heart sounds. No murmur heard. Pulmonary: Effort: Pulmonary effort is normal. No accessory muscle usage, prolonged expiration or respiratory distress. Breath sounds: Normal breath sounds. Musculoskeletal: Cervical back: Neck supple. Skin: General: Skin is warm and dry. Capillary Refill: Capillary refill takes less than 2 seconds. Neurological: General: No focal deficit present. Mental Status: He is alert and oriented to person, place, and time. Mental status is at baseline. Psychiatric: Attention and Perception: Attention and perception normal. Mood and Affect: Mood and affect normal. Speech: Speech normal. Behavior: Behavior normal. Behavior is cooperative. Thought Content: Thought content normal. Cognition and Memory: Cognition and memory normal. Judgment: Judgment normal. ASSESSMENT/PLAN: 1. Gastroesophageal reflux disease without esophagitis - ICD9: 530.81, ICD10: K21.9 (primary diagnosis) Stable. - Discussed lifestyle modifications including losing weight, limiting caffeine, no meals three hours before sleep, and head of bed elevation - Continue treatment with current medication 2. Anxiety and depression - ICD9: 300.00, 311, ICD10: F41.9, F32.A Stable, plan to continue Lexapro at current dose, Xanax PRN. 3. Obesity, Class I, BMI 30-34.9 - ICD9: 278.00, ICD10: E66.9 4. Elevated LDL cholesterol level - ICD9: 272.0, ICD10: E78.00 - LIPID PANEL BASIC 5. Impotence of organic origin - ICD9: 607.84, ICD10: N52.9 - TESTOSTERONE, FREE AND TOTAL 6. Encounter for therapeutic drug monitoring - ICD9: V58.83, ICD10: Z51.81 - CBC + DIFF - COMP METABOLIC PANEL - MAGNESIUM BLD - TESTOSTERONE, FREE AND TOTAL 7. Colon cancer screening - ICD9: V76.51, ICD10: Z12.11 - [place] PDMP website checked and validated. All prescriptions have been APPROPRIATELY filled. No suspiciousactivity was identified. 10/19/2022 by Alice Sandhu APRN.FRAME STRIPPER Portions of this note have been entered by ancillary staff. I have reviewed and when necessary edited, so that they are an adequate record of my encounter with this patient Please note that parts of this document were created using voice recognition software and therefore may contain grammatical errors. Patient verbalizes understanding of instructions from today's visit and in agreement with treatmentplan. Questions answered. Agrees to call the office if questions, concerns of issues with acute symptoms not improving or if they worsen. See diagnoses and orders for additional plan(s). Allergies and medications were reviewed, list was updated, and refills given if needed. Past medical, surgical, social, and family history reviewed and updated as appropriate. Encouraged proper diet & exercise as well as compliance with taking medications. Age- appropriate health preventative measures were discussed. Return in about 6 months (around 04/21/2023) for Follow up on chronic conditions and medications.. Alice Sandhu APRN-ANGIE documented in this encounterPrem[facility]05-15-2023 Miscellaneous Notes* Telephone Encounter - Adelaida Morin LPN - 08/20/2022 4:59 PM EDT Duplicate request for Alprazolam. Adelaida Morin LPN documented in this encounterPrem[facility]03-14-2023 Miscellaneous Notes* Telephone Encounter - Alice Sandhu APRN.CNP - 06/19/2022 4:20 PM EDT PDMP website checked and validated. All prescriptions have been APPROPRIATELY filled. No suspiciousactivity was identified. 06/19/2022 by Alice Sandhu APRN.ANGIE * Telephone Encounter - Jenni Brooks LPN - 06/19/2022 10:45 AM EDT Last office visit: 02/20/22 Next appointment scheduled: 08/22/22 Patient phones requesting refills as follows: Requested Prescriptions Pending Prescriptions Disp Refills ALPRAZolam (XANAX) 0.25 mg tablet 60 tablet 0 Sig: Take 1 tablet by mouth twice daily as needed for up to 60 days. Please review and advise. Jenni Brooks LPN documented in this encounterPrem[facility]01-16-2023 Miscellaneous Notes* Telephone Encounter - Alice Sandhu APRN.CNP - 04/23/2022 2:13 PM EST [facility] website checked and validated. All prescriptions have been APPROPRIATELY filled. No suspiciousactivity was identified. 04/23/2022 by Alice Sandhu APRN.ANGIE * Telephone Encounter - Jenni Brooks LPN - 04/23/2022 12:50 PM EST Last office visit: 02/20/22 Next appointment scheduled: 08/22/22 Last labs: No recent tox or pain panel found. Patient phones requesting refills as follows: Requested Prescriptions Pending Prescriptions Disp Refills ALPRAZolam (XANAX) 0.25 mg tablet 60 tablet 0 Sig: Take 1 tablet by mouth twice daily as needed for up to 60 days. Please review and advise. Jenni Brooks LPN documented in this encounterPrem[facility]10-25-2022 Miscellaneous Notes* Telephone Encounter - Callie Young LPN - 01/30/2022 9:54 AM EDT Patient has been identified by name and date of : Yes Patient phones for refill(s): Requested Prescriptions Pending Prescriptions Disp Refills escitalopram oxalate (LEXAPRO) 10 mg tablet 90 tablet 3 Sig: Take 1 tablet by mouth once daily. Date of last office visit in primary care: 08/07/21 next apt 02/20/22 Last 2 Encounter Wt Readings: Date: Wt: 08/07/2021 98.4 kg (217 lb) 01/23/2021 99.8 kg (220 lb) Previous labs/tests for medication: Not applicable Thank you. Callie Young LPN documented in this encounterPremier Health [facility]06-01-2022 Miscellaneous Notes* Telephone Encounter - Venecia Mejía Ma - 09/06/2021 4:23 PM EDT Tried calling, VM not set up. * Telephone Encounter - Sheila Mobley MD - 09/06/2021 12:56 AM EDT Check with patient if okay to discuss his medical issues with his --no HCDPOA on file noted. Her note indicates that she thinks Xanax is a new prescription. Note that Xanax is not a new medication. He has been able to decrease from BID to daily most days. Whether to address with patient or his : I reviewed PDMP--no current prescriptions on file for Vicodin from pain management providers found.Verify if seeing pain management and what meds they are prescribing, Reconcile medication does not show recent flexeril prescription either. 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 If Lexapro not sedating, not a concern. * Telephone Encounter - Deb Massey RN - 09/05/2021 10:35 AM EDT Patient's calls and states that patient was recently put on Xanax. Patient is also on Lexapro.Patient sees pain management and is prescribed Vicodin and Flexeril. Patient's asking if theseare all ok to take with one another? Please review and advise, Deb Massey RN documented in this encounterPremier Health [facility]05-02-2022 History of Present illness Narrative* Sheila Mobley MD - 08/07/2021 4:47 PM EDT This note was created using Snapguideter. Subjective Sedrick Choudhary is a 51 year old male. Patient presents with: Recheck: 6 month follow up SUBJECTIVE: Sedrick Choudhary is a 51 year old year old gentleman here today for 6 month follow up appointment for review of medical conditions. Doing well. Noted problems with vertigo 2 to 3 weeks ago again. This was second bout ever. First day worse. Better by second day.Stopped after 2 to 3 days. Just spontaneously resolved. Able to do sedentary work on computer on bad days. Was nauseated when was severe; no emesis. Was doing pre-work out supplement before exercise. Stopped taking. Not sure if this triggered it. Was told in the past to stop energy drinks ,etc. Did not stop the energy drink before it stopped. Triggered when laying down on creeper and looking up makes it the worst. Right ring finger--better but still bothersome. No strength in it. Diclofenac gel for discomfort. Was apparently dislocated at PIP joint. Xanax still effective. Reflux controlled. Thinks might have had COVID when daughter had it.. 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 escitalopram oxalate (LEXAPRO) 10 mg tablet Take 1 tablet by mouth once daily. diclofenac (VOLTAREN ARTHRITIS PAIN) 1 % topical gel Apply 4 g to affected area four times daily. omeprazole (PRILOSEC) 20 mg capsule Take 1 capsule by mouth twice daily. albuterol HFA (VENTOLIN HFA) 90 mcg/actuation inhaler Inhale 2 Puffs as instructed every 4 hours asneeded for Wheezing/Shortness of Breath. Aspirin 81 mg ORAL Tab Take 1 tablet by mouth once daily. Current Facility-Administered Medications Medication Dose Route Frequency perflutren lipid microspheres 1.3 mL in NaCl (PF) 0.9% 10 mL injection (DEFINITY) INTRAVENOUS DIRECTED PRN sodium chloride 0.9 % (flush) 10 mL (BD POSIFLUSH) 10 mL INTRAVENOUS DIRECTED PRN Review of Systems Objective BP 128/80 Pulse 76 Resp 16 Wt 98.4 kg (217 lb) BMI 31.14 kg/m Last 5 Encounter Wt Readings: Date: Wt: 08/07/2021 98.4 kg (217 lb) 01/23/2021 99.8 kg (220 lb) 11/14/2020 101.2 kg (223 lb) 11/07/2020 101.2 kg (223 lb) 07/15/2020 99.6 kg (219 lb 9 oz) No waist measurement recorded Estimated body mass index is 31.14 kg/m as calculated from the following: Height as of 11/14/20: 177.8 cm (5' 10"). Weight as of this encounter: 98.4 kg (217 lb). Last 5 Encounter BP Readings: Date: BP: 08/07/2021 128/80 01/23/2021 130/82 11/07/2020 112/68 07/15/2020 122/76 06/12/2019 114/86 Physical Exam Vitals reviewed. Constitutional: Appearance: Normal appearance. Eyes: Conjunctiva/sclera: Conjunctivae normal. Cardiovascular: Rate and Rhythm: Normal rate and regular rhythm. Heart sounds: Normal heart sounds. Pulmonary: Effort: Pulmonary effort is normal. Breath sounds: Normal breath sounds. Skin: General: Skin is warm and dry. Neurological: General: No focal deficit present. Mental Status: He is alert and oriented to person, place, and time. Psychiatric: Mood and Affect: Mood normal. Behavior: Behavior normal. Thought Content: Thought content normal. Judgment: Judgment normal. Assessment and Plan ASSESSMENT/PLAN: 1. Anxiety and depression - ICD9: 300.00, 311, ICD10: F41.9, F32.A (primary diagnosis) On Lexapro too. Continue present management. - ALPRAZOLAM 0.25 MG TABLET 2. Benign paroxysmal positional vertigo, unspecified laterality - ICD9: 386.11, ICD10: H81.10 Discussed management Might be resolving. Can refer to ENT or PT for further evaluation and treatment, 3. Elevated LDL cholesterol level - ICD9: 272.0, ICD10: E78.00 Needs to keep working on diet and exercise with lifestyle changes for effective weight loss as wellas prevention of DM, and control of BP and lipids. - LIPID PANEL BASIC 4. Gastroesophageal reflux disease without esophagitis - ICD9: 530.81, ICD10: K21.9 - Continue present management. 5. Colon cancer screening - ICD9: V76.51, ICD10: Z12.11 - FECAL OCCULT BLOOD TEST 6. Encounter for long-term current use of medication - ICD9: V58.69, ICD10: Z79.899 - CBC - COMP METABOLIC PANEL - MAGNESIUM BLD Sheila Mobley MD documented in this encounterPremier Health [facility]08-02-2021 History of Present illness Narrative* Gloria Saldana RT(R) - 11/07/2020 5:40 PM EDT Radiology Service Progress Note PATIENT NAME: Sedrick Choudhary DATE OF SERVICE: November 07, 2020 TIME: 5:35 PM PATIENT IDENTITY VERIFICATION COMPLETED USING TWO (2) IDENTIFIERS: Name and Date of confirmedby patient verbally. FALL SCREENING: Has the patient had 2 falls in the last year or 1 fall with injury or currently using an Ambulatory Assistive Device (Walker, Cane, Wheelchair, Crutches, etc.)? No PATIENT GENDER DATA: Male PATIENT RELEVANT IMPLANT DATA REVIEWED: Yes RADIOLOGY DEPARTMENT: General X-ray: Exam(s) Completed: Upper Extremity X- Ray(s): Hand, right PERIPHERAL IV DATA: Not applicable SIGNED BY: RT Harsh(R) November 07, 2020 5:35 PM documented in this encounterPremier Health [facility]10-03-2020 History of Present illness Narrative* Anai Fitzgerald (Rt)Zakiya - 01/09/2020 10:30 AM EDT Radiology Service Progress Note PATIENT NAME: Sedrick Choudhary DATE OF SERVICE: January 09, 2020 TIME: 10:31 AM PATIENT IDENTITY VERIFICATION COMPLETED USING TWO (2) IDENTIFIERS: Name and Date of confirmedby patient verbally. FALL SCREENING: Has the patient had 2 falls in the last year or 1 fall with injury or currently using an Ambulatory Assistive Device (Walker, Cane, Wheelchair, Crutches, etc.)? No PATIENT GENDER DATA: Male PATIENT RELEVANT IMPLANT DATA REVIEWED: Not Applicable RADIOLOGY DEPARTMENT: General X-ray: Exam(s) Completed: Chest X-Ray PERIPHERAL IV DATA: Not applicable SIGNED BY: RT Beatrice January 09, 2020 10:31 AM [facility] of Past illness Narrative* Problem Noted Date Resolved Date Abdominal aneurysm, ruptured 08/29/200912/2015 Mixed hyperlipidemia 05/03/2006 06/08/2016 Closed fracture of cervical vertebra 12/26/2005 08/10/2017 documented as of this encounter (statuses as of 09/06/2021) [facility] History of Past illness Narrative* Problem Noted Date Resolved Date Abdominal aneurysm, ruptured 08/29/200912/2015 Mixed hyperlipidemia 05/03/2006 06/08/2016 Closed fracture of cervical vertebra 12/26/2005 08/10/2017 documented as of this encounter (statuses as of 10/18/2021) [facility] History of Past illness Narrative* Problem Noted Date Resolved Date Abdominal aneurysm, ruptured 08/29/200912/2015 Mixed hyperlipidemia 05/03/2006 06/08/2016 Closed fracture of cervical vertebra 12/26/2005 08/10/2017 documented as of this encounter (statuses as of 01/30/2022) [facility] History of Past illness Narrative* Problem Noted Date Resolved Date Abdominal aneurysm, ruptured 08/29/200912/2015 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 02/21/20 22 Mixed hyperlipidemia 05/03/2006 06/08/2016 Closed fracture of cervical vertebra 12/26/2005 08/10/2017 documented as of this encounter (statuses as of 04/23/2022) [facility] of Past illness Narrative* Problem Noted Date Resolved Date Abdominal aneurysm, ruptured 08/29/200912/2015 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 02/21/20 22 Mixed hyperlipidemia 05/03/2006 06/08/2016 Closed fracture of cervical vertebra 12/26/2005 08/10/2017 documented as of this encounter (statuses as of 06/19/2022) [facility] History of Past illness Narrative* Problem Noted Date Resolved Date Abdominal aneurysm, ruptured 08/29/200912/2015 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 02/21/20 22 Mixed hyperlipidemia 05/03/2006 06/08/2016 Closed fracture of cervical vertebra 12/26/2005 08/10/2017 documented as of this encounter (statuses as of 07/06/2022) [facility] History of Past illness Narrative* Problem Noted Date Resolved Date Abdominal aneurysm, ruptured 08/29/200912/2015 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 02/21/20 22 Mixed hyperlipidemia 05/03/2006 06/08/2016 Closed fracture of cervical vertebra 12/26/2005 08/10/2017 documented as of this encounter (statuses as of 08/21/2022) [facility] History of Past illness Narrative* Problem Noted Date Diagnosed Date Resolved Date Abdominal aneurysm, ruptured 08/29/2009 01/15/2016 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02/06 Mixed hyperlipidemia 05/03/2006 017 Closed fracture of cervical vertebra 12/26/2005 08/10/2017 documented as of this encounter (statuses as of 10/19/2022) [facility] of Past illness Narrative* Problem Noted Date Diagnosed Date Resolved Date Abdominal aneurysm, ruptured 08/29/2009 01/15/2016 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02/06 Mixed hyperlipidemia 05/03/2006 017 Closed fracture of cervical vertebra 12/26/2005 08/10/2017 documented as of this encounter (statuses as of 12/14/2022) [facility] History of Past illness Narrative* Problem Noted Date Diagnosed Date Resolved Date Abdominal aneurysm, ruptured 08/29/2009 01/15/2016 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02/06 Mixed hyperlipidemia 05/03/2006 017 Closed fracture of cervical vertebra 12/26/2005 08/10/2017 documented as of this encounter (statuses as of 02/05/2023) [facility] History of Past illness Narrative* Problem Noted Date Diagnosed Date Resolved Date Abdominal aneurysm, ruptured 08/29/2009 01/15/2016 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02/06 Mixed hyperlipidemia 05/03/2006 017 Closed fracture of cervical vertebra 12/26/2005 08/10/2017 documented as of this encounter (statuses as of 02/14/2023) [facility] note* Diagnosis Anxiety and depression- Primary Dysthymic disorder Benign paroxysmal positional vertigo, unspecified laterality Elevated LDL cholesterol level Pure hypercholesterolemia Gastroesophageal reflux disease without esophagitis Esophageal reflux Colon cancer screening Special screening for malignant neoplasms, colon Encounter for long-term current use of medication [facility] Diagnosis Anxiety and depression Dysthymic disorder documented in this encounter [facility] note* Diagnosis Anxiety and depression Dysthymic disorder documented in this encounter [facility] note* Diagnosis Anxiety and depression Dysthymic disorder documented in this encounter [facility] note* Diagnosis Anxiety and depression Dysthymic disorder [facility] in this [facility]* Diagnosis Gastroesophageal reflux disease without esophagitis- Primary Esophageal reflux Anxiety and depression Dysthymic disorder Obesity, Class I, BMI 30-34.9 Obesity, unspecified Elevated LDL cholesterol level Pure hypercholesterolemia Impotence of organic origin Encounter for therapeutic drug monitoring Colon cancer screening Special screening for malignant neoplasms, colon documented in this [facility]* Diagnosis Anxiety and depression Dysthymic disorder [facility] Diagnosis Anxiety and depression Dysthymic disorder documented in this encounter [facility] note* Diagnosis Anxiety and depression Dysthymic disorder documented in this encounter [facility]* Diagnosis Anxiety and depression Dysthymic disorder documented in this encounter [facility]* Diagnosis Chest pain, unspecified type- Primary Anxiety and depression Dysthymic disorder [facility] this [facility] Diagnosis Anxiety and depression Dysthymic disorder documented in this encounter [facility]* Diagnosis Left foot pain- Primary Pain in limb Other fatigue Anxiety and depression Dysthymic disorder Chest pain, unspecified type Gastroesophageal reflux disease without esophagitis Esophageal reflux Encounter for long-term current use of medication documented in this encounter [facility] note* Diagnosis Finger pain, right Pain in limb [facility]* Diagnosis SOB (shortness of breath) on exertion Shortness of breath Intermittent chest pain Chest pain, unspecified [facility]* Diagnosis Anxiety and depression Dysthymic disorder [facility] this [facility]* Diagnosis Anxiety and depression- Primary Dysthymic disorder TIA (transient ischemic attack) Unspecified transient cerebral ischemia Witnessed episode of apnea Primary hypertension Unspecified essential hypertension Daytime sleepiness Snoring Other dyspnea and respiratory abnormality Vertigo Dizziness and giddiness Visual disturbances Unspecified visual disturbance Muscle weakness Muscle weakness (generalized) [facility] this [facility]* Diagnosis Anxiety and depression Dysthymic disorder [facility] this [facility]* Diagnosis Cerebral infarction, unspecified mechanism (HCC)- Primary TIA (transient ischemic attack) Unspecified transient cerebral ischemia Primary hypertension Unspecified essential hypertension Right sided weakness Muscle weakness (generalized) documented in this encounter [facility] for referral (narrative)* Diagnostic Procedure Only (Urgent) - Closed Specialty Diagnoses / Procedures Referred By Contac t Referred To Contact XR IMAGING Diagnoses Finger pain, right Procedures XR HAND GENERAL 3V PA/LAT/OBL RT X-RAY HAND MINIMUM 3 VIEWS Jaswinder Medrano APRN.FRAME STRIPPER [address] [place] [address] [place] [address] Referral ID Status Reason Start Date Expiration Date V isits Requested Visits Authorized [id number] Closed Auto-Generate d Referral 11/07/2020 12/07/2021 1 1 [facility] for referral (narrative)No reason for referral information [facility] Phone: Reason for visit Narrative* Diagnostic Procedure Only (Urgent) - Closed Specialty Diagnoses / Procedures Referred By Contac t Referred To Contact XR IMAGING Diagnoses Finger pain, right Procedures XR HAND GENERAL 3V PA/LAT/OBL RT X-RAY HAND MINIMUM 3 VIEWS Jaswinder Medrano APRN.CNP [address] [place] [address] [place] [address] Referral ID Status Reason Start Date Expiration Date V isits Requested Visits Authorized [id number] Closed Auto-Generate d Referral 11/07/2020 12/07/2021 1 1 [facility] Advance Directives No Advanced Directives Records FoundDocuments on File Type Date Recorded 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 No June 07, 2024 12:09am Advance Directive Response Recorded Date/ Time Living Will No February 10 10:51am Do you have a Healthcare Power of Locker Room Supervisor? No February 10, 2021 10:51am Reason for Referral Specialty Diagnoses / Procedures Referred By Contac t Referred To Contact Cardiology Diagnoses Chest pain, unspecified type Procedures CONSULT TO CARDIOLOGY OFFICE/OUTPATIENT [facility] 60 MINUTES Poppy Washington, MICRO PHOTOGRAPHER.EGG BUYER [address] [place] [address] Referral ID Status Reason Start Date Expiration Date Visits Requested Visits Authorized [id number] Authorized PCP Requested Referral 08/16/2023 08/15/2024 1 1 Specialty Diagnoses / Procedures Referred By Contac t Referred [facility] Diagnoses Chest pain, unspecified type Procedures STRESS ECHO TREADMILL ECHO TTHRC R-T 2D W/WO M-MODE COMPLETE REST&ST Poppy Washington, MICRO PHOTOGRAPHER.EGG BUYER [address] [place] [address] [facility] [address] [place] [address] Referral ID Status Reason Start Date Expiration Date Visits Requested Visits Authorized [id number] Pending Review Auto-Generat ed Referral 08/16/2023 08/15/2024 1 1 Specialty Diagnoses / Procedures Referred By Contac t Referred To Contact [facility] Diagnoses Chest pain, unspecified type Procedures ECG COMPLETE ECG ROUTINE ECG W/LEAST 12 LDS W/I&R Poppy Washington, MICRO PHOTOGRAPHER.EGG BUYER [address] [place] [address] [facility] [address] [place] [address] Referral ID Status Reason Start Date Expiration Date Visits Requested Visits Authorized [id number] Pending Review Auto-Generat ed Referral 08/16/2023 08/15/2024 1 1 Chief Complaint and Reason for Visit Chief Complaint Admit Date TIA VS CVA; WITH INTERMITTEN RIGHT SIDED WEAKNESS June 06, 2024 10:35pm TIA VS CVA; WITH INTERMITTEN RIGHT SIDED WEAKNESS June 07, 2024 9:27am TIA VS CVA; WITH INTERMITTEN RIGHT SIDED WEAKNESS June 08, 2024 3:40pm Post hospitalization FU August 04, 2024 12:47pm ICA STENOSIS August 13, 2024 8:49am Reason for Visit Admit Date Depression with anxiety June 06, 2024 10:35pm Hyperlipidemia June 06, 2024 10:3 5pm Nausea & vomiting June 06, 2024 10:3 5pm Nystagmus June 06, 2024 10:3 5pm Obesity (BMI 30.0-34.9) June 06, 2024 10:35pm Post-tussive emesis June 06, 2024 10:3 5pm Right-sided muscle weakness June 06 10:35pm Tobacco abuse, in remission June 06 025 10:35pm Uncontrolled hypertension June 06 10:35pm Vertigo June 06, 2024 10:3 5pm Vomiting June 06, 2024 10:3 5pm TIA (transient ischemic attack) June 10:35pm Carotid stenosis August 04, 2024 12: 47pm Headache August 04, 2024 12: 47pm Neck pain August 04, 2024 12: 47pm Right arm pain August 04, 2024 12: 47pm Right arm weakness August 04, 2024 12: 47pm Vertigo August 04, 2024 12: 47pm Chief Complaint Admit Date TIA VS CVA; WITH INTERMITTEN RIGHT SIDED WEAKNESS June 06, 2024 10:35pm TIA VS CVA; WITH INTERMITTEN RIGHT SIDED WEAKNESS June 07, 2024 9:27am TIA VS CVA; WITH INTERMITTEN RIGHT SIDED WEAKNESS June 08, 2024 3:40pm Post hospitalization August 04, 2024 12:47pm ICA STENOSIS August 13, 2024 8:49am CERVICAL SPINE September 01, 2024 9:55a m Room 3 September 01, 2024 10:29 am Chief Complaint Admit Date Post hospitalization August 04, 2024 12:47pm ICA STENOSIS August 13, 2024 8:49am CERVICAL SPINE September 01, 2024 9:55a m Room 3 September 01, 2024 10:29 am 1 Y FU October 27, 2024 8:53 am Reason for Visit Admit Date Carotid stenosis August 04, 2024 12: 47pm Headache August 04, 2024 12: 47pm Neck pain August 04, 2024 12: 47pm Right arm pain August 04, 2024 12: 47pm Right arm weakness August 04, 2024 12: 47pm Vertigo August 04, 2024 12: 47pm Biceps tendonitis on right September 01 9:55am Degenerative disc disease, cervical September 01, 2024 9:55am Impingement of right shoulder September 01, 2024 9:55am Right arm weakness September 01, 2024 9:55a m Fatigue October 27, 2024 8:53 am SOB (shortness of breath) October 27 8:53am Chief Complaint Admit Date Post hospitalization FU August 04, 2024 12:47pm ICA STENOSIS August 13, 2024 8:49am CERVICAL SPINE September 01, 2024 9:55a m Room 3 September 01, 2024 10:29 am 1 Y FU October 27, 2024 8:53 am INT LABS October 27, 2024 9:49 am Reason for Visit Admit Date Carotid stenosis August 04, 2024 12: 47pm Headache August 04, 2024 12: 47pm Neck pain August 04, 2024 12: 47pm Right arm pain August 04, 2024 12: 47pm Right arm weakness August 04, 2024 12: 47pm Vertigo August 04, 2024 12: 47pm Biceps tendonitis on right September 01 9:55am Degenerative disc disease, cervical September 01, 2024 9:55am Impingement of right shoulder September 01, 2024 9:55am Right arm weakness September 01, 2024 9:55a m Fatigue October 27, 2024 8:53 am Hyperlipidemia October 27, 2024 8:53 am SOB (shortness of breath) October 27 8:53am Uncontrolled hypertension October 27 8:53am Chief Complaint Admit Date 1 Y FU October 27, 2024 8:53 am INT LABS October 27, 2024 9:49 am EMMANUEL, FATIGUE December 22, 2024 1:07pm EMMANUEL, FATIGUE December 23, 2024 6:26pm Amb Documentation December 24, 2024 1:13pm Reason for Visit Admit Date Fatigue October 27, 2024 8:53 am Hyperlipidemia October 27, 2024 8:53 am SOB (shortness of breath) October 27 8:53am Uncontrolled hypertension October 27 8:53am Family History No Family History Records Found Relationship Condition Age at Onset Recorded Date/T selina father Myocardial infarction Unknown mother Dementia Unknown Summary Purpose Additional Source Comments Source Comments (unrecognize d section and content) In the event this informatio n is protected by the Federal Confidentiality of Alcohol and Drug Abuse Patient Records regulations: The Federal rules restrict any use of the information to criminally investigate or prosecute any alcohol or drug abuse patient.[facility] the event this information is protected by the Federal Confidentiality of Alcohol and Drug Abuse Patient Records regulations: The Federal rules restrict any use of the information to criminally investigate or prosecute any alcohol or drug abuse patient.[facility] the event this information is protected by the Federal Confidentiality of Alcohol and Drug Abuse Patient Records regulations: The Federal rules restrict any use of the information to criminally investigate or prosecute any alcohol or drug abuse patient.[facility] the event this information is protected by the Federal Confidentiality of Alcohol and Drug Abuse Patient Records regulations: The Federal rules restrict any use of the information to criminally investigate or prosecute any alcohol or drug abuse patient.[facility] the event this information is protected by the Federal Confidentiality of Alcohol and Drug Abuse Patient Records regulations: The Federal rules restrict any use of the information to criminally investigate or prosecute any alcohol or drug abuse patient.[facility] the event this information is protected by the Federal Confidentiality of Alcohol and Drug Abuse Patient Records regulations: The Federal rules restrict any use of the information to criminally investigate or prosecute any alcohol or drug abuse patient.[facility] the event this information is protected by the Federal Confidentiality of Alcohol and Drug Abuse Patient Records regulations: The Federal rules restrict any use of the information to criminally investigate or prosecute any alcohol or drug abuse patient.[facility] the event this information is protected by the Federal Confidentiality of Alcohol and Drug Abuse Patient Records regulations: The Federal rules restrict any use of the information to criminally investigate or prosecute any alcohol or drug abuse patient.[facility] the event this information is protected by the Federal Confidentiality of Alcohol and Drug Abuse Patient Records regulations: The Federal rules restrict any use of the information to criminally investigate or prosecute any alcohol or drug abuse patient.[facility] the event this information is protected by the Federal Confidentiality of Alcohol and Drug Abuse Patient Records regulations: The Federal rules restrict any use of the information to criminally investigate or prosecute any alcohol or drug abuse patient.[facility] the event this information is protected by the Federal Confidentiality of Alcohol and Drug Abuse Patient Records regulations: The Federal rules restrict any use of the information to criminally investigate or prosecute any alcohol or drug abuse patient.[facility] the event this information is protected by the Federal Confidentiality of Alcohol and Drug Abuse Patient Records regulations: The Federal rules restrict any use of the information to criminally investigate or prosecute any alcohol or drug abuse patient.[facility] the event this information is protected by the Federal Confidentiality of Alcohol and Drug Abuse Patient Records regulations: The Federal rules restrict any use of the information to criminally investigate or prosecute any alcohol or drug abuse patient.[facility] the event this information is protected by the Federal Confidentiality of Alcohol and Drug Abuse Patient Records regulations: The Federal rules restrict any use of the information to criminally investigate or prosecute any alcohol or drug abuse patient.[facility] the event this information is protected by the Federal Confidentiality of Alcohol and Drug Abuse Patient Records regulations: The Federal rules restrict any use of the information to criminally investigate or prosecute any alcohol or drug abuse patient.[facility] the event this information is protected by the Federal Confidentiality of Alcohol and Drug Abuse Patient Records regulations: The Federal rules restrict any use of the information to criminally investigate or prosecute any alcohol or drug abuse patient.[facility] the event this information is protected by the Federal Confidentiality of Alcohol and Drug Abuse Patient Records regulations: The Federal rules restrict any use of the information to criminally investigate or prosecute any alcohol or drug abuse patient.[facility] the event this information is protected by the Federal Confidentiality of Alcohol and Drug Abuse Patient Records regulations: The Federal rules restrict any use of the information to criminally investigate or prosecute any alcohol or drug abuse patient.[facility] the event this information is protected by the Federal Confidentiality of Alcohol and Drug Abuse Patient Records regulations: The Federal rules restrict any use of the information to criminally investigate or prosecute any alcohol or drug abuse patient.[facility] the event this information is protected by the Federal Confidentiality of Alcohol and Drug Abuse Patient Records regulations: The Federal rules restrict any use of the information to criminally investigate or prosecute any alcohol or drug abuse patient.[facility] the event this information is protected by the Federal Confidentiality of Alcohol and Drug Abuse Patient Records regulations: The Federal rules restrict any use of the information to criminally investigate or prosecute any alcohol or drug abuse patient.[facility] the event this information is protected by the Federal Confidentiality of Alcohol and Drug Abuse Patient Records regulations: The Federal rules restrict any use of the information to criminally investigate or prosecute any alcohol or drug abuse patient.[facility] the event this information is protected by the Federal Confidentiality of Alcohol and Drug Abuse Patient Records regulations: The Federal rules restrict any use of the information to criminally investigate or prosecute any alcohol or drug abuse patient.[facility] the event this information is protected by the Federal Confidentiality of Alcohol and Drug Abuse Patient Records regulations: The Federal rules restrict any use of the information to criminally investigate or prosecute any alcohol or drug abuse patient.[facility] the event this information is protected by the Federal Confidentiality of Alcohol and Drug Abuse Patient Records regulations: The Federal rules restrict any use of the information to criminally investigate or prosecute any alcohol or drug abuse patient.[facility] the event this information is protected by the Federal Confidentiality of Alcohol and Drug Abuse Patient Records regulations: The Federal rules restrict any use of the information to criminally investigate or prosecute any alcohol or drug abuse patient.[facility]In the event this information is protected by the Federal Confidentiality of Alcohol and Drug Abuse Patient Records regulations: The Federal rules restrict any use of the information to criminally investigate or prosecute any alcohol or drug abuse patient.[facility] the event this information is protected by the Federal Confidentiality of Alcohol and Drug Abuse Patient Records regulations: The Federal rules restrict any use of the information to criminally investigate or prosecute any alcohol or drug abuse patient.[facility] the event this information is protected by the Federal Confidentiality of Alcohol and Drug Abuse Patient Records regulations: The Federal rules restrict any use of the information to criminally investigate or prosecute any alcohol or drug abuse patient.[facility] the event this information is protected by the Federal Confidentiality of Alcohol and Drug Abuse Patient Records regulations: The Federal rules restrict any use of the information to criminally investigate or prosecute any alcohol or drug abuse patient.[facility] SouthIn the event this information is protected by the Federal Confidentiality of Alcohol and Drug Abuse Patient Records regulations: The Federal rules restrict any use of the information to criminally investigate or prosecute any alcohol or drug abuse patient.[facility] Reason for Visit (unrecogniz ed section and content) Reason Comments Recheck 6 month follow up Reason Comments Patient Question Reason Onset Date Comments Refill Request 01/30/2022 Reason Onset Date Comments Refill Request 04/21/2022 Reason Onset Date Comments Refill Request 06/19/2022 Reason Onset Date Comments Refill Request 07/06/2022 Reason Onset Date Comments Refill Request 08/20/2022 Reason Comments F/U 6 months Reason Onset Date Comments Refill Request 02/04/2023 Reason Onset Date Comments Refill Request 02/13/2023 Reason Onset Date Comments Refill Request 08/13/2023 Reason Comments Future Appointment Reason Comments F/U 6 Month Reason Onset Date Comments Refill Request 09/13/2023 Reason Onset Date Comments Refill Request 11/11/2023 Reason Comments Radiology XR Reason Onset Date Comments Refill Request 05/11/2024 Reason Comments ER F/U [facility] 06/06/24-06/09/24 in itially for neuro SX right side weakness dx TIA Reason Onset Date Comments Refill Request 09/01/2024 Reason Onset Date Comments Refill Request 09/14/2024 Reason Onset Date Comments Refill Request 10/06/2024 Reason Comments New Patient New NI Patient Specialty Diagnoses / Procedures Referred By Miguel t Referred To Contact Neurology Diagnoses TIA (transient ischemic attack) Primary hypertension Procedures CONSULT TO NEUROLOGY OFFICE/OUTPATIENT NEW HIGH MDM 60 MINUTES Sheila Mobley MD [address] [place] [address] Phone: tel: fax: Referral ID Status Reason Start Date Expiration Date V isits Requested Visits Authorized [id number] Closed PCP Requested Referral 07/10/2024 06/24/2025 1 1 Reason Comments Imaging/Records Reason Onset Date Comments Refill Request 11/13/2024 Care Teams (unrecognized sec tion and content) Medical Claims Manager Relationship Specialty Start Date End Date Sheila Mobley MD [address] [place], [place] [id number] PCP - General 01/30/02 Medical Claims Manager Relationship Specialty [place] [address] [place] [id number] PCP - General 01/30/02 Medical Claims Manager Relationship Specialty Start Date End Date Sheial Mobley MD [address] [place] [address] [id number] PCP - General 01/30/02 Medical Claims Manager Relationship Specialty Start Date End Date Shiela Mobley MD [address] [place], [place] [id number] PCP - General 01/30/02 Medical Claims Manager Relationship Specialty Start Date End Date Sheila Mobley MD [address] [place] [address] [id number] PCP - General 01/30/02 Medical Claims Manager Relationship Specialty Start Date End Date Sheila Mobley MD [address] [place], [place] [id number] PCP - General 01/30/02 Medical Claims Manager Relationship Specialty Start Date End Date Sheila Mobley MD [address] [place] [address] [id number] PCP - General 01/30/02 Medical Claims Manager Relationship Specialty Start Date End Date Sheila Mobley MD [address] [place] [address] PCP - General 01/30/02 Medical Claims Manager Relationship Specialty Start Date End Date Sheila Mobley MD [address] [place] [address] PCP - General 01/30/02 Medical Claims Manager Relationship Specialty Start Date End Date Sheila Mobley MD [address] [place] [address] PCP - General 01/30/02 Medical Claims Manager Relationship Specialty Start Date End Date Sheila Mobley MD [address] [place] [address] PCP - General 01/30/02 Medical Claims Manager Relationship Specialty Start Date End Date Sheila Mobley MD [address] [place] [address] PCP - General 01/30/02 Medical Claims Manager Relationship Specialty Start Date End Date Sheila Mobley MD [address] [place] [address] PCP - General 01/30/02 Medical Claims Manager Relationship Specialty Start Date End Date Sheila Mobley MD [address] [place] [address] PCP - General 01/30/02 Medical Claims Manager Relationship Specialty Start Date End Date Sheila Mobley MD [address] [place] [address] PCP - General 01/30/02 Medical Claims Manager Relationship Specialty Start Date End Date Sheila Mobley MD [address] [place], [place] [address] PCP - General 01/30/02 Medical Claims Manager Relationship Specialty Start Date End Date Sheila Mobley MD [address] [place], [place] [address] PCP - General 01/30/02 Poppy Washington, MICRO PHOTOGRAPHER.EGG BUYER [address] [place], [place] [address] Flight Operation Coordinator Internal Medicine 03/16/24 Alice Sandhu MICRO PHOTOGRAPHER.FRAME STRIPPER [address] [place] [id number] Flight Operation Coordinator Internal Medicine 03/16/24 Medical Claims Manager Relationship Specialty Start Date End Date Sheila Mobley MD [address] [place] [address] PCP - General 01/30/02 Poppy Washington, MICRO PHOTOGRAPHER.EGG BUYER [address] [place] [address] Flight Operation Coordinator Internal Medicine 03/16/24 Alice Sandhu MICRO PHOTOGRAPHER.FRAME STRIPPER [address] [place] [address] Flight Operation Coordinator Internal Medicine 03/16/24 06/26/24 Team Status: Active Member Role Status Dates Dr. Sheila Mobley MD Primary Care Provider Active Team Status: Inactive Member Role Status Dates Dr. Sheila Mobley MD Primary Care Provider Active Start: June 06, 2024 End: June 08, 2024 Dr. Yokasta Marti DO Emergency Provider Active Start: June 06, 2024 End: June 08, 2024 Dr. Otis Schilling DO Admit Provider Active Start: June 06, 2024 End: June 08, 2024 Dr. Otis Schilling DO Other Provider Active Start: June 06, 2024 End: June 08, 2024 Ace Cortes MD Other Provider Active Start: [facility] 2024 End: June 08, 2024 Dr. Caroline Johnson MD Other Provider Active Start: June 06, 2024 End: June 08, 2024 Angelica Weston MD Other Provider Active Start : June 06, 2024 End: June 08, 2024 Dr. Peggy Terry DO Other Provider Active St art: June 06, 2024 End: June 08, 2024 Dr. Haylee Chapa MD Other Provider Active Start: June 06, 2024 End: June 08, 2024 Dr. Barron Raines MD Other Provider Active Sta rt: June 06, 2024 End: June 08, 2024 Dr. Venus Leon MD Other Provider Active Start : June 06, 2024 End: June 08, 2024 Dr. Te Talley MD Other Provider Active Start: June 06, 2024 End: June 08, 2024 Dr. Sedrick Cannon MD Other Provider Active Start : June 06, 2024 End: June 08, 2024 Dr. Kye Storey MD Other Provider Active Sta rt: June 06, 2024 End: June 08, 2024 Tiffany Eisenberg MD Other Provider Active Start : June 06, 2024 End: June 08, 2024 Dr. Scott Faustin MD Other Provider Active St art: June 06, 2024 End: June 08, 2024 Dr. Lakesha Clancy MD Other Provider Active Start : June 06, 2024 End: June 08, 2024 Dr. Henrry Bailey MD Other Provider Active Sta rt: June 06, 2024 End: June 08, 2024 Dr. Andree Weeks MD Other Provider Active Start: June 06, 2024 End: June 08, 2024 Dr. Odin Dodd MD Other Provider Active St art: June 06, 2024 End: June 08, 2024 Dr. Joanne Pillai MD Other Provider Active Star t: June 06, 2024 End: June 08, 2024 Dr. Emanuel Vincent MD Other Provider Active St art: June 06, 2024 End: June 08, 2024 Dr. Katie Edmond MD Other Provider Active Start: June 06, 2024 End: June 08, 2024 Ngoc Olivas MD Other Provider Active Start: June 06, 2024 End: June 08, 2024 Dr. Grant Botello MD Attending Provider Active Start: June 06, 2024 End: June 08, 2024 Dr. Grant Botello MD Other Provider Active Start: June 06, 2024 Team Status: Active Member Role Status Dates Dr. Sheila Mobley MD Primary Care Provider Active Start: June 07, 2024 Dr. Yokasta Marti DO Emergency Provider Active Start: June 07, 2024 Dr. Otis Schilling DO Admit Provider Active Start: June 07, 2024 Dr. Otis Schilling DO Other Provider Active Start: June 07, 2024 Ace Cortes MD Other Provider Active Start: [facility] 2024 Dr. Caroline Johnson MD Other Provider Active Start: June 07, 2024 Angelica Weston MD Other Provider Active Start : June 07, 2024 Dr. Peggy Teryr DO Other Provider Active St art: June 07, 2024 Dr. Haylee Chapa MD Other Provider Active Start: June 07, 2024 Dr. Barron Raines MD Other Provider Active Sta rt: June 07, 2024 Dr. Venus Leon MD Other Provider Active Start : June 07, 2024 Dr. Te Talley MD Other Provider Active Start: June 07, 2024 Dr. Sedrick Cannon MD Other Provider Active Start : June 07, 2024 Dr. Kye Storey MD Other Provider Active Sta rt: June 07, 2024 Tiffany Eisenberg MD Other Provider Active Start : June 07, 2024 Dr. Scott Faustin MD Other Provider Active St art: June 07, 2024 Dr. Lakesha Clancy MD Other Provider Active Start : June 07, 2024 Dr. Henrry Bailey MD Other Provider Active Sta rt: June 07, 2024 Dr. Andree Weeks MD Other Provider Active Start: June 07, 2024 Dr. Odin Dodd MD Other Provider Active St art: June 07, 2024 Dr. Joanne Pillai MD Other Provider Active Star t: June 07, 2024 Dr. Emanuel Vincent MD Other Provider Active St art: June 07, 2024 Dr. Katie Edmond MD Other Provider Active Start: June 07, 2024 Ngoc Olivas MD Other Provider Active Start: June 07, 2024 Dr. Grant Botello MD Attending Provider Active Start: June 07, 2024 Dr. Grant Botello MD Other Provider Active Start: June 07, 2024 Team Status: Active Member Role Status Dates Dr. Sheila Mobley MD Primary Care Provider Active Start: June 08, 2024 Dr. Yokasta Marti DO Emergency Provider Active Start: June 08, 2024 Dr. Otis Schilling DO Admit Provider Active Start: June 08, 2024 Dr. Otis Schilling DO Other Provider Active Start: June 08, 2024 Ace Cortes MD Other Provider Active Start: [facility] 2024 Dr. Caroline Johnson MD Other Provider Active Start: June 08, 2024 Angelica Weston MD Other Provider Active Start : June 08, 2024 Dr. Peggy Terry DO Other Provider Active St art: June 08, 2024 Dr. Haylee Chapa MD Other Provider Active Start: June 08, 2024 Dr. Barron Raines MD Other Provider Active Sta rt: June 08, 2024 Dr. Venus Leon MD Other Provider Active Start : June 08, 2024 Dr. Te Talley MD Other Provider Active Start: June 08, 2024 Dr. Sedrick Cannon MD Other Provider Active Start : June 08, 2024 Dr. Kye Storey MD Other Provider Active Sta rt: June 08, 2024 Tiffany Eisenberg MD Other Provider Active Start : June 08, 2024 Dr. Scott Faustin MD Other Provider Active St art: June 08, 2024 Dr. Lakesha Clancy MD Other Provider Active Start : June 08, 2024 Dr. Henrry Bailey MD Other Provider Active Sta rt: June 08, 2024 Dr. Andree Weeks MD Other Provider Active Start: June 08, 2024 Dr. Odin Dodd MD Other Provider Active St art: June 08, 2024 Dr. Joanne Pillai MD Other Provider Active Star t: June 08, 2024 Dr. Emanuel Vincent MD Other Provider Active St art: June 08, 2024 Dr. Katie Edmond MD Other Provider Active Start: June 08, 2024 Ngoc Olivas MD Other Provider Active Start: June 08, 2024 Dr. Grant Botello MD Attending Provider Active Start: June 08, 2024 Dr. Grant Botello MD Other Provider Active Start: June 08, 2024 Team Status: Inactive Member Role Status Dates Dr. Sheila Mobley MD Primary Care Provider Active Start: August 04, 2024 End: August 04, 2024 Dr. Sheila Mobley MD Referring Provider Active Start: August 04, 2024 End: August 04, 2024 MARCY Mujica Attending Provider Active Star t: August 04, 2024 End: August 04, 2024 Team Status: Inactive Member Role Status Dates Dr. Sheila Mobley MD Primary Care Provider Active Start: August 13, 2024 End: August 13, 2024 MARCY Mujica Attending Provider Active Star t: August 13, 2024 End: August 13, 2024 MARCY Mujica Referring Provider Active Star t: August 13, 2024 End: August 13, 2024 Team Status: Active Member Role Status Dates Dr. Sheila Mobley MD Primary Care Provider Active Start: August 13, 2024 Dr. Jaswinder Beckett MD Attending Provider Active S tart: August 13, 2024 MARCY Mujica Referring Provider Active Star t: August 13, 2024 Team Status: Active Member Role Status Dates Dr. Sheila Mobley MD Primary Care Provider Active Start: September 01, 2024 Dr. Sheila Mobley MD Referring Provider Active Start: September 01, 2024 JASPAL Hamilton Attending Provider Active Start: September 01, 2024 Team Status: Inactive Member Role Status Dates Dr. Sheila Mobley MD Primary Care Provider Active Start: September 01, 2024 End: September 01, 2024 Dr. Jim Cronin MD Attending Provider Active S tart: September 01, 2024 End: September 01, 2024 Team Status: Inactive Member Role Status Dates Dr. Sheila Mobley MD Primary Care Provider Active Start: September 01, 2024 End: September 01, 2024 Dr. Sheila Mobley MD Referring Provider Active Start: September 01, 2024 End: September 01, 2024 Sweta Garcia NP-C Attending Provider Active Start: September 01, 2024 End: September 01, 2024 Medical Claims Manager Relationship Specialty Start Date End Date Sheila Mobley MD [address] [place] [address] PCP - General 01/30/02 Alice Sandhu MICRO PHOTOGRAPHER.FRAME STRIPPER [address] [place] [address] Flight Operation Coordinator Internal Medicine 06/30/24 Poppy Washington, MICRO PHOTOGRAPHER.EGG BUYER [address] [facility] [place] [address] Flight Operation Coordinator Internal Medicine 08/26/24 Medical Claims Manager Relationship Specialty Start Date End Date Sheila Mobley MD [address] [place] [address] PCP - General 01/30/02 Alice Sandhu MICRO PHOTOGRAPHER.FRAME STRIPPER [address] [place] [address] Flight Operation Coordinator Internal Medicine 06/30/24 Poppy Washington, MICRO PHOTOGRAPHER.EGG BUYER [address] [place] [address] Flight Operation Coordinator Internal Medicine 08/26/24 Medical Claims Manager Relationship Specialty Start Date End Date Sheila Mobley MD [address] [place] [address] PCP - General 01/30/02 Alice Sandhu APRN.FRAME STRIPPER [address] [place] [address] Flight Operation Coordinator Internal Medicine 06/30/24 Poppy Washington, MICRO PHOTOGRAPHER.EGG BUYER [address] [place] [address] Flight Operation Coordinator Internal Medicine 08/26/24 Medical Claims Manager Relationship Specialty Start Date End Date Sheila Mobley MD [address] [place] [address] PCP - General 01/30/02 Alice Sandhu APRN.FRAME STRIPPER [address] [place] [address] Flight Operation Coordinator Internal Medicine 06/30/24 Poppy Washington, MICRO PHOTOGRAPHER.EGG BUYER [address] [place] [address] Flight Operation Coordinator Internal Medicine 08/26/24 Medical Claims Manager Relationship Specialty Start Date End Date Sheila Mobley MD [address] [place] [address] PCP - General 01/30/02 Alice Sandhu APRN.FRAME STRIPPER [address] [place] [address] Flight Operation Coordinator Internal Medicine 06/30/24 Poppy Washington, MICRO PHOTOGRAPHER.EGG BUYER [address] [place] [address] [facility] Internal Medicine 08/26/24 Team Status: Active Member Role/Relationship Status Dates Dr. Sheila Mobley MD Primary Care Provider Active Team Status: Inactive Member Role/Relationship Status Dates Dr. Sheila Mobley MD Primary Care Provider Active Start: August 04, 2024 End: August 04, 2024 Dr. Sheila Mobley MD Referring Provider Active Start: August 04, 2024 End: August 04, 2024 MARCY Mujica Attending Provider Active Star t: August 04, 2024 End: August 04, 2024 Team Status: Inactive Member Role/Relationship Status Dates Dr. Sheila Mobley MD Primary Care Provider Active Start: August 13, 2024 End: August 13, 2024 MARCY Mujica Attending Provider Active Star t: August 13, 2024 End: August 13, 2024 MARCY Mujica Referring Provider Active Star t: August 13, 2024 End: August 13, 2024 Team Status: Active Member Role/Relationship Status Dates Dr. Sheila Mobley MD Primary Care Provider Active Start: August 13, 2024 Dr. Jaswinder Beckett MD Attending Provider Active S tart: August 13, 2024 MARCY Mujica Referring Provider Active Star t: August 13, 2024 Team Status: Inactive Member Role/Relationship Status Dates Dr. Sheila Mobley MD Primary Care Provider Active Start: September 01, 2024 End: September 01, 2024 Dr. Sheila Mobley MD Referring Provider Active Start: September 01, 2024 End: September 01, 2024 JASPAL Hamilton Attending Provider Active Start: September 01, 2024 End: September 01, 2024 Team Status: Inactive Member Role/Relationship Status Dates Dr. Sheila Mobley MD Primary Care Provider Active Start: September 01, 2024 End: September 01, 2024 Dr. Jim Cronin MD Attending Provider Active S tart: September 01, 2024 End: September 01, 2024 Team Status: Inactive Member Role/Relationship Status Dates Dr. Sheila Mobley MD Primary Care Provider Active Start: October 27, 2024 End: October 27, 2024 Dr. Sheila Mobley MD Referring Provider Active Start: October 27, 2024 End: October 27, 2024 Isatu Bingham DOCK HAND, DOCK HAND-C Attending Provider Active Start: October 27, 2024 End: October 27, 2024 Team Status: Inactive Member Role/Relationship Status Dates Dr. Sheila Mobley MD Primary Care Provider Active Start: October 27, 2024 End: October 27, 2024 Isatu Bingham DOCK HAND, DOCK HAND-C Attending Provider Active Start: October 27, 2024 End: October 27, 2024 Isatu Bingham DOCK HAND, DOCK HAND-C Referring Provider Active Start: October 27, 2024 End: October 27, 2024 Medical Claims Manager Relationship Specialty Start Date End Date Sheila Mobely MD [address] [place] [address] PCP - General 01/30/02 Alice Sandhu MICRO PHOTOGRAPHER.FRAME STRIPPER [address] [place] [address] Flight Operation Coordinator Internal Medicine 06/30/24 Poppy Washington, MICRO PHOTOGRAPHER.EGG BUYER [address] [place] [address] [facility] Internal Medicine 08/26/24 Medical Claims Manager Relationship Specialty Start Date End Date Sheila Mobley MD [address] [place] [address] PCP - General 01/30/02 Alice Sandhu MICRO PHOTOGRAPHER.FRAME STRIPPER [address] [place] [address] [facility] Internal Medicine 06/30/24 Poppy Washington MICRO PHOTOGRAPHER.EGG BUYER [address] [place] [address] [facility] Internal Medicine 08/26/24 Team Status: Active Member Role/Relationship Status Dates Dr. Sheila Mobley MD Primary care physician Active Team Status: Inactive Member Role/Relationship Status Dates Dr. Sheila Mobley MD Primary care physician Active Start: October 27, 2024 End: October 27, 2024 Dr. Sheila Mobley MD Referring Provider Active Start: October 27, 2024 End: October 27, 2024 Isatu Bingham DOCK HAND, DOCK HAND-C Attending physician Active Start: October 27, 2024 End: October 27, 2024 Team Status: Inactive Member Role/Relationship Status Dates Dr. Sheila Mobley MD Primary care physician Active Start: October 27, 2024 End: October 27, 2024 Isatu Bingham DOCK HAND, DOCK HAND-C Attending physician Active Start: October 27, 2024 End: October 27, 2024 Isatu Bingham DOCK HAND, DOCK HAND-C Referring Provider Active Start: October 27, 2024 End: October 27, 2024 Team Status: Inactive Member Role/Relationship Status Dates Dr. Sheila Mobley MD Primary care physician Active Start: December 22, 2024 End: December 22, 2024 Isatu Bingham DOCK HAND, DOCK HAND-C Attending physician Active Start: December 22, 2024 End: December 22, 2024 Isatu Bingham DOCK HAND, DOCK HAND-C Referring Provider Active Start: December 22, 2024 End: December 22, 2024 Team Status: Active Member Role/Relationship Status Dates Dr. Sheila Mobley MD Primary care physician Active Start: December 23, 2024 Isatu Bingham DOCK HAND, DOCK HAND-C Referring Provider Active Start: December 23, 2024 Isatu Bingham DOCK HAND, DOCK HAND-C Nurse Practitioner Active Start: December 23, 2024 Dr. Jim Cronin MD Attending physician Active Start: December 23, 2024 Team Status: Active Member Role/Relationship Status Dates Dr. Sheila Mobley MD Primary care physician Active Start: December 24, 2024 Isatu Bingham DOCK HAND, DOCK HAND-C Attending physician Active Start: December 24, 2024 Goals (unrecognized section and content) Goals may be documented in a n alternate sectionGoals may be documented in an alternate sectionGoals may be documented in an alternate section (unrecognized sect ion and content) No Status Records FoundNo Status Records Found INFORMATION SOURCE (unrecogn ized section and content) DATE CREATED AUTHOR 02/13/2025 [facility] DATE CREATED AUTHOR AUTHOR'S NUSRAT BEATRIZEDGAR 02/13/2025 [facility] FOR RECORDS PERTAINING TO PATIENTS WHO ARE OR HAVE BEEN ENROLLED IN A CHEMICAL DEPENDENCY/SUBSTANCEABUSE PROGRAM, SOME INFORMATION MAY BE OMITTED. This clinical summary was aggregated from multiple sources. Caution should be exercised in using it in the provision of clinical care. This summary normalizes information from multiple sources, and as a consequence, information in this document may materially change the coding, format and clinical context of patient data. In addition, data may be omitted in some cases. CLINICAL DECISIONS SHOULD BE BASED ON THE PRIMARY CLINICAL RECORDS. [employer] [facility]. provides no warranty or guarantee of the accuracy or completeness of information in this document.
--- NOTE | 2025-03-02 07:17 | ECHOD_ITS ---
Reason For Study Reason For Study: SOB Procedure This was a 2D Doppler, Color Flow transthoracic echocardiogram. Exam performed in department. Left Ventricle Normal LV size. Mild concentric left ventricular hypertrophy. The left ventricular ejection fraction is 60 %. Stage 1 diastolic dysfunction. No regional wall motion abnormalities noted. Right Ventricle Normal RV size. Normal systolic function. Atria Normal left atrium. Normal right atrium. Mitral Valve Normal mitral valve. Tricuspid Valve Normal tricuspid valve. Mild (1+) tricuspid valve insufficiency. Pulmonary artery systolic pressure is 24 mmHg. Aortic Valve Trisinus/trileaflet aortic valve. Pulmonic Valve Normal pulmonic valve. Great Vessels Normal aortic root. The pulmonary artery is normal size. Inferior vena cava collapse with respiration. Pericardium/Pleural No pericardial effusion. MMode/2D Measurements & Calculations LVIDd: 4.8 cm IVSd: 1.2 cm Ao root diam: 3.2 cm LVIDs: 4.0 cm LVPWd: 1.4 cm FS: 16.6 % LAV(MOD-bp): 43.3 ml LVAd ap4: 22.8 cm2 SV(MOD-sp4): 35.2 ml LAV(MOD-bp) Indexed: 19.7 ml/m2 LVLd ap4: 7.3 cm SI(MOD-sp4): 16.0 ml/m2 LAV(MOD-sp2): 39.0 ml EDV(MOD-sp4): 60.6 ml LAV(MOD-sp4): 43.2 ml EDV(sp4-el): 60.9 ml LVAs ap4: 12.9 cm2 LVLs ap4: 5.5 cm ESV(MOD-sp4): 25.5 ml ESV(sp4-el): 25.5 ml EF(MOD-sp4): 58.0 % EF(sp4-el): 58.1 % SV(sp4-el): 35.4 ml LA A4 area: 16.8 cm2 LA dimension(2D): 4.1 cm RA A4 area: 10.4 cm2 Time Measurements MV dec time: 0.20 sec Doppler Measurements & Calculations MV E max ector: 45.0 cm/sec Lat Peak E' Ector: 10.5 cm/sec Med Peak E' Ector: 4.5 cm/sec MV A max ector: 72.2 cm/sec E/E' lat: 4.3 E/E' med: 10.0 MV E/A: 0.62 MV V2 max: 68.5 cm/sec Ao V2 max: 124.0 cm/sec MV max P.9 mmHg MV dec slope: 227.7 cm/sec2 Ao max P.2 mmHg MV V2 mean: 41.8 cm/sec Ao V2 mean: 92.5 cm/sec MV mean P.79 mmHg Ao mean P.8 mmHg MV V2 VTI: 11.6 cm Ao V2 VTI: 24.1 cm AV (velocity ratio): 0.92 LV V1 max: 102.6 cm/sec PA V2 max: 95.1 cm/sec TR max ector: 229.7 cm/sec LV V1 max P.2 mmHg PA V2 mean: 66.7 cm/sec TR max P.1 mmHg LV V1 mean P.3 mmHg LV V1 mean: 71.0 cm/sec LV V1 VTI: 22.1 cm ECHO/Echo Complete Interpretation Summary Normal LV size. Mild concentric left ventricular hypertrophy. The left ventricular ejection fraction is 60 %. Stage 1 diastolic dysfunction. Ordering Physician: Isatu Bingham Referring Physician: Isatu Bingham Performed By: Elvia Hoff RCS
--- NOTE | 2025-03-02 18:45 | STRESSREP ---
Stress Test Report Exercise myocardial perfusion stress test. 54-year-old man with a history of dyspnea. Stress protocol: Resting EKG demonstrates normal sinus rhythm with a rate of 75 bpm resting blood pressure is 132/80 mmHg. The patient exercised according to the regular [facility] protocol for a total duration of 7 minutes and 40 seconds attaining a maximum heart rate of 150 bpm which was 91% of maximum predicted heart rate; the maximum workload was 10.1 metabolic equivalents. At rest there were no ST or T wave changes noted to suggest ischemia and at peak exercise upsloping ST changes only were noted which did not meet the criteria for ischemia. No clinical angina was noted the test was terminated due to the target heart rate being achieved/fatigue. The peak blood pressure was 194/84 mmHg. Rate-pressure product was 28,700. Myocardial perfusion protocol. 13.3 mCi of technetium 99m sestamibi was injected at rest. The patient exercised according to regular [facility] protocol for total duration of 7 minutes and 40 seconds and at peak exercise 43 mCi of technetium 99m sestamibi was injected stress images were obtained stress and rest images were reconstructed in comparing the short axis vertical long and horizontal long axis. Gated images were also obtained. Perfusion SPECT analysis: Review of the stress images demonstrate normal uptake of tracer noted in all areas of the myocardium. The resting images similarly demonstrate normal uptake of tracer noted in all areas of the myocardium. No areas of reversibility are noted to suggest ischemia no previous infarct was noted. Gated SPECT analysis: The gated ejection fraction is 73%. Conclusion: Normal exercise myocardial perfusion stress test at a high workload.
== END | disposition home or self-care (01) ==
PROVIDERS: PCP Internal Medicine; Referring Provider Nurse Practitioner Gerontology; Visit Provider Nurse Practitioner Gerontology
DX: R07.9 Chest pain, unspecified (principal); R06.02 Shortness of breath; R53.83 Other fatigue
CPT/HCPCS: 78452; 93017; 93306; A9500; A4216

== ENCOUNTER → 2025-03-25 | Outpatient (CLI) | payer OTHER, SELFPAY ==
[2025-03-25 13:16] LABS: Hematocrit 43.9 % (40-54); Hemoglobin 15.5 g/dL (13.0-16.5); Immature Granulocytes Count 0.010 X10^3/uL (0.0-0.0); Mean Corp Hgb Conc 35.3 g/dL (32-36); Mean Corpuscular Volume 88.9 fL (80-94); Mean Platelet Vol. 10.8 fl (6.2-12.0); NRBC Flagged by Analyzer 0 % (0-5); Platelet Count 215 K/mm3 (150-450); RBC Distribution Width CV 12.2 % (11.6-14.6); RBC Distribution Width SD 39.5 fl (35.1-43.9); Red Blood Count 4.94 M/mm3 (4.6-6.2); White Blood Count 5.3 K/mm3 (4.4-11.0)
[2025-03-25 13:55] LABS: Free T3 2.8 pg/mL (2.18-3.98)
[2025-03-25 14:01] LABS: Anion Gap 13 (5-15); BUN 18 mg/dL (4-19); BUN/Creat Ratio 14.3 RATIO (10-20); Calcium,Total 9.5 mg/dL (7.6-11.0); Carbon Dioxide 26.2 mmol/L (21.0-32.0); Chloride 100 mmol/L (98-108); Glucose 83 mg/dL (70-99); Potassium 3.9 mmol/L (3.3-5.1)
== END | disposition home or self-care (01) ==
LOC: LAB 12:05
PROVIDERS: PCP Internal Medicine; Referring Provider Nurse Practitioner Gerontology; Visit Provider Nurse Practitioner Gerontology
DX: I10 Essential (primary) hypertension (principal); R53.83 Other fatigue
CPT/HCPCS: 36415; 80048; 84439; 84443; 84481; 85025